=== PATIENT | male | born 1970 | race Caucasian/White ===

== ENCOUNTER → 2021-02-27 14:16 | Outpatient (REF) | payer OTHER, SELFPAY ==
--- NOTE | 2021-02-27 14:32 | ECG_ITS ---
Test Reason : cp Blood Pressure : / mmHG Vent. Rate : 085 BPM Atrial Rate : 085 BPM P-R Int : 136 ms QRS Dur : 084 ms QT Int : 368 ms P-R-T Axes : 052 -70 056 degrees QTc Int : 437 ms Normal sinus rhythm Left anterior fascicular block Abnormal ECG No previous ECGs available Referred By: Teri Alanis Electronically Signed By:ELISSA PATINO
== END ==
LOC: HO.CARD 14:16
PROVIDERS: PCP Registered Nurse Community Health; Visit Provider Registered Nurse Community Health
DX: R07.9 Chest pain, unspecified (principal)
CPT/HCPCS: 93005

== ENCOUNTER 2021-03-10 09:32 | Outpatient (REF) | payer OTHER, SELFPAY ==
--- NOTE | ~2021-03-10 | US_ITS ---
EXAMINATION: US ABDOMEN LIMITED CLINICAL INFORMATION: Right upper quadrant pain. COMPARISON: None TECHNIQUE: Real-time imaging of the right upper quadrant abdominal viscera. FINDINGS: PANCREAS: The head of the pancreas is normal-appearing. The body and tail are not well visualized due to bowel gas. LIVER: The liver is normal in size. The liver contour is normal. Liver echotexture is normal. No focal hepatic lesion. There is no intrahepatic biliary duct dilatation seen. GALLBLADDER: Normal. The gallbladder is physiologically distended without evidence of stones, sludge, polyps, wall thickening or pericholecystic fluid. COMMON BILE DUCT: Normal in caliber measuring 0.4 cm in diameter. RIGHT KIDNEY: Normal. No hydronephrosis. No renal calculi or focal parenchymal lesions. The kidney measures 10.6 cm in maximum dimension. FREE FLUID: None. US/US abdomen limited IMPRESSION: Limited visualization of the pancreas otherwise unremarkable exam.
== END 2021-03-10 09:33 | disposition home or self-care (01) ==
LOC: HO.US 09:32
PROVIDERS: Visit Provider Registered Nurse Community Health
DX: R10.11 Right upper quadrant pain (principal)
CPT/HCPCS: 76705

== ENCOUNTER 2021-04-24 11:20 | Outpatient (REF) | payer OTHER, SELFPAY | END 2021-04-24 11:21 | disposition home or self-care (01) | LOC: HO.BBR 11:20 | PROVIDERS: Visit Provider Internal Medicine Hematology & Oncology | DX: D75.1 Secondary polycythemia (principal) | CPT/HCPCS: 85014; 85018; 99195 ==

== ENCOUNTER 2021-04-27 12:32 | Outpatient (REF) | payer OTHER, SELFPAY | END 2021-04-27 12:33 | disposition home or self-care (01) | LOC: HO.BBR 12:32 | PROVIDERS: Visit Provider Internal Medicine Hematology & Oncology | DX: D75.1 Secondary polycythemia (principal) | CPT/HCPCS: 85014; 85018; 99195 ==

== ENCOUNTER 2021-04-30 10:47 | Outpatient (REF) | payer OTHER, SELFPAY | END 2021-04-30 10:48 | disposition home or self-care (01) | LOC: HO.BBR 10:47 | PROVIDERS: Visit Provider Internal Medicine Hematology & Oncology | DX: D75.1 Secondary polycythemia (principal) | CPT/HCPCS: 85018 ==

== ENCOUNTER 2021-05-05 09:01 | Outpatient (REF) | payer OTHER, SELFPAY | END 2021-05-05 09:02 | disposition home or self-care (01) | LOC: HO.BBR 09:01 | PROVIDERS: Visit Provider Internal Medicine Hematology & Oncology | DX: D75.1 Secondary polycythemia (principal) | CPT/HCPCS: 85018; 99195 ==

== ENCOUNTER 2021-05-08 09:08 | Outpatient (REF) | payer OTHER, SELFPAY | END 2021-05-08 09:09 | disposition home or self-care (01) | LOC: HO.BBR 09:08 | PROVIDERS: Visit Provider Internal Medicine Hematology & Oncology | DX: D75.1 Secondary polycythemia (principal) | CPT/HCPCS: 85018; 99195 ==

== ENCOUNTER 2021-05-12 12:22 | Outpatient (REF) | payer OTHER, SELFPAY | END 2021-05-12 12:23 | disposition home or self-care (01) | LOC: HO.BBR 12:22 | PROVIDERS: Visit Provider Internal Medicine Hematology & Oncology | DX: D75.1 Secondary polycythemia (principal) | CPT/HCPCS: 85014; 85018; 99195 ==

== ENCOUNTER 2022-12-22 15:57 | Outpatient (REF) | payer OTHER, SELFPAY ==
[2022-12-22 17:27] LABS: MANUAL DIFF FLAG NO
[2022-12-22 17:31] LABS: Basophils Absolute Auto 0.1 X10*3/uL (0.0-0.2); Basophils Percent Auto 0.4 % (0-2); Eosinophils Absolute Auto 0.3 X10*3/uL (0.0-0.4); Eosinophils Percent Auto 2.2 % (0-4); Hematocrit 40.2 % (42.0-52.0); Hemoglobin 13.2 g/dl (14.0-18.0); Imm Gran Abs Auto 0.06 X10*3/uL (0.00-0.03); Imm Gran Pct Auto 0.4 % (0.0-0.4); Lymphocytes Absolute Auto 1.8 X10*3/uL (1.2-4.9); Lymphocytes Percent Auto 12.1 % (20-40); Mean Corpuscular HGB Conc 32.8 g/dl (31.0-36.0); Mean Corpuscular Hemoglobin 26.7 pg (27.0-33.0); Mean Corpuscular Volume 81.4 fL (80.0-98.0); Mean Platelet Volume 9.6 fL (9.4-12.4); Monocytes Absolute Auto 1.3 X10*3/uL (0.1-1.2); Monocytes Percent Auto 8.7 % (2-11); Neutrophils Absolute Auto 11.3 x10*3/uL (2.0-8.3); Neutrophils Percent Auto 76.2 % (45-73); Platelet Count 315 X10*3/uL (160-400); Red Blood Count 4.94 X10*6/uL (4.60-5.80); Red Cell Distribution Width 14.6 % (11.0-16.0); White Blood Count 14.8 X10*3/uL (4.8-10.8)
[2022-12-22 17:41] LABS: Alanine Aminotransferase 20 U/L (0-40); Albumin Level 4.3 g/dL (3.5-5.0); Alkaline Phosphatase 82 U/L (39-117); Anion Gap 11 (12-20); Aspartate Amino Transferase 15 U/L (5-37); Bilirubin Total 0.7 mg/dL (0.0-1.0); Blood Urea Nitrogen 7 mg/dL (9-16); Calcium 9.8 mg/dL (8.4-10.2); Carbon Dioxide 28 mmol/L (22-29); Chloride 103 mmol/L (96-108); Estimated Glomerular Filt Rate > 60; Glucose Random 209 mg/dL (60-115); Lipase 30 U/L (8-78); Potassium 3.8 mmol/L (3.3-5.1); Sodium 138 mmol/L (135-145); Total Protein 7.7 g/dL (6.5-8.0)
== END 2022-12-22 15:58 | disposition home or self-care (01) ==
LOC: HO.HHCL 15:57
PROVIDERS: Visit Provider Registered Nurse
DX: R10.84 Generalized abdominal pain (principal)
CPT/HCPCS: 36415; 80053; 83690; 85025

== ENCOUNTER 2023-01-05 10:49 | Outpatient (REF) | payer OTHER, SELFPAY ==
[2023-01-05 13:23] LABS: Hematocrit 43.3 % (42.0-52.0); Hemoglobin 13.8 g/dl (14.0-18.0); Mean Corpuscular HGB Conc 31.9 g/dl (31.0-36.0); Mean Corpuscular Hemoglobin 25.6 pg (27.0-33.0); Mean Corpuscular Volume 80.2 fL (80.0-98.0); Mean Platelet Volume 9.3 fL (9.4-12.4); Platelet Count 656 X10*3/uL (160-400); Red Cell Distribution Width 14.7 % (11.0-16.0); White Blood Count 11.1 X10*3/uL (4.8-10.8)
[2023-01-05 13:37] LABS: Anion Gap 14 (12-20); Blood Urea Nitrogen 11 mg/dL (9-16); Calcium 10.2 mg/dL (8.4-10.2); Carbon Dioxide 30 mmol/L (22-29); Chloride 98 mmol/L (96-108); Estimated Glomerular Filt Rate > 60; Glucose Random 268 mg/dL (60-115); Potassium 4.7 mmol/L (3.3-5.1); Sodium 137 mmol/L (135-145)
== END 2023-01-05 10:50 | disposition home or self-care (01) ==
LOC: HO.HHCL 10:49
PROVIDERS: Visit Provider Internal Medicine Geriatric Medicine
DX: E11.65 Type 2 diabetes mellitus with hyperglycemia (principal); I10 Essential (primary) hypertension; D64.9 Anemia, unspecified; Z79.4 Long term (current) use of insulin
CPT/HCPCS: 36415; 80048; 85027

== ENCOUNTER 2023-05-09 10:20 | Outpatient (REF) | payer OTHER, SELFPAY ==
[2023-05-09 12:48] LABS: Cholesterol 117 mg/dL (<200); HDL Cholesterol 34 mg/dL (>40); LDL Cholesterol Calculated 59 mg/dL (<100); Triglycerides 123 mg/dL (<150)
[2023-05-09 13:28] LABS: Vitamin B12 468 pg/mL (200-900)
[2023-05-09 13:34] LABS: Creatinine Urine 110.43 mg/dL; Microalbum/Creatinine Ratio Ur 175.6 ug/mg cr (<30)
== END 2023-05-09 10:21 | disposition home or self-care (01) ==
LOC: HO.HHCL 10:20
PROVIDERS: Visit Provider Nurse Practitioner
DX: E11.65 Type 2 diabetes mellitus with hyperglycemia (principal); Z79.4 Long term (current) use of insulin
CPT/HCPCS: 36415; 80061; 82043; 82570; 82607

== ENCOUNTER 2023-05-12 08:42 | Outpatient (REF) | payer OTHER, SELFPAY ==
--- NOTE | ~2023-05-12 | US_ITS ---
EXAMINATION: US ABDOMEN LIMITED CLINICAL INFORMATION: Right upper quadrant pain and bloating. COMPARISON: 03/10/2021 TECHNIQUE: Real-time imaging of the right upper quadrant abdominal viscera. FINDINGS: PANCREAS: Normal. LIVER: Normal. Liver echogenicity is mildly heterogeneous with diffuse mild increased echogenicity. Contour appears nodular. No focal hepatic lesion. There is no intrahepatic biliary duct dilatation seen. GALLBLADDER: Normal. The gallbladder is physiologically distended without evidence of stones, sludge, polyps, wall thickening or pericholecystic fluid. Tenderness was elicited during study. COMMON BILE DUCT: Normal in caliber measuring 0.2 cm in diameter. RIGHT KIDNEY: Normal. No hydronephrosis. No renal calculi or focal parenchymal lesions. The kidney measures 10.2 cm in maximum dimension. FREE FLUID: None. US/US abdomen limited IMPRESSION: Mildly heterogeneous and echogenic liver. Unremarkable gallbladder. Of note, technologist reports right upper quadrant tenderness during scanning.
[2023-05-12 10:12] LABS: MANUAL DIFF FLAG NO
[2023-05-12 10:30] LABS: Basophils Percent Auto 0.2 % (0-2); Eosinophils Absolute Auto 0.4 X10*3/uL (0.0-0.4); Eosinophils Percent Auto 5.2 % (0-4); Hemoglobin 13.7 g/dl (14.0-18.0); Imm Gran Abs Auto 0.02 X10*3/uL (0.00-0.03); Imm Gran Pct Auto 0.2 % (0.0-0.4); Lymphocytes Absolute Auto 2.5 X10*3/uL (1.2-4.9); Lymphocytes Percent Auto 29.8 % (20-40); Mean Corpuscular HGB Conc 32.6 g/dl (31.0-36.0); Mean Corpuscular Hemoglobin 25.9 pg (27.0-33.0); Mean Corpuscular Volume 79.4 fL (80.0-98.0); Monocytes Absolute Auto 0.6 X10*3/uL (0.1-1.2); Monocytes Percent Auto 6.7 % (2-11); Neutrophils Absolute Auto 4.9 x10*3/uL (2.0-8.3); Neutrophils Percent Auto 57.9 % (45-73); Platelet Count 295 X10*3/uL (160-400); Red Blood Count 5.29 X10*6/uL (4.60-5.80); Red Cell Distribution Width 13.8 % (11.0-16.0); White Blood Count 8.5 X10*3/uL (4.8-10.8)
[2023-05-12 11:44] LABS: Alanine Aminotransferase 16 U/L (0-40); Albumin Level 4.2 g/dL (3.5-5.0); Alkaline Phosphatase 78 U/L (39-117); Anion Gap 10 (12-20); Aspartate Amino Transferase 14 U/L (5-37); Bilirubin Total 0.4 mg/dL (0.0-1.0); Blood Urea Nitrogen 12 mg/dL (9-16); Calcium 9.8 mg/dL (8.4-10.2); Carbon Dioxide 32 mmol/L (22-29); Chloride 103 mmol/L (96-108); Estimated Glomerular Filt Rate > 60; Glucose Random 119 mg/dL (60-115); Lipase 28 U/L (8-78); Potassium 3.7 mmol/L (3.3-5.1); Sodium 141 mmol/L (135-145); Total Protein 7.5 g/dL (6.5-8.0)
[2023-05-12 12:13] LABS: Thyroid Stimulating Hormone 0.36 uIU/mL (0.32-4.0)
[2023-05-12 12:14] LABS: Prostate Specific Antigen Scr 0.22 ng/mL (<0.05-4.0)
== END 2023-05-12 08:43 | disposition home or self-care (01) ==
LOC: HO.HMGCX 08:42
PROVIDERS: PCP Registered Nurse Community Health; Visit Provider Registered Nurse
DX: Z00.00 Encounter for general adult medical examination without abnormal findings (principal); E03.9 Hypothyroidism, unspecified; R10.11 Right upper quadrant pain; Z12.5 Encounter for screening for malignant neoplasm of prostate
CPT/HCPCS: 36415; 76705; 80053; 83690; 84153; 84443; 85025

== ENCOUNTER 2023-07-12 11:13 | Emergency (ER) | payer OTHER, SELFPAY ==
--- NOTE | ~2023-07-12 | CT_ITS ---
EXAMINATION: CT ABDOMEN AND PELVIS WITH CONTRAST CLINICAL INFORMATION: Right-sided flank pain. Right lower quadrant pain. COMPARISON: Ultrasound of the abdomen May 12, 2023 TECHNIQUE: Multidetector volumetric images were obtained from the superior aspect of the liver through the pubic symphysis following administration 85 mL of Omnipaque 350 intravenous contrast. Sagittal and coronal reformatted images were obtained on the technologist's workstation. Oral contrast: No This CT examination was performed using dose optimization techniques as appropriate, variously including the following: *Automated exposure control *Adjustment of mA and/or kV according to patient size (this includes techniques or standardized protocols for targeted exams where dose is matched to indication/reason for exam; i.e. extremities or head) *Use of iterative reconstruction technique DLP: 1000 mGy-cm FINDINGS: LUNG BASES: Asymmetric elevation left diaphragm above the right. LIVER, GALLBLADDER, AND BILIARY TREE: The liver is normal in size, shape, and attenuation. No focal hepatic lesion or biliary ductal dilatation is present. The gallbladder is unremarkable with no evidence of radiopaque gallstones, gallbladder wall thickening, or obvious pericholecystic inflammatory changes. PANCREAS: Unremarkable. SPLEEN: Unremarkable. ADRENAL GLANDS: Unremarkable. KIDNEYS AND URETERS: The kidneys are normal in size, shape, and attenuation. No hydronephrosis, hydroureter, or calculi seen. No perinephric stranding. BLADDER: Unremarkable. GASTROINTESTINAL TRACT: No acute abnormality. There is no bowel wall thickening /edema. There is no bowel obstruction. There is a moderate to large volume of stool in the colon. The appendix is normal . The small bowel loops are unremarkable. The stomach is normal. There is no hiatal hernia. ABDOMINAL WALL: No significant hernia is appreciated. LYMPH NODES: Normal. VASCULAR: Unremarkable. PELVIC VISCERA: Unremarkable. OSSEOUS STRUCTURES: Multilevel degenerative spondylosis spine. CT/CT abdomen pelvis w IV con IMPRESSION: No acute abnormality CT scan abdomen pelvis. Fleischner guidelines were followed.
[2023-07-12 11:53] VITALS: BP 119/64; PULSE 63; RESP 18; TEMP 36.4; O2SAT 95; BMI 42.6
--- NOTE | 2023-07-12 11:53 | ED_ITS ---
HPI - General Adult General Chief complaint: Abdominal Pain Stated complaint: rib pain Time Seen by Provider: 07/12/23 14:21 Source: patient, RN notes reviewed and old records reviewed Mode of arrival: ambulatory History of Present Illness ED Provider: nAne Kamara PA-C [facility] narrative: 52-year-old male with no significant past medical history presenting to the ED from [facility] complaining of acute on chronic RUQ abdominal pain radiating to right flank times months worsening over the past 3 days. States pain has been intermittent however today is constant. Admits pain is worse with eating. Denies fever, chills, nausea/vomiting, dysuria/hematuria, diarrhea/constipation Related Data Previous Rx's ?Medication ?Instructions ?Recorded polyethylene glycol 3350 17 17 g PO DAILY PRN constipation 07/12/23 gram/dose oral powder (Miralax) #119 grams Allergies Allergy/AdvReac Type Severity Reaction Status Date / Time No Known Allergies Allergy Verified 07/12/23 11:53 Review of Systems 2 Review of Systems: Constitutional: No Fever, No Chills ENT/Mouth: No Ear Pain, No Nasal Congestion, No sore throat, No Rhinorrhea, No Swallowing Difficulty Cardiovascular: No Chest Pain, No SOB Respiratory: No Cough, No Sputum, No Wheezing Gastrointestinal: No Nausea, No Vomiting, No Diarrhea, No Constipation, + Abdominal pain Genitourinary: No Dysuria, No Urinary Frequency, No Hematuria, No Urinary Incontinence/retention, + Flank Pain Musculoskeletal: No joint pain, No Myalgias, No Joint Swelling Skin: No Skin Lesions, No rash Neuro: No Weakness Yes all other systems are reviewed and are negative Constitutional: Constitutional: Reports as per [facility] Past Medical History Attestation statement: The following information was validated with the patient. Source: old records reviewed Social History Social History Advance Directives: No Advance Directives Information Provided: Yes Do you have a plan to hurt others: No Plan Physical Exam ED Vital Signs: Vital Signs - 24 hr 07/12/23 11:53 07/12/23 14:34 Temperature 97.5 F 97.7 F Pulse Rate 63 63 Respiratory Rate 18 16 Blood Pressure 119/64 143/76 H Pulse Oximetry 95 97 Oxygen Delivery Method Room Air Room Air BMI result Body Mass Index 42.6 Const General: cooperative, healthy appearing and no acute distress Orientation/consciousness: patient oriented x3 Limitations: no limitations HENMT Head: Yes normal to inspection and Yes atraumatic Ears: hearing grossly normal bilaterally General nose exam: Normal external nose present Face and sinus: Yes normal facial exam Eyes General: appearance normal, both eyes and all related structures EOM: EOMs intact bilaterally Neck Neck: Yes normal visual inspection and Yes no meningeal signs Resp Effort & Inspection: normal respiratory effort and no respiratory distress Auscultation: clear to auscultation bilaterally Cardio Rate: regular rate Heart sounds: S1 normal heart sound present and S2 normal heart sound present GI Inspection: Yes normal to inspection Palpation (GI): Soft to palpation, Tenderness to palpation present (GI) in the epigastrum, in the RLQ and in the RUQ, no guarding and not rigid General: Yes no CVA tenderness Back/Spine/Pelvis Back: no CVA tenderness Skin Rashes: no rashes Wounds: no wounds Neuro General: patient oriented x3, tone normal and no meningeal signs Cranial nerves: Yes CN's II-XII intact bilaterally Gait exam (Neuro): Normal gait present Extrem General: Yes normal to inspection Course Course Course Narrative: RME performed by Suha Bunn PA-C. Patient is a 52 year old assigned male at presenting to the emergency department with right sided flank and abdominal pain. Detailed physical exam and review of systems are deferred to the experimental mechanic. Labs and swabs ordered. Patient placed back in the waiting room pending room availability and results. -no leukocytosis. Labs otherwise reassuring. UA negative -1630-- ED care transferred to [facility] pending CTAP and dispo per results Reevaluation(s) Reevaluation #1: Patient received in sign-out at change of shift pending CT scan of the abdomen pelvis. Per Radiology this shows no acute pathology. I reviewed the CT scan shows mild constipation which may be contributing to his abdominal pain. I discussed this with the patient using a pony trimmer. He is stable for discharge at this time. Time: 16:49 Medications Administered Discontinued Medications Generic Name Dose Route Start Last Admin Trade Name Freq PRN Reason Stop Dose Admin Iohexol 100 ml 07/12/23 15:19 07/12/23 15:19 Iohexol 350 Mg/Ml 100 Ml Infus..Btl IV 07/12/23 15:20 85 ml ONCE ONE Administration Medical Decision Making Medical Decision Making [facility] Narrative: 52-year-old male with no significant past medical history presenting to the ED from [facility] complaining of acute on chronic RUQ abdominal pain radiating to right flank times months worsening over the past 3 days. On exam vital signs stable, NAD, nontoxic appearing, abdomen soft with RUQ/epigastric and RLQ tenderness, no rebound or guarding, no CVAT. Concern for pancreatitis vs cholecystitis/lithiasis vs CBD obstruction vs appendicitis vs renal stone. Lower suspicion for pyelo/UTI, diverticulitis or ACS/dissection Plan: EKG, labs, UA, CT AP, pain control, re-evaluate Please refer to course for remaining clinical decision making, interpretation of labs/imaging results, and discussions with consultants and/or family members. Differential Diagnosis Differential Diagnoses: The differential diagnosis associated with the presentation includes As above Admission/Observation Consideration of admission/observation: Escalation of care including admission/observation considered Lab Data [facility] Lab Attestation statement: I reviewed the patient's lab results. 07/12/23 12:58 07/12/23 12:58 Labs: Lab Results 07/12/23 07/12/23 Range/Units 12:58 15:21 WBC 8.2 (4.8-10.8) X10*3/uL RBC 5.41 (4.60-5.80) X10*6/uL Hgb 14.3 (14.0-18.0) g/dl Hct 45.2 (42.0-52.0) % MCV 83.5 (80.0-98.0) fL MCH 26.4 L (27.0-33.0) pg MCHC 31.6 (31.0-36.0) g/dl RDW 15.2 (11.0-16.0) % Plt Count 265 (160-400) X10*3/uL MPV 8.6 L (9.4-12.4) fL Immature Gran % (Auto) 0.1 (0.0-0.4) % Neut % (Auto) 45.5 (45-73) % Lymph % (Auto) 40.6 H (20-40) % [place] % (Auto) 7.9 (2-11) % Eos % (Auto) 5.5 H (0-4) % Baso % (Auto) 0.4 (0-2) % Lymph # (Auto) 3.3 (1.2-4.9) X10*3/uL [place] # (Auto) 0.7 (0.1-1.2) X10*3/uL Eos # (Auto) 0.5 H (0.0-0.4) X10*3/uL Baso # (Auto) 0.0 (0.0-0.2) X10*3/uL Abs Immat Gran (auto) 0.01 (0.00-0.03) X10*3/uL Absolute Neuts (auto) 3.7 (2.0-8.3) x10*3/uL Absolute Nucleated RBC 0.000 (0.0-0.012) X10*3/uL Nucleated RBC % (auto) 0.0 (0.0-0.2) /100WBC Sodium 143 (135-145) mmol/L Potassium 4.8 D (3.3-5.1) mmol/L Chloride 102 (96-108) mmol/L Carbon Dioxide 33 H (22-29) mmol/L Anion Gap 13 (12-20) BUN 10 (9-16) mg/dL Creatinine 0.88 (0.5-1.4) mg/dL Estim Creat Clear Calc 109.2 Estimated GFR > 60 Random Glucose 191 H (60-115) mg/dL Calcium 9.6 (8.4-10.2) mg/dL Magnesium 2.0 (1.6-2.6) mg/dL Total Bilirubin 0.4 (0.0-1.0) mg/dL AST 14 (5-37) U/L ALT 17 (0-40) U/L Alkaline Phosphatase 80 (39-117) U/L Troponin I High Sens 2.8 (<3.5-35.0) ng/L Total Protein 7.5 (6.5-8.0) g/dL Albumin 4.1 (3.5-5.0) g/dL Lipase 41 (8-78) U/L Urine Color Yellow Urine Appearance Clear Urine pH 7.5 (5.0-9.0) Ur Specific Central 1.020 (1.005-1.025) Urine Protein 30 (1+) H (Neg-Trace) mg/dL Urine Glucose (UA) Negative (Negative) mg/dL Urine Ketones Negative (Negative) mg/dL Urine Blood Negative (Negative) Urine Nitrite Negative (Negative) Ur Leukocyte Esterase Negative (Negative) Urine RBC 0-2 (0-2) /HPF Urine WBC 0-5 (0-5) /HPF Ur Squamous Epith Cells 0-2 (0-2) /HPF Urine Bacteria None Seen (None Seen) Hyaline Casts 0-2 (0-2) /LPF Influenza Type A (PCR) NEGATIVE (Negative) Influenza Type B (PCR) NEGATIVE (Negative) RSV RNA Qual (PCR) NEGATIVE (Negative) SARS-CoV-2 RNA (RT-PCR) NEGATIVE (Negative) Independent Interpretation I performed an independent interpretation of an: EKG Radiology Impression Discussion of test interpretation with radiology: I have reviewed the radiologist's reading. Independent Historian Clinical information obtained from an independent historian. History obtained from or confirmed by: Spouse and Other ([facility] External Record Review External record reviewed: Inpatient record, Office record, Outpatient record, Prior outpatient labs, Prior outpatient radiology, Primary care record and Outside ED record Tests considered The following testing was considered but not selected: As above Prescription Management I considered prescription management with: Pain Medication Discharge Plan Discharge Clinical Impression: Right sided abdominal pain, Constipation Patient Disposition: Home, Self-Care Instructions: Constipation (ED) Additional Instructions: Your workup in the ER today did not show anything concerning It did show some mild constipation Take MiraLax every night for the next 2 weeks as needed for constipation Increase fluid and fiber intake in your diet Follow-up your primary doctor Return for new or worsening symptoms Prescriptions: New polyethylene glycol 3350 [Miralax] 17 gram/dose powder 17 g PO DAILY PRN (Reason: constipation) Qty: 119 0RF Print Language: Maori
[2023-07-12 13:02] LABS: MANUAL DIFF FLAG NO
[2023-07-12 13:04] LABS: Basophils Percent Auto 0.4 % (0-2); Eosinophils Absolute Auto 0.5 X10*3/uL (0.0-0.4); Eosinophils Percent Auto 5.5 % (0-4); Hematocrit 45.2 % (42.0-52.0); Hemoglobin 14.3 g/dl (14.0-18.0); Imm Gran Abs Auto 0.01 X10*3/uL (0.00-0.03); Imm Gran Pct Auto 0.1 % (0.0-0.4); Lymphocytes Absolute Auto 3.3 X10*3/uL (1.2-4.9); Lymphocytes Percent Auto 40.6 % (20-40); Mean Corpuscular HGB Conc 31.6 g/dl (31.0-36.0); Mean Corpuscular Hemoglobin 26.4 pg (27.0-33.0); Mean Corpuscular Volume 83.5 fL (80.0-98.0); Mean Platelet Volume 8.6 fL (9.4-12.4); Monocytes Absolute Auto 0.7 X10*3/uL (0.1-1.2); Monocytes Percent Auto 7.9 % (2-11); Neutrophils Absolute Auto 3.7 x10*3/uL (2.0-8.3); Neutrophils Percent Auto 45.5 % (45-73); Platelet Count 265 X10*3/uL (160-400); Red Blood Count 5.41 X10*6/uL (4.60-5.80); Red Cell Distribution Width 15.2 % (11.0-16.0); White Blood Count 8.2 X10*3/uL (4.8-10.8)
[2023-07-12 13:18] LABS: Alanine Aminotransferase 17 U/L (0-40); Albumin Level 4.1 g/dL (3.5-5.0); Alkaline Phosphatase 80 U/L (39-117); Anion Gap 13 (12-20); Aspartate Amino Transferase 14 U/L (5-37); Bilirubin Total 0.4 mg/dL (0.0-1.0); Blood Urea Nitrogen 10 mg/dL (9-16); Calcium 9.6 mg/dL (8.4-10.2); Carbon Dioxide 33 mmol/L (22-29); Chloride 102 mmol/L (96-108); Creatinine Clr Calc Pharmacy 109.2; Estimated Glomerular Filt Rate > 60; Glucose Random 191 mg/dL (60-115); Potassium 4.8 mmol/L (3.3-5.1); Sodium 143 mmol/L (135-145); Total Protein 7.5 g/dL (6.5-8.0)
[2023-07-12 13:43] LABS: Influenza A PCR NEGATIVE (Negative); Influenza B PCR NEGATIVE (Negative); Resp Syncy Virus RNA Qual PCR NEGATIVE (Negative); SARS COV2 PCR INHOUSE NEGATIVE (Negative)
[2023-07-12 14:34] VITALS: BP 143/76; PULSE 63; RESP 16; TEMP 36.5; O2SAT 97
[2023-07-12 14:58] LABS: Lipase 41 U/L (8-78)
--- NOTE | 2023-07-12 15:09 | ECG_ITS ---
Test Reason : UPPER ABDOMINAL PAIN Blood Pressure : / mmHG Vent. Rate : 061 BPM Atrial Rate : 061 BPM P-R Int : 138 ms QRS Dur : 086 ms QT Int : 428 ms P-R-T Axes : 013 -21 062 degrees QTc Int : 430 ms Normal sinus rhythm Nonspecific T wave abnormality Borderline ECG When compared with ECG of 27-FEB-2021 14:37, No significant change was found Referred By: Anne Kamara Electronically Signed By:ELISSA PATINO
[2023-07-12] MEDS: iohexoL 350 MG/ML 100 ML INFUS..BTL IV (15:19)
[2023-07-12 15:31] LABS: Appearance Urine Clear; Color Urine Yellow; Glucose Urine UA Negative (Negative); Leukocyte Esterase Urine Negative (Negative); Nitrite Urine Negative (Negative); PH 7.5 (5.0-9.0); UMIC TRIGGER UACC YES; Urine Blood Negative (Negative); Urine Ketones Negative (Negative); Urine Protein 30 (1+) mg/dL (Neg-Trace)
[2023-07-12 15:35] LABS: Troponin-I High Sensitivity 2.8 ng/L (<3.5-35.0)
[2023-07-12 16:01] LABS: RBC Urine 0-2 /HPF (0-2); Squamous Epithelial Cell Urine 0-2 /HPF (0-2); WBC Urine 0-5 /HPF (0-5)
[2023-07-12 16:02] LABS: Bacteria Urine None Seen (None Seen); Hyaline Casts Urine 0-2 /LPF (0-2)
[2023-07-12 16:53] VITALS: BP 154/77; PULSE 55; RESP 16; TEMP 36.7; O2SAT 94
[2023-07-12 17:07] VITALS: BP 154/77; PULSE 55; RESP 16; TEMP 36.7; O2SAT 94
== END 2023-07-12 17:07 | disposition home or self-care (01) ==
PROVIDERS: Physician Assistant; Physician Assistant Medical; Emergency Provider Emergency Medicine; PCP Registered Nurse
DX: R10.11 Right upper quadrant pain (principal); K59.00 Constipation, unspecified; Z03.818 Encounter for observation for suspected exposure to other biological agents ruled out
CPT/HCPCS: 0241U; 74177; 80053; 81001; 83690; 83735; 84484; 85025; 93005; 99284; Q9967

== ENCOUNTER → 2023-07-12 15:09 | Outpatient (BNV) | payer OTHER, SELFPAY | PROVIDERS: Emergency Provider Emergency Medicine; PCP Registered Nurse; Visit Provider Internal Medicine | DX: R94.31 Abnormal electrocardiogram [ECG] [EKG] (principal) | CPT/HCPCS: 93010 ==

== ENCOUNTER 2023-10-20 14:37 | Outpatient (REF) | payer OTHER, SELFPAY ==
[2023-10-23 07:23] LABS: TS Negative Control Passed; TS Panel A 0; TS Panel B 0; TS Positive Control Passed; TSpotTB Negative (Negative)
== END 2023-10-20 14:38 | disposition home or self-care (01) ==
LOC: HO.HHCL 14:37
PROVIDERS: Visit Provider Registered Nurse
DX: Z11.1 Encounter for screening for respiratory tuberculosis (principal)
CPT/HCPCS: 36415; 86481

== ENCOUNTER 2024-03-09 10:11 | Outpatient (REF) | payer OTHER, SELFPAY ==
[2024-03-09 12:39] LABS: Microalbum/Creatinine Ratio Ur 296.8 ug/mg cr (<30)
[2024-03-09 15:00] LABS: Albumin Level 4.3 g/dL (3.5-5.0); Alkaline Phosphatase 83 U/L (39-117); Anion Gap 15 (12-20); Aspartate Amino Transferase 20 U/L (5-37); Bilirubin Total 0.4 mg/dL (0.0-1.0); Blood Urea Nitrogen 12 mg/dL (9-16); Calcium 9.6 mg/dL (8.4-10.2); Carbon Dioxide 32 mmol/L (22-29); Chloride 100 mmol/L (96-108); Cholesterol 195 mg/dL (<200); Estimated Glomerular Filt Rate > 60; Glucose Random 268 mg/dL (60-115); HDL Cholesterol 37 mg/dL (>40); LDL Cholesterol Calculated 129 mg/dL (<100); Potassium 4.5 mmol/L (3.3-5.1); Sodium 142 mmol/L (135-145); Thyroid Stimulating Hormone 4.72 uIU/mL (0.32-4.0); Total Protein 7.9 g/dL (6.5-8.0); Triglycerides 147 mg/dL (<150)
[2024-03-09 15:14] LABS: Alanine Aminotransferase 29 U/L (0-40)
== END 2024-03-09 10:12 | disposition home or self-care (01) ==
LOC: HO.HHCL 10:11
PROVIDERS: Visit Provider Registered Nurse
DX: E03.9 Hypothyroidism, unspecified (principal); E11.65 Type 2 diabetes mellitus with hyperglycemia; Z79.4 Long term (current) use of insulin
CPT/HCPCS: 36415; 80053; 80061; 82043; 82570; 84443

== ENCOUNTER → 2024-03-15 10:32 | Outpatient (BNVA) | payer OTHER, SELFPAY | PROVIDERS: PCP Registered Nurse; Visit Provider Physician Assistant Surgical ==

== ENCOUNTER 2024-03-20 06:20 | Outpatient (REF) | payer OTHER, SELFPAY ==
--- NOTE | ~2024-03-20 | XR_ITS ---
CLINICAL HISTORY: acute on chronic right knee pain-lateral and posterior aspects 3 view right knee Comparison: None Findings: Bones intact. No dislocations. Mild to moderate degenerative narrowing of the medial tibiofemoral and lateral patellar trochlear compartments, as well as small knee osteophytes. Small mineralized focus projecting superior to the fibula may be due to dystrophic calcification or calcium deposition disease. No joint effusion. No radiopaque foreign body. IMPRESSION: Mild to moderate degenerative narrowing of the medial tibiofemoral and lateral patellar trochlear compartments. Small mineralized focus projecting superior to the fibula may be due to dystrophic calcification or calcium deposition disease. This document has been electronically signed by: Arabella Burton MD on 03/21/2024 13:32:17
--- OUTSIDE RECORDS SUMMARY | 2024-03-20 06:25 | XMS_ITS | Clinical Summary ---
Author Organization [employer] Address [address] [facility] [address] [place] [address] Care Team Providers Care Clinical Allergist Name Role Phone Adrienne Sheehan TERRITORY SUPERVISOR Primary Care Provider [phone] Allergies No known active allergies Medications FREESTYLE LITE test strip USE SEG N LO INDICADO 2 TO 3 TIMES PER DAY 02/19/19 23 Active FreeStyle lancets USE TO CHECK BLOOD SUGARS 2-3 TIMES DAILY. 02/20/19 23 Active UltiCare Alcohol Swabs 70 % pads USE DIRECTED TO CLEAN SKIN SAMI VECES AL D A 10/06/19 22 Active betamethasone, augmented, (Diprolene) 0.05 % ointmentIndicatio ns:Lichen simplex chronicus APLIQUE AL AREA AFECTADA DOS VECES AL CINDY 50 g 11/20/19 23 Active traZODone (Desyrel) 50 MG tablet Take 1 tablet by mouth if needed at bedtime. 12/03/19 23 Active Continuous Blood Gluc Athletic Coach (FreeStyle Dayana 2 Hibernia) deviceIndications :Type 2 diabetes mellitus with hyperglycemia, with long-term current use of insulin (CMS/HCC) Scan sensor every 8 hours 1 each 01/06/20 23 Active metFORMIN, OSM, (Fortamet) 1000 MG 24 hr tabletIndications :Diabetes mellitus of other type without complication, unspecified whether local intermodal truck driver insulin use (CMS/HCC) Take 1 tablet by mouth twice daily. Do not crush, chew, or split. 60 tablet 3 04/27/19 24 Active Blood Pressure Monitor kitIndications:Es sential hypertension Use as directed 1 kit 05/09/19 24 Active albuterol 108 (90 Base) MCG/ACT inhalerIndication s:Mild intermittent asthma without complication Inhale 2 puffs every 4 (four) hours. 18 g 3 05/09/19 24 Active timolol (Timoptic) 0.25 % ophthalmic solutionIndicatio ns:Low tension glaucoma of left eye, moderate stage Administer 1 drop into the left eye in the morning. 5 mL 06/27/19 24 2024 Active atorvastatin (Lipitor) 20 MG tabletIndications :Type 2 diabetes mellitus with hyperglycemia, with long-term current use of insulin (CMS/[facility]) Take 1 tablet (20 mg) by mouth Once per day. 30 tablet 08/26/19 24 2024 Active dulaglutide (Trulicity) 4.5 MG/0.5ML solution pen-injectorIndic ations:Type 2 diabetes mellitus with hyperglycemia, with long-term current use of insulin ([facility]) Inject 4.5 mg under the skin 1 (one) time per week. 4 each 08/26/19 24 Active FLUoxetine (PROzac) 20 MG tabletIndications :Depression, unspecified depression type Take 1 tablet (20 mg) by mouth Once per day. 30 tablet 08/26/19 24 Active busPIRone (Buspar) 10 MG tablet 09/05/19 24 Active Easy Touch Pen Chandler 31G X 8 MM misc USE DIRECTED 08/16/19 24 Active glucose 4 g chewable tabletIndications :Type 2 diabetes mellitus with hypoglycemia without coma, with long-term current use of insulin ([facility]) Chew 4 tablets (16 g) if needed for low blood sugar. 50 tablet 09/26/19 24 2024 Active metFORMIN XR (Glucophage-XR) 500 MG 24 hr tablet TAKE 2 TABLETS BY MOUTH TWICE DAILY AT NOON AND IN THE EVENING DO NOT BREAK, CRUSH, DISSOLVE OR CHEW 120 tablet 5 01/06/20 24 Active cholecalciferol (D3-1000) 25 MCG (1000 UT) capsuleIndication s:Vitamin D deficiency TAKE 1 CAPSULE BY MOUTH EVERYDAY AT NOON 90 capsule 1 01/25/20 24 Active levothyroxine (Synthroid, Levoxyl) 137 MCG tabletIndications :Acquired hypothyroidism TAKE 1 TABLET BY MOUTH EVERY MORNING ON AN EMPTY STOMACH 30 MINUTES BEFORE BREAKFAST 90 tablet 1 01/25/20 Active lisinopril 20 MG tabletIndications :Essential hypertension TAKE 1 TABLET BY MOUTH EVERYDAY AT NOON 90 tablet 1 01/25/20 Active insulin glargine (Lantus SoloStar) 100 UNIT/ML penIndications:Ty pe 2 diabetes mellitus with hyperglycemia, with long-term current use of insulin (CMS/HCC) Inject 14 Units under the skin at bedtime. 15 mL 2 03/09/19 25 2025 Active Alcohol Swabs (Alcohol Prep) padsIndications:T ype 2 diabetes mellitus with hyperglycemia, with long-term current use of insulin (CMS/HCC) Use one pad each to prep skin prior to injection as directed 100 each 03/09/19 Active insulin pen needle 30G x 5 mm miscIndications:T ype 2 diabetes mellitus with hyperglycemia, with long-term current use of insulin (CMS/HCC) Use as instructed 100 each 03/09/19 Active Tirzepatide (Mounjaro) 2.5 MG/0.5ML solution auto-injectorIndi cations:Type 2 diabetes mellitus with hyperglycemia, with long-term current use of insulin (CMS/HCC) Inject 2.5 mg under the skin 1 (one) time per week. 2 mL 3 03/09/19 25 2025 Active Continuous Glucose Sensor (FreeStyle Dayana 3 Plus Sensor) miscIndications:T ype 2 diabetes mellitus with hyperglycemia, with long-term current use of insulin (CMS/HCC) USE DIRECTED. CHANGE EVERY 15 DAYS 2 each 03/09/19 25 Active Continuous Glucose Sensor (FreeStyle Dayana 2 Sensor) miscIndications:T ype 2 diabetes mellitus with hyperglycemia, with long-term current use of insulin (CMS/HCC) APPLY AND CHANGE EVERY 14 DAYS DIRECTED 2 each 3 12/02/19 24 2024 Discontinued Blood Glucose Monitoring Suppl (GNP Easy Touch Glucose Meter) deviceIndications :Type 2 diabetes mellitus with hyperglycemia, with long-term current use of insulin (CMS/HCC) Use as directed to check blood sugar four times daily 1 each 03/09/19 25 2024 Discontinued Continuous Glucose Sensor (FreeStyle Dayana 3 Plus Sensor) miscIndications:T ype 2 diabetes mellitus with hyperglycemia, with long-term current use of insulin ([facility]) 1 each 1 (one) time for 1 dose. 1 each 03/09/19 25 2024 Active Problems Problem Noted Date Diagnosed Date Low-tension glaucoma of left eye 08/25/2023 Healthcare maintenance 08/25/2023 Overview (08/25/2023): C-scope: 2021-->[facility] repeat 10 years PSA: 0.22 04/2023 Immunizations: Screening Labs: Hyperlipidemia 08/03/2022 Overview (01/25/2023): Cardiology 08/25/22 Restarted atorvastatin 80 mg, unknown why stopped F/u PRN Angina pectoris 08/03/2022 Overview (08/29/2022): Cardiology appt 08/25/22 Non cardiac chest pain F/u PRN Secondary erythrocytosis 08/03/2022 Overview (08/03/2022): Appt 05/04/21 [facility] Severe hematocrit > 60; increased risk of thrombotic events. Elevated erythropoietin level and negative KLAUDIA 2 mutations excludes polycythemia vera. Dx r/t hypoxia. Treatment is to correct hypoxia. Plan: monthly hematocrit monitoring and phlebotomy to remove blood if hematocrit > 60 F/u 1 year Acquired hypothyroidism 03/09/2022 Arthritis 03/09/2022 Essential hypertension 03/09/2022 Overview (08/29/2022): Treating with lisinopril 30 mg daily Cardiology 08/25/22 F/u PRN Assessment & Plan (01/05/2023 12:31 PM EST): -stable on current regimen -refill lisinopril -MJ in hospital which resolved after 2L IVF -recheck BMP Iron deficiency anemia 03/09/2022 Mild intermittent asthma 03/09/2022 Obstructive sleep apnea syndrome 03/09/2022 Overview (08/29/2022): Sleep medicine appt 08/26/22 Referred to [facility] for mask fitting Using iVAPS Call if problems F/U 1 year Severe obesity 03/09/2022 Diabetes mellitus 03/09/2022 Overview (09/02/2023): - Trulicity 4.5mg - Metformin 1000mg b.I.d Foot Exam: 08/2023 neg Eye Exam: UTD, glaucoma Statin: Yes ASA: Yes MAHI/ARB: Yes Encouraged regular aerobic exercise for improved glycemic control Encouraged daily foot checks Encouraged lean protein snacks and to avoid foods high in sugar and simple carbohydrates Treatment Goals: A1c goal: <7% FBG goal: <130 2 hour post prandial goal: <180 Assessment & Plan (07/26/2023 10:37 PM EDT): -A1c nearing goal of <7%. POCT A1c 7.5% today -advised to discontinue 12U lantus given asymptomatic low readings -metformin dose increased to 1000 mg two times daily starting today -follow-up in 2 weeks with nurses for CGM management -daily foot exams encouraged. -low carb, low sugar diet and 30 minutes minimum daily physical activity advised -will schedule pt for next available provider for PE Assessment & Plan (01/05/2023 12:40 PM EST): -currently taking trulicity and metformin -was told to stop lantus after starting trulicity -hgb A1c trending up Lab Results Component Value Date/Time HGBA1C 9.9 (A) 01/05/2023 1032 HGBA1C 9.1 (A) 03/09/2022 1640 - restart lantus at 12U nightly -has apt with endo 02/04/23 -CGM ordered Vitamin D deficiency 03/09/2022 Assessment & Plan (01/05/2023 12:21 PM EST): -refill request. Will eval levels Resolved Problems Problem Noted Date Diagnosed Date Resolved Date Cough in adult 07/26/2023 08/25/2023 Assessment & Plan (07/26/2023 10:33 PM EDT): -patient treated for pneumonia in 12/2022. Repeat x-ray recommended in 6 weeks from that time to assess for full resolution -chest x-ray ordered today Open angle with borderline f indings and low glaucoma risk in left eye 05/26/2023 08/25/2023 Routine adult health maintenance 01/05/2023 08/25/2023 Assessment & Plan (01/05/2023 12:32 PM EST): -flu vax received today -f/u 1 month Anemia 01/05/2023 08/25/2023 Assessment & Plan (01/05/2023 12:21 PM EST): -hgb 12.2 on 12/28 @ [facility] ED -recheck levels Depression, recurrent 03/09/20222023 Encounters Date Type Department Care Team Description 03/19/2024 Telephone [facility] [address] [place] [address] Marsha Wilson, RN Results 03/19/2024 Orders Only [facility] [address] [place] [address] [facility] Acquired hypothyroidism (Primary Dx) 03/13/2024 Telephone [facility] OPTOMETRY [address], [place] [phone] Lou Santos, OD 03/09/2024 9:00 AM EST Office Visit [facility] [address] [place] [address] [facility] Type 2 diabetes mellitus with hyperglycemia, with long-term current use of insulin ([facility]) (Primary Dx); Chronic pain of right knee; Acquired hypothyroidism; Dietary counseling; Exercise counseling; Class 3 severe obesity due to excess calories with serious comorbidity and body mass index (BMI) of 40.0 to 44.9 in adult ([facility]) 03/09/2024 Refill [facility] [address] [place] [address] [facility] Type 2 diabetes mellitus with hyperglycemia, with long-term current use of insulin ([facility]) 03/09/2024 Travel 01/24/2024 Refill [facility] [address] [place], [place] [phone] [facility] Vitamin D deficiency; Acquired hypothyroidism; Essential hypertension 01/05/2024 Refill [facility] [address] [place] [address] [facility] 12/23/2023 Telephone [facility] [address] [facility] [place] [address] [facility] No Show from Last 3 Months Immunizations Name Administration Dates Next Due HepB-CpG 02/24/2023,01/25/2023 Influenza injectable quadrivalent preservative f ree 01/05/2023,02/18/2021 Pneumococcal Conjugate PCV 13 02/18/2021 Pneumococcal Conjugate PCV 20 02/24/2023 Tdap 02/18/2021 Zoster, Recombinant 01/25/2023 Family History Medical History Relation Name Comments Alzheimer's disease Mother Hypertension Mother Relation Name Status Comments Mother Social History Tobacco Use Types Packs/Day Years Used Date Smoking Tobacco: Never Smokeless Tobacco: Never Tobacco Cessation:Counseling Given: Not Answered Alcohol Use Standard Drinks/Week Comments Never 0 (1 standard drink = 0.6 oz pur e alcohol) Depression Answer Date Recorded Patient Health Questionnaire-9 Score 8 03/09/2024 Patient Health Questionnaire-9 Score 8 03/09/2024 Last PHQ-9: Questionnaire Data Not on file 0 03/09/2024 Housing Stability Answer Date Recorded What is your housing situation today? I have jaylen muhammad 04/29/[address] you li ve. Do you have problems with any of the following? None of the above 04/29/2023 Food Insecurity Answer Date Recorded Within the past 12 months, y ou worried that your food would run out before you got money to buy more: Never True 12/28/2022 Within the past 12 months,th e food you bought just didn't last and you didn't have enough money to get more: Never True Transportation Answer Date Recorded In the past 12 months, has l ack of transportation kept you from medical appts, meetings, work or from getting things needed for daily living? No 12/28/2022 Utilities Answer Date Recorded In the past 12 months, has t he electric, gas, oil or water company threatened to shut off services in your home? No 12/28/2022 Depression Answer Date Recorded Patient Health Questionnaire-2 Score 2 03/09/2024 Sex and Gender Information Value Date Recorded Sex Assigned at Male 12/14/2021 10:39 AM EDT Legal Sex Male 10:39 AM EDT Gender Identity Male 12/14/2021 10:39 AM EDT Sexual Orientation Straight 12/14/2021 10 :39 AM EDT Last Filed Vital Signs Vital Sign Reading Time Taken Comments Blood Pressure 125/75 03/09/2024 9:10 AM EST Pulse 70 03/09/2024 9:10 AM EST Temperature 36.6 ??C (97.8 ??F) 03/09/2024 9:10 AM ES T Respiratory Rate 20 03/09/2024 9:10 AM EST Oxygen Saturation 98% 03/09/2024 9:10 AM EST Inhaled Oxygen Concentration - - Weight 117 kg (258 lb 3.2 oz) 03/09/2024 9:10 AM EST Height 162.6 cm (5' 4 ) 03/09/2024 9:10 AM EST Body Mass Index 44.32 03/09/2024 9:10 AM EST Plan of Treatment Upcoming Encounters Date Type Department Care Team (Late st Contact Info) Description 04/18/2024 10:00 AM EST Office Visit [address] [address] 05/09/2024 2:00 PM EDT Office Visit [address] [address] [facility] [address] [place] [address] Health Maintenance Due Date Last Done Comments CT Colonography 1968 FIT DNA/Cologuard 1968 FIT 1968 FOBT 1968 Sigmoidoscopy 1968 Alcohol/Substance Use Screening 1980 Dental Oral Exam 06/15/2021 12/15/2020 Dental Prophylaxis 10/19/2021 04/17/2021 Dental X-Ray: Bitewings 12/16/2021 12/15/2020 Zoster Vaccines (2 of 2) 03/22/2023 01/25/2023 COVID-19 Vaccine ( - season) 2023 12/23/2021, 05/13/2021, 11/20/2020, Additional history exists Influenza Vaccine (#1) 2023 01/05/2023, 2021 Dental X-Ray: Full Mouth 04/18/2024 04/17/2021 SDOH Screening 05/08/2024 05/09/2023 Diabetes: Hemoglobin A1C 06/07/2024 025, 08/26/2023, 04/27/2023, Additional history exists Diabetes: Foot Exam 08/25/2024 08/26/2023, Depression Screening 03/09/2025 03/09/2024, 03/09/19 25 Diabetes: Urine Protein Screening 03/09/2025 03/09/2024, 05/09/2023, 02/18/2021 Lipid Panel 03/09/2025 03/09/2024, 04/15, 02/18/2021 Tobacco Screening 03/09/2025 03/09/2024 Eye Exam 03/10/2025 03/10/2023, 02/15, 03/10/2023, Additional history exists DTaP/Tdap/Td Vaccines (2 - Td or Tdap) 02/18/2031 02/18/2021 Colonoscopy 04/17/2031 04/16/2021 Colorectal Cancer Screening 04/17/2031 RSV Patients and Patients Aged 60 years or older (1 - 1-dose 75+ series) 12/04/2043 HIV Screening Completed 02/18/2021 Hepatitis C Screening Completed 02/18/2021 Hepatitis B Vaccines Completed 02/24/2023, 01/26/20 23 Pneumococcal Vaccine: 50+ Years Completed 02/24/2023, 02/18/2021 HIB Vaccines Aged Out No longer eligi ble based on patient's age to complete this topic HPV Vaccines Aged Out No longer eligi ble based on patient's age to complete this topic Hepatitis A Vaccines Aged Out No long er eligible based on patient's age to complete this topic IPV Vaccines Aged Out No longer eligi ble based on patient's age to complete this topic Meningococcal Vaccine Aged Out No desiree jhony eligible based on patient's age to complete this topic RSV under 20 months Aged Out No longe r eligible based on patient's age to complete this topic Rotavirus Vaccines Aged Out No longer eligible based on patient's age to complete this topic Goals Goal Patient Goal Type Associated Problems Recent Progress Patient-Stated? Author Blood Pressure < 140/90 Blood Pressure 125/75(2024 9:10 AM EST) No Souleymane Love, Rayshawn Hemoglobin A1c < 7 Result Component 9.7( 9:33 AM EST) No Souleymane Love PharmD Procedures Procedure Name Priority Date/Time Associated Diagnosis Comments ALBUMIN, RANDOM URINE W/CREATININE Routine 03/09/2024 10:14 AM EST Type 2 diabetes mellitus with hyperglycemia, with long-term current use of insulin (CMS/[facility]) LIPID PANEL, STANDARD Routine 03/09/2024 10:14 AM EST Type 2 diabetes mellitus with hyperglycemia, with long-term current use of insulin (CMS/[facility]) COMPREHENSIVE METABOLIC PANEL Routine 03/09/2024 10:14 AM EST Type 2 diabetes mellitus with hyperglycemia, with long-term current use of insulin (CMS/HCC) TSH Routine 03/09/2024 10:14 AM EST Acquired hypothyroidism POCT GLYCATED HEMOGLOBIN, TOTAL Routine 03/09/2024 9:33 AM EST Type 2 diabetes mellitus with hyperglycemia, with long-term current use of insulin (CMS/HCC) POCT GLUCOSE Routine 03/09/2024 9:33 AM EST Type 2 diabetes mellitus with hyperglycemia, with long-term current use of insulin (CMS/HCC) PROPHYLAXIS - ADULT Routine 04/17/2021 1 2:00 AM EST PANORAMIC RADIOGRAPHIC IMAGE Routine 04/17/2021 12:00 AM EST HM COLONOSCOPY Routine 04/16/2021 ZZZ HISTORICAL HEPATITIS C AB W/REFL TO HCV RNA, QN, PCR Routine 02/18/2021 4:20 PM EST HIV 1/2 ANTIGEN/ANTIBODY, FOURTH GENERATION W/RFL Routine 02/18/2021 4:20 PM EST BITEWINGS - 4 RADIOGRAPHIC IMAGES Routine 12/15/2020 12:00 AM EDT COMPREHENSIVE ORAL EVALUATION - NEW OR ESTABLISHED PATIENT Routine 12/15/2020 12:00 AM EDT from Last 3 Months or Most Recently Relevant to Health Maintenance Results * (ABNORMAL) Albumin, Random Urine W/Creatinine (03/09/2024 10:14 AM EST) Creatinine, Urine 160.00 mg/dL [facility] Microalbumin Urine 475.0 mg/L [facility] Microalbum Creatinine Ratio Ur 296.8(H) <30 ug/mg cr [facility] Comment:Albumin/Creatinine R atio Reference Ranges: Normal: < 30 ug/mg creatinine Microalbuminuria: 30 - 300 ug/mg creatinineClinical Albuminuria: > 300 ug/mg creatinine Urine 03/09/2024 10:1 4 AM EST 03/09/2024 11:34 AM EST Result [facility] TERRITORY SUPERVISOR LAB URINE ORDERABLES Final Re sult [facility] [address] [place] [address] [phone] * (ABNORMAL) TSH (03/09/2024 10:14 AM EST) Thyroid Stimulating Hormone 4.72(H) 0.32 - 4.0 uIU/mL [facility] Comment:Note: A sustained TS H level above 2.5 uIU/mL may warrant further investigation. TSH 3rd Generation ([facility]) Blood Venous blood specimen / Unknown 03/09/2024 10:14 AM EST 03/09/2024 11:38 AM EST [facility] LAB BLOOD ORDERABLES Final Re sult Performing Organization Address [facility] Co de Phone Number [facility] [address] [place] [address] [phone] * (ABNORMAL) Lipid Panel, Standard (03/09/2024 10:14 AM EST) Triglycerides 147 <150 mg/dL [facility] Comment:Desirable Triglyceri de: less than 150 mg/dLBorderline High Triglyceride 150-199 mg/dLHigh Triglyceride: 200-499 mg/dLVery High Triglyceride: greater than or equal to 5OO mg/dL Cholesterol 195 <200 mg/dL [facility] Comment:Desirable Cholestero l: less than 200 mg/dLBorderline High Cholesterol: 200-239 mg/dLHigh Cholesterol: greater than 239 mg/dL LDL Cholesterol Calculated 129(H) <100 mg/dL [facility] Comment:Desirable LDL: less than 100 mg/dLNear Optimal/Above Optimal LDL: 110- 129 mg/dLBorderline High LDL: 130-159 mg/dLHigh LDL: 160-189 mg/dLVery High LDL: greater than or equal to 190 mg/dL HDL Cholesterol 37(L) >40 mg/dL [facility] Comment:Desirable HDL: great er than 40 mg/dL Note: This HDL assay may give artificially low results in patients with liver disease. Blood Venous blood specimen / Unknown 03/09/2024 10:14 AM EST 03/09/2024 11:38 AM EST [facility] LAB BLOOD ORDERABLES Final Re sult Performing Organization Address [facility]/ZIP Co de Phone Number [facility] [address] [place] [address] [phone] * (ABNORMAL) Comprehensive Metabolic Panel (03/09/2024 10:14 AM EST) Sodium 142 135 - 145 mmol/L [facility] Potassium 4.5 3.3 - 5.1 mmol/L [facility] Chloride 100 96 - 108 mmol/L [facility] Carbon Dioxide 32(H) 22 - 29 mmol/L [facility] Anion Gap 15 12 - 20 [facility] Urea Nitrogen (BUN) 12 9 - 16 mg/dL [facility] Creatinine, Serum 1.04 0.5 - 1.4 mg/dL [facility] Estimated Glomerular Filt Rate >60 [facility] Comment:Chronic Kidney Disea se: Estimated GFR < 60 mL/min/1.68t1Bhmkgi Kidney Disease: Estimated GFR < 15 mL/min/1.73m2 Glucose 268(H) 60 - 115 mg/dL [facility] Calcium 9.6 8.4 - 10.2 mg/dL [facility] Bilirubin, Total 0.4 0.0 - 1.0 mg/dL [facility] Aspartate Amino Transferase 20 5 - 37 U/L [facility] Alanine Aminotransferase 29 0 - 40 U/L [facility] Total Protein 7.9 6.5 - 8.0 g/dL [facility] Albumin Level 4.3 3.5 - 5.0 g/dL [facility] Alkaline Phosphatase 83 39 - 117 U/L [facility] Blood Venous blood specimen / Unknown 03/09/2024 10:14 AM EST 03/09/2024 11:38 AM EST [facility] LAB BLOOD ORDERABLES Final Re sult [facility] [address] [place] [phone] * (ABNORMAL) POCT HGB A1C (03/09/2024 9:33 AM EST) Hemoglobin A1C 9.7(A) 4.0 - 6.0 % Blood 03/09/2024 9:33 AM EST [facility] TERRITORY SUPERVISOR POINT OF CARE TEST ENTER/EDIT ORDERABLES Final Result * (ABNORMAL) POCT Glucose (03/09/2024 9:33 AM EST) [facility] Glucose Blood, POC 295(A) 60 - 200 mg/dL QC Media Lot # [id number] Lot# Expiration Date Blood Capillary blood specimen / Unknown 03/09/2024 9:33 AM EST [facility] TERRITORY SUPERVISOR POINT OF CARE TEST ENTER/EDIT ORDERABLES Final Result * Colonoscopy (04/16/2021) [facility] Colonoscopy Normal Normal, Abnormal, BIRADS 0 , BIRADS 1 , BIRADS 2, BIRADS 3 , BIRADS 4+ Comment:Patient States got i t done at [facility] and was normal. Historical Provider MD HEALTH MAINTENANCE Final Result * HEPATITIS C AB W/REFL TO HCV RNA, QN, PCR (02/18/2021 4:20 PM EST) [facility] HEPATITIS C ANTIBODY NON-REACT PEPE NON-REACT PEPE [facility] INDEX 0.04 <1.00 [facility] Comment: ?? HCV antibody was non-reactive. There is no laboratory ?? evidence of HCV infection. ?? In most cases, no further action is required. However, if recent HCV exposure is suspected, a test for HCV RNA (test code 26959) is suggested. ?? For additional information please refer to http://education.AllPeers/faq/KJZ91n8 (This link is being provided for informational/ educational purposes only.) ?? 02/18/2021 4:20 PM EST Teri lAanis NP HISTORICAL/NON ORDERABLE LABS Final Result [facility] [address] * HIV 1/2 ANTIGEN/ANTIBODY,FOURTH GENERATION W/RFL (02/18/2021 4:20 PM EST) [facility] HIV-1/2 ANTIGEN AND ANTIBODIES, 4TH GENERATION W/ REFLEX NON-REACT PEPE NON-REACT PEPE [facility] Comment: HIV-1 antigen and HIV-1/HIV-2 antibodies were not detected. There is no laboratory evidence of HIV infection. ?? PLEASE NOTE: This information has been disclosed to you from records whose confidentiality may be protected by state law. ??If your state requires such protection, then the state law prohibits you from making any further disclosure of the information without the specific written consent of the person to whom it pertains, or as otherwise permitted by law. A general authorization for the release of medical or other information is NOT sufficient for this purpose. ? For additional information please refer to http://Cortex.AllPeers/faq/DFL973 (This link is being provided for informational/ educational purposes only.) ? The performance of this assay has not been clinically validated in patients less than 2 years old. ?? 02/18/2021 4:20 PM EST us Teri Alanis NP LAB BLOOD ORDERABLES Final Res ult [facility] Anywhere [address] from Last 3 Months or Most Recently Relevant to Health Maintenance Insurance [facility] CARE D[facility] STAND ADULT Care Teams Clinical Allergist Relationship Specialty Start Date End Date Adrienne Sheehan FNP [address] [place] [address] PCP - General Family Medicine 07/04/23
--- OUTSIDE RECORDS SUMMARY | 2024-03-20 06:25 | XMS_ITS | Encounter Summary ---
Author Organization [employer] Address 75 [facility] 7 [place] [address] Care Team Providers Care Groundskeeping Maintenance Name Role Phone Emerson [facility] Primary Care Provider [phone] Reason for Visit * Reason Comments Med Refill Encounter Details Date Type Department Care Team ([facility] st Contact Info) Description 10/28/2023 Refill [facility] 230 [place], [place] [phone] [facility] [address] [place] [address] Social History Tobacco Use Types Packs/Day Years Used Date Smoking Tobacco: Never Smokeless Tobacco: Never Alcohol Use Standard Drinks/Week Comments Never 0 (1 standard drink = 0.6 oz pur e alcohol) Depression Answer Date Recorded Patient Health Questionnaire-9 Score 0 09/26/2023 Patient Health Questionnaire-9 Score 0 09/26/2023 Last PHQ-9: Questionnaire Data Not on file 0 09/26/2023 Housing Stability Answer Date Recorded What is [...] enough money to get more: Never True 11/ Transportation Answer Date Recorded In the past [...] Answer Date Recorded Patient Health Questionnaire-2 Score 0 09/26/2023 Sex and Gender Information Value Date Recorded Sex Assigned at Male 12/14/2021 10:39 AM EDT Legal Sex Male 10:39 AM EDT Gender Identity Male 12/14/2021 10:39 AM EDT Sexual Orientation Straight 12/14/2021 10 :39 AM EDT documented as of this encounter Plan of Treatment Upcoming Encounters Date Type Department Care Team (Late st Contact Info) Description 04/18/2024 10:00 AM EST Office Visit [address] [address] Adrienne Sheehan [address] [address] 05/09/2024 2:00 PM EDT Office Visit [address] [address] Adrienne Sheehan [address] [address] documented as of this encounter Goals Goal Patient Goal Type Associated Problems Recent Progress Patient-Stated? Author Blood Pressure < 140/90 Blood Pressure 125/75(2024 9:10 AM EST) No Souleymane Love, PharmRuth Hemoglobin A1c < 7 Result Component 9.7( 9:33 AM EST) No Souleymane Love PharmD documented as of this encounter Visit Diagnoses Not on filedocumented in this encounter Additional Health Concerns Assessment Noted Time PHQ-9 Depression Total Score: 0 09/26/19 24 12:29 PM EDT documented as of this encounter Care Teams Groundskeeping Maintenance Relationship Specialty Start Date End Date Adrienne Sheehan FNP [address] [place] [address] PCP - General Family Medicine 07/04/23 documented as of this encounter
--- OUTSIDE RECORDS SUMMARY | 2024-03-20 06:25 | XMS_ITS | Encounter Summary ---
Author Organization [employer] Address [address] [facility] [address] 7t [place] [address] Care Team Providers Care Mainspring Strip Inspector Name Role Phone Adrienne Sheehan VISUAL MERCHANDISING DIRECTOR Primary Care Provider [phone] Encounter Details Date Type Department Care Team (Latest Contact Info) Description 03/09/2024 Travel Social History Tobacco Use Types Packs/Day Years [...] Description 04/18/2024 10:00 AM EST Office Visit [facility] [address] [place] [address] Adrienne Sheehan [address] [address] 05/09/2024 2:00 PM EDT Office Visit [address] [address] Adrienne Sheehan [facility] 230 [place] [address] documented as of this encounter Goals Goal [...] Assessment Noted Time PHQ-9 Depression Total Score: 8 03/09/19 9:22 AM EST documented as of this encounter Care Teams Mainspring Strip Inspector Relationship Specialty Start Date End Date Adrienne Sheehan FNP [address] [place] [address] PCP - General Family Medicine 07/04/23 documented as of this encounter
--- OUTSIDE RECORDS SUMMARY | 2024-03-20 06:25 | XMS_ITS | Encounter Summary ---
Author Organization [employer] Address 75 [facility] 7t [place] [address] Care Team Providers Care Manager Support Services Name Role Phone Kori Alonso NP Primary Care Provider [phone] [facility] Primary Care Provider [phone] Reason for Visit * Reason Onset Date Comments Med Refill 03/16/2023 Encounter Details Date Type Department Care Team (Late st Contact Info) Description 03/16/2023 Telephone [facility] 230 [place], [place] [phone] Kori Alonso NP 230 [place], [place] [phone] Med Refill Social History Tobacco Use Types Packs/Day Years Used Date Smoking Tobacco: Never Smokeless Tobacco: Never Alcohol Use Standard Drinks/Week Comments Never 0 (1 standard drink = 0.6 oz pur e alcohol) Depression Answer Date Recorded Patient Health Questionnaire-9 Score 6 01/05/2023 Patient Health Questionnaire-9 Score 6 01/05/2023 Last PHQ-9: Questionnaire Data Not on file 1 03/07/2022 Housing Stability Answer Date Recorded What is your housing situation today? I have jaylen muhammad 12/28/[address] you li ve. Do you have problems with any of the following? Pests such as bugs, ants, or mice 12/28/2022 Food Insecurity Answer Date Recorded Within the [...] Date Recorded Patient Health Questionnaire-2 Score 0 01/05/2023 Sex and Gender Information Value Date Recorded Sex Assigned at Male 12/14/2021 10:39 AM EDT Legal Sex Male 10:39 AM EDT Gender Identity Male 12/14/2021 10:39 AM EDT Sexual Orientation Straight 12/14/2021 10 :39 AM EDT documented as of this encounter Plan of Treatment Upcoming Encounters Date Type Department Care Team (Late st Contact Info) Description 04/18/2024 10:00 AM EST Office Visit [address] [address] 05/09/2024 2:00 PM EDT Office Visit [address] [address] documented as of this encounter Goals Goal Patient Goal Type Associated Problems Recent Progress Patient-Stated? Author Blood Pressure < 140/90 Blood Pressure 125/75(2024 9:10 AM EST) No Souleymane Love PharmD Hemoglobin A1c < 7 Result Component 9.7( 9:33 AM EST) No Souleymane Love PharmD documented as of this encounter Visit Diagnoses Not on filedocumented in this encounter Additional Health Concerns Assessment Noted Time PHQ-9 Depression Total Score: 6 01/06/20 23 10:38 AM EST documented as of this encounter Care Teams Manager Support Services Relationship Specialty Start Date End Date Kori Alonso NP 230 [place] [address] PCP - General Family Medicine 01/19/23 07/03/23 [place] FNP 230 [place] [address] PCP - General Family Medicine 07/04/23 documented as of this encounter
--- OUTSIDE RECORDS SUMMARY | 2024-03-20 06:25 | XMS_ITS | Encounter Summary ---
Author Organization [employer] Address 75 [facility] 7 [place] [address] Care Team Providers Care Machine Tack Puller Name Role Phone [facility] Primary Care Provider [phone] Reason for Visit * Reason Comments Med Refill Encounter Details Date Type Department Care Team ([facility] st Contact Info) Description 11/07/2023 Refill [facility] MEDICINE 230 [place], [place] [phone] [facility] 230 [place] [address] Mild intermittent asthma without complication Social History Tobacco Use Types Packs/Day Years [...] Description 04/18/2024 10:00 AM EST Office Visit [address] [address] Adrienne Sheehan [address] [address] 05/09/2024 2:00 PM EDT Office Visit [address] [address] Adrienne Sheehan [address] [address] documented as of this encounter Goals Goal Patient Goal Type Associated Problems Recent Progress Patient-Stated? Author Blood Pressure < 140/90 Blood Pressure 125/75(2024 9:10 AM EST) No Souleymane Love, PharmRuth Hemoglobin A1c < 7 Result Component 9.7( 9:33 AM EST) No Souleymane Love PharmD documented as of this encounter Visit Diagnoses Diagnosis Mild intermittent asthma without complication documented in this encounter Additional Health Concerns Assessment Noted Time PHQ-9 Depression Total Score: 0 09/26/19 24 12:29 PM EDT documented as of this encounter Care Teams Machine Tack Puller Relationship Specialty Start Date End Date Adrienne Sheehan FNP [address] [place] [address] PCP - General Family Medicine 07/04/23 documented as of this encounter
--- OUTSIDE RECORDS SUMMARY | 2024-03-20 06:25 | XMS_ITS | Encounter Summary ---
Author Organization [employer] Address [address] [facility] [address] 7t [place] [address] Care Team Providers Care Shipping Lead Name Role Phone Adrienne Sheehan CORRUGATED BOX MACHINE OPERATOR Primary Care Provider [phone] Encounter Details Date Type Department Care Team (Late st Contact Info) Description 03/13/2024 Telephone [facility] [address] [place], [place] [phone] Lou Santos, OD [address] [place] [address] Social History Tobacco Use Types Packs/Day Years [...] Description 04/18/2024 10:00 AM EST Office Visit [facility] MED[facility] [address] [place] [address] [address] [address] 05/09/2024 2:00 PM EDT Office Visit [address] [address] [address] [address] documented as of this encounter Goals Goal [...] Time PHQ-9 Depression Total Score: 8 03/09/19 25 9:22 AM EST documented as of this encounter Care Teams Shipping Lead Relationship Specialty Start Date End Date Adrienne Sheehan [facility] [address] [place] [address] PCP - General Family Medicine 07/04/23 documented as of this encounter
--- OUTSIDE RECORDS SUMMARY | 2024-03-20 06:25 | XMS_ITS | Encounter Summary ---
Author Organization [employer] [facility] Address [address] [place] [address] Care Team Providers Care Shortage Worker Name Role Phone Sophia Burns [facility] Primary Care Provider [phone] Kori Alonso CRTS Primary Care Provider [phone] Boom Estevez MD Primary Care Provider [phone] Kori Alonso CRTS Primary Care Provider [phone] [facility] Primary Care Provider [phone] Encounter Details Date Type Department Care Team (Latest Contact Info) Description 04/17/2021 Abstract [facility] CONVERSIONS Dental, Provider, DDS Social History Tobacco Use Types Packs/Day Years Used Date Smoking Tobacco: Never Assessed Sex and Gender Information Value Date Recorded Sex Assigned at Male 12/14/2021 10:39 AM EDT Legal Sex Male 10:39 AM EDT Gender Identity Male 12/14/2021 10:39 AM EDT Sexual Orientation Straight 12/14/2021 10 :39 AM EDT documented as of this encounter Plan of Treatment Upcoming Encounters Date Type Department Care Team (Late st Contact Info) Description 04/18/2024 10:00 AM EST Office Visit [address] [address] [facility] 230 [place] [address] 05/09/2024 2:00 PM EDT Office Visit [facility] MEDICINE 230 [place] [address] Adrienne Sheehan FNP 230 [place] [address] documented as of this encounter Visit Diagnoses Not on filedocumented in this encounter Care Teams Shortage Worker Relationship Specialty Start Date End Date Sophia Burns FNP PCP - General Family Medicine 10/12/21 11/22/22 Kori Alonso NP [address] [place] [address] PCP - General Family Medicine 11/23/22 01/16/23 Boom Estevez MD [address] [place] [address] PCP - General Internal Medicine 01/17/23 01/18/23 Kori Alonso NP [address] [place] [address] PCP - General Family Medicine 01/19/23 07/03/23 Adrienne Sheehan FNP [address] [place] [address] PCP - General Family Medicine 07/04/23 documented as of this encounter
--- OUTSIDE RECORDS SUMMARY | 2024-03-20 06:25 | XMS_ITS | Encounter Summary ---
Author Organization [employer] Address 75 [facility] 7 [place] [address] Care Team Providers Care Professor Of Kinesiology Name Role Phone Adrienne Sheehan GLOBAL ACCOUNT DIRECTOR Primary Care Provider Reason for Visit * Reason Onset Date Comments Results 03/19/2024 Encounter Details Date Type Department Care Team (Late st Contact Info) Description 03/19/2024 Telephone [facility] MEDICINE 230 [place], [place] [phone] Marsha Wilson, JORGE 230 [place], [place] [phone] Results Social History Tobacco Use Types Packs/Day Years [...] AM EDT documented as of this encounter Miscellaneous Notes * Telephone Encounter - Marsha Wilson RN - 03/19/2024 4:50 PM EST TC placed to patient [phone] (spoke to Brielle on [employer]IP[employer]) in regards to below message. Brielle verbalized understanding and did not have any further questions. Brielle aware patient/spouse will receive another call with updated TSH result and POC. Patient to f/u PRN. ----- Message from [facility] sent at 03/19/2024 4:08 PM EST ----- Please advise patient that thyroid was abnormal. However I would like to confirm before adjusting his medication. Repeat labs ordered. Please also advise patient that labs show evidence of worsening kidney function likely secondary to poorly controlled diabetes. Prioritize glucose and blood pressure control. Avoid NSAIDs and maintain good hydration. Thank you! documented in this encounter Plan of Treatment Upcoming Encounters Date Type Department Care Team (Late st Contact Info) Description 04/18/2024 10:00 AM EST Office Visit [facility] MEDICINE 230 [place], [place] [phone] [place] [facility] 230 [place] [address] 05/09/2024 2:00 PM EDT Office Visit [facility] 230 [place] [address] Adrienne Sheehan FNP 230 [place] [address] documented as of this encounter Goals Goal [...] documented as of this encounter Care Teams Professor Of Kinesiology Relationship Specialty Start Date End Date Adrienne Sheehan FNP 230 [place] [address] PCP - General Family Medicine 07/04/23 documented as of this encounter
--- OUTSIDE RECORDS SUMMARY | 2024-03-20 06:25 | XMS_ITS | Encounter Summary ---
Author Organization [employer] Address 75 [facility] 7 [place] [address] Care Team Providers Care Sterile Process Tech Name Role Phone Keene [facility] Primary Care Provider [phone] Reason for Visit * Reason Comments Med Change Request Encounter Details Date Type Department Care Team ([facility] st Contact Info) Description 03/09/[address] [facility] MEDICINE 230 [place], [place] [phone] [facility] 230 [place] [address] Type 2 diabetes mellitus with hyperglycemia, with long-term current use of insulin ([facility] Social History Tobacco Use Types Packs/Day Years [...] your housing situation today? I have jaylen jb 04/29/[address] you li [...] Description 04/18/2024 10:00 AM EST Office Visit [address] [address] 05/09/2024 2:00 PM EDT Office Visit [address] [address] documented as of this encounter Goals Goal Patient Goal Type Associated Problems Recent Progress Patient-Stated? Author Blood Pressure < 140/90 Blood Pressure 125/75(2024 9:10 AM EST) No Souleymane Love, Rayshawn Hemoglobin A1c < 7 Result Component 9.7( 9:33 AM EST) No Souleymane Love PharmD documented as of this encounter Visit Diagnoses Diagnosis Type 2 diabetes mellitus with hyperglycemia, with long-term current use of insulin ([facility]) documented in this encounter Additional Health Concerns Assessment Noted Time PHQ-9 Depression Total Score: 8 03/09/19 25 9:22 AM EST documented as of this encounter Care Teams Sterile Process Tech Relationship Specialty Start Date End Date KeeneAdrienneDUY 230 [place] [address] PCP - General Family Medicine 07/04/23 documented as of this encounter
--- OUTSIDE RECORDS SUMMARY | 2024-03-20 06:25 | XMS_ITS | Encounter Summary ---
Author Organization [employer] Address [address] [place] [address] Care Team Providers Care Pony Ride Operator Name Role Phone Sophia Burns ROUGHER OPERATOR Primary Care Provider [phone] Kori Alonso NP Primary Care Provider [phone] Boom Estevez MD Primary Care Provider [phone] Kori Alonso LEGAL SUPPORT MANAGER Primary Care Provider [phone] Adrienne SheehanP Primary Care Provider [phone] Encounter Details Date Type Department Care Team (Late st Contact Info) Description 08/26/2022 [facility] [employer] 230 [place] [address] Sophia Burns FNP 75 [facility] Dept [place] [address] Social History Tobacco Use Types Packs/Day Years [...] Description 04/18/2024 10:00 AM EST Office Visit [facility] MEDICINE 230 [place] [address] Adrienne Sheehan [facility] 230 [place] [address] 05/09/2024 2:00 PM EDT Office Visit [facility] MEDICINE 230 [place] [address] Adrienne Sheehan FNP 230 [place] [address] documented as of this encounter Visit Diagnoses Not on filedocumented in this encounter Care Teams Pony Ride Operator Relationship Specialty Start Date End Date Sophia Burns FNP PCP - General Family Medicine 10/12/21 11/22/22 Kori Alonso NP [address] [place] [address] PCP - General Family Medicine 11/23/22 01/16/23 Boom Estevez MD [address] [place] [address] PCP - General Internal Medicine 01/17/23 01/18/23 Kori Alonso NP [address] [place] [address] PCP - General Family Medicine 01/19/23 07/03/23 Adrienne Sheehan FNP [address] [place] [address] PCP - General Family Medicine 07/04/23 documented as of this encounter
--- OUTSIDE RECORDS SUMMARY | 2024-03-20 06:25 | XMS_ITS | Encounter Summary ---
Author Organization [employer] Address [address] [place] [address] [address], [place] [address] Care Team Providers Care Electrical Linesworker Name Role Phone Adrienne Sheehan Primary Care Provider [phone] Reason for Referral * Consultation (Routine) - Authorized Specialty Diagnoses / Procedures Referred By Darryl huitron Referred To Contact Pharmacy Diagnoses Type 2 diabetes mellitus with hyperglycemia, with long-term current use of insulin ([facility]) Adrienne Sheehan FNP [address] [place] [address] Phone: tel: fax: Referral ID Status Reason Start Date Expiration Date Visits Requested Visits Authorized [id number] Authorized Consult and Treat 03/09/2024 03/09/2025 6 6 * Consultation (Routine) - Authorized Specialty Diagnoses / Procedures Referred By Darryl huitron Referred To Contact Physical Therapy Diagnoses Chronic pain of right knee Adrienne Sheehan FNP [address] [place] [address] Phone: tel: fax: Physical Therapy, AT [address] [place], [place] Phone: tel: fax: Referral ID Status Reason Start Date Expiration Date Visits Requested Visits Authorized [id number] Authorized Specialty Services Required 03/09/2024 03/09/2025 1 1 Reason for Visit * Reason Comments Diabetes Encounter Details Date Type Department Care Team (Late st Contact Info) Description 03/09/2024 9:00 AM EST Office Visit [facility] [address] [place] [address] Adrienne Sheehan DIPLOMA MAKER [address] [place] [address] Type 2 diabetes mellitus with hyperglycemia, with long-term current use of insulin ([facility]) (Primary Dx); Chronic pain of right knee; Acquired hypothyroidism; Dietary counseling; Exercise counseling; Class 3 severe obesity due to excess calories with serious comorbidity and body mass index (BMI) of 40.0 to 44.9 in adult ([facility]) Social History Tobacco Use Types Packs/Day Years [...] AM EDT documented as of this encounter Last Filed Vital Signs Vital Sign Reading [...] Mass Index 44.32 03/09/2024 9:10 AM EST documented in this encounter Patient Instructions * Patient Instructions* DUY Ramey - 03/09/2024 9:00 AM EST - Complete blood work today - Complete knee x-ray today - Referral to physical therapy for knee pain - Start evening Lantus 14 units - Referral to pharmacy for additional diabetes care - Call CPAP company documented in this encounter Progress Notes * DUY Ramey - 03/09/2024 9:00 AM EST SUBJECTIVE: Michele Lobo is a 53 y.o. year old male with T2DM, BENITA, HTN, hypothyroidism, HLD, glaucoma, who presents for diabetes follow up . Denies recent illness, injury, or hospitalization. Acute Concerns: Requesting switch to freestyle 3 CGM; finds that 2 falls off frequently Right knee pain/weakness-reports multipe falls due to feeling that knee gives out. Interim Updates: [id number] blood sugar elevation. Reports compliance with Trulicity 4.5 weekly and metformin 1000 mg twice daily. HFB-tlgv-rqezmctsos. BENITA-stopped using CPAP machine due to burning smell. Missed appointment with administration internship. 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 Sexually active: yes Partners are: AFAB Patient Active Problem List Diagnosis Acquired hypothyroidism Arthritis Essential hypertension Iron deficiency anemia Mild intermittent asthma Obstructive sleep apnea syndrome Severe obesity (CMS/HCC) Diabetes mellitus (CMS/HCC) Vitamin D deficiency Hyperlipidemia Angina pectoris (CMS/HCC) Secondary erythrocytosis Low-tension glaucoma of left eye Healthcare maintenance Past Surgical History: Procedure Laterality Date CIRCUMCISION, NON- Family History Problem Relation Name Age of Onset Hypertension Mother Alzheimer's disease Mother Review of Systems Constitutional: Negative for activity change, diaphoresis, fatigue, fever and unexpected weight change. Eyes: Negative for visual disturbance. Respiratory: Negative for apnea, cough, chest tightness and shortness of breath. Cardiovascular: Negative for chest pain, palpitations and leg swelling. Gastrointestinal: Negative for abdominal pain and nausea. Musculoskeletal: Positive for arthralgias. Neurological: Negative for dizziness, syncope, light-headedness and headaches. OBJECTIVE: Vitals: 03/09/24 0910 BP: 125/75 Pulse: 70 Resp: 20 Temp: 97.8 ??F (36.6 ??C) SpO2: 98% Physical Exam Constitutional: Appearance: Normal appearance. HENT: Head: Normocephalic. Right Ear: External ear normal. Left Ear: External ear normal. Nose: Nose normal. Eyes: Conjunctiva/sclera: Conjunctivae normal. Cardiovascular: Rate and Rhythm: Normal rate and regular rhythm. Heart sounds: Normal heart sounds. Pulmonary: Effort: Pulmonary effort is normal. Breath sounds: Normal breath sounds. Musculoskeletal: Right knee: Crepitus present. No swelling, deformity or effusion. Tenderness present over the lateral joint line. Left knee: Normal. Right lower leg: No edema. Left lower leg: No edema. Comments: Right knee: Neg anterior/posterior drawer Pain with varus stress Pos Mc[place]rays Strength and ROM intact Skin: General: Skin is warm and dry. Capillary Refill: Capillary refill takes less than 2 seconds. Neurological: General: No focal deficit present. Mental Status: He is alert and oriented to person, place, and time. Psychiatric: Mood and Affect: Mood normal. Behavior: Behavior normal. ASSESSMENT/PLAN 1. Type 2 diabetes mellitus with hyperglycemia, with long-term current use of insulin ([facility]) (Primary) Lab Results Component Value Date HGBA1C 9.7 (A) 03/09/2024 HGBA1C 8.5 (A) 08/26/2023 HGBA1C 7.5 (A) 04/27/2023 Lab Results Component Value Date MICROALBUR 194.0 05/09/2023 CREATININE 1.04 05/12/2023 -Start 14 units evening Lantus - Will plan to switch from Trulicity 4.5 mg to Mounjaro - Continue metformin twice daily -Referral to CDTM -Follow-up 1 month -Update labs Asa: no Statin: yes, atorvastatin 20 Jamel/Arb: Yes Address foot exam and eye exam at follow-up - Comprehensive Metabolic Panel; Future - Lipid Panel, Standard; Future - Albumin, Random Urine W/Creatinine; Future - POCT Glucose - POCT HGB A1C - Comprehensive Metabolic Panel - Lipid Panel, Standard - Albumin, Random Urine W/Creatinine - insulin glargine (Lantus SoloStar) 100 UNIT/ML pen; Inject 14 Units under the skin at bedtime. Dispense: 15 mL; Refill: 2 - Alcohol Swabs (Alcohol Prep) pads; Use one pad each to prep skin prior to injection as directed Dispense: 100 each; Refill: 11 - insulin pen needle 30G x 5 mm misc; Use as instructed Dispense: 100 each; Refill: 12 - Blood Glucose Monitoring Suppl (GNP Easy Touch Glucose Meter) device; Use as directed to check blood sugar four times daily Dispense: 1 each; Refill: 0 - Tirzepatide (Mounjaro) 2.5 MG/0.5ML solution auto-injector; Inject 2.5 mg under the skin 1 (one) time per week. Dispense: 2 mL; Refill: 3 2. Chronic pain of right knee Concern for possible meniscal tear, will obtain baseline x-ray and refer to physical therapy. If noimprovement with conservative treatment would consider MRI at follow-up. ibuprofen as needed - XR Knee 3 Views Right; Future - XR Knee 3 Views Right - Referral to Physical Therapy; Future - Referral to Physical Therapy 3. Acquired hypothyroidism - TSH; Future - TSH 4. Dietary counseling 5. Exercise counseling 6. Class 3 severe obesity due to excess calories with serious comorbidity and body mass index (BMI)of 40.0 to 44.9 in adult ([facility]) - Encouraged regular aerobic exercise within initial goal of 30 minute walk 3x/week - Encouraged balanced diet with a variety of fruits, vegetables, and lean meats. Follow Up: 1 month Current Outpatient Medications on File Prior to Visit Medication Sig Dispense Refill albuterol 108 (90 Base) MCG/ACT inhaler Inhale 2 puffs every 4 (four) hours. 18 g 3 atorvastatin (Lipitor) 20 MG tablet Take 1 tablet (20 mg) by mouth Once per day. 30 tablet 11 betamethasone, augmented, (Diprolene) 0.05 % ointment APLIQUE AL AREA AFECTADA DOS VECES AL CINDY 50 g 0 Blood Pressure Monitor kit Use as directed 1 kit 0 busPIRone (Buspar) 10 MG tablet cholecalciferol (D3-1000) 25 MCG (1000 UT) capsule TAKE 1 CAPSULE BY MOUTH EVERYDAY AT NOON 90 capsule 1 Continuous Blood Gluc Vendor Manager (FreeStyle Dayana 2 [place]) device Scan sensor every 8 hours 1 each 0 Continuous Glucose Sensor (FreeStyle Dayana 2 Sensor) misc APPLY AND CHANGE EVERY 14 DAYS DIRECTED 2 each 3 dulaglutide (Trulicity) 4.5 MG/0.5ML solution pen-injector Inject 4.5 mg under the skin 1 (one) time per week. 4 each 11 Easy Touch Pen [place] 31G X 8 MM misc USE DIRECTED FLUoxetine (PROzac) 20 MG tablet Take 1 tablet (20 mg) by mouth Once per day. 30 tablet 11 FreeStyle lancets USE TO CHECK BLOOD SUGARS 2-3 TIMES DAILY. FREESTYLE LITE test strip USE SEG N LO INDICADO 2 TO 3 TIMES PER DAY glucose 4 g chewable tablet Chew 4 tablets (16 g) if needed for low blood sugar. 50 tablet 12 levothyroxine (Synthroid, Levoxyl) 137 MCG tablet TAKE 1 TABLET BY MOUTH EVERY MORNING ON AN EMPTY STOMACH 30 MINUTES BEFORE BREAKFAST 90 tablet 1 lisinopril 20 MG tablet TAKE 1 TABLET BY MOUTH EVERYDAY AT NOON 90 tablet 1 metFORMIN XR (Glucophage-XR) 500 MG 24 hr tablet TAKE 2 TABLETS BY MOUTH TWICE DAILY AT NOON AND INTHE EVENING DO NOT BREAK, CRUSH, DISSOLVE OR CHEW 120 tablet 5 metFORMIN, OSM, (Fortamet) 1000 MG 24 hr tablet Take 1 tablet by mouth twice daily. Do not crush, chew, or split. 60 tablet 3 timolol (Timoptic) 0.25 % ophthalmic solution Administer 1 drop into the left eye in the morning. 5mL 11 traZODone (Desyrel) 50 MG tablet Take 1 tablet by mouth if needed at bedtime. UltiCare Alcohol Swabs 70 % pads USE DIRECTED TO CLEAN SKIN SAMI VECES AL D A No current facility-administered medications on file prior to visit. Telugu Translation: Provided by [facility] staff member YENIEFR Roberts documented in this encounter Plan of Treatment Upcoming Encounters Date Type Department Care Team (Late st Contact Info) Description 04/18/2024 10:00 AM EST Office Visit [address] [address] [place] [address] [address] 05/09/2024 2:00 PM EDT Office Visit [address] [address] [place] [address] [address] Scheduled Orders Name Type Priority Associated Diagnoses Orde r Schedule XR Knee 3 Views Right Imaging Routine Chronic pain of right knee Expected: 03/09/2024, Expires: 03/09/2025 Scheduled Referrals Name Type Priority Associated Diagnoses Orde r Schedule Referral to Physical Therapy Outpatient Referral Routine Chronic pain of right knee Expected: 03/09/2024 (Approximate), Expires: 03/09/2025 Referral to Pharmacy CD Outpatient Referral Routine Type 2 diabetes mellitus with hyperglycemia, with long-term current use of insulin ([facility]) Ordered: 03/09/2024 documented as of this encounter Goals Goal Patient Goal Type Associated Problems Recent Progress Patient-Stated? Author Blood Pressure < 140/90 Blood Pressure 125/75(2024 9:10 AM EST) No Souleymane Love, PharmD Hemoglobin A1c < 7 Result Component 9.7( 9:33 AM EST) No Souleymane Love PharmD documented as of this encounter Procedures Procedure Name Priority Date/Time Associated Diagnosis Comments ALBUMIN, RANDOM URINE W/CREATININE Routine 03/09/2024 10:14 AM EST Type 2 diabetes mellitus with hyperglycemia, with long-term current use of insulin ([facility]) TSH Routine 03/09/2024 10:14 AM EST Acquired hypothyroidism LIPID PANEL, STANDARD Routine 03/09/2024 10:14 AM EST Type 2 diabetes mellitus with hyperglycemia, with long-term current use of insulin ([facility]) COMPREHENSIVE METABOLIC PANEL Routine 03/09/2024 10:14 AM EST Type 2 diabetes mellitus with hyperglycemia, with long-term current use of insulin ([facility]) POCT GLYCATED HEMOGLOBIN, TOTAL Routine 03/09/2024 9:33 AM EST Type 2 diabetes mellitus with hyperglycemia, with long-term current use of insulin ([facility]) POCT GLUCOSE Routine 03/09/2024 9:33 AM EST Type 2 diabetes mellitus with hyperglycemia, with long-term current use of insulin ([facility]) documented in this encounter Results * (ABNORMAL) Albumin, Random Urine W/Creatinine (03/09/2024 10:14 AM EST) Creatinine, Urine 160.00 mg/dL [facility] Microalbumin Urine 475.0 mg/L H [facility] Microalbum Creatinine Ratio Ur 296.8(H) <30 ug/mg cr [facility] Comment:Albumin/Creatinine R atio Reference Ranges: Normal: < 30 ug/mg creatinine Microalbuminuria: 30 - 300 ug/mg creatinineClinical Albuminuria: > 300 ug/mg creatinine Urine 03/09/2024 10:1 4 AM EST 03/09/2024 11:34 AM EST us Adrienne Aguila DIPLOMA MAKER LAB URINE ORDERABLES Final Re sult Performing Organization Address [facility] Co de Phone Number [facility] [address] [place] [address] [phone] * (ABNORMAL) Lipid Panel, Standard (03/09/2024 10:14 AM EST) Triglycerides 147 <150 mg/dL [facility] Comment:Desirable Triglyceri de: less than 150 mg/dLBorderline High Triglyceride 150-199 mg/dLHigh Triglyceride: 200-499 mg/dLVery High Triglyceride: greater than or equal to 5OO mg/dL Cholesterol 195 <200 mg/dL [facility] Comment:Desirable Cholestero l: less than 200 mg/dLBorderline High Cholesterol: 200-239 mg/dLHigh Cholesterol: greater than 239 mg/dL LDL Cholesterol Calculated 129(H) <100 mg/dL [facility] Comment:Desirable LDL: less than 100 mg/dLNear Optimal/Above Optimal LDL: 110- 129 mg/dLBorderline High LDL: 130-159 mg/dLHigh LDL: 160-189 mg/dLVery High LDL: greater than or equal to 190 mg/dL HDL Cholesterol 37(L) >40 mg/dL [facility] Comment:Desirable HDL: great er than 40 mg/dL Note: This HDL assay may give artificially low results in patients with liver disease. Blood Venous blood specimen / Unknown 03/09/2024 10:14 AM EST 03/09/2024 11:38 AM EST [facility] LAB BLOOD ORDERABLES Final Re sult Performing Organization Address [facility]/ZIP Co de Phone Number [facility] [address] [place] [address] [phone] * (ABNORMAL) Comprehensive Metabolic Panel (03/09/2024 10:14 AM EST) Sodium 142 135 - 145 mmol/L [facility] Potassium 4.5 3.3 - 5.1 mmol/L [facility] Chloride 100 96 - 108 mmol/L [facility] Carbon Dioxide 32(H) 22 - 29 mmol/L [facility] Anion Gap 15 12 - 20 [facility] Urea Nitrogen (BUN) 12 9 - 16 mg/dL [facility] Creatinine, Serum 1.04 0.5 - 1.4 mg/dL [facility] Estimated Glomerular Filt Rate >60 [facility] Comment:Chronic Kidney Disea se: Estimated GFR < 60 mL/min/[id number] Kidney Disease: Estimated GFR < 15 mL/min/1.73m2 Glucose 268(H) 60 - 115 mg/dL [facility] Calcium 9.6 8.4 - 10.2 mg/dL [facility] Bilirubin, Total 0.4 0.0 - 1.0 mg/dL [facility] Aspartate Amino Transferase 20 5 - 37 U/L [facility] Alanine Aminotransferase 29 0 - 40 U/L [facility] Total Protein 7.9 6.5 - 8.0 g/dL [facility] Albumin Level 4.3 3.5 - 5.0 g/dL [facility] Alkaline Phosphatase 83 39 - 117 U/L [facility] Blood Venous blood specimen / Unknown 03/09/2024 10:14 AM EST 03/09/2024 11:38 AM EST [facility] LAB BLOOD ORDERABLES Final Re sult [facility] [address] [place] [phone] * (ABNORMAL) TSH (03/09/2024 10:14 AM EST) Thyroid Stimulating Hormone 4.72(H) 0.32 - 4.0 uIU/mL [facility] Comment:Note: A sustained TS H level above 2.5 uIU/mL may warrant further investigation. TSH 3rd Generation ([facility]) Blood Venous blood specimen / Unknown 03/09/2024 10:14 AM EST 03/09/2024 11:38 AM EST [facility] LAB BLOOD ORDERABLES Final Re sult [facility] [address] [place] [address] [phone] * (ABNORMAL) POCT HGB A1C (03/09/2024 9:33 AM EST) Hemoglobin A1C 9.7(A) 4.0 - 6.0 % Blood 03/09/2024 9:33 AM EST [facility] POINT OF CARE TEST ENTER/EDIT ORDERABLES Final Result * (ABNORMAL) POCT Glucose (03/09/2024 9:33 AM EST) Glucose Blood, POC 295(A) 60 - 200 mg/dL QC Media Lot # [id number] Lot# Expiration Date Blood Capillary blood specimen / Unknown 03/09/2024 9:33 AM EST Result [facility] POINT OF CARE TEST ENTER/EDIT ORDERABLES Final Result documented in this encounter Visit Diagnoses Diagnosis Type 2 diabetes mellitus with hyperglycemia, with long-term current use of insulin ([facility])- Primary Chronic pain of right knee Acquired hypothyroidism Unspecified hypothyroidism Dietary counseling Dietary surveillance and counseling Exercise counseling Class 3 severe obesity due to excess calories with serious comorbidity and body mass index (BMI) of 40.0 to 44.9 in adult (CMS/HCC) documented in this encounter Additional Health Concerns Assessment Noted Time PHQ-9 Depression Total Score: 8 03/09/19 25 9:22 AM EST documented as of this encounter Care Teams Electrical Linesworker Relationship Specialty Start Date End Date Adrienne Sheehan FNP [address] [place] [address] PCP - General Family Medicine 07/04/23 documented as of this encounter
--- OUTSIDE RECORDS SUMMARY | 2024-03-20 06:25 | XMS_ITS | Encounter Summary ---
Author Organization [employer] Address [address] [place] [address] Care Team Providers Care Applications Consultant Name Role Phone [place] [facility] Primary Care Provider [phone] Encounter Details Date Type Department Care Team (Late st Contact Info) Description 03/19/2024 Orders Only [facility] [address] [place], [place] [phone] [place], [facility] [address] [place] [address] Acquired hypothyroidism (Primary Dx) Social History Tobacco Use Types Packs/Day Years [...] Description 04/18/2024 10:00 AM EST Office Visit [address] [address] 05/09/2024 2:00 PM EDT Office Visit [address] [address] Scheduled Orders Name Type Priority Associated Diagnoses Orde r Schedule TSH Lab Routine Acquired hypothyroidism Expected: 03/19/2024 (Approximate), Expires: 03/19/2025 documented as of this encounter Goals Goal Patient Goal Type Associated Problems Recent Progress Patient-Stated? Author Blood Pressure < 140/90 Blood Pressure 125/75(2024 9:10 AM EST) No Souleymane Love, PharmRuth Hemoglobin A1c < 7 Result Component 9.7( 9:33 AM EST) No Souleymane Love PharmD documented as of this encounter Visit Diagnoses Diagnosis Acquired hypothyroidism- Primary Unspecified hypothyroidism documented in this encounter Additional Health Concerns Assessment Noted Time PHQ-9 Depression Total Score: 8 03/09/19 25 9:22 AM EST documented as of this encounter Care Teams Applications Consultant Relationship Specialty Start Date End Date Adrienne SheehanDUY [address] [place] [phone] PCP - General Family Medicine 07/04/23 documented as of this encounter
--- OUTSIDE RECORDS SUMMARY | 2024-03-20 06:25 | XMS_ITS | Clinical Summary ---
Author Organization [employer] [facility] it Address [address] [place] [address] Care Team Providers Care Chemical Manager Name Role Phone Unavailable Primary Care Provider Unavailabl e Social History Tobacco Use Types Packs/Day Years Used Date Smoking Tobacco: Never Assessed Sex and Gender Information Value Date Recorded Sex Assigned at Not on file Gender Identity Not on file Sexual Orientation Not on file Plan of Treatment Health Maintenance Due Date Last Done Comments DTaP,Tdap,and Td Vaccines (1 - Tdap) 12/04/1987 Hepatitis B Vaccines (1 of 3 - 19+ 3-dose series) 12/04/1987 Zoster Vaccines (1 of 2) 2018 COVID-19 Vaccine (2023-2 5 season) 2023 Influenza Vaccine (#1) 2023 HIB Vaccines Aged Out No longer eligi [...] on patient's age to complete this topic MMR Vaccines Aged Out No longer eligi ble based on patient's age to complete this topic Meningococcal ACWY Vaccine Aged Out N o longer eligible based on patient's age to complete this topic Pneumococcal Vaccine: Pediat rics (0 to 5 Years) and At-Risk Patients (6 to 64 Years) Aged Out No longer eligible b ased on patient's age to complete this topic RSV Immunization Patients Un addy 20 months Aged Out No longer eligible b ased on patient's age to complete this topic Varicella Vaccines Aged Out No longer eligible based on patient's age to complete this topic
[2024-03-20 08:15] LABS: Thyroid Stimulating Hormone 6.65 uIU/mL (0.32-4.0)
== END 2024-03-20 06:21 | disposition home or self-care (01) ==
LOC: HO.XRAY 06:20
PROVIDERS: PCP Registered Nurse; Visit Provider Registered Nurse
DX: E03.9 Hypothyroidism, unspecified (principal); G89.29 Other chronic pain; M25.561 Pain in right knee
CPT/HCPCS: 36415; 73562; 84443

== ENCOUNTER → 2024-03-20 06:46 | Outpatient (BNV) | payer OTHER, SELFPAY | PROVIDERS: PCP Registered Nurse; Visit Provider Radiology Diagnostic Radiology | DX: M22.2X2 Patellofemoral disorders, left knee (principal) | CPT/HCPCS: 73562 ==

== ENCOUNTER 2024-03-26 07:58 | Outpatient (AMB) | payer OTHER, SELFPAY ==
--- OUTSIDE RECORDS SUMMARY | 2024-03-26 08:01 | XMS_ITS | Encounter Summary ---
Author Organization [employer] Address [address] [place] [address] Care Team Providers Care Brush Or Broom Cutter Name Role Phone [facility] Primary Care Provider Reason for Visit * Reason Comments Med Refill Encounter Details Date Type Department Care Team ([facility] st Contact Info) Description 10/28/2023 Refill [facility] [address] [place] [address] [facility] [address] [place] [address] Social History Tobacco Use Types Packs/Day Years [...] Upcoming Encounters Date Type Department Care Team ([facility] st Contact Info) Description 04/18/2024 10:00 AM EST Office Visit [address] [address] [place] [address] [address] 05/09/2024 2:00 PM EDT Office Visit [address] [address] [address] documented as of this encounter Goals Goal [...] documented as of this encounter Care Teams Brush Or Broom Cutter Relationship Specialty Start Date End Date Adrienne Sheehan FNP [address] [place] [phone] PCP - General Family Medicine 07/04/23 documented as of this encounter
--- OUTSIDE RECORDS SUMMARY | 2024-03-26 08:01 | XMS_ITS | Clinical Summary ---
Author Organization [facility] Address [address] [place] [address] Care Team Providers Care Jewel Hole Rough Opener Name Role Phone Unavailable Primary Care Provider Unavailabl e Social History Tobacco Use Types Packs/Day Years Used Date Smoking Tobacco: Never Assessed Sex and Gender Information Value Date Recorded Sex Assigned at Not on file Legal Sex Male 1:55 AM EST Gender Identity Not on file Sexual Orientation Not on file Plan of Treatment Health Maintenance Due Date Last Done Comments DTaP,Tdap,and Td Vaccines (1 - Tdap) 12/04/1987 Hepatitis B Vaccines (1 of 3 - 19+ 3-dose series) 12/04/1987 Zoster Vaccines (1 of 2) 2018 COVID-19 Vaccine ( - 2023-2 5 season) 2023 Influenza Vaccine (#1) 2023 [...]
--- OUTSIDE RECORDS SUMMARY | 2024-03-26 08:01 | XMS_ITS | Encounter Summary ---
Author Organization [employer] Address [address] [facility] [address] [facility] [address] [place] [address] Care Team Providers Care Food Preparer Name Role Phone Aguila [facility] Primary Care Provider Encounter Details Date Type Department Care Team ([facility] st Contact Info) Description 03/22/2024 Telephone [facility] [address] [place], [place] [phone] Arely Novoa, JORGE Social History Tobacco Use Types Packs/Day Years [...] encounter Miscellaneous Notes * Telephone Encounter - Arely Novoa RN - 03/22/2024 9:00 AM EST TC placed via Ahonya dumper ([employer] ID#[id number]) to inform of PCP messages, Please advise patient that thyroid remains abnormal. Will increase his dose of levothyroxine to 150 mcg daily. New prescription was sent to pharmacy. Plan to recheck in 8 weeks. Thank you! and Please let patient know that knee x-ray shows evidence of osteoarthritis as suspected but was otherwise normal. Plan to complete physical therapy as discussed. Thank you! . Pt verbalized understanding and denies questions or concerns at this time. documented in this encounter Plan of Treatment Upcoming Encounters Date Type Department Care Team (Late st Contact Info) Description 04/18/2024 10:00 AM EST Office Visit [address] [address] Adrienne Sheehan FNP [address] [place] [address] 05/09/2024 2:00 PM EDT Office Visit [address] [address] AguilaAdrienne beltran FNP [address] [place] [address] documented as of this encounter Goals Goal [...] documented as of this encounter Care Teams Food Preparer Relationship Specialty Start Date End Date Adrienne Sheehan FNP [address] [place] [address] PCP - General Family Medicine 07/04/23 documented as of this encounter
--- OUTSIDE RECORDS SUMMARY | 2024-03-26 08:01 | XMS_ITS | Encounter Summary ---
Author Organization [employer] Address [address] 7[address] [place] [address] Care Team Providers Care Seed Mill Superintendent Name Role Phone [facility] Primary Care Provider [phone] Encounter Details Date Type Department Care Team (Late st Contact Info) Description 03/21/2024 Orders Only [facility] [address] [place], [place] [phone] [facility] [address] [place] [address] Acquired hypothyroidism Social History Tobacco Use Types Packs/Day Years [...] Description 04/18/2024 10:00 AM EST Office Visit [address] [address] 05/09/2024 2:00 PM EDT Office Visit [address] [place] [address] [address] documented as of this encounter Goals Goal Patient Goal Type Associated Problems Recent Progress Patient-Stated? Author Blood Pressure < 140/90 Blood Pressure 125/75(2024 9:10 AM EST) No Souleymane Love PharmD Hemoglobin A1c < 7 Result Component 9.7( 9:33 AM EST) No Souleymane Love PharmD documented as of this encounter Visit Diagnoses Diagnosis Acquired hypothyroidism Unspecified hypothyroidism documented in this encounter Additional Health Concerns Assessment Noted Time PHQ-9 Depression Total Score: 8 03/09/19 25 9:22 AM EST documented as of this encounter Care Teams Seed Mill Superintendent Relationship Specialty Start Date End Date Adrienne Sheehan [facility] [address] [place] [address] [place] [address] PCP - General Family Medicine 07/04/23 documented as of this encounter
--- OUTSIDE RECORDS SUMMARY | 2024-03-26 08:01 | XMS_ITS | Encounter Summary ---
Author Organization [employer] Address [address] [facility] [address] 7t [place] [address] Care Team Providers Care Flight Operations Specialist Name Role Phone Aguila Adrienne PC TECHNICIAN Primary Care Provider [phone] Encounter Details Date Type Department Care Team (Late st Contact Info) Description 03/13/2024 Telephone [facility] [address] [place], [place] [phone] Tom, Lou, OD [address] [place] [address] Social History Tobacco Use Types Packs/Day Years [...] Description 04/18/2024 10:00 AM EST Office Visit [address] [address] Adrienne Sheehan [address] [address] 05/09/2024 2:00 PM EDT Office Visit [address] [address] Adrienne Sheehan [address] [address] documented as of this encounter Goals Goal [...] documented as of this encounter Care Teams Flight Operations Specialist Relationship Specialty Start Date End Date Adrienne Sheehan FNP [address] [place] [address] PCP - General Family Medicine 07/04/23 documented as of this encounter
--- OUTSIDE RECORDS SUMMARY | 2024-03-26 08:01 | XMS_ITS | Encounter Summary ---
Author Organization [employer] Address [address] [facility] [facility] [address] 7t [place] [address] Care Team Providers Care Quality Reviewer Name Role Phone [facility] Primary Care Provider [phone] Encounter Details Date Type Department Care Team (Late st Contact Info) Description 03/19/2024 Orders Only [facility] [address] [place] [address] [facility] [address] [place] [address] Acquired hypothyroidism (Primary Dx) Social History Tobacco [...] Description 04/18/2024 10:00 AM EST Office Visit [address] [address] 05/09/2024 2:00 PM EDT Office Visit [address] [address] documented as of this encounter Goals Goal Patient Goal Type Associated Problems Recent Progress Patient-Stated? Author Blood Pressure < 140/90 Blood Pressure 125/75(2024 9:10 AM EST) No Souleymane Love, PharmRuth Hemoglobin A1c < 7 Result Component 9.7( 9:33 AM EST) No Souleymane Love PharmD documented as of this encounter Procedures Procedure Name Priority Date/Time Associated Diagnosis Comments TSH Routine 03/20/2024 6:44 AM EST Acquired hypothyroidism documented in this encounter Results * (ABNORMAL) TSH (03/20/2024 6:44 AM EST) Thyroid Stimulating Hormone 6.65(H) 0.32 - 4.0 uIU/mL [facility] Comment:Note: A sustained TS H level above 2.5 uIU/mL may warrant further investigation. TSH 3rd Generation ([facility]) Blood Venous blood specimen / Unknown 03/20/2024 6:44 AM EST 03/20/2024 6:44 AM EST [facility] LAB BLOOD ORDERABLES Final Re sult [facility] [address] [place] [address] [phone] documented in this encounter Visit Diagnoses Diagnosis Acquired hypothyroidism- Primary Unspecified hypothyroidism documented in this encounter Additional Health Concerns Assessment Noted Time PHQ-9 Depression Total Score: 8 03/09/19 25 9:22 AM EST documented as of this encounter Care Teams Quality Reviewer Relationship Specialty Start Date End Date AguilaAdrienne beltran LAN SPECIALIST [address] [place] [address] PCP - General Family Medicine 07/04/23 documented as of this encounter
--- OUTSIDE RECORDS SUMMARY | 2024-03-26 08:01 | XMS_ITS | Encounter Summary ---
Author Organization [employer] Address [address] [facility] [address] 7t [place] [address] Care Team Providers Care Contact Worker Lithography Name Role Phone Adrienne Sheehan [facility] Primary Care Provider [phone] Encounter Details Date Type Department Care Team [...] is your housing situation today? I have jayeln muhammad 04/29/[address] you [...] Description 04/18/2024 10:00 AM EST Office Visit [address] [address] Adrienne Sheehan [address] [address] 05/09/2024 2:00 PM EDT Office Visit [address] [address] Adrienne Sheehan [address] [address] documented as of this encounter Goals Goal [...] documented as of this encounter Care Teams Contact Worker Lithography Relationship Specialty Start Date End Date Adrienne Sheehan FNP [address] [place] [phone] PCP - General Family Medicine 07/04/23 documented as of this encounter
--- OUTSIDE RECORDS SUMMARY | 2024-03-26 08:01 | XMS_ITS | Encounter Summary ---
Author Organization [employer] Address [address] [facility] 7 [place] [address] Care Team Providers Care Orthopedic Nurse Practitioner Name Role Phone Adrienne Sheehan Primary Care Provider [phone] Reason for Referral * Consultation (Routine) - Authorized Specialty Diagnoses / Procedures Referred By Darryl huitron Referred To Contact Pharmacy Diagnoses Type 2 diabetes mellitus with hyperglycemia, with long-term current use of insulin ([facility]) Adrienne Sheehan FNP [address] [place] [address] Phone: tel: fax: Referral ID Status Reason Start Date Expiration Date Visits Requested Visits Authorized [id number] Authorized Consult and Treat 03/09/2024 03/09/2025 6 6 * Consultation (Routine) - Authorized Specialty Diagnoses / Procedures Referred By Darryl huitron Referred To Contact Physical Therapy Diagnoses Chronic pain of right knee Adrienne Sheehan FNP [address] [place] [address] Phone: tel: fax: Physical Therapy, AT [address] [place], [place] Phone: tel: fax: Referral ID Status Reason Start Date Expiration Date Visits Requested Visits Authorized [id number] Authorized Specialty Services Required 03/09/2024 03/09/2025 1 1 Reason for Visit * Reason Comments Diabetes Encounter Details Date Type Department Care Team (Late st Contact Info) Description 03/09/2024 9:00 AM EST Office Visit [facility] [address] [facility] [place] [address] Adrienne Sheehan FNP [address] [place] [address] Type 2 diabetes mellitus with hyperglycemia, with long-term current use of insulin ([facility]) (Primary Dx); Chronic pain of right knee; Acquired hypothyroidism; Dietary counseling; Exercise counseling; Class 3 severe obesity due to excess calories with serious comorbidity and body mass index (BMI) of 40.0 to 44.9 in adult (CMS/HCC) Social History Tobacco Use Types Packs/Day Years [...] feeling that knee gives out. Interim Updates: R1BM-svatdqlxxs blood sugar elevation. Reports compliance with Trulicity 4.5 weekly and metformin 1000 mg twice daily. OKI-iltx-ttzrbctfos. BENITA-stopped using CPAP machine due to burning smell. Missed appointment with dramatic agent. Need to call to reschedule Social History Social History Narrative Tobacco Use: Never ETOH: None Marijuana Use: None Other substance use: None Current living environment: Lives with and step son Children: 2 adult children in [place]; 1 step son Employment: [employer] for step son Sexually active: yes Partners [...] hyperglycemia, with long-term current use of insulin ([facility]) (Primary) Lab Results Component Value Date HGBA1C [...] index (BMI)of 40.0 to 44.9 in adult ([facility]) - Encouraged regular aerobic exercise within initial [...] NOON 90 capsule 1 Continuous Blood Gluc Digital Performance Analyst (FreeStyle Dayana 2 [place]) device Scan sensor every 8 hours 1 each 0 Continuous Glucose Sensor (FreeStyle Dayana 2 Sensor) misc APPLY AND CHANGE EVERY 14 DAYS DIRECTED 2 each 3 dulaglutide (Trulicity) 4.5 MG/0.5ML solution pen-injector Inject 4.5 mg under the skin 1 (one) time per week. 4 each 11 Easy Touch Pen [employer] 31G X 8 MM misc USE DIRECTED [...] facility-administered medications on file prior to visit. Nigerien Translation: Provided by [facility] staff member YENIFER Roberts documented in this encounter Plan of Treatment Upcoming Encounters Date Type Department Care Team (Late st Contact Info) Description 04/18/2024 10:00 AM EST Office Visit [address] [address] [place] [address] [address] 05/09/2024 2:00 PM EDT Office Visit [address] [address] [place] [address] [address] Scheduled Referrals Name Type Priority Associated Diagnoses Orde r Schedule Referral to Physical Therapy Outpatient Referral Routine Chronic pain of right knee Expected: 03/09/2024 (Approximate), Expires: 03/09/2025 Referral to Pharmacy CDTM Outpatient Referral Routine Type 2 diabetes mellitus with hyperglycemia, with long-term current use of insulin ([facility]) Ordered: 03/09/2024 documented as of this encounter Goals Goal Patient Goal Type Associated Problems Recent Progress Patient-Stated? Author Blood Pressure < 140/90 Blood Pressure 125/75(2024 9:10 AM EST) No Souleymane Love, PharmRuth Hemoglobin A1c < 7 Result Component 9.7( 9:33 AM EST) No Souleymane Love, PharmD documented as of this encounter Procedures Procedure Name Priority Date/Time Associated Diagnosis Comments XR KNEE 3 VIEWS RIGHT Routine 03/21/2024 1:32 PM EST Chronic pain of right knee ALBUMIN, RANDOM URINE W/CREATININE Routine 03/09/2024 10:14 AM EST Type 2 diabetes mellitus with hyperglycemia, with long-term current use of insulin ([facility]/HCC) TSH Routine 03/09/2024 10:14 AM EST Acquired hypothyroidism LIPID PANEL, STANDARD Routine 03/09/2024 10:14 AM EST Type 2 diabetes mellitus with hyperglycemia, with long-term current use of insulin (CMS/[facility]) COMPREHENSIVE METABOLIC PANEL Routine 03/09/2024 10:14 AM EST Type 2 diabetes mellitus with hyperglycemia, with long-term current use of insulin ([facility]) POCT GLYCATED HEMOGLOBIN, TOTAL Routine 03/09/2024 9:33 AM EST Type 2 diabetes mellitus with hyperglycemia, with long-term current use of insulin (CMS/[facility]) POCT GLUCOSE Routine 03/09/2024 9:33 AM EST Type 2 diabetes mellitus with hyperglycemia, with long-term current use of insulin ([facility]) documented in this encounter Results * XR Knee 3 Views Right (03/21/2024 1:32 PM EST) Anatomical Region Laterality Modality Lower Extremities, Knee Right [facility] 03/21/2024 1:32 PM EST Narrative 03/21/2024 1:33 PM EST ? [facility] ?[address] ?[place] [address] ?XRay Report ? Signed ? Patient: Yamil Jamaz,Michele L ?MR#: [id number] ?? [id number] ? : 1970 ?Acct:[id number] ? Age/Sex: 53 / M ?ADM Date: 03/20/ ? Loc: HO.XRAY ? Attending Dr: Adrienne ZAMARRIPAP ? Ordering Physician: Adrienne Sheehan ?? Date of Service: 03/20/24 ?? Procedure(s): XR knee RT 3V ?? Accession Number(s): [id number] ? cc: Adrienne Sheehan ELECTRONICS TEACHER ? CLINICAL HISTORY: acute on chronic right knee pain-lateral and posterior aspects ? 3 view right knee ? Comparison: None ? Findings: ?? Bones intact. No dislocations. ?? Mild to moderate degenerative narrowing of the medial tibiofemoral and ?? lateral patellar trochlear compartments, as well as small knee ?? osteophytes. Small mineralized focus projecting superior to the fibula may ?? be due to dystrophic calcification or calcium deposition disease. ?? No joint effusion. ?? No radiopaque foreign body. ? IMPRESSION: ?? Mild to moderate degenerative narrowing of the medial tibiofemoral and ?? lateral patellar trochlear compartments. ?? Small mineralized focus projecting superior to the fibula may be due to ?? dystrophic calcification or calcium deposition disease. ? This document has been electronically signed by: Arabella Burton MD on ?? 03/21/2024 13:32:17 ? Dictated By: ?Arabella Burton MD ? Signed By: ?<Electronically signed by Arabella Burton MD in OV> ? 03/21/24 1332 ? DD/ 1332 ? TD/TT: 03/21/24 1332 ? Science Editor: ? Procedure Note Gregoria Castro - 03/21/2024 [place] [address] XRay Report Signed Patient: Michele Alicea R#: [id number] : 1970Acct:[id number] Age/Sex: 53 / MADM Date: 03/20/24 Loc: [facility] Attending Dr: Adrienne Sheehan ELECTRONICS TEACHER Ordering Physician: Adrienne Sheehan Date of Service: 03/20/24 Procedure(s): XR knee RT 3V Accession Number(s): [id number] cc: Adrienne Sheehan CLINICAL HISTORY: acute on chronic right knee pain-lateral and posterioraspects 3 view right knee Comparison: None Findings: Bones intact. No dislocations. Mild to moderate degenerative narrowing of the medial tibiofemoral and lateral patellar trochlear compartments, as well as small knee osteophytes. Small mineralized focus projecting superior to the fibula may be due to dystrophic calcification or calcium deposition disease. No joint effusion. No radiopaque foreign body. IMPRESSION: Mild to moderate degenerative narrowing of the medial tibiofemoral and lateral patellar trochlear compartments. Small mineralized focus projecting superior to the fibula may be due to dystrophic calcification or calcium deposition disease. This document has been electronically signed by: Arabella Burton MD on 03/21/2024 13:32:17 Dictated By: Arabella Burton MD Signed By: <Electronically signed by Arabella Burton MD in OV> 03/21/242 DD/ 31 TD/TT: 03/21/241331 Science Editor: [facility] IMG XR PROCEDURES Edited Resu lt - Final * (ABNORMAL) Albumin, Random Urine W/Creatinine (03/09/2024 10:14 AM EST) Creatinine, Urine 160.00 mg/dL [facility] Microalbumin Urine 475.0 mg/L H [facility] Microalbum Creatinine Ratio Ur 296.8(H) <30 ug/mg cr [facility] Comment:Albumin/Creatinine R atio Reference Ranges: Normal: < 30 ug/mg creatinine Microalbuminuria: 30 - 300 ug/mg creatinineClinical Albuminuria: > 300 ug/mg creatinine Urine 03/09/2024 10:1 4 AM EST 03/09/2024 11:34 AM EST [facility] LAB URINE ORDERABLES Final Re sult [facility] [address] [place] [address] [phone] * (ABNORMAL) Lipid Panel, Standard (03/09/2024 10:14 AM EST) Triglycerides 147 <150 mg/dL [facility] Comment:Desirable Triglyceri de: less than 150 mg/dLBorderline High Triglyceride 150-199 mg/dLHigh Triglyceride: 200-499 mg/dLVery High Triglyceride: greater than or equal to 5OO mg/dL Cholesterol 195 <200 mg/dL [facility] Comment:Desirable Cholestero l: less than 200 mg/dLBorderline High Cholesterol: 200-239 mg/dLHigh Cholesterol: greater than 239 mg/dL LDL Cholesterol Calculated 129(H) <100 mg/dL [facility] Comment:Desirable LDL: less than 100 mg/dLNear Optimal/Above Optimal LDL: 110- 129 mg/dLBorderline High LDL: 130-159 mg/dLHigh LDL: 160-189 mg/dLVery High LDL: greater than or equal to 190 mg/dL HDL Cholesterol 37(L) >40 mg/dL [facility] Comment:Desirable HDL: great er than 40 mg/dL Note: This HDL assay may give artificially low results in patients with liver disease. Blood Venous blood specimen / Unknown 03/09/2024 10:14 AM EST 03/09/2024 11:38 AM EST [facility] ELECTRONICS TEACHER LAB BLOOD ORDERABLES Final Re sult [facility] [address] [place], [place] [phone] * (ABNORMAL) Comprehensive Metabolic Panel (03/09/2024 10:14 AM EST) Sodium 142 135 - 145 mmol/L [facility] Potassium 4.5 3.3 - 5.1 mmol/L [facility] Chloride 100 96 - 108 mmol/L [facility] Carbon Dioxide 32(H) 22 - 29 mmol/L [facility] Anion Gap 15 12 - 20 [facility] Urea Nitrogen (BUN) 12 9 - 16 mg/dL [facility] Creatinine, Serum 1.04 0.5 - 1.4 mg/dL [facility] Estimated Glomerular Filt Rate >60 [facility] Comment:Chronic Kidney Disea se: Estimated GFR < 60 mL/min/1.83i9Vikgfz Kidney Disease: Estimated GFR < 15 mL/min/1.73m2 Glucose 268(H) 60 - 115 mg/dL [facility] Calcium 9.6 8.4 - 10.2 mg/dL [facility] Bilirubin, Total 0.4 0.0 - 1.0 mg/dL [facility] Aspartate Amino Transferase 20 5 - 37 U/L [facility] Alanine Aminotransferase 29 0 - 40 U/L [facility] Total Protein 7.9 6.5 - 8.0 g/dL [facility] Albumin Level 4.3 3.5 - 5.0 g/dL [facility] Alkaline Phosphatase 83 39 - 117 U/L [facility] Blood Venous blood specimen / Unknown 03/09/2024 10:14 AM EST 03/09/2024 11:38 AM EST [facility] LAB BLOOD ORDERABLES Final Re sult Performing Organization Address City/[facility] Co de Phone Number [facility] [address] [place] [phone] * (ABNORMAL) TSH (03/09/2024 10:14 AM EST) Thyroid Stimulating Hormone 4.72(H) 0.32 - 4.0 uIU/mL [facility] Comment:Note: A sustained TS H level above 2.5 uIU/mL may warrant further investigation. TSH 3rd Generation ([facility]) Blood Venous blood specimen / Unknown 03/09/2024 10:14 AM EST 03/09/2024 11:38 AM EST [facility] LAB BLOOD ORDERABLES Final Re sult Performing Organization Address City/[facility] Co de Phone Number [facility] [address] [place] [phone] * (ABNORMAL) POCT HGB A1C (03/09/2024 9:33 AM EST) Hemoglobin A1C 9.7(A) 4.0 - 6.0 % Blood 03/09/2024 9:33 AM EST [facility] POINT OF CARE TEST ENTER/EDIT ORDERABLES Final Result * (ABNORMAL) POCT Glucose (03/09/2024 9:33 AM EST) Glucose Blood, POC 295(A) 60 - 200 mg/dL [employer] Media Lot # [id number] Lot# Expiration Date Blood Capillary blood specimen / Unknown 03/09/2024 9:33 AM EST [facility] POINT OF CARE TEST ENTER/EDIT ORDERABLES Final Result documented in this encounter Visit Diagnoses Diagnosis Type 2 diabetes mellitus with hyperglycemia, with long-term current use of insulin ([facility])- Primary Chronic pain of right knee Acquired hypothyroidism Unspecified hypothyroidism Dietary counseling Dietary surveillance and counseling Exercise counseling Class 3 severe obesity due to excess calories with serious comorbidity and body mass index (BMI) of 40.0 to 44.9 in adult ([facility]) documented in this encounter Additional Health Concerns Assessment Noted Time PHQ-9 Depression Total Score: 8 03/09/19 25 9:22 AM EST documented as of this encounter Care Teams Orthopedic Nurse Practitioner Relationship Specialty Start Date End Date Adrienne Sheehan FNP [address] [place] [phone] PCP - General Family Medicine 07/04/23 documented as of this encounter
--- OUTSIDE RECORDS SUMMARY | 2024-03-26 08:01 | XMS_ITS | Encounter Summary ---
Author Organization [employer] Address [address] [facility] 7 [place] [address] Care Team Providers Care Tearoom Host Name Role Phone Sophia Burns INTERVENTION TEACHER Primary Care Provider [phone] Kori Alonso REAL ESTATE LEASING AGENT Primary Care Provider [phone] Boom Estevez MD Primary Care Provider [phone] Kori Alonso REAL ESTATE LEASING AGENT Primary Care Provider [phone] [place] INTERVENTION TEACHER Primary Care Provider [phone] Encounter Details Date Type Department Care Team (Latest Contact Info) Description 04/17/2021 Abstract [facility] CONVERSIONS Dental, Provider, DDS Social History Tobacco [...] Description 04/18/2024 10:00 AM EST Office Visit [facility] MEDICINE [address] [place], [place] [phone] [facility] [address] [place] [address] 05/09/2024 2:00 PM EDT Office Visit [facility] MEDICINE [address] [place] [address] Adrienne Sheehan FNP [address] [place] [address] documented as of this encounter Visit Diagnoses Not on filedocumented in this encounter Care Teams Tearoom Host Relationship Specialty Start Date End Date Sophia Burns FNP PCP - General Family Medicine 10/12/21 11/22/22 [place] [address] PCP - General Family Medicine 11/23/22 01/16/23 Boom Estevez MD [address] [place] [address] PCP - General Internal Medicine 01/17/23 01/18/23 [place] [address] PCP - General Family Medicine 01/19/23 07/03/23 Adrienne [place] [address] PCP - General Family Medicine 07/04/23 documented as of this encounter
--- OUTSIDE RECORDS SUMMARY | 2024-03-26 08:01 | XMS_ITS | Encounter Summary ---
Author Organization [employer] Address [address] [place] [address] Care Team Providers Care Central Supply Technician Name Role Phone Sophia Burns Primary Care Provider [phone] Kori Alonso NP Primary Care Provider [phone] Boom Estevez MD Primary Care Provider [phone] Kori Alonso NP Primary Care Provider [phone] [place] Adrienne HEAD OF IT Primary Care Provider [phone] Encounter Details Date Type Department Care Team (Late st Contact Info) Description 08/26/2022 [facility] Information Management [address] [place] [address] Sophia Burns FNP [address] [place] [address] [place] [address] Social History Tobacco Use Types Packs/Day Years [...] Description 04/18/2024 10:00 AM EST Office Visit [facility] MEDICINE 230 [place] [address] [facility] 230 [place] [address] 05/09/2024 2:00 PM EDT Office Visit [facility] [place] [address] [facility] 230 [place] [address] documented as of this encounter Visit Diagnoses Not on filedocumented in this encounter Care Teams Central Supply Technician Relationship Specialty Start Date End Date Sophia Burns FNP PCP - General Family Medicine 10/12/21 11/22/22 Kori Alonso NP [address] [place] [address] PCP - General Family Medicine 11/23/22 01/16/23 Boom Estevez MD [address] [place] [address] PCP - General Internal Medicine 01/17/23 01/18/23 Kori Alonso NP [address] [place] [address] PCP - General Family Medicine 01/19/23 07/03/23 [place] FNP [address] [place] [address] PCP - General Family Medicine 07/04/23 documented as of this encounter
--- OUTSIDE RECORDS SUMMARY | 2024-03-26 08:01 | XMS_ITS | Encounter Summary ---
Author Organization [employer] Address [address] [facility] [address] [place] [address] Care Team Providers Care Triage Specialist Name Role Phone [facility] Primary Care Provider [phone] Reason for Visit * Reason Comments Med Refill Encounter Details Date Type Department Care Team ([facility] st Contact Info) Description 11/07/2023 Refill [facility] MEDICINE 230 [place], [place] [phone] [facility] 230 [place], [place] [phone] Mild intermittent asthma without complication Social History [...] Description 04/18/2024 10:00 AM EST Office Visit [address] [address] 05/09/2024 2:00 PM EDT Office Visit [address] [address] documented as of this encounter Goals Goal [...] documented as of this encounter Care Teams Triage Specialist Relationship Specialty Start Date End Date Adrienne Sheehan FNP [address] [place] [address] PCP - General Family Medicine 07/04/23 documented as of this encounter
--- OUTSIDE RECORDS SUMMARY | 2024-03-26 08:01 | XMS_ITS | Encounter Summary ---
Author Organization [employer] Address [address] [facility] [address] [place] [address] Care Team Providers Care Worm Sorter Name Role Phone [facility] Primary Care Provider [phone] Reason for Visit * Reason Comments Med Change Request Encounter Details Date Type Department Care Team ([facility] st Contact Info) Description 03/09/2024 Refill [facility] MEDICINE [address] [place], [place] [phone] [facility] 230 [place], [place] [phone] Type 2 diabetes mellitus with hyperglycemia, with long-term current use of insulin ([facility]) Social History Tobacco Use Types Packs/Day Years [...] Description 04/18/2024 10:00 AM EST Office Visit [address] [address] 05/09/2024 2:00 PM EDT Office Visit [address] [address] documented as of this encounter Goals Goal Patient Goal Type Associated Problems Recent Progress Patient-Stated? Author Blood Pressure < 140/90 Blood Pressure 125/75(2024 9:10 AM EST) No Souleymane Love PharmD Hemoglobin A1c < 7 Result Component 9.7( 9:33 AM EST) No Souleyamne Love PharmD documented as of this encounter Visit Diagnoses Diagnosis Type 2 diabetes mellitus with hyperglycemia, with long-term current use of insulin ([facility]) documented in this encounter Additional Health Concerns Assessment Noted Time PHQ-9 Depression Total Score: 8 01/24/20 25 9:22 AM EST documented as of this encounter Care Teams Worm Sorter Relationship Specialty Start Date End Date [place] DUY Deleon [address] [place] [address] PCP - General Family Medicine 07/04/23 documented as of this encounter
--- OUTSIDE RECORDS SUMMARY | 2024-03-26 08:01 | XMS_ITS | Encounter Summary ---
Author Organization [employer] Address [address] [facility] [address] [place] [address] Care Team Providers Care Metal Casket Assembler Name Role Phone [facility] Primary Care Provider [phone] Reason for Visit * Reason Onset Date Comments Results 03/19/2024 Encounter Details Date Type Department Care Team (Late st Contact Info) Description 03/19/2024 Telephone [facility] MEDICINE [address] [place], [place] [phone] Marsha Wilson, JORGE [address] [place] [address] Results Social History Tobacco Use Types Packs/Day [...] 4:50 PM EST TC placed to patient [phone] (spoke to Brielle on [employer]) in regards to below message. Brielle verbalized understanding and did not have any further questions. Brielle aware patient/spouse will receive another call with updated TSH result and POC. Patient to f/u PRN. ----- Message from [facility] sent at 03/19/2024 4:08 PM EST ----- [...] Description 04/18/2024 10:00 AM EST Office Visit [facility] MEDICINE [address] [place], [place] [phone] [place] [facility] 230 [place] [address] 05/09/2024 2:00 PM EDT Office Visit [facility] MEDICINE [address] [place] [address] Adrienne Sheehan FNP [address] [place] [address] documented as of this encounter Goals Goal [...] documented as of this encounter Care Teams Metal Casket Assembler Relationship Specialty Start Date End Date Adrienne Sheehan FNP [address] [place] [address] PCP - General Family Medicine 07/04/23 documented as of this encounter
--- OUTSIDE RECORDS SUMMARY | 2024-03-26 08:01 | XMS_ITS | Encounter Summary ---
Author Organization [employer] Address [address] [facility] [address] 7[address] [place] [address] Care Team Providers Care Child Protection Specialist Name Role Phone Kori Alonso NP Primary Care Provider [phone] [facility] Primary Care Provider [phone] Reason for Visit * Reason Onset Date Comments Med Refill 03/16/2023 Encounter Details Date Type Department Care Team (Late st Contact Info) Description 03/16/2023 Telephone [facility] MEDICINE 230 [place], [place] [phone] Kori Alonso NP 230 [place], [place] [phone] Med Refill Social History Tobacco Use Types [...] Description 04/18/2024 10:00 AM EST Office Visit [address] [address] 05/09/2024 2:00 PM EDT Office Visit [address] [address] documented as of this encounter Goals Goal [...] documented as of this encounter Care Teams Child Protection Specialist Relationship Specialty Start Date End Date Kori Alonso NP 230 [place] [address] PCP - General Family Medicine 01/19/23 07/03/23 [place] FNP 230 [place] [address] PCP - General Family Medicine 07/04/23 documented as of this encounter
--- OUTSIDE RECORDS SUMMARY | 2024-03-26 08:01 | XMS_ITS | Clinical Summary ---
Author Organization [employer] Address [address] [facility] [address] [place] [address] Care Team Providers Care Regrind Mill Operator Name Role Phone Aguila [facility] Primary Care Provider [phone] Allergies No known active allergies Medications FREESTYLE LITE test strip USE SEG N LO INDICADO 2 TO 3 TIMES PER DAY 023 Active FreeStyle lancets USE TO CHECK BLOOD SUGARS 2-3 TIMES DAILY. 023 Active UltiCare Alcohol Swabs 70 % pads USE DIRECTED TO CLEAN SKIN SAMI VECES AL D A 022 Active betamethasone, augmented, (Diprolene) 0.05 % ointmentIndicatio ns:Lichen simplex chronicus APLIQUE AL AREA AFECTADA DOS VECES AL CINDY 50 g 023 Active traZODone (Desyrel) 50 MG tablet Take 1 tablet by mouth if needed at bedtime. 023 Active Continuous Blood Gluc Minister (FreeStyle Dayana 2 Kol[place]) deviceIndications :Type 2 diabetes mellitus with hyperglycemia, with long-term current use of insulin (CMS/HCC) Scan sensor every 8 hours 1 each 023 Active metFORMIN, OSM, (Fortamet) 1000 MG 24 hr tabletIndications :Diabetes mellitus of other type without complication, unspecified whether manager intermediate insulin use (CMS/HCC) Take 1 tablet by mouth twice daily. Do not crush, chew, or split. 60 tablet 3 024 Active Blood Pressure Monitor kitIndications:Es sential hypertension Use as directed 1 kit Active albuterol 108 (90 Base) MCG/ACT inhalerIndication s:Mild intermittent asthma without complication Inhale 2 puffs every 4 (four) hours. 18 g 3 Active timolol (Timoptic) 0.25 % ophthalmic solutionIndicatio ns:Low tension glaucoma of left eye, moderate stage Administer 1 drop into the left eye in the morning. 5 mL 2024 Active atorvastatin (Lipitor) 20 MG tabletIndications :Type 2 diabetes mellitus with hyperglycemia, with long-term current use of insulin ([facility]) Take 1 tablet (20 mg) by mouth Once per day. 30 tablet 024 2024 Active dulaglutide (Trulicity) 4.5 MG/0.5ML solution pen-injectorIndic ations:Type 2 diabetes mellitus with hyperglycemia, with long-term current use of insulin ([facility]) Inject 4.5 mg under the skin 1 (one) time per week. 4 each Active FLUoxetine (PROzac) 20 MG tabletIndications :Depression, unspecified depression type Take 1 tablet (20 mg) by mouth Once per day. 30 tablet Active busPIRone (Buspar) 10 MG tablet Active Easy Touch Pen Orting 31G X 8 MM misc USE DIRECTED Active glucose 4 g chewable tabletIndications :Type 2 diabetes mellitus with hypoglycemia without coma, with long-term current use of insulin ([facility]) Chew 4 tablets (16 g) if needed for low blood sugar. 50 tablet 024 2024 Active metFORMIN XR (Glucophage-XR) 500 MG 24 hr tablet TAKE 2 TABLETS BY MOUTH TWICE DAILY AT NOON AND IN THE EVENING DO NOT BREAK, CRUSH, DISSOLVE OR CHEW 120 tablet 5 Active cholecalciferol (D3-1000) 25 MCG (1000 UT) capsuleIndication s:Vitamin D deficiency TAKE 1 CAPSULE BY MOUTH EVERYDAY AT NOON 90 capsule 1 Active lisinopril 20 MG tabletIndications :Essential hypertension TAKE 1 TABLET BY MOUTH EVERYDAY AT NOON 90 tablet 1 024 Active insulin glargine (Lantus SoloStar) 100 UNIT/ML penIndications:Ty pe 2 diabetes mellitus with hyperglycemia, with long-term current use of insulin (CMS/[facility]) Inject 14 Units under the skin at bedtime. 15 mL 2 025 2025 Active Alcohol Swabs (Alcohol Prep) padsIndications:T ype 2 diabetes mellitus with hyperglycemia, with long-term current use of insulin (CMS/HCC) Use one pad each to prep skin prior to injection as directed 100 each 11 025 Active insulin pen needle 30G x 5 mm miscIndications:T ype 2 diabetes mellitus with hyperglycemia, with long-term current use of insulin (CMS/HCC) Use as instructed 100 each 12 025 Active Tirzepatide (Mounjaro) 2.5 MG/0.5ML solution auto-injectorIndi cations:Type 2 diabetes mellitus with hyperglycemia, with long-term current use of insulin (CMS/[facility]) Inject 2.5 mg under the skin 1 (one) time per week. 2 mL 3 025 2025 Active Continuous Glucose Sensor (FreeStyle Dayana 3 Plus Sensor) miscIndications:T ype 2 diabetes mellitus with hyperglycemia, with long-term current use of insulin (CMS/HCC) USE DIRECTED. CHANGE EVERY 15 DAYS 2 each 025 Active levothyroxine (Synthroid, Levoxyl) 150 MCG tabletIndications :Acquired hypothyroidism TAKE 1 TABLET BY MOUTH EVERY MORNING ON AN EMPTY STOMACH 30 MINUTES BEFORE BREAKFAST 90 tablet 3 025 Active Continuous Glucose Sensor (FreeStyle Dayana 2 Sensor) miscIndications:T ype 2 diabetes mellitus with hyperglycemia, with long-term current use of insulin (CMS/HCC) APPLY AND CHANGE EVERY 14 DAYS DIRECTED 2 each 3 024 2024 Discontinued levothyroxine (Synthroid, Levoxyl) 137 MCG tabletIndications :Acquired hypothyroidism TAKE 1 TABLET BY MOUTH EVERY MORNING ON AN EMPTY STOMACH 30 MINUTES BEFORE BREAKFAST 90 tablet 1 024 2024 Discontinued(R eorder (will not trigger notification to Pharmacy)) Blood Glucose Monitoring Suppl (GNP Easy Touch Glucose Meter) deviceIndications :Type 2 diabetes mellitus with hyperglycemia, with long-term current use of insulin ([facility]) Use as directed to check blood sugar four times daily 1 each 025 2024 Discontinued Continuous Glucose Sensor (FreeStyle Dayana 3 Plus Sensor) miscIndications:T ype 2 diabetes mellitus with hyperglycemia, with long-term current use of insulin (CMS/HCC) 1 each 1 (one) time for 1 dose. 1 each 025 2024 Active Problems Problem Noted Date Diagnosed [...] Secondary erythrocytosis 08/03/2022 Overview (08/03/2022): Appt 05/04/21 [facility] Hematology Severe hematocrit > 60; increased risk [...] PM EST): -hgb 12.2 on 12/28 @ [facility] -recheck levels Depression, recurrent 03/09/20222023 Encounters Date Type Department Care Team Description 03/22/2024 Telephone [facility] [address] [place] [address] Arely Novoa, RN 03/21/2024 Orders Only [facility] [address] [place] [address] Adrienne Sheehan FNP Acquired hypothyroidism 03/19/2024 Telephone [facility] [address] [place] [address] Marsha Wilson, RN Results 03/19/2024 Orders Only [facility] [address] [place] [address] Adrienne Sheehan FNP Acquired hypothyroidism (Primary Dx) 03/13/2024 Telephone [facility] [address] [place] [address] Lou Santos, OD 03/09/2024 9:00 AM EST Office Visit [facility] [address] [place] [address] Adrienne Sheehan FNP Type 2 diabetes mellitus with hyperglycemia, with long-term current use of insulin ([facility]) (Primary Dx); Chronic pain of right knee; Acquired hypothyroidism; Dietary counseling; Exercise counseling; Class 3 severe obesity due to excess calories with serious comorbidity and body mass index (BMI) of 40.0 to 44.9 in adult ([facility]) 03/09/2024 Refill [facility] [address] [place], [place] [phone] [facility] Type 2 diabetes mellitus with hyperglycemia, with long-term current use of insulin ([facility]) 03/09/2024 Travel 01/24/2024 Refill [facility] [address] [place], [place] [phone] [facility] Vitamin D deficiency; Acquired hypothyroidism; Essential hypertension 01/05/2024 Refill [facility] [address] [place], [place] [phone] [facility] from Last 3 Months Immunizations Name Administration [...] Description 04/18/2024 10:00 AM EST Office Visit [facility] [address] [place] [phone] Adrienne Sheehan FNP [address] [place] [address] 05/09/2024 2:00 PM EDT Office Visit [facility] [address] [place] [phone] Adrienne Sheehan FNP [address] [place] [address] Health Maintenance Due Date Last Done Comments CT Colonography 1968 FIT DNA/Cologuard 1968 FIT 1968 FOBT 1968 Sigmoidoscopy 1968 Alcohol/Substance Use Screening 1980 Dental Oral Exam 06/15/2021 12/15/2020 Dental Prophylaxis 10/19/2021 04/17/2021 Dental X-Ray: Bitewings 12/16/2021 12/15/2020 Zoster Vaccines (2 of 2) 03/22/2023 01/25/2023 COVID-19 Vaccine ( season) 2023 12/23/2021, 05/13/2021, 11/20/2020, Additional history exists Influenza Vaccine (#1) 2023 01/05/2023, 2021 Dental X-Ray: Full Mouth 04/18/2024 04/17/2021 SDOH Screening 05/08/2024 05/09/2023 Diabetes: Hemoglobin A1C 06/07/2024 025, 08/26/2023, 04/27/2023, Additional history exists Diabetes: Foot Exam 08/25/2024 08/26/2023, Depression Screening 03/09/2025 03/09/2024, 03/09/19 Diabetes: Urine Protein Screening 03/09/2025 03/09/2024, 05/09/2023, [...] PM EST Chronic pain of right knee TSH Routine 03/20/2024 6:44 AM EST Acquired hypothyroidism ALBUMIN, RANDOM URINE W/CREATININE Routine 03/09/2024 10:14 AM EST Type 2 diabetes mellitus with hyperglycemia, with long-term current use of insulin ([facility]) LIPID PANEL, STANDARD Routine 03/09/2024 10:14 AM EST Type 2 diabetes mellitus with hyperglycemia, with long-term current use of insulin (CMS/[facility]) COMPREHENSIVE METABOLIC PANEL Routine 03/09/2024 10:14 AM EST Type 2 diabetes mellitus with hyperglycemia, with long-term current use of insulin (CMS/[facility]) TSH Routine 03/09/2024 10:14 AM EST Acquired [...] Recently Relevant to Health Maintenance Results * XR Knee 3 Views Right (03/21/2024 1:32 PM EST) Anatomical Region Laterality Modality Lower Extremities, Knee Right [facility] 03/21/2024 1:32 PM EST Narrative 03/21/2024 1:33 PM EST ? [facility] ?[address] ?[place] [address] ?XRay Report ? Signed ? Patient: Lobo Lobo,Michele L ?MR#: [id number] ?? [id number] ? : 1970 ?Acct:[id number] ? Age/Sex: 53 / M ?ADM Date: 02/04/25 ? Loc: HO.XRAY ? Attending Dr: Adrienne GORDILLO ? Ordering Physician: Adrienne Sheehan ?? Date of Service: 03/20/24 ?? Procedure(s): XR knee RT 3V ?? Accession Number(s): [id number] ? cc: Adrienne Sheehan [employer]CH[employer]IC MANUFACTURING SUPERVISOR ? CLINICAL HISTORY: acute on chronic right [...] DD/ 1332 ? TD/TT: 03/21/24 1332 ? Hims Coder: ? Procedure Note Gregoria Castro - 03/21/2024 [place] [address] XRay Report Signed Patient: Michele Alicea R#: [id number] : 1970Acct:[id number] Age/Sex: 53 / MADM Date: 03/20/24 Loc: [facility] Attending Dr: Adrienne GORDILLO Ordering Physician: Adrienne Sheehan Date of Service: 03/20/24 Procedure(s): XR knee RT 3V Accession Number(s): [id number] cc: Adrienne Sheehan CLINICAL HISTORY: acute on [...] signed by Arabella Burton MD in OV> 03/21/24 1332 DD/ 1332 TD/TT: 03/21/24 133 Hims Coder: [facility] IM[facility] XR PROCEDURES Edited Resu lt - Final * (ABNORMAL) TSH (03/20/2024 6:44 AM EST) Only the most recent of2 resultswithin the time period is included. Thyroid Stimulating Hormone 6.65(H) 0.32 - 4.0 uIU/mL [facility] Comment:Note: A sustained TS H level above 2.5 uIU/mL may warrant further investigation. TSH 3rd Generation ([facility]) Blood Venous blood specimen / Unknown 03/20/2024 6:44 AM EST 03/20/2024 6:44 AM EST [facility] LAB BLOOD ORDERABLES Final Re sult [facility] [address] [place] [phone] * (ABNORMAL) Albumin, Random Urine W/Creatinine (03/09/2024 10:14 AM EST) Creatinine, Urine 160.00 mg/dL [facility] Microalbumin Urine 475.0 mg/L H [facility] Microalbum Creatinine Ratio Ur 296.8(H) <30 ug/mg cr [facility] Comment:Albumin/Creatinine R atio Reference Ranges: Normal: < 30 ug/mg creatinine Microalbuminuria: 30 - 300 ug/mg creatinineClinical Albuminuria: > 300 ug/mg creatinine Urine 03/09/2024 10:1 4 AM EST 03/09/2024 11:34 AM EST [facility] LAB URINE ORDERABLES Final Re sult Performing Organization Address [facility] Co de Phone Number [facility] [address] [place] [address] [phone] * (ABNORMAL) Lipid Panel, Standard (03/09/2024 10:14 AM EST) Triglycerides 147 <150 mg/dL [facility] Comment:Desirable Triglyceri de: less than 150 mg/dLBorderline High Triglyceride 150-199 mg/dLHigh Triglyceride: 200-499 mg/dLVery High Triglyceride: greater than or equal to 5OO mg/dL Cholesterol 195 <200 mg/dL [facility] Comment:Desirable Cholestero l: less than 200 mg/dLBorderline High Cholesterol: 200-239 mg/dLHigh Cholesterol: greater than 239 mg/dL LDL Cholesterol Calculated 129(H) <100 mg/dL [facility] Comment:Desirable LDL: less than 100 mg/dLNear Optimal/Above Optimal LDL: 110- 129 mg/dLBorderline High LDL: 130-159 mg/dLHigh LDL: 160-189 mg/dLVery High LDL: greater than or equal to 190 mg/dL HDL Cholesterol 37(L) >40 mg/dL [facility] Comment:Desirable HDL: great er than 40 mg/dL Note: This HDL assay may give artificially low results in patients with liver disease. Blood Venous blood specimen / Unknown 03/09/2024 10:14 AM EST 03/09/2024 11:38 AM EST [facility] LAB BLOOD ORDERABLES Final Re sult Performing Organization Address [facility]/ZIP Co de Phone Number [facility] [address] [place] [phone] * (ABNORMAL) Comprehensive Metabolic Panel (03/09/2024 10:14 AM EST) Sodium 142 135 - 145 mmol/L [facility] Potassium 4.5 3.3 - 5.1 mmol/L [facility] Chloride 100 96 - 108 mmol/L [facility] Carbon Dioxide 32(H) 22 - 29 mmol/L [facility] Anion Gap 15 12 - 20 [facility] Urea Nitrogen (BUN) 12 9 - 16 mg/dL [facility] Creatinine, Serum 1.04 0.5 - 1.4 mg/dL [facility] Estimated Glomerular Filt Rate >60 [facility] Comment:Chronic Kidney Disea se: Estimated GFR < 60 mL/min/[id number] Kidney Disease: Estimated GFR < 15 mL/min/1.73m2 Glucose 268(H) 60 - 115 mg/dL [facility] Calcium 9.6 8.4 - 10.2 mg/dL [facility] Bilirubin, Total 0.4 0.0 - 1.0 mg/dL [facility] Aspartate Amino Transferase 20 5 - 37 U/L [facility] Alanine Aminotransferase 29 0 - 40 U/L [facility] Total Protein 7.9 6.5 - 8.0 g/dL [facility] Albumin Level 4.3 3.5 - 5.0 g/dL [facility] Alkaline Phosphatase 83 39 - 117 U/L [facility] Blood Venous blood specimen / Unknown 03/09/2024 10:14 AM EST 03/09/2024 11:38 AM EST [facility] [employer]IC MANUFACTURING SUPERVISOR LAB BLOOD ORDERABLES Final Re sult [facility] [address] [place] [phone] * (ABNORMAL) POCT HGB A1C (03/09/2024 9:33 AM EST) Hemoglobin A1C 9.7(A) 4.0 - 6.0 % Blood 03/09/2024 9:33 AM EST [facility] HY[employer]OCHLORIC MANUFACTURING SUPERVISOR POINT OF CARE TEST ENTER/EDIT ORDERABLES Final Result * (ABNORMAL) POCT Glucose (03/09/2024 9:33 AM EST) [facility] Glucose Blood, POC 295(A) 60 - 200 mg/dL QC Media Lot # [id number] Lot# Expiration Date Blood Capillary blood specimen / Unknown 03/09/2024 9:33 AM EST [facility] HYDROCHLORIC MANUFACTURING SUPERVISOR POINT OF CARE TEST ENTER/EDIT ORDERABLES Final Result * Hm Colonoscopy (04/16/2021) [facility] Colonoscopy Normal Normal, Abnormal, BIRADS 0 , BIRADS 1 , BIRADS 2, BIRADS 3 , BIRADS 4+ Comment:Patient States got i t done at [facility] and was normal. Historical Provider MD HEALTH MAINTENANCE Final Result * HEPATITIS C AB W/REFL TO HCV RNA, QN, PCR (02/18/2021 4:20 PM EST) [facility] HEPATITIS C ANTIBODY NON-REACT PEPE NON-REACT PEPE [facility] INDEX 0.04 <1.00 [facility] Comment: ?? HCV antibody was non-reactive. There is no laboratory ?? evidence of HCV infection. ?? In most cases, no further action is required. However, if recent HCV exposure is suspected, a test for HCV RNA (test code 22128) is suggested. ?? For additional information please refer to http://education.[employer]/faq/FOC78r4 (This link is being provided for informational/ educational purposes only.) ?? 02/18/2021 4:20 PM EST Teri Alanis NP HISTORICAL/NON ORDERABLE LABS Final Result [facility] [address] * HIV 1/2 ANTIGEN/ANTIBODY,FOURTH GENERATION W/RFL (02/18/2021 4:20 PM EST) HIV-1/2 ANTIGEN AND ANTIBODIES, 4TH GENERATION W/ REFLEX NON-REACT PEPE NON-REACT PEPE [facility] Comment: HIV-1 antigen and HIV-1/HIV-2 [...] ? For additional information please refer to http://[employer]/faq/DMA349 (This link is being provided for informational/ educational purposes only.) ? The performance of this assay has not been clinically validated in patients less than 2 years old. ?? 02/18/2021 4:20 PM EST us Teri Alanis NP LAB BLOOD ORDERABLES Final Res ult [facility] [address] from Last 3 Months or Most Recently Relevant to Health Maintenance Insurance [facility] MEDICAID STAND ADULT Care Teams Regrind Mill Operator Relationship Specialty Start Date End Date AguilaAdrienne beltran FNP [address] [place] [phone] PCP - General Family Medicine 07/04/23
--- NOTE | 2024-03-26 11:17 | MHC.OFFVISWM ---
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 Vegetable Required: Yes Farmer Vegetable Services: [employer] Present Information Interpreted: clinical only Allergies No Known Allergies Allergy (Verified 03/26/24 11:22) Medication List - Last Reconciled 03/26/24 by Saul Sanchez MD buspirone mg PO DAILY insulin glargine (Lantus Solostar U-100 Insulin) units subcut lisinopril mg PO DAILY metformin ER mg PO polyethylene glycol 3350 (Miralax) 17 grams PO DAILY PRN tirzepatide (Mounjaro) mg subcut HPI HPI 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*: Details: Start time: 11am, End time: 11.45am ?I spent 40 minutes speaking with the patient on the phone plus an additional 5 minutes reviewing and updating records for a total of 45 minutes HPI Comments Details: Previous weight loss efforts: Herbalife protein shakes Wakes up: 4am, Sleeps: 12am Breakfast: occasionally Lunch: 12pm (rice, potato salad, meat) Dinner: 6-7pm (sandwich, crackers)) Snacks: 3-4pm (peanuts) Exercise: has treadmill and bike Fluids: Coffee (2-3/wk with cream), tea: occasionally, soda: occasionally, juice: none, ETOH: none PFSH Medical History (Updated 03/26/24 @ 11:37 by Saul Sanchez MD) Hypothyroidism Hyperlipidemia DJD (degenerative joint disease) Anxiety Depression Hypertension Insulin dependent type 2 diabetes mellitus Morbid obesity Surgical History (Updated 03/19/24 @ 07:52 by Madhuri Herr CMA) Hx of circumcision Family History (Updated 03/19/24 @ 07:52 by Madhuri Herr CMA) Mother No problems noted. Father No problems noted. Social History (Updated 03/19/24 @ 07:52 by Madhuri Herr CMA) Alcohol intake: current Alcohol intake frequency: holidays/special occasions only Patient Tobacco Use Status: Never used Tobacco Physical Exam Vital Signs: BMI result Body Mass Index 43.1 Telehealth Telehealth Telehealth Platform: Telephone Location of provider rendering services: practice address Location of patient: address on file Patient Identification confirmed using: Name, : Yes Telehealth method: voice only Patient verbally consented to treatment: Yes Patient verbally consented to billing insurance company: Yes Patient informed of any privacy concerns related to visit: Yes Minutes spent on Phone/Video with Pt.: 45 Assessment & Plan Assessment & Plan (1) Morbid obesity: Code(s): E66.01 - Morbid (severe) obesity due to excess calories Category: Medical Plan: 1.? Plan for lap sleeve gastrectomy. If diaphragmatic or ventral hernias are present at time of surgery, these will be repaired laparoscopically as well. I emphasized the importance of close follow-up, adherence to instructions and good communication. The surgery does not replace the need to change your lifestlyle which is the cause of the obesity problem. The surgery provides the motivation to try again to change your lifestyle, it reduces the appetite and make the transition to a better lifestyle easier and doubles the amount of weight you would lose compared to doing the lifestyle change without the surgery. You will need to be on a liquid diet with protein shakes for 2 weeks before surgery to maximize weight loss and boost your nutritional status to recover better from surgery and also for the first two weeks after surgery to let the stomach heal before we introduce other foods. After the first 2 weeks we will introduce protein bars and soft foods like scrambled eggs, cottage cheese and yogurt and after the 6th week will introduce meat, fish and cooked vegetables in small amounts. Over time you should be able to eat everything in small amounts. Side effects like nausea, vomiting, heartburn or abdominal pain are not common in the practice unless you are not following in the practice. This operation requires lifetime commitment to following in our practice and communication with me. You will much less weight and experience side effects if you don?t communicate or not following in the practice. Complications are rare and in our practice is about 1/10 of the national average. However, you can develop bleeding that may require transfusion (hasn?t happened for year in the practice), you may from complications (we did not have any deaths in the practice) and infections. Infections are usually a result of breakdown in communication or not understanding or following directions correctly. They are difficult to treat, they can happen during the first 6 weeks, they may require to be in the hospital for weeks or even months, not being able to eat by mouth and you may have drains and surgeries to try and correct the issue. Other risks and complications include possible conversion to an open procedure, leaks, small bowel obstruction, blood clots, cardiac, or pulmonary complications, as intermediate card tender complications such as ulcers, insufficient weight loss and vitamin deficiencies. 2. Nutritional counseling. Start with 2 CELEBRATE REBUILD protein (buy at [facility] [employer] [facility]) shakes (ONE scoop EACH in 12oz low fat unsweetened almond milk each) at 5am-7am and 8am-10am, 2 protein bars (CELEBRATE protein bars, buy at the [facility] [employer] [facility]) at 11am-1pm and 2pm-4pm, dinner at 5pm (10 forks of protein and 10 forks of salad/vegetables) AND TWO more protein bars after dinner at 7pm-9pm and 10pm-12am So you do 2 protein shakes, 3 protein bars and one meal per day. Meal to include lean meat (beef, fish, pork, turkey, chicken), or setswana yogurt, or egg whites, or beans with a salad with olive oil and fruits (berries, pears, apples, kiwi). Avoid salt, breads, potatoes, rice, pasta, desserts. 3. Each shake would be drunk slowly, like coffee in a period of 2 hours. 4. Cut each bar in 4 pieces and eat each piece in 30min ?to make each bar last 2 hours. 5. I emphasized the importance of measuring accurately the food portion and measure it when serving the food in plate 6. The meal portions include 10 full-size forks of meat and 10 full-size forks of salad. You always eat the meat portion but you can replace up to 5 forks for salad/vegetables with rice, potatoes or pasta, or a fruit ?if you like. The less you do it the better weight loss will be. 7. One full-size fork is what it can be scooped on the fork without falling aside and not what can be bit with the fork. Use regular forks like those you find in a typical restaurant. 8.? Please buy the body composition scale we discussed and send me weight measurements as soon as possible and then once a week. Always include your diet and exercise plan. 9. Start treadmill with an incline of 2.0 and speed of 3.0. Increase incline by 1 every 3 min to a max incline of 8.0, stay 3min at 8.0 and then return to 2.0 and repeat same steps until calorie goal is met. Goal is to burn 2000 calories per week on exercise, which means either 300 calories daily. 10. Alternatively start stationary bike at a resistance level of 2.0 Increase level by 1.0 every 3 min to a max level of 8.0. Stay at this level for 3 min and then return to level 2.0 and repeat same steps until 300 calories are burned. Goal is to burn 2000 calories per week on exercise 11. Goal is to lose at least 1.5-2lbs per week 12. Goal to lose 10% of your weight before surgery, which is about 26lbs. Ultimate weight goal: 225lbs before surgery 13. Please follow the diet plan exactly without any change. If you don't like something about the plan or you feel hungry you need to communicate with me so I can help you revise the plan. You should not change the plan yourself 14. To be scheduled for EGD to assess the stomach's anatomy. The possibility of biopsies was discussed. Patient needs to avoid use of NSAIDs and aspirin for 1 week prior to EGD. You must be on liquids only the day before your endoscopy. Risks of perforation and bleeding was discussed with the patient. This will be an outpatient procedure with IV sedation. 15. Emphasized the importance of monitoring the blood pressure daily in am when wakes up and two more times throughout the day. If systolic blood pressure is 110 mmHg, or less I explained to the patient that needs to notify me. Also I explained the symptoms of orthostatic hypotension (dizziness and lightheadedness) for which the patient also needs to notify me. 16. Emphasized the importance of checking his blood glucose levels frequently and daily and to report to me any blood glucose below 100, so I can adjust his insulin and prevent hypoglycemic episodes Orders: Orders Hemoglobin A1c Today E03.9 - Hypothyroidism, unspecified, E11.9 - Type 2 diabetes mellitus without complications, E66.01 - Morbid (severe) obesity due to excess calories, E78.5 - Hyperlipidemia, unspecified, I10 - Essential (primary) hypertension, Z79.4 - ocean transportation intermediary (current) use of insulin Complete Blood Count Auto Diff Today E03.9 - Hypothyroidism, unspecified, E11.9 - Type 2 diabetes mellitus without complications, E66.01 - Morbid (severe) obesity due to excess calories, E78.5 - Hyperlipidemia, unspecified, I10 - Essential (primary) hypertension, Z79.4 - ocean transportation intermediary (current) use of insulin Vitamin B12 and Folate Today E03.9 - Hypothyroidism, unspecified, E11.9 - Type 2 diabetes mellitus without complications, E66.01 - Morbid (severe) obesity due to excess calories, E78.5 - Hyperlipidemia, unspecified, I10 - Essential (primary) hypertension, Z79.4 - ocean transportation intermediary (current) use of insulin Zinc Today E03.9 - Hypothyroidism, unspecified, E11.9 - Type 2 diabetes mellitus without complications, E66.01 - Morbid (severe) obesity due to excess calories, E78.5 - Hyperlipidemia, unspecified, I10 - Essential (primary) hypertension, Z79.4 - ocean transportation intermediary (current) use of insulin C Reactive Protein Today E03.9 - Hypothyroidism, unspecified, E11.9 - Type 2 diabetes mellitus without complications, E66.01 - Morbid (severe) obesity due to excess calories, E78.5 - Hyperlipidemia, unspecified, I10 - Essential (primary) hypertension, Z79.4 - nursing home (current) use of insulin Vitamin B1 Today E03.9 - Hypothyroidism, unspecified, E11.9 - Type 2 diabetes mellitus without complications, E66.01 - Morbid (severe) obesity due to excess calories, E78.5 - Hyperlipidemia, unspecified, I10 - Essential (primary) hypertension, Z79.4 - ocean transportation intermediary (current) use of insulin Vitamin A Today E03.9 - Hypothyroidism, unspecified, E11.9 - Type 2 diabetes mellitus without complications, E66.01 - Morbid (severe) obesity due to excess calories, E78.5 - Hyperlipidemia, unspecified, I10 - Essential (primary) hypertension, Z79.4 - ocean transportation intermediary (current) use of insulin TSH reflex Free T4 Today E03.9 - Hypothyroidism, unspecified, E11.9 - Type 2 diabetes mellitus without complications, E66.01 - Morbid (severe) obesity due to excess calories, E78.5 - Hyperlipidemia, unspecified, I10 - Essential (primary) hypertension, Z79.4 - ocean transportation intermediary (current) use of insulin Ferritin Today E03.9 - Hypothyroidism, unspecified, E11.9 - Type 2 diabetes mellitus without complications, E66.01 - Morbid (severe) obesity due to excess calories, E78.5 - Hyperlipidemia, unspecified, I10 - Essential (primary) hypertension, Z79.4 - ocean transportation intermediary (current) use of insulin Vitamin D 25-OH Total Today E03.9 - Hypothyroidism, unspecified, E11.9 - Type 2 diabetes mellitus without complications, E66.01 - Morbid (severe) obesity due to excess calories, E78.5 - Hyperlipidemia, unspecified, I10 - Essential (primary) hypertension, Z79.4 - ocean transportation intermediary (current) use of insulin ECG 12 lead EKG Today E03.9 - Hypothyroidism, unspecified, E11.9 - Type 2 diabetes mellitus without complications, E66.01 - Morbid (severe) obesity due to excess calories, E78.5 - Hyperlipidemia, unspecified, I10 - Essential (primary) hypertension, Z79.4 - nursing home (current) use of insulin Insulin Today E03.9 - Hypothyroidism, unspecified, E11.9 - Type 2 diabetes mellitus without complications, E66.01 - Morbid (severe) obesity due to excess calories, E78.5 - Hyperlipidemia, unspecified, I10 - Essential (primary) hypertension, Z79.4 - nursing home (current) use of insulin H Pylori Breath Test Today E03.9 - Hypothyroidism, unspecified, E11.9 - Type 2 diabetes mellitus without complications, E66.01 - Morbid (severe) obesity due to excess calories, E78.5 - Hyperlipidemia, unspecified, I10 - Essential (primary) hypertension, Z79.4 - ocean transportation intermediary (current) use of insulin Lipid Panel Today E03.9 - Hypothyroidism, unspecified, E11.9 - Type 2 diabetes mellitus without complications, E66.01 - Morbid (severe) obesity due to excess calories, E78.5 - Hyperlipidemia, unspecified, I10 - Essential (primary) hypertension, Z79.4 - ocean transportation intermediary (current) use of insulin IRON PROFILE Today E03.9 - Hypothyroidism, unspecified, E11.9 - Type 2 diabetes mellitus without complications, E66.01 - Morbid (severe) obesity due to excess calories, E78.5 - Hyperlipidemia, unspecified, I10 - Essential (primary) hypertension, Z79.4 - nursing home (current) use of insulin Comprehensive Met. Panel Today E03.9 - Hypothyroidism, unspecified, E11.9 - Type 2 diabetes mellitus without complications, E66.01 - Morbid (severe) obesity due to excess calories, E78.5 - Hyperlipidemia, unspecified, I10 - Essential (primary) hypertension, Z79.4 - ocean transportation intermediary (current) use of insulin US abdomen comp w elastography Today E03.9 - Hypothyroidism, unspecified, E11.9 - Type 2 diabetes mellitus without complications, E66.01 - Morbid (severe) obesity due to excess calories, E78.5 - Hyperlipidemia, unspecified, I10 - Essential (primary) hypertension, Z79.4 - ocean transportation intermediary (current) use of insulin XR chest 2V Today E03.9 - Hypothyroidism, unspecified, E11.9 - Type 2 diabetes mellitus without complications, E66.01 - Morbid (severe) obesity due to excess calories, E78.5 - Hyperlipidemia, unspecified, I10 - Essential (primary) hypertension, Z79.4 - ocean transportation intermediary (current) use of insulin FL upper GI w air Today E03.9 - Hypothyroidism, unspecified, E11.9 - Type 2 diabetes mellitus without complications, E66.01 - Morbid (severe) obesity due to excess calories, E78.5 - Hyperlipidemia, unspecified, I10 - Essential (primary) hypertension, Z79.4 - nursing home (current) use of insulin Referrals Behavioral Health Referral E03.9 - Hypothyroidism, unspecified, E11.9 - Type 2 diabetes mellitus without complications, E66.01 - Morbid (severe) obesity due to excess calories, E78.5 - Hyperlipidemia, unspecified, I10 - Essential (primary) hypertension, Z79.4 - nursing home (current) use of insulin Nutrition/Dietitian Referral E03.9 - Hypothyroidism, unspecified, E11.9 - Type 2 diabetes mellitus without complications, E66.01 - Morbid (severe) obesity due to excess calories, E78.5 - Hyperlipidemia, unspecified, I10 - Essential (primary) hypertension, Z79.4 - ocean transportation intermediary (current) use of insulin
[2024-03-26 11:18] VITALS: BMI 43.1
== END 2024-03-26 12:43 | disposition home or self-care (01) ==
LOC: HO.HBS 07:58
PROVIDERS: PCP Registered Nurse; Visit Provider Surgery
DX: E66.813 Obesity, class 3 (principal); Z68.41 Body mass index [BMI] 40.0-44.9, adult
CPT/HCPCS: 98010

== ENCOUNTER → 2024-03-26 07:58 | Outpatient (BNVA) | payer OTHER, SELFPAY | PROVIDERS: PCP Registered Nurse; Visit Provider Surgery ==

== ENCOUNTER 2024-03-28 08:37 | Outpatient (REF) | payer OTHER, SELFPAY ==
--- NOTE | ~2024-03-28 | XR_ITS ---
EXAMINATION: XR CHEST 2 VIEWS HISTORY: E66.01 - Morbid (severe) obesity due to excess calories COMPARISON: There are no prior studies for comparison. FINDINGS: PA and lateral views of the chest are submitted. There are low lung volumes with elevation of the left hemidiaphragm. The lungs are clear. There is no pleural effusion, pneumothorax, or pulmonary vascular congestion. The heart is normal in size. There is degenerative disc disease of the spine. XR/XR chest 2V IMPRESSION: Low lung volumes. The lungs are clear. Electronically signed by: Darius Tipton MD 03/28/2024 09:53 AM RAPHAEL
--- NOTE | 2024-03-28 08:47 | ECG_ITS ---
Test Reason : e66.01 Blood Pressure : */* mmHG Vent. Rate : 59 BPM Atrial Rate : 59 BPM P-R Int : 132 ms QRS Dur : 82 ms QT Int : 408 ms P-R-T Axes : 20 -22 76 degrees QTcB Int : 403 ms Sinus bradycardia Nonspecific T wave abnormality Abnormal ECG When compared with ECG of 12-Jul-2023 15:14, No significant change was found Referred By: Saul Sanchez Electronically Signed By: RICHARD MA MD
[2024-03-28 09:14] LABS: MANUAL DIFF FLAG NO
[2024-03-28 09:31] LABS: Basophils Percent Auto 0.6 % (0-2); Eosinophils Absolute Auto 0.3 X10*3/uL (0.0-0.4); Eosinophils Percent Auto 4.7 % (0-4); Hematocrit 48.1 % (42.0-52.0); Hemoglobin 15.3 g/dl (14.0-18.0); Imm Gran Abs Auto 0.02 X10*3/uL (0.00-0.03); Imm Gran Pct Auto 0.3 % (0.0-0.4); Lymphocytes Absolute Auto 2.5 X10*3/uL (1.2-4.9); Lymphocytes Percent Auto 35.6 % (20-40); Mean Corpuscular HGB Conc 31.8 g/dl (31.0-36.0); Mean Corpuscular Hemoglobin 26.3 pg (27.0-33.0); Mean Corpuscular Volume 82.8 fL (80.0-98.0); Mean Platelet Volume 9.1 fL (9.4-12.4); Monocytes Absolute Auto 0.5 X10*3/uL (0.1-1.2); Monocytes Percent Auto 6.4 % (2-11); Neutrophils Absolute Auto 3.7 x10*3/uL (2.0-8.3); Neutrophils Percent Auto 52.4 % (45-73); Platelet Count 306 X10*3/uL (160-400); Red Blood Count 5.81 X10*6/uL (4.60-5.80); Red Cell Distribution Width 14.2 % (11.0-16.0); White Blood Count 7.1 X10*3/uL (4.8-10.8)
[2024-03-28 09:37] LABS: Estimated Average Glucose 255 mg/dL; Hemoglobin A1C 363.2761 umol/L; Hemoglobin A1c % 10.5 % (<6.0); Total Hemoglobin (HGBA1C) 3959.8207 umol/L
--- OUTSIDE RECORDS SUMMARY | 2024-03-28 09:38 | XMS_ITS | Encounter Summary ---
Author Organization [employer] Address [address] 7[address] [place] [address] Care Team Providers Care Electric Sealing Machine Operator Name Role Phone Aguila Nicklaus [facility] Primary Care Provider [phone] Encounter Details Date Type Department Care Team ([facility] st Contact Info) Description 03/22/2024 Telephone [facility] MEDICINE [address] [place], [place] [phone] Arely Novoa, JORGE Social History Tobacco Use [...] 03/22/2024 9:00 AM EST TC placed via [employer] automobile racer (Yellowsmith ID#[id number]) to inform of PCP messages, Please advise [...] Description 04/18/2024 10:00 AM EST Office Visit [address] [address] Adrienne Sheehan FNP [address] [place] [address] 05/09/2024 2:00 PM EDT Office Visit [address] [address] AguilaAdrienne beltran FNP [address] [place] [address] 07/23/2024 2:00 PM EDT Office Visit [facility] OPTOMETRY [address] [place], [place] [phone] Lou Santos, OD [address] [place] [address] documented as of this encounter Goals Goal Patient Goal Type Associated Problems Recent Progress Patient-Stated? Author Blood Pressure < 140/90 Blood Pressure 125/75(2024 9:10 AM EST) No Souleymane Love PharmD Hemoglobin A1c < 7 Result Component 10.5(03/28/19 9:12 AM EST) No Souleymane Love PharmD documented as of this encounter Visit Diagnoses Not on filedocumented in this encounter Additional Health Concerns Assessment Noted Time PHQ-9 Depression Total Score: 8 03/09/19 9:22 AM EST documented as of this encounter Care Teams Electric Sealing Machine Operator Relationship Specialty Start Date End Date Adrienne Sheehan FNP [address] [place] [address] PCP - General Family Medicine 07/04/23 documented as of this encounter
--- OUTSIDE RECORDS SUMMARY | 2024-03-28 09:38 | XMS_ITS | Encounter Summary ---
Author Organization [employer] Address [address] [facility] [address] [place] [address] Care Team Providers Care Teletype Technician Name Role Phone Sophia Burns ELECTRICAL DISCHARGE MACHINE OPERATOR Primary Care Provider [phone] Kori Alonso BINDER CHAINSTITCH Primary Care Provider [phone] Boom Estevez MD Primary Care Provider [phone] Kori Alonso BINDER CHAINSTITCH Primary Care Provider [phone] [place] ELECTRICAL DISCHARGE MACHINE OPERATOR Primary Care Provider [phone] Encounter Details Date Type Department Care Team (Latest Contact Info) Description 04/17/2021 Abstract [facility] CONVERSIONS Dental, Provider, DDS Social History [...] Description 04/18/2024 10:00 AM EST Office Visit [facility] MEDICINE [address] [place], [place] [phone] [facility] [address] [place] [address] 05/09/2024 2:00 PM EDT Office Visit [facility] MEDICINE [address] [place] [address] Adrienne Sheehan FNP [address] [place] [address] 07/23/2024 2:00 PM EDT Office Visit [facility] OPTOMETRY [address] [place] [address] Tom, Lou, OD [address] [place] [address] documented as of this encounter Visit Diagnoses Not on filedocumented in this encounter Care Teams Teletype Technician Relationship Specialty Start Date End Date Sophia Burns FNP PCP - General Family Medicine 10/12/21 11/22/22 Kori Alonso NP [address] [place] [address] PCP - General Family Medicine 11/23/22 01/16/23 Boom Estevez MD [address] [place] [address] PCP - General Internal Medicine 01/17/23 01/18/23 Kori Alonso NP [address] [place] [address] PCP - General Family Medicine 01/19/23 07/03/23 Adrienne Sheehan FNP [address] [place] [address] PCP - General Family Medicine 07/04/23 documented as of this encounter
--- OUTSIDE RECORDS SUMMARY | 2024-03-28 09:38 | XMS_ITS | Encounter Summary ---
Author Organization [employer] Address [address] [place] [address] Care Team Providers Care Guide Visitor Name Role Phone [facility] Primary Care Provider [phone] Reason for Visit * Reason Comments Med Refill Encounter Details Date Type Department Care Team ([facility] st Contact Info) Description 10/28/2023 Refill [facility] MEDICINE [address] [place] [address] [facility] [address] [place] [address] Social History Tobacco Use Types Packs/Day Years [...] Description 04/18/2024 10:00 AM EST Office Visit [facility] MEDICINE [address] [place] [address] [facility] [address] [place] [address] 05/09/2024 2:00 PM EDT Office Visit [facility] MEDICINE [address] [place] [address] [facility] [address] [place] [address] 07/23/2024 2:00 PM EDT Office Visit [facility] OPTOMETRY [address] [place] [address] Tom, Lou, OD [address] [place] [address] documented as of this encounter Goals Goal Patient Goal Type Associated Problems Recent Progress Patient-Stated? Author Blood Pressure < 140/90 Blood Pressure 125/75(2024 9:10 AM EST) No Souleymane Love, PharmD Hemoglobin A1c < 7 Result Component 10.5(03/28/19 9:12 AM EST) No Souleymane Love, Rayshawn documented as of this encounter Visit Diagnoses Not on filedocumented in this encounter Additional Health Concerns Assessment Noted Time PHQ-9 Depression Total Score: 0 09/26/19 24 12:29 PM EDT documented as of this encounter Care Teams Guide Visitor Relationship Specialty Start Date End Date Adrienne Sheehan FNP [address] [place] [address] PCP - General Family Medicine 07/04/23 documented as of this encounter
--- OUTSIDE RECORDS SUMMARY | 2024-03-28 09:38 | XMS_ITS | Clinical Summary ---
Author Organization [facility] Address [address] [place] [address] Care Team Providers Care Call Center Associate Name Role Phone Unavailable Primary Care Provider [...] of 3 - 19+ 3-dose series) 12/04/1987 Pneumococcal Vaccine: 50+ Ye ars (1 of 1 - PCV) 2018 Zoster Vaccines (1 of 2) 2018 COVID-19 [...] patient's age to complete this topic Meningococcal B Vacine Aged Out No lo nger eligible based on patient's age to complete [...]
--- OUTSIDE RECORDS SUMMARY | 2024-03-28 09:38 | XMS_ITS | Encounter Summary ---
Author Organization [employer] Address [address] [place] [address] Care Team Providers Care Jig Mill Operator Name Role Phone Aguila Adrienne METAL EXTRUSION SUPERVISOR Primary Care Provider [phone] Encounter Details Date Type Department Care Team (Late st Contact Info) Description 03/13/2024 Telephone [facility] OPTOMETRY [address] [place], [place] [phone] Tom, Lou, OD [address] [place] [address] Social History Tobacco Use Types Packs/Day Years [...] Description 04/18/2024 10:00 AM EST Office Visit [facility] MEDICINE [address] [place] [address] [facility] [address] [place] [address] 05/09/2024 2:00 PM EDT Office Visit [facility] MEDICINE [address] [place] [address] [facility] [address] [place] [address] 07/23/2024 2:00 PM EDT Office Visit [facility] OPTOMETRY [address] [place] [address] Tom, Lou, OD [address] [place] [address] documented as of this encounter Goals Goal Patient Goal Type Associated Problems Recent Progress Patient-Stated? Author Blood Pressure < 140/90 Blood Pressure 125/75(2024 9:10 AM EST) No Souleymane Love, PharmRuth Hemoglobin A1c < 7 Result Component 10.5(03/28/19 9:12 AM EST) No Souleymane Love, Rayshawn documented as of this encounter Visit Diagnoses Not on filedocumented in this encounter Additional Health Concerns Assessment Noted Time PHQ-9 Depression Total Score: 8 03/09/19 25 9:22 AM EST documented as of this encounter Care Teams Jig Mill Operator Relationship Specialty Start Date End Date Adrienne Sheehan FNP [address] [place] [address] PCP - General Family Medicine 07/04/23 documented as of this encounter
--- OUTSIDE RECORDS SUMMARY | 2024-03-28 09:38 | XMS_ITS | Encounter Summary ---
Author Organization [employer] Address [address] 7[address] [place] [address] Care Team Providers Care Watch Caser Name Role Phone Adrienne Sheehan [facility] Primary Care Provider [phone] Encounter Details Date Type Department Care Team [...] 10:00 AM EST Office Visit [facility] [address] [place] [address] BronaughAdrienne [facility] [address] [place] [address] 05/09/2024 2:00 PM EDT Office Visit [facility] [address] [place] [address] BronaughAdrienne [facility] [address] [place] [address] 07/23/2024 2:00 PM EDT Office Visit [facility] OPTOMETRY [address] [place] [address] Tom, Lou, OD 230 [place] [address] documented as of this encounter Goals Goal Patient Goal Type Associated Problems Recent Progress Patient-Stated? Author Blood Pressure < 140/90 Blood Pressure 125/75(2024 9:10 AM EST) No Souleymane Love, Rayshawn Hemoglobin A1c < 7 Result Component 10.5(03/28/19 9:12 AM EST) No Souleymane Love PharmD documented as of this encounter Visit Diagnoses Not on filedocumented in this encounter Additional Health Concerns Assessment Noted Time PHQ-9 Depression Total Score: 8 03/09/19 9:22 AM EST documented as of this encounter Care Teams Watch Caser Relationship Specialty Start Date End Date Adrienne Sheehan FNP [address] [place] [address] PCP - General Family Medicine 07/04/23 documented as of this encounter
--- OUTSIDE RECORDS SUMMARY | 2024-03-28 09:38 | XMS_ITS | Encounter Summary ---
Author Organization [employer] Address [address] [place] [address] Care Team Providers Care Environmental Health Physician Name Role Phone [facility] Primary Care Provider [phone] Reason for Visit * Reason Comments Med Change Request Encounter Details Date Type Department Care Team ([facility] st Contact Info) Description 03/09/2024 Refill [facility] [address] [place], [place] [phone] [facility] 230 [place], [place] [phone] Type 2 diabetes mellitus with hyperglycemia, with long-term current use of insulin ([facility]) Social History Tobacco Use Types Packs/Day Years [...] Description 04/18/2024 10:00 AM EST Office Visit [facility] [address] [place] [address] [facility] [address] [place] [address] 05/09/2024 2:00 PM EDT Office Visit [facility] [address] [place] [address] [facility] 230 [place] [address] 07/23/2024 2:00 PM EDT Office Visit [facility] OPTOMETRY [address] [place] [address] Tom, Lou, OD [address] [place] [address] documented as of this encounter Goals Goal [...] hyperglycemia, with long-term current use of insulin ([facility]) documented in this encounter Additional Health Concerns Assessment Noted Time PHQ-9 Depression Total Score: 8 03/09/19 9:22 AM EST documented as of this encounter Care Teams Environmental Health Physician Relationship Specialty Start Date End Date Adrienne Sheehan FNP [address] [place] [address] PCP - General Family Medicine 07/04/23 documented as of this encounter
--- OUTSIDE RECORDS SUMMARY | 2024-03-28 09:38 | XMS_ITS | Encounter Summary ---
Author Organization [employer] Address [address] [place] [address] Care Team Providers Care Wood Type Finisher Name Role Phone Kori Alonso NP Primary Care Provider [phone] Primary Care Provider [phone] Reason for Visit * Reason Onset Date Comments Med Refill 03/16/2023 Encounter Details Date Type Department Care Team (Late st Contact Info) Description 03/16/2023 Telephone [facility] [address] [place], [place] [phone] Kori Alonso NP 230 [place], [place] [phone] Med Refill Social History Tobacco Use Types [...] Description 04/18/2024 10:00 AM EST Office Visit [facility] [address] [place] [address] [facility] [address] [place] [address] 05/09/2024 2:00 PM EDT Office Visit [facility] [address] [place] [address] [facility] [address] [place] [address] 07/23/2024 2:00 PM EDT Office Visit [facility] OPTOMETRY [address] [place] [address] Lou Santos, OD 230 [place] [address] documented as of this encounter Goals Goal Patient Goal Type Associated Problems Recent Progress Patient-Stated? Author Blood Pressure < 140/90 Blood Pressure 125/75(2024 9:10 AM EST) Souleymane John, PharmD Hemoglobin A1c < 7 Result Component 10.5(03/28/19 25 9:12 AM EST) No Souleymane Love PharmD documented as of this encounter Visit Diagnoses Not on filedocumented in this encounter Additional Health Concerns Assessment Noted Time PHQ-9 Depression Total Score: 6 01/06/20 23 10:38 AM EST documented as of this encounter Care Teams Wood Type Finisher Relationship Specialty Start Date End Date Kori Alonso NP 230 [place] [address] PCP - General Family Medicine 01/19/23 07/03/23 Adrienne Sheehan FNP 230 [place] [address] PCP - General Family Medicine 07/04/23 documented as of this encounter
--- OUTSIDE RECORDS SUMMARY | 2024-03-28 09:38 | XMS_ITS | Encounter Summary ---
Author Organization [employer] Address [address] [place] [address] Care Team Providers Care Steel Erector Name Role Phone [facility] Primary Care Provider [phone] Reason for Visit * Reason Comments Med Refill Encounter Details Date Type Department Care Team ([facility] st Contact Info) Description 11/07/2023 Refill [facility] [address] [place], [place] [phone] [facility] 230 [place], [place] [phone] Mild intermittent asthma without complication Social History [...] Description 04/18/2024 10:00 AM EST Office Visit [facility] [address] [place] [address] [facility] [address] [place] [address] 05/09/2024 2:00 PM EDT Office Visit [facility] [address] [place] [address] [facility] [address] [place] [address] 07/23/2024 2:00 PM EDT Office Visit [facility] OPTOMETRY [address] [place] [address] Tom, Lou, OD 230 [place] [address] documented as of this encounter Goals Goal Patient Goal Type Associated Problems Recent Progress Patient-Stated? Author Blood Pressure < 140/90 Blood Pressure 125/75(2024 9:10 AM EST) No Souleymane Love, PharmRuth Hemoglobin A1c < 7 Result Component 10.5(03/28/19 9:12 AM EST) No Souleymane Love, PharmD documented as of this encounter Visit Diagnoses Diagnosis Mild intermittent asthma without complication documented in this encounter Additional Health Concerns Assessment Noted Time PHQ-9 Depression Total Score: 0 09/26/19 24 12:29 PM EDT documented as of this encounter Care Teams Steel Erector Relationship Specialty Start Date End Date Adrienne Sheehan FNP [address] [place] [address] PCP - General Family Medicine 07/04/23 documented as of this encounter
--- OUTSIDE RECORDS SUMMARY | 2024-03-28 09:38 | XMS_ITS | Encounter Summary ---
Author Organization [employer] Address [address] [place] [address] Care Team Providers Care Abrading Machine Tender Name Role Phone Sophia Burns Primary Care Provider [phone] Kori Alonso NP Primary Care Provider [phone] Boom Estevez MD Primary Care Provider [phone] Kori Alonso NP Primary Care Provider [phone] Sparkman Adrienne RADIO REPORTER Primary Care Provider [phone] Encounter Details Date Type Department Care Team (Late st Contact Info) Description 08/26/2022 [facility] Information Management [address] [place] [address] Sophia Burns FNP [address] [place] [address] [place] [address] Social History Tobacco Use Types Packs/Day Years [...] Description 04/18/2024 10:00 AM EST Office Visit [facility] 230 [place] [address] [facility] [address] [facility] [place] [address] 05/09/2024 2:00 PM EDT Office Visit [facility] [address] [facility] [place] [address] [facility] [address] [facility] [place] [address] 07/23/2024 2:00 PM EDT Office Visit [facility] OPTOMETRY [address] [place] [address] Tom, Lou, OD 230 [facility] [place] [address] documented as of this encounter Visit Diagnoses Not on filedocumented in this encounter Care Teams Abrading Machine Tender Relationship Specialty Start Date End Date Sophia Burns FNP PCP - General Family Medicine 10/12/21 11/22/22 Kori Alonso NP [address] [place] [address] PCP - General Family Medicine 11/23/22 01/16/23 Boom Estevez MD [address] [place] [address] PCP - General Internal Medicine 01/17/23 01/18/23 Kori Alonso NP [address] [facility] [place] [address] PCP - General Family Medicine 01/19/23 07/03/23 SparkmanAdrienne FNP [facility] [place] [address] PCP - General Family Medicine 07/04/23 documented as of this encounter
--- OUTSIDE RECORDS SUMMARY | 2024-03-28 09:38 | XMS_ITS | Encounter Summary ---
Author Organization [employer] Address [address] [place] [address] Care Team Providers Care Wet End Tester Name Role Phone [facility] Primary Care Provider [phone] Encounter Details Date Type Department Care Team (Late st Contact Info) Description 03/21/2024 Orders Only [facility] 230 [place], [place] [phone] [facility] 230 [place] [address] Acquired hypothyroidism Social History Tobacco Use Types [...] Description 04/18/2024 10:00 AM EST Office Visit [facility] MEDICINE 230 [place] [address] [facility] 230 [place] [address] 05/09/2024 2:00 PM EDT Office Visit [facility] MED[facility]INE [address] [place] [address] [facility] 230 [place] [address] 07/23/2024 2:00 PM EDT Office Visit [facility] OPTOMETRY [address] [place] [address] Tom, Lou, OD 230 [place] [address] documented as of this encounter Goals Goal [...] documented as of this encounter Care Teams Wet End Tester Relationship Specialty Start Date End Date Adrienne Sheehan FNP [address] [place] [address] PCP - General Family Medicine 07/04/23 documented as of this encounter
--- OUTSIDE RECORDS SUMMARY | 2024-03-28 09:38 | XMS_ITS | Clinical Summary ---
Author Organization [employer] Address [address] [facility] 7t [place] [address] Care Team Providers Care Hospital Admissions Officer Name Role Phone Aguila [facility] Primary Care Provider [phone] Allergies No known active allergies Medications FREESTYLE [...] at bedtime. 023 Active Continuous Blood Gluc Cognos Administrator (FreeStyle Dayana 2 Sadorus) deviceIndications :Type 2 diabetes mellitus with hyperglycemia, with long-term current use of insulin (CMS/HCC) Scan sensor every 8 hours 1 each 023 Active metFORMIN, OSM, (Fortamet) 1000 MG 24 hr tabletIndications :Diabetes mellitus of other type without complication, unspecified whether oil burner mechanic insulin use (CMS/HCC) Take 1 tablet by [...] hyperglycemia, with long-term current use of insulin ([facility]) Take 1 tablet (20 mg) by mouth Once per day. 30 tablet 024 2024 Active dulaglutide (Trulicity) 4.5 MG/0.5ML solution pen-injectorIndic ations:Type 2 diabetes mellitus with hyperglycemia, with long-term current use of insulin ([facility]) Inject 4.5 mg under the skin 1 (one) time per week. 4 each Active FLUoxetine (PROzac) 20 MG tabletIndications :Depression, unspecified depression type Take 1 tablet (20 mg) by mouth Once per day. 30 tablet Active busPIRone (Buspar) 10 MG tablet Active Easy Touch Pen Oxford 31G X 8 MM misc USE DIRECTED Active glucose 4 g chewable tabletIndications :Type 2 diabetes mellitus with hypoglycemia without coma, with long-term current use of insulin ([facility]) Chew 4 tablets (16 g) if [...] hyperglycemia, with long-term current use of insulin (CMS/[facility]) Inject 14 Units under the skin [...] hyperglycemia, with long-term current use of insulin (CMS/[facility]) Inject 2.5 mg under the skin [...] hyperglycemia, with long-term current use of insulin ([facility]) Use as directed to check blood [...] Secondary erythrocytosis 08/03/2022 Overview (08/03/2022): Appt 05/04/21 [facility] Hematology Severe hematocrit > 60; increased [...] PM EST): -hgb 12.2 on 12/28 @ [facility] -recheck levels Depression, recurrent 03/09/20222023 Encounters Date Type Department Care Team Description 03/28/2024 Orders Only GENERIC EXTERNAL DATA DEPARTMENT Provider, Generic External Data 03/22/2024 Telephone [facility] [address] [place] [address] Arely Novoa, RN 03/21/2024 Orders Only [facility] [address] [place] [address] [place] FNP Acquired hypothyroidism 03/19/2024 Telephone [facility] [address] [place] [address] Marsha Wilson, RN Results 03/19/2024 Orders Only [facility] [address] [place] [address] AguilaAdrienne beltran FNP Acquired hypothyroidism (Primary Dx) 03/13/2024 Telephone [facility] OPTOMET[facility] [address] [place] [address] Lou Santos, OD 03/09/2024 9:00 AM EST Office Visit [facility] [address] [place], [place] [phone] [place] [facility] Type 2 diabetes mellitus with hyperglycemia, with long-term current use of insulin ([facility]) (Primary Dx); Chronic pain of right knee; Acquired hypothyroidism; Dietary counseling; Exercise counseling; Class 3 severe obesity due to excess calories with serious comorbidity and body mass index (BMI) of 40.0 to 44.9 in adult ([facility]) 03/09/2024 Refill [facility] [address], [place] [phone] [place] [facility] Type 2 diabetes mellitus with hyperglycemia, with long-term current use of insulin ([facility]) 03/09/2024 Travel 01/24/2024 Refill [facility] [address] [place], [place] [phone] [place] [facility] Vitamin D deficiency; Acquired hypothyroidism; Essential hypertension 01/05/2024 Refill [facility] [address], [place] [phone] [place] [facility] from Last 3 Months Immunizations Name Administration [...] the past 12 months, has t he [employer], gas, oil or water company threatened to [...] 10:00 AM EST Office Visit [facility] [address] [place] [phone] [place] Adrienne [facility] [address] [place] [address] 05/09/2024 2:00 PM EDT Office Visit [facility] [address] [place] [phone] Aguila, Adrienne, FOSTER PARENT [address] [place] [address] 07/23/2024 2:00 PM EDT Office Visit [facility] [address] [place] [address] Tom, Lou, OD [address] [place] [address] Health Maintenance Due Date Last Done Comments [...] 05/08/2024 05/09/2023 Diabetes: Hemoglobin A1C 06/07/2024 025, 03/09/2024, 08/26/2023, Additional history exists Diabetes: Foot Exam 08/25/2024 [...] 9:12 AM EST) No Souleymane Love, Rayshawn Procedures Procedure Name Priority Date/Time Associated Diagnosis Comments HEMOGLOBIN A1C Routine 03/28/2024 9:12 AM EST CBC WITH AUTO DIFFERENTIAL Routine 03/28/2024 9:12 AM EST XR KNEE 3 VIEWS RIGHT Routine 03/21/2024 1:32 PM EST Chronic pain of right knee TSH Routine 03/20/2024 6:44 AM EST Acquired hypothyroidism ALBUMIN, RANDOM URINE W/CREATININE Routine 03/09/2024 10:14 AM EST Type 2 diabetes mellitus with hyperglycemia, with long-term current use of insulin (CMS/HCC) LIPID PANEL, STANDARD Routine 03/09/2024 10:14 AM EST Type 2 diabetes mellitus with hyperglycemia, with long-term current use of insulin (CMS/HCC) COMPREHENSIVE METABOLIC PANEL Routine 03/09/2024 10:14 AM [...] Relevant to Health Maintenance Results * (ABNORMAL) CBC auto differential (03/28/2024 9:12 AM EST) White Blood Count 7.1 4.8 - 10.8 X10*3/uL [facility] Red Blood Count 5.81(H) 4.60 - 5.80 X10*6/uL [facility] Hemoglobin 15.3 14.0 - 18.0 g/dl [facility] Hematocrit 48.1 42.0 - 52.0 % [facility] Mean Corpuscular Volume 82.8 80.0 - 98.0 fL [facility] Mean Corpuscular Hemoglobin 26.3(L) 27.0 - 33.0 pg [facility] Mean Corpuscular HGB Conc 31.8 31.0 - 36.0 g/dl [facility] Red Cell Distribution Width 14.2 11.0 - 16.0 % [facility] Platelet Count 306 160 - 400 X10*3/uL [facility] Mean Platelet Volume 9.1(L) 9.4 - 12.4 fL [facility] Neutrophils Percent Auto 52.4 45 - 73 % [facility] Imm Gran Pct Auto 0.3 0.0 - 0.4 % [facility] Lymphocytes Percent Auto 35.6 20 - 40 % [facility] Monocytes Percent Auto 6.4 2 - 11 % [facility] Eosinophils Percent Auto 4.7(H) 0 - 4 % [facility] Basophils Percent Auto 0.6 0 - 2 % [facility] NRBC Pct Auto 0.0 0.0 - 0.2 /100WBC [facility] Neutrophils Absolute Auto 3.7 2.0 - 8.3 x10*3/uL [facility] Imm Gran Abs Auto 0.02 0.00 - 0.03 X10*3/uL [facility] Lymphocytes Absolute Auto 2.5 1.2 - 4.9 X10*3/uL [facility] Monocytes Absolute Auto 0.5 0.1 - 1.2 X10*3/uL [facility] Eosinophils Absolute Auto 0.3 0.0 - 0.4 X10*3/uL [facility] Basophils Absolute Auto 0.0 0.0 - 0.2 X10*3/uL [facility] NRBC Abs Auto 0.000 0.0 - 0.012 X10*3/uL [facility] 03/28/2024 9:12 AM EST 03/28/2024 9:12 AM EST Generic External Data Provider LAB BLOOD ORDERAB LES Final Result Performing Organization Address [facility] de Phone Number [facility] [address] [place] [phone] * (ABNORMAL) Hemoglobin A1c (03/28/2024 9:12 AM EST) Hemoglobin A1c 10.5(H) <6.0 % [facility] Comment:Hemoglobin A1C Refer ence Range Adults: 4.8 - 6.0 % Non diabetic: < 6.0 % Goal: < 7.0 %Additional Action Suggested: > 8.0 %Note: Hemoglobin A1c results are invalid for patients with abnormal amounts of HbF. Blood transfusions may impact the HbA1c concentration in the patient sample. Estimated Average Glucose 255 mg/dL [facility] Comment:eAG = Estimated ave rage glucose which is %A1C expressed asaverage glucose, using the formula of the Q1C-NifoeirJfegmfj Glucose study (ADAG), Diabetes Care, Vol.31,#8,Sep. 2007 03/28/2024 9:12 AM EST 03/28/2024 9:12 AM EST Generic External Data Provider LAB BLOOD ORDERAB LES Final Result Performing Organization Address [facility] Co de Phone Number [facility] [address] [place] [phone] * XR Knee 3 Views Right (03/21/2024 1:32 PM EST) Anatomical Region Laterality Modality Lower Extremities, Knee Right Radiogra phic Imaging 03/21/2024 1:32 PM EST Narrative 03/21/2024 1:33 PM EST ? [facility] ?[address] ?[place] [address] ?XRay Report ? Signed ? Patient: Lobo Olbo,Michele L ?MR#: [id number] ?? [id number] ? : 1970 ?Acct:[id number] ? Age/Sex: 53 / M ?ADM Date: 03/20/24 ? Loc: HO.XRAY ? Attending Dr: Adrienne Sheehan FOSTER PARENT ? Ordering Physician: Adrienne Sheehan ?? Date of Service: 03/20/24 ?? Procedure(s): XR knee RT 3V ?? Accession Number(s): [id number] ? cc: Adrienne Sheehan FOSTER PARENT ? CLINICAL HISTORY: acute on chronic right [...] DD/ 1332 ? TD/TT: 03/21/24 1332 ? Hospital Medical Biller: ? Procedure Note Matthew, Gregoria - 03/21/[address] [address] XRay Report Signed Patient: Michele Alicea R#: [id number] : 1970Acct:[id number] Age/Sex: 53 / MADM Date: 03/20/24 Loc: MARIUS[facility] Attending Dr: Adrienne Sheehan FOSTER PARENT Ordering Physician: Adrienne Sheehan Date of Service: 03/20/24 Procedure(s): XR knee RT 3V Accession Number(s): [id number] cc: [facility] CLINICAL HISTORY: acute on chronic right knee [...] OV> 03/21/24 1332 DD/ 1332 TD/TT: 03/21/24 1332 Hospital Medical Biller: [facility] IMG XR PROCEDURES Edited Resu lt - Final * (ABNORMAL) TSH (03/20/2024 6:44 AM EST) Only the most recent of2 resultswithin the time period is included. Thyroid Stimulating Hormone 6.65(H) 0.32 - 4.0 uIU/mL [facility] Comment:Note: A sustained TS H level above 2.5 uIU/mL may warrant further investigation. TSH 3rd Generation ([facility]) Blood Venous blood specimen / Unknown 03/20/2024 6:44 AM EST 03/20/2024 6:44 AM EST [facility] LAB BLOOD ORDERABLES Final Re sult [facility] [address] [place] [phone] * (ABNORMAL) Albumin, Random Urine W/Creatinine (03/09/2024 10:14 AM EST) Creatinine, Urine 160.00 mg/dL [facility] Microalbumin Urine 475.0 mg/L H [facility] Microalbum Creatinine Ratio Ur 296.8(H) <30 ug/mg cr [facility] Comment:Albumin/Creatinine R atio Reference Ranges: Normal: < 30 ug/mg creatinine Microalbuminuria: 30 - 300 ug/mg creatinineClinical Albuminuria: > 300 ug/mg creatinine Urine 03/09/2024 10:1 4 AM EST 03/09/2024 11:34 AM EST [facility] LAB URINE ORDERABLES Final Re sult [facility] [address] [place] [phone] * (ABNORMAL) Lipid Panel, Standard (03/09/2024 10:14 AM EST) Triglycerides 147 <150 mg/dL [facility] Comment:Desirable Triglyceri de: less than 150 mg/dLBorderline High Triglyceride 150-199 mg/dLHigh Triglyceride: 200-499 mg/dLVery High Triglyceride: greater than or equal to 5OO mg/dL Cholesterol 195 <200 mg/dL [facility] Comment:Desirable Cholestero l: less than 200 mg/dLBorderline High Cholesterol: 200-239 mg/dLHigh Cholesterol: greater than 239 mg/dL LDL Cholesterol Calculated 129(H) <100 mg/dL [facility] Comment:Desirable LDL: less than 100 mg/dLNear Optimal/Above Optimal LDL: 110- 129 mg/dLBorderline High LDL: 130-159 mg/dLHigh LDL: 160-189 mg/dLVery High LDL: greater than or equal to 190 mg/dL HDL Cholesterol 37(L) >40 mg/dL [facility] Comment:Desirable HDL: great er than 40 mg/dL Note: This HDL assay may give artificially low results in patients with liver disease. Blood Venous blood specimen / Unknown 03/09/2024 10:14 AM EST 03/09/2024 11:38 AM EST [facility] LAB BLOOD ORDERABLES Final Re sult Performing Organization Address City/[facility]/ZIP Co de Phone Number [facility] [address] [place] [phone] * (ABNORMAL) Comprehensive Metabolic Panel (03/09/2024 10:14 AM EST) Sodium 142 135 - 145 mmol/L [facility] Potassium 4.5 3.3 - 5.1 mmol/L [facility] Chloride 100 96 - 108 mmol/L [facility] Carbon Dioxide 32(H) 22 - 29 mmol/L [facility] Anion Gap 15 12 - 20 [facility] Urea Nitrogen (BUN) 12 9 - 16 mg/dL [facility] Creatinine, Serum 1.04 0.5 - 1.4 mg/dL [facility] Estimated Glomerular Filt Rate >60 [facility] Comment:Chronic Kidney Disea se: Estimated GFR < 60 mL/min/1.42y9Ombebg Kidney Disease: Estimated GFR < 15 mL/min/1.73m2 Glucose 268(H) 60 - 115 mg/dL [facility] Calcium 9.6 8.4 - 10.2 mg/dL [facility] Bilirubin, Total 0.4 0.0 - 1.0 mg/dL [facility] Aspartate Amino Transferase 20 5 - 37 U/L [facility] Alanine Aminotransferase 29 0 - 40 U/L [facility] Total Protein 7.9 6.5 - 8.0 g/dL [facility] Albumin Level 4.3 3.5 - 5.0 g/dL [facility] Alkaline Phosphatase 83 39 - 117 U/L [facility] Blood Venous blood specimen / Unknown 03/09/2024 10:14 AM EST 03/09/2024 11:38 AM EST [facility] LAB BLOOD ORDERABLES Final Re sult [facility] [address] [place] [phone] * (ABNORMAL) POCT HGB A1C (03/09/2024 9:33 AM EST) [facility] Hemoglobin A1C 9.7(A) 4.0 - 6.0 % Blood 03/09/2024 9:33 AM EST [facility] POINT OF CARE TEST ENTER/EDIT ORDERABLES Final Result * (ABNORMAL) POCT Glucose (03/09/2024 9:33 AM EST) [facility] Glucose Blood, POC 295(A) 60 - 200 mg/dL QC Media Lot # [id number] Lot# Expiration Date Blood Capillary blood specimen / Unknown 03/09/2024 9:33 AM EST [facility] POINT OF CARE TEST ENTER/EDIT ORDERABLES Final Result * Hm Colonoscopy (04/16/2021) [facility] Colonoscopy Normal Normal, Abnormal, BIRADS 0 , BIRADS 1 , BIRADS 2, BIRADS 3 , BIRADS 4+ Comment:Patient States got i t done at [facility] and was normal. [facility] Provider HEALTH MAINTENANCE Final Result * HEPATITIS C AB W/REFL TO HCV RNA, QN, PCR (02/18/2021 4:20 PM EST) [facility] HEPATITIS C ANTIBODY NON-REACT PEPE NON-REACT PEPE [facility] INDEX 0.04 <1.00 [facility] Comment: ?? HCV antibody was non-reactive. There is no laboratory ?? evidence of HCV infection. ?? In most cases, no further action is required. However, if recent HCV exposure is suspected, a test for HCV RNA (test code 44283) is suggested. ?? For additional information please refer to http://education.WordRake/faq/OTA72x1 (This link is being provided for informational/ educational purposes only.) ?? 02/18/2021 4:20 PM EST Teri Smithvinny JO HISTORICAL/NON ORDERABLE LABS Final Result Performing Organization Address [facility] Phone Number [facility] [address] * HIV 1/2 ANTIGEN/ANTIBODY,FOURTH GENERATION W/RFL (02/18/2021 4:20 PM EST) HIV-1/2 ANTIGEN AND ANTIBODIES, 4TH GENERATION W/ REFLEX NON-REACT PEPE NON-REACT PEPE [facility] Comment: HIV-1 antigen and HIV-1/HIV-2 [...] ? For additional information please refer to http://education.TopFloor.Gini.net/faq/DGG438 (This link is being provided for informational/ educational purposes only.) ? The performance of this assay has not been clinically validated in patients less than 2 years old. ?? 02/18/2021 4:20 PM EST Teri Smithvinny JO LAB BLOOD ORDERABLES Final Res ult Performing Organization Address [facility] de Phone Number [facility] [address] from Last 3 Months or Most Recently Relevant to Health Maintenance [place] [address] [place] [address] - [facility] ST[facility] ADULT Care Teams Hospital Admissions Officer Relationship Specialty Start Date End Date Adrienne Sheehan FNP [address] [place] [phone] PCP - General Family Medicine 07/04/23
--- OUTSIDE RECORDS SUMMARY | 2024-03-28 09:38 | XMS_ITS | Encounter Summary ---
Author Organization [employer] Address [address] [facility] [place] [address] Care Team Providers Care Cookie Breaker Name Role Phone Aguila [facility] Primary Care Provider [phone] Reason for Visit * Reason Onset Date Comments Results 03/19/2024 Encounter Details Date Type Department Care Team (Late st Contact Info) Description 03/19/[address] [facility] [address] [place], [place] [phone] Marsha Wilson, JORGE [address] [place] [address] Results Social History Tobacco Use Types Packs/Day [...] 4:50 PM EST TC placed to patient [phone] (spoke to Brielle on [employer]) in regards to below message. Brielle verbalized understanding and did not have any further questions. Brielle aware patient/spouse will receive another call with updated TSH result and POC. Patient to f/u PRN. ----- Message from [facility] sent at 03/19/2024 4:08 PM EST ----- [...] 10:00 AM EST Office Visit [facility] [address], [place] [phone] [facility]Adrienne [facility] [address] [place] [address] 05/09/2024 2:00 PM EDT Office Visit [facility] [address] [place] [address] Adrienne Sheehan FNP [address] [place] [address] 07/23/2024 2:00 PM EDT Office Visit [facility] OPT[facility]ET[facility] [address] [place] [address] Dionicio Santosn, OD [address] [place] [address] documented as of this encounter Goals Goal [...] documented as of this encounter Care Teams Cookie Breaker Relationship Specialty Start Date End Date Adrienne Sheehan FNP [address] [place] [address] PCP - General Family Medicine 07/04/23 documented as of this encounter
--- OUTSIDE RECORDS SUMMARY | 2024-03-28 09:38 | XMS_ITS | Encounter Summary ---
Author Organization [employer] Address [address] [facility] 7 [place] [address] Care Team Providers Care Slitter And Rewinder Name Role Phone Adrienne Sheehan Primary Care Provider [phone] Reason for Referral * Consultation (Routine) - Authorized Specialty Diagnoses / Procedures Referred By Darryl huitron Referred To Contact Pharmacy Diagnoses Type 2 diabetes mellitus with hyperglycemia, with long-term current use of insulin ([facility]) Adrienne Sheehan FNP [address] [place] [address] Phone: tel: fax: Referral ID Status Reason Start Date Expiration Date Visits Requested Visits Authorized [id number] Authorized Consult and Treat 03/09/2024 03/09/2025 6 6 * Consultation (Routine) - Authorized Specialty Diagnoses / Procedures Referred By Darryl huitron Referred To Contact Physical Therapy Diagnoses Chronic pain of right knee Adrienne Sheehan FNP [address] [place] [address] Phone: tel: fax: Physical Therapy, AT [address] [place], [place] Phone: tel: fax: Referral ID Status Reason Start Date Expiration Date Visits Requested Visits Authorized [id number] Authorized Specialty Services Required 03/09/2024 03/09/2025 1 1 Reason for Visit * Reason Comments Diabetes Encounter Details Date Type Department Care Team (Late st Contact Info) Description 03/09/2024 9:00 AM EST Office Visit [facility] [address] [facility] [place] [address] Adrienne Sheehan FNP [address] [place] [address] Type 2 diabetes mellitus with hyperglycemia, with long-term current use of insulin ([facility]) (Primary Dx); Chronic pain of [...] feeling that knee gives out. Interim Updates: [id number] blood sugar elevation. Reports compliance with Trulicity 4.5 weekly and metformin 1000 mg twice daily. IRE-tzhe-qhekyekgoo. BENITA-stopped using CPAP machine due to burning smell. Missed appointment with airplane pilot helper. 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 Sexually active: yes Partners [...] hyperglycemia, with long-term current use of insulin ([facility]) (Primary) Lab Results Component Value Date HGBA1C [...] index (BMI)of 40.0 to 44.9 in adult ([facility]) - Encouraged regular aerobic exercise within initial [...] NOON 90 capsule 1 Continuous Blood Gluc Special Education Educational Assistant (FreeStyle Dayana 2 [place]) device Scan sensor every 8 hours 1 each 0 Continuous Glucose Sensor (FreeStyle Dayana 2 Sensor) misc APPLY AND CHANGE EVERY 14 DAYS DIRECTED 2 each 3 dulaglutide (Trulicity) 4.5 MG/0.5ML solution pen-injector Inject 4.5 mg under the skin 1 (one) time per week. 4 each 11 Easy Touch Pen [place] 31G X 8 MM misc USE DIRECTED [...] facility-administered medications on file prior to visit. Sierra Leonean Translation: Provided by [facility] staff member YENIFER Roberts documented in this encounter Plan of Treatment Upcoming Encounters Date Type Department Care Team (Late st Contact Info) Description 04/18/2024 10:00 AM EST Office Visit [facility] [address] [place] [address] [place] [facility] [address] [place] [address] 05/09/2024 2:00 PM EDT Office Visit [facility] [address] [place] [address] [place] [facility] [address] [place] [address] 07/23/2024 2:00 PM EDT Office Visit [facility] OPTOMETRY [address] [place] [address] Tom, Lou, OD [address] [place] [address] Scheduled Referrals Name Type Priority Associated Diagnoses Orde r Schedule Referral to Physical Therapy Outpatient Referral Routine Chronic pain of right knee Expected: 03/09/2024 (Approximate), Expires: 03/09/2025 Referral to Pharmacy CDTM Outpatient Referral Routine Type 2 diabetes mellitus with hyperglycemia, with long-term current use of insulin ([facility]) Ordered: 03/09/2024 documented as of this encounter [...] hyperglycemia, with long-term current use of insulin ([facility]) TSH Routine 03/09/2024 10:14 AM EST Acquired hypothyroidism LIPID PANEL, STANDARD Routine 03/09/2024 10:14 AM EST Type 2 diabetes mellitus with hyperglycemia, with long-term current use of insulin ([facility]) COMPREHENSIVE METABOLIC PANEL Routine 03/09/2024 10:14 AM EST Type 2 diabetes mellitus with hyperglycemia, with long-term current use of insulin ([facility]) POCT GLYCATED HEMOGLOBIN, TOTAL Routine 03/09/2024 9:33 AM EST Type 2 diabetes mellitus with hyperglycemia, with long-term current use of insulin ([facility]) POCT GLUCOSE Routine 03/09/2024 9:33 AM EST Type 2 diabetes mellitus with hyperglycemia, with long-term current use of insulin ([facility]) documented in this encounter Results * XR Knee 3 Views Right (03/21/2024 1:32 PM EST) Anatomical Region Laterality Modality Lower Extremities, Knee Right Radiogra phic Imaging 03/21/2024 1:32 PM EST Narrative 03/21/2024 1:33 PM EST ? [facility] ?[address] ?[place] [address] ?XRay Report ? Signed ? Patient: Yamil Lobo,Michele L ?MR#: [id number] ?? [id number] ? : 1970 ?Acct:[id number] ? Age/Sex: 53 / M ?ADM Date: 03/20/24 ? Loc: HO.XRAY ? Attending Dr: Adrienne Sheehan RETAIL TIRE SALES MANAGER ? Ordering Physician: Adrienne Sheehan ?? Date of Service: 03/20/24 ?? Procedure(s): XR knee RT 3V ?? Accession Number(s): [id number] ? cc: Adrienne Sheehan RETAIL TIRE SALES MANAGER ? CLINICAL HISTORY: acute on chronic right [...] DD/ 1332 ? TD/TT: 03/21/24 1332 ? Molder Offbearer: ? Procedure Note Matthew, Image - 03/21/[address] [address] XRay Report Signed Patient: Michele Alicea R#: [id number] : 1970Acct:[id number] Age/Sex: 53 / MADM Date: 03/20/24 Loc: [facility]IUS[facility] Attending Dr: Adrienne Sheehan RETAIL TIRE SALES MANAGER Ordering Physician: Adrienne Sheehan Date of Service: 03/20/24 Procedure(s): XR knee RT 3V Accession Number(s): [id number] cc: [facility] CLINICAL HISTORY: acute on chronic right knee [...] 03/21/24 1332 DD/ 1332 TD/TT: 03/21/24 1332 Molder Offbearer: [facility] IMG XR PROCEDURES Edited Resu lt - Final * (ABNORMAL) Albumin, Random Urine W/Creatinine (03/09/2024 10:14 AM EST) Creatinine, Urine 160.00 mg/dL [facility] Microalbumin Urine 475.0 mg/L H [facility] Microalbum Creatinine Ratio Ur 296.8(H) <30 ug/mg cr [facility] Comment:Albumin/Creatinine R atio Reference Ranges: Normal: < 30 ug/mg creatinine Microalbuminuria: 30 - 300 ug/mg creatinineClinical Albuminuria: > 300 ug/mg creatinine Urine 03/09/2024 10:1 4 AM EST 03/09/2024 11:34 AM EST [facility] LAB URINE ORDERABLES Final Re sult [facility] [address] [place] [phone] * (ABNORMAL) Lipid Panel, Standard (03/09/2024 10:14 AM EST) Triglycerides 147 <150 mg/dL [facility] Comment:Desirable Triglyceri de: less than 150 mg/dLBorderline High Triglyceride 150-199 mg/dLHigh Triglyceride: 200-499 mg/dLVery High Triglyceride: greater than or equal to 5OO mg/dL Cholesterol 195 <200 mg/dL [facility] Comment:Desirable Cholestero l: less than 200 mg/dLBorderline High Cholesterol: 200-239 mg/dLHigh Cholesterol: greater than 239 mg/dL LDL Cholesterol Calculated 129(H) <100 mg/dL [facility] Comment:Desirable LDL: less than 100 mg/dLNear Optimal/Above Optimal LDL: 110- 129 mg/dLBorderline High LDL: 130-159 mg/dLHigh LDL: 160-189 mg/dLVery High LDL: greater than or equal to 190 mg/dL HDL Cholesterol 37(L) >40 mg/dL [facility] Comment:Desirable HDL: grea ter than 40 mg/dL Note: This HDL assay may give artificially low results in patients with liver disease. Blood Venous blood specimen / Unknown 03/09/2024 10:14 AM EST 03/09/2024 11:38 AM EST [facility] RETAIL TIRE SALES MANAGER LAB BLOOD ORDERABLES Final Re sult [facility] [address] [place] [phone] * (ABNORMAL) Comprehensive Metabolic Panel (03/09/2024 10:14 AM EST) Sodium 142 135 - 145 mmol/L [facility] Potassium 4.5 3.3 - 5.1 mmol/L [facility] Chloride 100 96 - 108 mmol/L [facility] Carbon Dioxide 32(H) 22 - 29 mmol/L [facility] Anion Gap 15 12 - 20 [facility] Urea Nitrogen (BUN) 12 9 - 16 mg/dL [facility] Creatinine, Serum 1.04 0.5 - 1.4 mg/dL [facility] Estimated Glomerular Filt Rate >60 [facility] Comment:Chronic Kidney Disea se: Estimated GFR < 60 mL/min/[id number] Kidney Disease: Estimated GFR < 15 mL/min/1.73m2 Glucose 268(H) 60 - 115 mg/dL [facility] Calcium 9.6 8.4 - 10.2 mg/dL [facility] Bilirubin, Total 0.4 0.0 - 1.0 mg/dL [facility] Aspartate Amino Transferase 20 5 - 37 U/L [facility] Alanine Aminotransferase 29 0 - 40 U/L [facility] Total Protein 7.9 6.5 - 8.0 g/dL [facility] Albumin Level 4.3 3.5 - 5.0 g/dL [facility] Alkaline Phosphatase 83 39 - 117 U/L [facility] Blood Venous blood specimen / Unknown 03/09/2024 10:14 AM EST 03/09/2024 11:38 AM EST [facility] LAB BLOOD ORDERABLES Final Re sult Performing Organization Address [facility] de Phone Number [facility] [address] [place] [phone] * (ABNORMAL) TSH (03/09/2024 10:14 AM EST) Thyroid Stimulating Hormone 4.72(H) 0.32 - 4.0 uIU/mL [facility] Comment:Note: A sustained TS H level above 2.5 uIU/mL may warrant further investigation. TSH 3rd Generation ([facility]) Blood Venous blood specimen / Unknown 03/09/2024 10:14 AM EST 03/09/2024 11:38 AM EST [facility] LAB BLOOD ORDERABLES Final Re sult Performing Organization Address City/[facility] Co de Phone Number [facility] [address] [place] [phone] * (ABNORMAL) POCT HGB A1C (03/09/2024 9:33 AM EST) Hemoglobin A1C 9.7(A) 4.0 - 6.0 % Blood 03/09/2024 9:33 AM EST [facility] POINT OF CARE TEST ENTER/EDIT ORDERABLES Final Result * (ABNORMAL) POCT Glucose (03/09/2024 9:33 AM EST) Glucose Blood, POC 295(A) 60 - 200 mg/dL [employer] Media Lot # [id number] Lot# Expiration Date Blood Capillary blood specimen / Unknown 03/09/2024 9:33 AM EST [facility] POINT OF CARE TEST ENTER/EDIT ORDERABLES Final Result documented in this encounter Visit Diagnoses Diagnosis Type 2 diabetes mellitus with hyperglycemia, with long-term current use of insulin ([facility])- Primary Chronic pain of right knee Acquired hypothyroidism Unspecified hypothyroidism Dietary counseling Dietary surveillance and counseling Exercise counseling Class 3 severe obesity due to excess calories with serious comorbidity and body mass index (BMI) of 40.0 to 44.9 in adult ([facility]) documented in this encounter Additional Health Concerns Assessment Noted Time PHQ-9 Depression Total Score: 8 03/09/19 25 9:22 AM EST documented as of this encounter Care Teams Slitter And Rewinder Relationship Specialty Start Date End Date [facility] [address] [place] [phone] PCP - General Family Medicine 07/04/23 documented as of this encounter
--- OUTSIDE RECORDS SUMMARY | 2024-03-28 09:38 | XMS_ITS | Encounter Summary ---
Author Organization [employer] Address [address] [place] [address] Care Team Providers Care Manager Intern Name Role Phone [facility] Primary Care Provider [phone] Encounter Details Date Type Department Care Team (Late st Contact Info) Description 03/19/2024 Orders Only [facility] [address] [place] [address] [facility] [address] [place] [address] Acquired hypothyroidism (Primary Dx) Social History Tobacco [...] Description 04/18/2024 10:00 AM EST Office Visit [facility] [address] [place] [address] [facility] [address] [place] [address] 05/09/2024 2:00 PM EDT Office Visit [facility] [address] [place] [address] [facility] [address] [place] [address] 07/23/2024 2:00 PM EDT Office Visit [facility] OPTOMETRY [address] [place] [address] Tom, Lou, OD [address] [place] [address] documented as of this encounter Goals Goal Patient Goal Type Associated Problems Recent Progress Patient-Stated? Author Blood Pressure < 140/90 Blood Pressure 125/75(2024 9:10 AM EST) No Souleymane Love, PharmD Hemoglobin A1c < 7 Result Component 10.5(03/28/19 9:12 AM EST) No Souleymane Love, Rayshawn documented as of this encounter Procedures Procedure Name Priority Date/Time Associated Diagnosis Comments TSH Routine 03/20/2024 6:44 AM EST Acquired hypothyroidism documented in this encounter Results * (ABNORMAL) TSH (03/20/2024 6:44 AM EST) Thyroid Stimulating Hormone 6.65(H) 0.32 - 4.0 uIU/mL [facility] Comment:Note: A sustained TS H level above 2.5 uIU/mL may warrant further investigation. TSH 3rd Generation ([facility]) Blood Venous blood specimen / Unknown 03/20/2024 6:44 AM EST 03/20/2024 6:44 AM EST [facility] LAB BLOOD ORDERABLES Final Re sult [facility] [address] [place] [phone] documented in this encounter Visit Diagnoses Diagnosis Acquired hypothyroidism- Primary Unspecified hypothyroidism documented in this encounter Additional Health Concerns Assessment Noted Time PHQ-9 Depression Total Score: 8 03/09/19 25 9:22 AM EST documented as of this encounter Care Teams Manager Intern Relationship Specialty Start Date End Date Adrienne Sheehan FNP [address] [place] [phone] PCP - General Family Medicine 07/04/23 documented as of this encounter
[2024-03-28 10:14] LABS: Alanine Aminotransferase 44 U/L (0-40); Albumin Level 4.4 g/dL (3.5-5.0); Alkaline Phosphatase 91 U/L (39-117); Anion Gap 9 (12-20); Aspartate Amino Transferase 33 U/L (5-37); Bilirubin Total 0.6 mg/dL (0.0-1.0); Blood Urea Nitrogen 18 mg/dL (9-16); C Reactive Protein 0.36 mg/dL (< or = 0.50); Calcium 9.8 mg/dL (8.4-10.2); Carbon Dioxide 32 mmol/L (22-29); Chloride 102 mmol/L (96-108); Cholesterol 184 mg/dL (<200); Estimated Glomerular Filt Rate 60; Glucose Random 235 mg/dL (60-115); HDL Cholesterol 38 mg/dL (>40); Iron 97 mcg/dL (45-160); LDL Cholesterol Calculated 120 mg/dL (<100); Percent Iron Saturation 28 % (15-50); Potassium 4.4 mmol/L (3.3-5.1); Sodium 139 mmol/L (135-145); Total Iron Binding Capacity 345 mcg/dL (228-428); Total Protein 8.3 g/dL (6.5-8.0); Triglycerides 132 mg/dL (<150); Unsaturated Iron Binding 248 ug/dL
[2024-03-28 10:35] LABS: Folate 8.7 ng/mL (> or = 4.0); Vitamin B12 734 pg/mL (200-900)
[2024-03-28 10:36] LABS: Ferritin 72 ng/mL (20-250); Insulin 10 uU/mL (2-29); TSH reflex Free T4 4.41 uIU/mL (0.32-4.0); Vitamin D 25-OH Total 39.6 ng/mL (>30)
[2024-03-28 11:21] LABS: Free T4 (Free Thyroxine) 1.06 ng/dL (0.71-1.85)
[2024-03-31 08:23] LABS: Zinc 91 mcg/dL (60-130)
[2024-03-31 18:58] LABS: Vitamin A 45 mcg/dL (38-98)
[2024-04-04 09:14] LABS: Vitamin B1 12 nmol/L (8-30)
== END 2024-03-28 08:38 | disposition home or self-care (01) ==
LOC: HO.LAB 08:37
PROVIDERS: PCP Registered Nurse; Visit Provider Surgery
DX: E66.01 Morbid (severe) obesity due to excess calories (principal); E03.9 Hypothyroidism, unspecified; E11.9 Type 2 diabetes mellitus without complications; Z79.4 Long term (current) use of insulin; E78.5 Hyperlipidemia, unspecified; I10 Essential (primary) hypertension
CPT/HCPCS: 36415; 71046; 80053; 80061; 82306; 82607; 82728; 82746; 83036; 83525; 83540; 84425; 84439; 84443; 84590; 84630; 85025; 86140; 93005

== ENCOUNTER → 2024-03-28 08:47 | Outpatient (BNV) | payer OTHER, SELFPAY | PROVIDERS: PCP Registered Nurse; Visit Provider Internal Medicine Cardiovascular Disease | DX: R00.1 Bradycardia, unspecified (principal) | CPT/HCPCS: 93010 ==

== ENCOUNTER → 2024-03-28 09:26 | Outpatient (BNV) | payer OTHER, SELFPAY | PROVIDERS: PCP Registered Nurse; Visit Provider Radiology Diagnostic Radiology | DX: R06.89 Other abnormalities of breathing (principal) | CPT/HCPCS: 71046 ==

== ENCOUNTER 2024-04-17 10:51 | Day surgery (SDC) | payer OTHER, SELFPAY ==
[2024-04-13 14:20] VITALS: BMI 43.1
--- NOTE | 2024-04-16 10:23 | P.CONAN_ITS ---
Documented by User: Wanda Rodriguez NP 04/16/24 10:32 HPI - Anesthesia Eval Consult details Narrative: 53yo M for Upper Endoscopy Anesthesia Pre-Procedure Meds Is the patient on any of the following meds?: GLP1/DPP4 PMFSH Active Problems Active Problems: All Active Problems Abnormal EKG (Acute) Hypothyroidism (Acute) Hyperlipidemia (Acute) DJD (degenerative joint disease) (Acute) Anxiety (Acute) Depression (Acute) Hypertension (Acute) Insulin dependent type 2 diabetes mellitus (Acute) Morbid obesity (Acute) Past Medical History Medical History BENITA (obstructive sleep apnea) Hypothyroidism Hyperlipidemia DJD (degenerative joint disease) Anxiety Depression Hypertension Insulin dependent type 2 diabetes mellitus Morbid obesity Family History Family History Mother No problems noted. Father No problems noted. Surgical History Surgical History Hx of circumcision Social History Social History Alcohol intake: current Alcohol intake frequency: holidays/special occasions only Patient Tobacco Use Status: Never used Tobacco Advance Directives: No Advance Directives Information Provided: Yes Meds Allergies Allergy/AdvReac Type Severity Reaction Status Date / Time No Known Allergies Allergy Verified 04/17/24 12:56 Home Medications ?Medication ?Instructions ?Recorded ?Confirmed ?Last Taken ?Type buspirone 10 mg tablet mg PO DAILY 03/19/24 03/26/24 Unknown History insulin glargine 100 unit/mL (3 12 unit subcut BEDTIME 03/19/24 04/17/24 04/14/24 History mL) subcutaneous pen (Lantus Solostar U-100 Insulin) lisinopril 20 mg tablet mg PO DAILY 03/19/24 03/26/24 04/14/24 History metformin 500 mg tablet,extended mg PO 03/19/24 03/26/24 04/15/24 History release 24 hr tirzepatide 2.5 mg/0.5 mL mg subcut 03/19/24 03/26/24 04/03/24 History subcutaneous pen injector (Reed) levothyroxine 150 mcg tablet mcg DAILY 04/17/24 04/17/24 History Exam Height,Weight and Vital Signs: Height 5 ft 4 in Weight 113.852 kg Assessment and Plan Assessment Anesthesia Assessment: Chart Reviewed Documented by User: Paz Ledbetter MD 04/17/24 13:11 [facility] Past Medical History Medical History BENITA (obstructive sleep apnea) Hypothyroidism Hyperlipidemia DJD (degenerative joint disease) Anxiety Depression Hypertension Insulin dependent type 2 diabetes mellitus Morbid obesity Family History Family History Mother No problems noted. Father No problems noted. Surgical History Surgical History Hx of circumcision History of Problems with Anesthesia: No Social History Social History Alcohol intake: current Alcohol intake frequency: holidays/special occasions only Patient Tobacco Use Status: Never used Tobacco Advance Directives: No Advance Directives Information Provided: Yes Meds Allergies Allergy/AdvReac Type Severity Reaction Status Date / Time No Known Allergies Allergy Verified 04/17/24 12:56 Home Medications ?Medication ?Instructions ?Recorded ?Confirmed ?Last Taken ?Type buspirone 10 mg tablet mg PO DAILY 03/19/24 03/26/24 Unknown History insulin glargine 100 unit/mL (3 12 unit subcut BEDTIME 03/19/24 04/17/24 04/14/24 History mL) subcutaneous pen (Lantus Solostar U-100 Insulin) lisinopril 20 mg tablet mg PO DAILY 03/19/24 03/26/24 04/14/24 History metformin 500 mg tablet,extended mg PO 03/19/24 03/26/24 04/15/24 History release 24 hr tirzepatide 2.5 mg/0.5 mL mg subcut 03/19/24 03/26/24 04/03/24 History subcutaneous pen injector (Reed) levothyroxine 150 mcg tablet mcg DAILY 04/17/24 04/17/24 History Exam Airway Mallampati Class: III TM Dist: >3cm Neck ROM: Full Loose/Missing/Broken Teeth: Yes, Upper and Lower Heart: RRR Lungs: CTA Assessment and Plan Assessment Anesthesia Assessment: Anesthesia Plan Discussed Final Anesthetic Review History of Problems with Anesthesia: No NPO: Yes ASA Class: III Final Preanesthetic Review: Meds/Allgs Chart Reviewed, Consent Obtained/Reviewed and Anes Risks/Benef Reviewed Patient Risk: Low Procedure Risk: Intermediate Anesthetic Plan Anesthetic Plan: MAC: Disposition: Standard PACU
--- NOTE | 2024-04-17 12:50 | MHC.SHP ---
Pre-Procedural Eval Section A - 24 Hr Update-Section A only Date of Service: 04/17/24 The patient is an INPATIENT: No The patient has been examined within 24 hours of the surgical procedure. The History & Physical has been completed within 30 days and I have reviewed it.: Yes Section B - Complete if H&P > 30 days Chief Complaint: Morbid (severe) obesity due to excess calories Relevant Family History (Specify if Yes): No Relevant Social History: None Present Medications: None Medical History: No relevant PMH History of Previous Operations: No relevant previous surgery Allergies: Allergies Allergy/AdvReac Type Severity Reaction Status Date / Time No Known Allergies Allergy Verified 03/26/24 11:22 Review of Systems Sugical H&P ROS: Negative: Constitution, Cardiovascular, Respiratory, Neurological, Psychiatric, Hem-Onc, Allergic/Immunologic, Gastrointestinal, Genitourinary, Musculoskeletal, Integumentary, Endocrine and Eyes/Ears/Nose/Throat Exam Surgical H&P Exam: Normal: HEENT, Normal: Heart, Normal: Lungs, Normal: Extremities, Normal: Abdomen, Normal: Skin and Normal: Neurological Plan Diagnosis/Plan: Unchanged (EGD to assess the stomach's anatomy. Risks of bleeding and perforation were discussed with the patient and he is in agreement with the plan.) I have reviewed the history and physical and performed a pertinent physical examination on my patient. No changes have occurred unless specified. Time Spent With Patient Time: Total time managing care of this patient today ____ minutes.
--- NOTE | 2024-04-17 12:53 | PM.OP ---
Brief Operative Note Date of Service: 04/17/24 Pre-op diagnosis: Morbid obesity Post-op diagnosis: same Procedure: PROCEDURE DATE: 04/17/2024 PREOPERATIVE DIAGNOSIS: GERD POSTOPERATIVE DIAGNOSIS: ?Same as above. 1) Normal endoscopy PROCEDURE: Gusfotlp-bqfsjl-napeztqiwdws with biopsies Surgeon: Tevin Sanchez M.D.. Ph.D. Theatrical Performer: None ? Anesthesia: IV sedation Estimated blood loss: ?Minimal FINDINGS AND PROCEDURE: ? OPERATIVE INDICATIONS: ?The patient is a 53 year old male known to me who is interested in bariatric surgery. Based on this information I recommended an upper endoscopy to evaluate the stomach's anatomy. Risks and complications of the surgery were discussed with the patient in advance particularly the possibility of perforation or bleeding that may require surgical intervention. The patient understood the risks and was in agreement with the plan. ? PROCEDURE: After informed consent was obtained by the patient, the patient was ?transferred to the Operating Room and was placed in the supine position.? After successful induction of IV sedation, a mouth block was inserted and the patient was placed in the left lateral decubitus position. An upper endoscopy was performed next, the oropharynx and esophagus appeared within the normal limits. There was no hiatal hernia. The z-line was smooth. One biopsy was obtained from the distal esophagus 2-3 cm proximal to the GE junction and one additional biopsy from the GE junction. The stomach was entered and it appeared to be of normal size. There was no gastritis. There was no stricture or ulcer. A biopsy was obtained from the antrum. No significant bleeding was noted from any of the biopsy sites. The scope was then advanced into the duodenum which appeared to be normal as well. At that point the duodenum ?and the stomach were decompressed and the scope was withdrawn from the patient's mouth. The endoscopy was limited due to patient's desaturation. The patient extubated and was transferred in stable condition to the Recovery Room for further care. I was present and performed all steps of the procedure. There were no residents to assist with this case. Jose R Sanchez M.D., Ph.D. Surgeon: Saul Sanchez MD Anesthesia: MAC Was an Theatrical Performer used for this Procedure?: No Estimated blood loss (mL): 0 IV fluids (mL): 400 Urine output (mL): 0 (No Loaiza to record output) Pathology: other (1) antrum x1, 2) GE junction x1, 3) distal esophagus x1) Condition: stable Disposition: PACU
[2024-04-17 13:04] LABS: Glucose, Whole Blood 111 mg/dL (60-115)
[2024-04-17 13:08] VITALS: BP 130/69; PULSE 64; RESP 16; TEMP 36.5; O2SAT 96; BMI 42.0
[2024-04-17] MEDS: Lactated Ringers 1,000 ML 80 ML IVCONT (13:27)
[2024-04-17 14:18] VITALS: BP 94/52; PULSE 67; RESP 18; TEMP 36.8; O2SAT 96
[2024-04-17 14:33] VITALS: BP 100/69; PULSE 63; RESP 18; TEMP 36.8; O2SAT 97
[2024-04-17 14:48] VITALS: BP 100/69; PULSE 63; RESP 18; TEMP 36.8; O2SAT 97
== END 2024-04-17 15:07 | disposition home or self-care (01) ==
PROVIDERS: PCP Registered Nurse; Visit Provider Surgery
PROC: 0DJ08ZZ Inspection of Upper Intestinal Tract, Via Natural or Artificial Opening Endoscopic (ICD-10-PCS; CPT 43235; principal; 2024-04-17 13:50)
DX: K21.9 Gastro-esophageal reflux disease without esophagitis (principal); E66.01 Morbid (severe) obesity due to excess calories; Z68.41 Body mass index [BMI] 40.0-44.9, adult; I10 Essential (primary) hypertension; E78.5 Hyperlipidemia, unspecified; E03.9 Hypothyroidism, unspecified; F32.A Depression, unspecified; F41.9 Anxiety disorder, unspecified; G47.33 Obstructive sleep apnea (adult) (pediatric); E11.9 Type 2 diabetes mellitus without complications; Z79.4 Long term (current) use of insulin; Z79.84 Long term (current) use of oral hypoglycemic drugs; Z79.85 Long-term (current) use of injectable non-insulin antidiabetic drugs; Z79.899 Other long term (current) drug therapy
CPT/HCPCS: 43239; 82947; 88305; 88313; 88342; J2003; J2704

== ENCOUNTER → 2024-04-17 10:51 | Outpatient (BNV) | payer OTHER, SELFPAY | PROVIDERS: PCP Registered Nurse; Visit Provider Surgery | DX: K21.9 Gastro-esophageal reflux disease without esophagitis (principal) | CPT/HCPCS: 43239 ==

== ENCOUNTER → 2024-04-18 09:11 | Outpatient (REF) | payer OTHER, SELFPAY ==
--- NOTE | 2024-04-18 09:13 | CA_ITS ---
Transthoracic Echocardiogram Patient (Last, First, Middle): Michele Alicea L Gender: Male Date of : 1970 Age: 53 Procedure Date: 04/18/2024 Procedure Type: Transthoracic Echocardiogram Location: OP Height: 162.56 cm Weight: 108.86 kg BSA: 2.11 m2 Heart Rate: bpm BP: 100 / 60 mmHg Industrial Sewer: BEKA Barnes MD: Saul Sanchez MD Tool Procurement Coordinator: Ras Quiroz MD Symptoms: R94.31 - Abnormal electrocardiogram [ECG] [EKG] Study Quality: Fair ECG Rhythm: Sinus Conclusions: - 1. Normal LV ejection fraction of 65-70% 2. Normal cardiac valvular Dopplers 3. No gross pericardial effusion Findings Left Ventricle Normal left ventricular size, thickness, and systolic function. The visually estimated ejection fraction is between 65-70%. Spectral Doppler is indicative of a normal filling pattern. Right Ventricle Normal right ventricular cavity size. Atria The left atrium is normal in size. Interatrial shunt cannot be excluded. The right atrium was not well visualized. Aortic Valve The aortic valve structure and function is likely normal. There is no aortic valve stenosis. There is no aortic valve regurgitation. Mitral Valve Likely normal mitral valve structure and function. There is trace mitral valve regurgitation. There is no mitral valve stenosis. Pulmonic Valve The pulmonic valve was not well visualized. Tricuspid Valve The tricuspid valve was not well visualized. Tricuspid regurgitation envelope is inadequate for calculation of right ventricular systolic pressure. Normal right atrial pressure. Great Vessels All visible segments of the aorta are normal in size. The pulmonary artery was not well visualized. Venous The inferior vena cava is normal in size and collapses greater than 50% with inspiration. Pericardium/Pleural There is no evidence of pericardial effusion. Prior Study Comparison No prior study available for comparison. Measurements 2D Linear Measurements IVSd: 0.92 0.6-0.9/0.6-1.0 cm LVIDd: 4.38 3.9-5.3/4.2-5.9 cm LVIDd Index: 2.08 2.4-3.2/2.2-3.1 cm/m2 LVIDs: 2.55 2.0-3.6 cm LVPWd: 0.90 0.7-1.1 cm LA Diam: 3.10 2.7-3.8/3.0-4.0 cm LAIDs Index: 1.47 1.5-2.3 cm/m2 LV Mass: 160.71 67-162/88-224 g LV Mass Index: 76.17 43-95/49-115 g/m2 LVOT Diam: 2.10 3.0+(-)1.3 cm 2D Systolic Function EF 4C: 65.60 >55% EF 2C: 67.40 >55% EF BiP: 66.90 >55% Mitral Valve MV Pk E: 0.78 MV PK A: 0.68 MV Decel Time: 229.00 E/A: 1.10 E'Lateral: 12.10 E'Medial: 7.62 E/E' Med: 10.20 E/E' Lat: 6.40 PHT: 67.00 MVA PHT: 3.28 Decel Cache: 3.39 Aortic Valve AoV Pk Jordin: 1.12 AoV Mn Jordin: 0.90 AoV VTI: 0.25 AoV Pk Grad: 5.00 Aov Mn Grad: 3.00 MARIANNA Cont.VTI: 2.88 LVOT LVOT Pk Jordin: 1.07 LVOT Mn Jordin: 0.65 LVOT VTI: 0.20 LVOT Pk Grad: 5.00 LVOT Mn Grad: 2.00 LVOT Diam: 2.10 LVOT Area: 3.46 Diastolic Function MV Pk E: 0.78 MV Pk A: 0.68 E/A: 1.10 E'Medial: 7.62 E/E' Med: 10.20 E' Laterial: 12.10 E/E' Lat: 6.40 Right Ventricle TAPSE (mm): 19.30 TVS' Jordin: 10.60 Tricuspid Valve RA Press: 3.00 Great Vessels Aorta Sinus of Valsalva: 3.46 2.0-3.5 cm Ao Asc: 3.60 2.1-3.4 cm Updated in Other Vendor System with Status of Final Ras Quiroz MD electronically signed on 04/19/2024 3:55:19 PM with status of Final
--- OUTSIDE RECORDS SUMMARY | 2024-04-18 10:07 | XMS_ITS | Encounter Summary ---
Author Organization [employer] Address [address] [facility] [address] [facility] [place] [address] Care Team Providers Care Construction Site Crossing Guard Name Role Phone [facility] Primary Care Provider [phone] Encounter Details Date Type Department Care Team (Late st Contact Info) Description 03/21/2024 Orders Only [facility] [address] [place], [place] [phone] [facility] [address] [place] [address] Acquired hypothyroidism Social History Tobacco Use Types [...] Care Team (Late st Contact Info) Description 05/09/2024 2:00 PM EDT Office Visit [facility] [address] [place] [address] Adrienne Sheehan FNP [address] [place] [address] 07/23/2024 2:00 PM EDT Office Visit [facility] [address] [place] [address] Tom, Lou, OD [address] [place] [address] documented as of this encounter Goals Goal [...] documented as of this encounter Care Teams Construction Site Crossing Guard Relationship Specialty Start Date End Date Adrienne Sheehan FNP [address] [place] [address] PCP - General Family Medicine 07/04/23 documented as of this encounter
--- OUTSIDE RECORDS SUMMARY | 2024-04-18 10:07 | XMS_ITS | Encounter Summary ---
Author Organization [employer] Address [address] [facility] [facility] [address] 7[address] [place] [address] Care Team Providers Care Manager Therapy Name Role Phone Kori Alonso NP Primary Care Provider [phone] [facility] Primary Care Provider [phone] Reason for Visit * Reason Onset Date Comments Med Refill 03/16/2023 Encounter Details Date Type Department Care Team (Late st Contact Info) Description 03/16/2023 Telephone [facility] [address] [place], [place] [phone] Kori Alonso NP [address] [place], [place] [phone] Med Refill Social History Tobacco Use Types [...] Description 05/09/2024 2:00 PM EDT Office Visit [facility] [address] [place] [address] [place], [place], [facility] [address] [place] [address] 07/23/2024 2:00 PM EDT Office Visit [facility] OPTOMETRY [address] [place] [address] Tom, Lou, OD [address] [place] [address] documented as of this encounter Goals Goal [...] as of this encounter Care Teams Manager Therapy Relationship Specialty Start Date End Date Kori Alonso NP [address] [place] [address] PCP - General Family Medicine 01/19/23 07/03/23 ManitoAdrienne beltran FNP [address] [place] [address] PCP - General Family Medicine 07/04/23 documented as of this encounter
--- OUTSIDE RECORDS SUMMARY | 2024-04-18 10:07 | XMS_ITS | Encounter Summary ---
Author Organization [employer] Address [address] [facility] [address] [place] [address] Care Team Providers Care Pipe Inspector Name Role Phone Aguila Golisano [facility] Primary Care Provider [phone] Encounter Details Date Type Department Care Team ([facility] st Contact Info) Description 03/22/2024 Telephone [facility] [address] [place], [place] [phone] Arely Novoa, JORGE Social History Tobacco Use [...] 03/22/2024 9:00 AM EST TC placed via [employer] quality assurance intern ([employer] ID#[id number]) to inform of PCP messages, Please advise [...] Description 05/09/2024 2:00 PM EDT Office Visit [facility] [address] [place] [address] [place], Adrienne, AFFIRMATIVE ACTION SPECIALIST [address] [place] [address] 07/23/2024 2:00 PM EDT Office Visit [facility] OPTOMETRY [address] [place] [address] Lou Santos, OD [address] [place] [address] documented as of this encounter Goals Goal [...] documented as of this encounter Care Teams Pipe Inspector Relationship Specialty Start Date End Date Adrienne Sheehan FNP [address] [place] [address] PCP - General Family Medicine 07/04/23 documented as of this encounter
--- OUTSIDE RECORDS SUMMARY | 2024-04-18 10:08 | XMS_ITS | Encounter Summary ---
Author Organization [employer] Address [address] [facility] [address] [place] [address] Care Team Providers Care Seam Steamer Name Role Phone Sophia Burns [employer] Primary Care Provider [phone] Kori Alonso REVENUE INVESTIGATOR Primary Care Provider [phone] Boom Estevez MD Primary Care Provider [phone] Kori Alonso REVENUE INVESTIGATOR Primary Care Provider [phone] [place] [employer] Primary Care Provider [phone] Encounter Details Date Type Department Care Team (Latest Contact Info) Description 04/17/2021 Abstract [facility] CONVERSIONS Dental, Provider, DDS Social History Tobacco [...] Description 05/09/2024 2:00 PM EDT Office Visit [facility] MEDICINE [address] [place] [address] [facility] [address] [place] [address] 07/23/2024 2:00 PM EDT Office Visit [facility] OPTOMETRY [address] [place] [address] Lou Santos, OD [address] [place] [address] documented as of this encounter Visit Diagnoses Not on filedocumented in this encounter Care Teams Seam Steamer Relationship Specialty Start Date End Date Sophia Burns FNP PCP - General Family Medicine 10/12/21 11/22/22 Kori Alonso NP [address] [place] [address] PCP - General Family Medicine 11/23/22 01/16/23 Boom Estevez MD [address] [place] [address] PCP - General Internal Medicine 01/17/23 01/18/23 Kori Alonso NP [address] [place] [address] PCP - General Family Medicine 01/19/23 07/03/23 Adrienne Sheehan FNP [address] [place] [address] PCP - General Family Medicine 07/04/23 documented as of this encounter
--- OUTSIDE RECORDS SUMMARY | 2024-04-18 10:08 | XMS_ITS | Encounter Summary ---
Author Organization [employer] Address [address] [facility] [address] [place] [address] Care Team Providers Care Addiction Counselor Name Role Phone [facility] Primary Care Provider [phone] Encounter Details Date Type Department Care Team (Late st Contact Info) Description 03/19/2024 Orders Only [facility] [address] [place] [address] [facility] [address] [place] [address] Acquired hypothyroidism (Primary Dx) Social History Tobacco [...] Description 05/09/2024 2:00 PM EDT Office Visit [facility] [address] [place] [address] Aguila, Adrienne, BINDERY MACHINE OPERATOR [address] [place] [address] 07/23/2024 2:00 PM EDT Office Visit [facility] OPTOMET[facility] [address] [place] [address] Tom, Lou, OD [address] [place] [address] documented as of this encounter Goals Goal [...] Stimulating Hormone 6.65(H) 0.32 - 4.0 uIU/mL [facility] Comment:Note: A sustained TS H level above 2.5 uIU/mL may warrant further investigation. TSH 3rd Generation ([facility]) Blood Venous blood specimen / Unknown 03/20/2024 6:44 AM EST 03/20/2024 6:44 AM EST [facility] LAB BLOOD ORDERABLES Final Re sult [facility] [address] [place] [address] [phone] documented in this encounter Visit Diagnoses Diagnosis Acquired hypothyroidism- Primary Unspecified hypothyroidism documented in this encounter Additional Health Concerns Assessment Noted Time PHQ-9 Depression Total Score: 8 03/09/19 25 9:22 AM EST documented as of this encounter Care Teams Addiction Counselor Relationship Specialty Start Date End Date AguilaAdrienne beltran BINDERY MACHINE OPERATOR [address] [place] [address] PCP - General Family Medicine 07/04/23 documented as of this encounter
--- OUTSIDE RECORDS SUMMARY | 2024-04-18 10:08 | XMS_ITS | Encounter Summary ---
Author Organization [employer] Address [address] [place] [address] Care Team Providers Care Molecular Biologist Name Role Phone [facility] Primary Care Provider [phone] Reason for Visit * Reason Comments Med Refill Encounter Details Date Type Department Care Team ([facility] st Contact Info) Description 10/28/2023 Refill [facility] [address] [place] [address] [facility] [address] [place] [address] Social History Tobacco Use Types Packs/Day Years [...] Description 05/09/2024 2:00 PM EDT Office Visit [facility] [address] [place] [address] Adrienne Sheehan FNP [address] [place] [address] 07/23/2024 2:00 PM EDT Office Visit [facility] OPTOMETRY [address] [place] [address] Tom, Lou, OD [address] [place] [address] documented as of this encounter Goals Goal [...] documented as of this encounter Care Teams Molecular Biologist Relationship Specialty Start Date End Date Adrienne Sheehan FNP [address] [place] [address] PCP - General Family Medicine 07/04/23 documented as of this encounter
--- OUTSIDE RECORDS SUMMARY | 2024-04-18 10:08 | XMS_ITS | Encounter Summary ---
Author Organization [employer] Address [address] [facility] [facility] [address] [facility] [address] [address] [place] [address] Care Team Providers Care Engineering Intern Name Role Phone [facility] Primary Care Provider Reason for Visit * Reason Comments Med Refill Encounter Details Date Type Department Care Team ([facility] st Contact Info) Description 11/07/2023 Refill [facility] [address] [place], [place] [phone] [facility] [address] [place], [place] [phone] Mild intermittent asthma without complication Social History [...] Description 05/09/2024 2:00 PM EDT Office Visit [facility] MED[facility] [address] [place] [address] Adrienne Sheehan FNP [address] [place] [address] 07/23/2024 2:00 PM EDT Office Visit [facility] OPTOMETRY [address] [place] [address] Tom, Lou, OD [address] [place] [address] documented as of this encounter Goals Goal [...] Time PHQ-9 Depression Total Score: 0 09/26/19 12:29 PM EDT documented as of this encounter Care Teams Engineering Intern Relationship Specialty Start Date End Date Adrienne Sheehan FNP [address] [place] [address] PCP - General Family Medicine 07/04/23 documented as of this encounter
--- OUTSIDE RECORDS SUMMARY | 2024-04-18 10:08 | XMS_ITS | Encounter Summary ---
Author Organization [employer] Address [address] [place] [address] Care Team Providers Care Technical Information Specialist Name Role Phone Adrienne Sheehan [facility] Primary Care Provider [phone] Encounter Details Date Type Department Care Team (Late st Contact Info) Description 03/28/2024 Orders Only GENERIC EXTERNAL DATA DEPARTMENT Provider, Generic External Data Social History Tobacco Use Types Packs/Day Years [...] PM EDT Office Visit [facility] MEDICINE [address] [place] [address] Olalla, Adrienne, BANANA LOADER [address] [place] [address] 07/23/2024 2:00 PM EDT Office Visit [facility] OPTOMETRY [address] [place] [address] Tom, Lou, OD [address] [place] [address] documented as of this encounter Goals Goal Patient Goal Type Associated Problems Recent Progress Patient-Stated? Author Blood Pressure < 140/90 Blood Pressure 125/75(2024 9:10 AM EST) No Souleymane Love, PharmRuth Hemoglobin A1c < 7 Result Component 10.5(03/28/19 9:12 AM EST) No Souleymane Love, PharmRuth documented as of this encounter Procedures Procedure Name Priority Date/Time Associated Diagnosis Comments XR CHEST 2 VIEWS Routine 03/28/2024 9:38 AM EST VITAMIN D,25-OH,TOTAL,IA Routine 03/28/2024 9:12 AM EST VITAMIN B12/FOLATE, SERUM PANEL Routine 03/28/2024 9:12 AM EST TSH W/REFLEX TO FT4 Routine 03/28/2024 9 :12 AM EST CBC WITH AUTO DIFFERENTIAL Routine 03/28/2024 9:12 AM EST IRON AND TOTAL IRON BINDING CAPACITY Routine 03/28/2024 9:12 AM EST INSULIN Routine 03/28/2024 9:12 AM EST C-REACTIVE PROTEIN Routine 03/28/2024 9: 12 AM EST HEMOGLOBIN A1C Routine 03/28/2024 9:12 AM EST FERRITIN Routine 03/28/2024 9:12 AM EST LIPID PANEL, STANDARD Routine 03/28/2024 9:12 AM EST COMPREHENSIVE METABOLIC PANEL Routine 03/28/2024 9:12 AM EST documented in this encounter Results * XR Chest 2 Views (03/28/2024 9:38 AM EST) Anatomical Region Laterality Modality Chest Radiographic Nancy ging 03/28/2024 9:38 AM EST Narrative 03/28/2024 9:56 AM EST ? [facility] ?[address] ?[place] [address] ?XRay Report ? Signed ? Patient: Yamil Lobo,Michele L ?MR#: [id number] ?? [id number] ? : 1970 ?Acct:[id number] ? Age/Sex: 53 / M ?ADM Date: 03/28/ ? Loc: HO.LAB ? Attending Dr: Saul Sanchez MD ? Ordering Physician: Saul Sanchez MD ?? Date of Service: 03/28/24 ?? Procedure(s): XR chest 2V ?? Accession Number(s): [id number] ? cc: Saul Sanchez MD; Adrienne Sheehan ? EXAMINATION: ??XR CHEST 2 VIEWS ? HISTORY: E66.01 - Morbid (severe) obesity due to excess calories ? COMPARISON: There are no prior studies for comparison. ? FINDINGS: ??PA and lateral views of the chest are submitted. There are ?? low lung volumes with elevation of the left hemidiaphragm. The lungs ?? are clear. ??There is no pleural effusion, pneumothorax, or pulmonary ?? vascular congestion. ??The heart is normal in size. ??There is ?? degenerative disc disease of the spine. ? XR/XR chest 2V ?? IMPRESSION: ?? Low lung volumes. The lungs are clear. ? Electronically signed by: ??Darius Tipton MD ??03/28/2024 09:53 AM EST ? Dictated By: ?Darius Tipton MD ? Signed By: ?<Electronically signed by Darius Tipton MD in OV> ?03/28/24 0953 ? DD/ 0938 ? TD/TT: 03/28/24 0942 ? Senior Sql Server Database Developer: ? Procedure Note [email or web address], Image - 03/28/2024 [place] [id number] XRay Report Signed Patient: Michele Alicea LMR#: [id number] : 1970Acct:[id number] Age/Sex: 53 / MADM Date: 03/28/24 Loc: HO.LAB Attending Dr: Saul Sanchez MD Ordering Physician: Saul Sanchez MD Date of Service: 03/28/24 Procedure(s): XR chest 2V Accession Number(s): [id number] cc: Saul Sanchez MD; [facility] EXAMINATION: XR CHEST 2 VIEWS HISTORY: E66.01 - Morbid (severe) obesity due to excess calories COMPARISON: There are no prior studies for comparison. FINDINGS: PA and lateral views of the chest are submitted. There are low lung volumes with elevation of the left hemidiaphragm. The lungs are clear. There is no pleural effusion, pneumothorax, or pulmonary vascular congestion. The heart is normal in size. There is degenerative disc disease of the spine. XR/XR chest 2V IMPRESSION: Low lung volumes. The lungs are clear. Electronically signed by: Darius Tipton MD 03/28/2024 09:53 AM EST RP Dictated By: Darius Tipton MD Signed By: <Electronically signed by Draius Tipton MD in OV> 03/28/24952 DD/ 7 TD/TT: 03/28/24941 Senior Sql Server Database Developer: [facility] External Provider IMG XR PROCEDURES Final Result * Insulin (03/28/2024 9:12 AM EST) Insulin 10 2 - 29 uU/mL [facility] Comment:This test was perfor med using the Beasley chemiluminescentmethod. Values obtained from different assay methods cannot beused interchangeably. This insulin assay shows a possiblecross-reactivity with antibodies generated against insulin(immunoreactive insulin and some patients treated withbovine or porcine insulin). Insulin levels may be measuredlower in patients with insulin autoimmune syndrome orfamilial high pro-insulinemia. 03/28/2024 9:12 AM EST 03/28/2024 9:12 AM EST Generic External Data Provider LAB BLOOD ORDERAB LES Final Result Performing Organization Address City/[facility]/ZIP Co de Phone Number [facility] [address] [place] [phone] * (ABNORMAL) TSH with Reflex to Free T4 (03/28/2024 9:12 AM EST) TSH reflex Free T4 4.41(H) 0.32 - 4.0 uIU/mL [facility] 03/28/2024 9:12 AM EST 03/28/2024 9:12 AM EST Generic External Data Provider LAB BLOOD ORDERAB LES Final Result Performing Organization Address [facility]/ZIP Co de Phone Number [facility] [address] [place] [phone] * Vitamin D, 25-Hydroxy, Total, Immunoassay (03/28/2024 9:12 AM EST) Vitamin D 25-OH Total 39.6 >30 ng/mL [facility] Comment:Health Based Referen ce Values*< 20 ng/mL Jsngedcon16-77 ng/mL Insufficient> 30 ng/mL Sufficient*Oscar RUIZ. N Engl J Med. 2007;357:266-280Care must be taken in interpreting Vitamin D results fromdifferent laboratories and methodologies. Published datademonstrated that results from patients undergoinghemodialysis may show a negative bias when tested withvarious automated 25-OH vitamin D assays when compared toLC-MS/MS.When testing samples from patients whose predominant form ofVitamin D is Vitamin D2, such as patients receiving VitaminD2 supplementation, results that are subtherapeutic shouldbe confirmed with another method such as LC-MS/MS. 03/28/2024 9:12 AM EST 03/28/2024 9:12 AM EST Generic External Data Provider LAB BLOOD ORDERAB LES Final Result Performing Organization Address [facility]/ZIP Co de Phone Number [facility] [address] [place] [phone] * Ferritin (03/28/2024 9:12 AM EST) Pathologist [facility] Ferritin 72 20 - 250 ng/mL [facility] 03/28/2024 9:12 AM EST 03/28/2024 9:12 AM EST Generic External Data Provider LAB BLOOD ORDERAB LES Final Result Performing Organization Address [facility] Co de Phone Number [facility] [address] [place] [phone] * Vitamin B12 (Cobalamin) and Folate Panel, Serum (03/28/2024 9:12 AM EST) Pathologist [facility] Vitamin B12 734 200 - 900 pg/mL [facility] Comment:NORMAL 200-900 PG/ML INDETERMINATE 160-199 PG/ML DEFICIENT < 160 PG/ML Folate 8.7 > or = 4.0 ng/mL [facility] Comment:Reference Values:> o r = 4.0 ng/mL< 4.0 ng/mL suggests folate deficiency Methotrexate, aminopterin and folinic acid(leucovorin) are chemotherapeutic agents whose molecularstructures are similar to folate; therefore, the Architectfolate assay cannot be used for patients using these drugs. 03/28/2024 9:12 AM EST 03/28/2024 9:12 AM EST Generic External Data Provider LAB BLOOD ORDERAB LES Final Result [facility] [address] [place] [phone] * (ABNORMAL) Lipid Panel, Standard (03/28/2024 9:12 AM EST) Triglycerides 132 <150 mg/dL [facility] Comment:Desirable Triglyceri de: less than 150 mg/dLBorderline High Triglyceride 150-199 mg/dLHigh Triglyceride: 200-499 mg/dLVery High Triglyceride: greater than or equal to 5OO mg/dL Cholesterol 184 <200 mg/dL [facility] Comment:Desirable Cholestero l: less than 200 mg/dLBorderline High Cholesterol: 200-239 mg/dLHigh Cholesterol: greater than 239 mg/dL LDL Cholesterol Calculated 120(H) <100 mg/dL [facility] Comment:Desirable LDL: less than 100 mg/dLNear Optimal/Above Optimal LDL: 110- 129 mg/dLBorderline High LDL: 130-159 mg/dLHigh LDL: 160-189 mg/dLVery High LDL: greater than or equal to 190 mg/dL HDL Cholesterol 38(L) >40 mg/dL [facility] Comment:Desirable HDL: great er than 40 mg/dL Note: This HDL assay may give artificially low results in patients with liver disease. 03/28/2024 9:12 AM EST 03/28/2024 9:12 AM EST us Generic External Data Provider LAB BLOOD ORDERAB LES Final Result [facility] [address] [place] [address] [phone] * C-reactive Protein (03/28/2024 9:12 AM EST) Pathologist [facility] C Reactive Protein 0.36 < or = 0.50 mg/dL [facility] 03/28/2024 9:12 AM EST 03/28/2024 9:12 AM EST Generic External Data Provider LAB BLOOD ORDERAB LES Final Result Performing Organization Address [facility] Co de Phone Number [facility] [address] [place] [phone] * Iron And Total Iron Binding Capacity (03/28/2024 9:12 AM EST) [facility] Iron 97 45 - 160 mcg/dL [facility] Total Iron Binding Capacity 345 228 - 428 mcg/dL [facility] Percent Iron Saturation 28 15 - 50 % [facility] Unsaturated Iron Binding 248 ug/dL [facility] 03/28/2024 9:12 AM EST 03/28/2024 9:12 AM EST [employer] External Data Provider LAB BLOOD ORDERAB LES Final Result Performing Organization Address [facility] de Phone Number [facility] [address] [place] [phone] * (ABNORMAL) Comprehensive Metabolic Panel (03/28/2024 9:12 AM EST) Pathologist [facility] Sodium 139 135 - 145 mmol/L [facility] Potassium 4.4 3.3 - 5.1 mmol/L [facility] Chloride 102 96 - 108 mmol/L [facility] Carbon Dioxide 32(H) 22 - 29 mmol/L [facility] Anion Gap 9(L) 12 - 20 [facility] Urea Nitrogen (BUN) 18(H) 9 - 16 mg/dL [facility] Creatinine, Serum 1.25 0.5 - 1.4 mg/dL [facility] Estimated Glomerular Filt Rate 60 [facility] Comment:Chronic Kidney Disea se: Estimated GFR < 60 mL/min/1.97j7Oeqkaa Kidney Disease: Estimated GFR < 15 mL/min/1.73m2 Glucose 235(H) 60 - 115 mg/dL [facility] Calcium 9.8 8.4 - 10.2 mg/dL [facility] Bilirubin, Total 0.6 0.0 - 1.0 mg/dL [facility] Aspartate Amino Transferase 33 5 - 37 U/L [facility] Alanine Aminotransferase 44(H) 0 - 40 U/L [facility] Total Protein 8.3(H) 6.5 - 8.0 g/dL [facility] Albumin Level 4.4 3.5 - 5.0 g/dL [facility] Alkaline Phosphatase 91 39 - 117 U/L [facility] 03/28/2024 9:12 AM EST 03/28/2024 9:12 AM EST us Generic External Data Provider LAB BLOOD ORDERAB LES Final Result [facility] [address] [place] [phone] * (ABNORMAL) Hemoglobin A1c (03/28/2024 9:12 AM EST) Hemoglobin A1c 10.5(H) <6.0 % [facility] Comment:Hemoglobin A1C Refer ence Range Adults: 4.8 - 6.0 % Non diabetic: < 6.0 % Goal: < 7.0 %Additional Action Suggested: > 8.0 %Note: Hemoglobin A1c results are invalid for patients with abnormal amounts of HbF. Blood transfusions may impact the HbA1c concentration in the patient sample. Estimated Average Glucose 255 mg/dL [facility] Comment:eAG = Estimated ave rage glucose which is %A1C expressed asaverage glucose, using the formula of the F4V-EogwbofFrkahcv Glucose study (ADAG), Diabetes Care, Vol.31,#8,2007 03/28/2024 9:12 AM EST 03/28/2024 9:12 AM EST us Generic External Data Provider LAB BLOOD ORDERAB LES Final Result [facility] [address] [place] [phone] [phone] * (ABNORMAL) CBC auto differential (03/28/2024 9:12 AM EST) White Blood Count 7.1 4.8 - 10.8 X10*3/uL [facility] Red Blood Count 5.81(H) 4.60 - 5.80 X10*6/uL [facility] Hemoglobin 15.3 14.0 - 18.0 g/dl [facility] Hematocrit 48.1 42.0 - 52.0 % [facility] Mean Corpuscular Volume 82.8 80.0 - 98.0 fL [facility] Mean Corpuscular Hemoglobin 26.3(L) 27.0 - 33.0 pg [facility] Mean Corpuscular HGB Conc 31.8 31.0 - 36.0 g/dl [facility] Red Cell Distribution Width 14.2 11.0 - 16.0 % [facility] Platelet Count 306 160 - 400 X10*3/uL [facility] Mean Platelet Volume 9.1(L) 9.4 - 12.4 fL [facility] Neutrophils Percent Auto 52.4 45 - 73 % [facility] Imm Gran Pct Auto 0.3 0.0 - 0.4 % [facility] Lymphocytes Percent Auto 35.6 20 - 40 % [facility] Monocytes Percent Auto 6.4 2 - 11 % [facility] Eosinophils Percent Auto 4.7(H) 0 - 4 % [facility] Basophils Percent Auto 0.6 0 - 2 % [facility] NRBC Pct Auto 0.0 0.0 - 0.2 /100WBC [facility] Neutrophils Absolute Auto 3.7 2.0 - 8.3 x10*3/uL [facility] Imm Gran Abs Auto 0.02 0.00 - 0.03 X10*3/uL [facility] Lymphocytes Absolute Auto 2.5 1.2 - 4.9 X10*3/uL [facility] Monocytes Absolute Auto 0.5 0.1 - 1.2 X10*3/uL [facility] Eosinophils Absolute Auto 0.3 0.0 - 0.4 X10*3/uL [facility] Basophils Absolute Auto 0.0 0.0 - 0.2 X10*3/uL [facility] NRBC Abs Auto 0.000 0.0 - 0.012 X10*3/uL [facility] 03/28/2024 9:12 AM EST 03/28/2024 9:12 AM EST us Generic External Data Provider LAB BLOOD ORDERAB LES Final Result Performing Organization Address City/State/[facility] Co de Phone Number [facility] [address] [place] [phone] documented in this encounter Visit Diagnoses Not on filedocumented in this encounter Additional Health Concerns Assessment Noted Time PHQ-9 Depression Total Score: 8 03/09/19 25 9:22 AM EST documented as of this encounter Care Teams Technical Information Specialist Relationship Specialty Start Date End Date Adrienne Sheehan FNP [address] [place] [address] PCP - General Family Medicine 07/04/23 documented as of this encounter
--- OUTSIDE RECORDS SUMMARY | 2024-04-18 10:08 | XMS_ITS | Encounter Summary ---
Author Organization [employer] Address [address] [place] [address] Care Team Providers Care Truck Unloader Name Role Phone [facility] Primary Care Provider [phone] Encounter Details Date Type Department Care Team (Late st Contact Info) Description 03/28/2024 Orders Only [facility] WALK-IN CENTER [address] [place] [address] [facility] [address] [place] [address] Mixed hyperlipidemia (Primary Dx) Social History Tobacco Use Types [...] 2:00 PM EDT Office Visit [facility] MEDICINE [address] [place] [address] Aguila, Adrienne, DEPUTY FIRE CHIEF [address] [place] [address] 07/23/2024 2:00 PM EDT Office Visit [facility] OPTOMETRY [address] [place] [address] Tom, Lou, OD [address] [place] [address] documented as of this encounter Goals Goal Patient Goal Type Associated Problems Recent Progress Patient-Stated? Author Blood Pressure < 140/90 Blood Pressure 125/75(2024 9:10 AM EST) No Souleymane Love, PharmRuth Hemoglobin A1c < 7 Result Component 10.5(03/28/19 25 9:12 AM EST) No Souleymane Love PharmD documented as of this encounter Procedures Procedure Name Priority Date/Time Associated Diagnosis Comments ZINC Routine 03/28/2024 9:12 AM EST Mixed hyperlipidemia VITAMIN A Routine 03/28/2024 9:12 AM EST Mixed hyperlipidemia T4, FREE Routine 03/28/2024 9:12 AM EST Mixed hyperlipidemia VITAMIN B1 Routine 03/28/2024 9:12 AM EST Mixed hyperlipidemia documented in this encounter Results * Vitamin B1 (03/28/2024 9:12 AM EST) Vitamin B1 12 8 - 30 nmol/L [facility] Comment:Vitamin supplementat ion within 24 hours prior toblood draw may affect the accuracy of the results.This test was developed and its analytical performancecharacteristics have been determined by [employer]. It hasnot been cleared or approved by the .[place]. Food and DrugAdministration. This assay has been validated pursuantto the CLIA regulations and is used for clinicalpurposes.THIS TEST WAS PERFORMED AT:[employer] [address] [address]PRIQFTTPHYLLIS VALVERDE MD,PHD 03/28/2024 9:12 AM EST 03/28/2024 9:12 AM EST us Generic External Data Provider LAB BLOOD ORDERAB LES Final Result [facility] [address] [place] [phone] * Vitamin A (03/28/2024 9:12 AM EST) Vitamin A (Retinol) 45 38 - 98 mcg/dL [facility] Comment:Vitamin supplementat ion within 24 hours prior toblood draw may affect the accuracy of the results.This test was developed and its analytical performancecharacteristics have been determined by [employer]. It hasnot been cleared or approved by the .[place]. Food and DrugAdministration. This assay has been validated pursuantto the CLIA regulations and is used for clinicalpurposes.THIS TEST WAS PERFORMED AT:[employer]/[address] [address]NATDGDIPHYLLIS VALVERDE MD,PHD 03/28/2024 9:12 AM EST 03/28/2024 9:12 AM EST us Generic External Data Provider LAB BLOOD ORDERAB LES Final Result Performing Organization Address [facility] Co de Phone Number [facility] [address] [place] [phone] * Zinc (03/28/2024 9:12 AM EST) Zinc 91 60 - 130 mcg/dL [facility] Comment:This test was develo ped and its analytical performancecharacteristics have been determined by [employer] [place], [place]. It hasnot been cleared or approved by the U.S. Food and DrugAdministration. This assay has been validated pursuantto the CLIA regulations and is used for clinicalpurposes.THIS TEST WAS PERFORMED AT:[employer]/[facility] [place] [address]DFZJJCRPHYLLIS VALVERDE MD,PHD 03/28/2024 9:12 AM EST 03/28/2024 9:12 AM EST us Generic External Data Provider LAB BLOOD ORDERAB LES Final Result Performing Organization Address [facility] Co de Phone Number [facility] [address] [place] [phone] * T4, Free (03/28/2024 9:12 AM EST) Free T4 (Free Thyroxine) 1.06 0.71 - 1.85 ng/dL [facility] 03/28/2024 9:12 AM EST 03/28/2024 9:12 AM EST us Generic External Data Provider LAB BLOOD ORDERAB LES Final Result Performing Organization Address [facility] Co de Phone Number [facility] [address] [place] [phone] [phone] documented in this encounter Visit Diagnoses Diagnosis Mixed hyperlipidemia- Primary documented in this encounter Additional Health Concerns Assessment Noted Time PHQ-9 Depression Total Score: 8 03/09/19 25 9:22 AM EST documented as of this encounter Care Teams Truck Unloader Relationship Specialty Start Date End Date Adrienne Sheehan FNP [address] [place] [address] PCP - General Family Medicine 07/04/23 documented as of this encounter
--- OUTSIDE RECORDS SUMMARY | 2024-04-18 10:08 | XMS_ITS | Clinical Summary ---
Author Organization [employer] [facility] Address [address] [place] [address] Care Team Providers Care Automotive Machinist Name Role Phone Unavailable Primary Care Provider [...]
--- OUTSIDE RECORDS SUMMARY | 2024-04-18 10:08 | XMS_ITS | Encounter Summary ---
Author Organization [employer] Address [address] [place] [address] Care Team Providers Care Child'S Nurse Name Role Phone Aguila [facility] Primary Care Provider [phone] Reason for Visit * Reason Onset Date Comments Results 03/19/2024 Encounter Details Date Type Department Care Team (Late st Contact Info) Description 03/19/2024 Telephone [facility] MEDICINE [address] [place], [place] [phone] Marsha Wilson, JORGE [address] [place] [address] Results Social History Tobacco Use Types Packs/Day [...] 4:50 PM EST TC placed to patient [phone] (spoke to Brielle on [employer]) in regards to below message. Brielle verbalized understanding and did not have any further questions. Brielle aware patient/spouse will receive another call with updated TSH result and POC. Patient to f/u PRN. ----- Message from [facility] sent at 03/19/2024 4:08 PM EST ----- [...] Description 05/09/2024 2:00 PM EDT Office Visit [facility] MEDICINE [address] [place] [address] [place]rienne [facility] [address] [place], [place] [phone] 07/23/2024 2:00 PM EDT Office Visit [facility] OPTOMETRY [address] [place] [address] Lou Santos, JORDAN [address] [place] [address] documented as of this encounter Goals Goal [...] documented as of this encounter Care Teams Child'S Nurse Relationship Specialty Start Date End Date Adrienne Sheehan FNP [address] [place] [address] PCP - General Family Medicine 07/04/23 documented as of this encounter
--- OUTSIDE RECORDS SUMMARY | 2024-04-18 10:08 | XMS_ITS | Encounter Summary ---
Author Organization [employer] Address [address] [place] [address] Care Team Providers Care Ppa Teacher Name Role Phone Adrienne Sheehan [facility] Primary Care Provider [phone] Encounter Details Date Type Department Care Team (Late st Contact Info) Description 04/17/2024 Orders Only GENERIC EXTERNAL DATA DEPARTMENT Provider, [...] Description 05/09/2024 2:00 PM EDT Office Visit [facility] [address] [place] [address] Bodfish, Adrienne, ALIGNMENT SPECIALIST [address] [place] [address] 07/23/2024 2:00 PM EDT Office Visit [facility] [address] [place] [address] Tom, Lou, OD [address] [place] [address] documented as of this encounter Goals Goal Patient Goal Type Associated Problems Recent Progress Patient-Stated? Author Blood Pressure < 140/90 Blood Pressure 125/75(2024 9:10 AM EST) No Souleymane Love, PharmRuth Hemoglobin A1c < 7 Result Component 10.5(03/28/19 9:12 AM EST) No Souleymane Love, PharmRuth documented as of this encounter Procedures Procedure Name Priority Date/Time Associated Diagnosis Comments GLUCOSE, WHOLE BLOOD Routine 04/17/2024 1:00 PM EST documented in this encounter Results * Glucose, Whole Blood (04/17/2024 1:00 PM EST) Glucose, Whole Blood 111 60 - 115 mg/dL [facility] Comment:METER #: [id number] 04/17/2024 1:00 PM EST 04/17/2024 1:04 PM EST us Generic External Data Provider LAB BLOOD ORDERAB LES Final Result [facility] [address] [place] [address] [phone] documented in this encounter Visit Diagnoses Not on filedocumented in this encounter Additional Health Concerns Assessment Noted Time PHQ-9 Depression Total Score: 8 03/09/19 9:22 AM EST documented as of this encounter Care Teams Ppa Teacher Relationship Specialty Start Date End Date Adrienne Sheehan FNP [address] [place] [id number] PCP - General Family Medicine 07/04/23 documented as of this encounter
--- OUTSIDE RECORDS SUMMARY | 2024-04-18 10:08 | XMS_ITS | Encounter Summary ---
Author Organization [employer] Address [address] [place] [address] Care Team Providers Care Bioinformatics Team Member Name Role Phone Aguila [facility] Primary Care Provider [phone] Reason for Visit * Reason Onset Date Comments Results 03/28/2024 Encounter Details Date Type Department Care Team (Late st Contact Info) Description 03/28/2024 Telephone [facility] [address] [place], [place] [phone] Marsha [place], JORGE [address] [place] [address] Results Social History Tobacco Use Types Packs/Day [...] Telephone Encounter - Marsha [place] RN - 03/28/2024 12:27 PM EST TC placed to patient, spoke to Brielle (on HIPAA) in regards to below message. verbalized understanding and is aware of new RX being sent to the pharmacy for atorvastatin 40mg. confirmsthe patient has also received the Mounjaro and has taken it 2x already (patient uses on Tuesdays). also confirms the patient is taking his evening lantus as well. to f/u PRN. Sending to PCPas JOEL. ----- Message from [facility] sent at 03/28/2024 10:51 AM EST ----- Please advise patient that cholesterol remains elevated. We are going to increase his atorvastatin to 40 mg once daily. His blood sugar is significantly elevated at our last visit plan was to switch from Trulicity to Mounjaro--can we check on status of prior authorization? He was also to start evening Lantus. Please confirm compliance. Thank you! documented in this encounter Plan of Treatment Upcoming Encounters Date Type Department Care Team ([facility] st Contact Info) Description 05/09/2024 2:00 PM EDT Office Visit [facility] [address] [place] [address] Adrienne SheehanDUY [address] [place] [address] 07/23/2024 2:00 PM EDT Office Visit [facility] [address] [place] [address] Lou Santos, OD [address] [place] [address] documented as of this encounter Goals Goal [...] documented as of this encounter Care Teams Bioinformatics Team Member Relationship Specialty Start Date End Date Adrienne SheehanDUY [address] [place] [address] PCP - General Family Medicine 07/04/23 documented as of this encounter
--- OUTSIDE RECORDS SUMMARY | 2024-04-18 10:08 | XMS_ITS | Encounter Summary ---
Author Organization [employer] Address [address] [place] [address] Care Team Providers Care Light Bulb Replacer Name Role Phone Aguila [facility] Primary Care Provider [phone] Reason for Visit * Reason Onset Date Comments Results 03/28/2024 Encounter Details Date Type Department Care Team (Late st Contact Info) Description 03/28/2024 Telephone [facility] [address] [place], [place] [phone] Marsha [place], JORGE [address] [place] [address] Results Social History Tobacco Use Types Packs/Day [...] Encounter - Marsha [place] RN - 03/28/2024 12:33 PM EST Noted. T4 BW has resulted in chart (under labs). Sending as FYI. ----- Message from [facility] sent at 03/28/2024 10:56 AM EST ----- Sorry I also forgot to mention he has had a mild elevation in TSH awaiting to see if T4 is abnormalas well before determining if treatment is indicated. Thank you! documented in this encounter Plan of Treatment Upcoming Encounters Date Type Department Care Team (Late st Contact Info) Description 05/09/2024 2:00 PM EDT Office Visit [facility] [address] [place] [address] [facility] [address] [place] [address] 07/23/2024 2:00 PM EDT Office Visit [facility] [address] [place] [address] Lou Santos, OD [address] [place] [address] documented as of this encounter Goals Goal [...] documented as of this encounter Care Teams Light Bulb Replacer Relationship Specialty Start Date End Date Adrienne Sheehan FNP [address] [place] [id number] PCP - General Family Medicine 07/04/23 documented as of this encounter
--- OUTSIDE RECORDS SUMMARY | 2024-04-18 10:08 | XMS_ITS | Clinical Summary ---
Author Organization [employer] Address [address] [facility] [address] [place] [address] Care Team Providers Care Warehouse Logistics Manager Name Role Phone [facility] Primary Care Provider [phone] Allergies No known active allergies Medications FREESTYLE [...] at bedtime. 023 Active Continuous Blood Gluc Mill Manager (FreeStyle Dayana 2 Jumping Branch) deviceIndications :Type 2 diabetes mellitus with hyperglycemia, with long-term current use of insulin (CMS/HCC) Scan sensor every 8 hours 1 each 023 Active metFORMIN, OSM, (Fortamet) 1000 MG 24 hr tabletIndications :Diabetes mellitus of other type without complication, unspecified whether long term care phlebotomist insulin use (CMS/HCC) Take 1 tablet by [...] left eye in the morning. 5 mL 024 2024 Active dulaglutide (Trulicity) 4.5 MG/0.5ML solution pen-injectorIndic ations:Type 2 diabetes mellitus with hyperglycemia, with long-term current use of insulin ([facility]) Inject 4.5 mg under the skin 1 (one) time per week. 4 each Active FLUoxetine (PROzac) 20 MG tabletIndications :Depression, unspecified depression type Take 1 tablet (20 mg) by mouth Once per day. 30 tablet Active busPIRone (Buspar) 10 MG tablet Active Easy Touch Pen Tasley 31G X 8 MM misc USE DIRECTED Active glucose 4 g chewable tabletIndications :Type 2 diabetes mellitus with hypoglycemia without coma, with long-term current use of insulin ([facility]) Chew 4 tablets (16 g) if needed for low blood sugar. 50 tablet 12 024 2024 Active metFORMIN XR (Glucophage-XR) 500 [...] MOUTH EVERYDAY AT NOON 90 tablet 1 Active insulin glargine (Lantus SoloStar) 100 UNIT/ML penIndications:Ty pe 2 diabetes mellitus with hyperglycemia, with long-term current use of insulin ([facility]) Inject 14 Units under the skin at bedtime. 15 mL 2 025 2025 Active Alcohol Swabs (Alcohol Prep) padsIndications:T ype 2 diabetes mellitus with hyperglycemia, with long-term current use of insulin ([facility]) Use one pad each to prep skin prior to injection as directed 100 each 11 Active insulin pen needle 30G x 5 mm miscIndications:T ype 2 diabetes mellitus with hyperglycemia, with long-term current use of insulin ([facility]) Use as instructed 100 each 025 Active Tirzepatide (Mounjaro) 2.5 MG/0.5ML solution auto-injectorIndi cations:Type 2 diabetes mellitus with hyperglycemia, with long-term current use of insulin ([facility]) Inject 2.5 mg under the skin 1 (one) time per week. 2 mL 3 025 2025 Active Continuous Glucose Sensor (FreeStyle Dayana 3 Plus Sensor) miscIndications:T ype 2 diabetes mellitus with hyperglycemia, with long-term current use of insulin ([facility]) USE DIRECTED. CHANGE EVERY 15 DAYS 2 each 025 Active levothyroxine (Synthroid, Levoxyl) 150 MCG tabletIndications :Acquired hypothyroidism TAKE 1 TABLET BY MOUTH EVERY MORNING ON AN EMPTY STOMACH 30 MINUTES BEFORE BREAKFAST 90 tablet 3 Active atorvastatin (Lipitor) 40 MG tabletIndications :Mixed hyperlipidemia Take 1 tablet (40 mg) by mouth Once per day. 30 tablet 11 025 2025 Active atorvastatin (Lipitor) 20 MG tabletIndications :Type 2 diabetes mellitus with hyperglycemia, with long-term current use of insulin ([facility]) Take 1 tablet (20 mg) by mouth Once per day. 30 tablet 11 024 2024 Discontinued levothyroxine (Synthroid, Levoxyl) 137 MCG tabletIndications :Acquired hypothyroidism TAKE 1 TABLET BY MOUTH EVERY MORNING ON AN EMPTY STOMACH 30 MINUTES BEFORE BREAKFAST 90 tablet 1 024 2024 Discontinued(R eorder (will not trigger notification to Pharmacy)) Active Problems Problem Noted Date Diagnosed Date [...] Secondary erythrocytosis 08/03/2022 Overview (08/03/2022): Appt 05/04/21 [facility] Hematology Severe hematocrit > 60; increased [...] PM EST): -hgb 12.2 on 12/[address] [facility] [place]recheck levels Depression, recurrent 03/09/20222023 Encounters Date Type Department Care Team Description 04/17/2024 Orders Only GENERIC EXTERNAL DATA DEPARTMENT Provider, Generic External Data 03/28/2024 Telephone [facility] [address] [place] [address] Marsha Wilson, RN Results 03/28/2024 Telephone [facility] [address] [place] [address] Marsha Wilson, RN Results 03/28/2024 Orders Only [facility] [address] [place] [address] Adrienne Sheehan FNP Mixed hyperlipidemia (Primary Dx) 03/28/2024 Orders Only GENERIC EXTERNAL DATA DEPARTMENT Provider, Generic External Data 03/22/2024 Telephone [facility] [address] [place] [address] Arely Novoa, RN 03/21/2024 Orders Only [facility] [address] [place] [address] Adrienne Sheehan, DOOR OPERATOR Acquired hypothyroidism 03/19/2024 Telephone [facility] [address] [place] [address] Marsha Wilson, RN Results 03/19/2024 Orders Only [facility] [address] [place] [address] Adrienne Sheehan FNP Acquired hypothyroidism (Primary Dx) 03/13/2024 Telephone [facility] OPTOMETRY [address] [place] [address] Lou Santos, OD 03/09/2024 9:00 AM EST Office Visit [facility] [address] [place] [address] Adrienne Sheehan, DUY Type 2 diabetes mellitus with hyperglycemia, with long-term current use of insulin ([facility]) (Primary Dx); Chronic pain of right knee; Acquired hypothyroidism; Dietary counseling; Exercise counseling; Class 3 severe obesity due to excess calories with serious comorbidity and body mass index (BMI) of 40.0 to 44.9 in adult ([facility]) 03/09/2024 Refill [facility] [address] [place] [address] [facility] Type 2 diabetes mellitus with hyperglycemia, with long-term current use of insulin ([facility]) 03/09/2024 Travel 01/24/2024 Refill [facility] PED[facility] [address] [place], [place] [phone] [facility] Vitamin D deficiency; Acquired hypothyroidism; Essential hypertension from Last 3 Months Immunizations Name Administration [...] Description 05/09/2024 2:00 PM EDT Office Visit [facility] [address] [place] [address] [place], [place], DOOR OPERATOR [address] [place] [address] 07/23/2024 2:00 PM EDT Office Visit [facility] OPTOMETRY [address] [place] [address] Tom, Lou, OD [address] [place] [address] Health Maintenance Due Date Last Done Comments [...] SDOH Screening 05/08/2024 05/09/2023 Diabetes: Hemoglobin A1C 06/25/2024 025, 03/09/2024, 08/26/2023, Additional history exists Diabetes: Foot Exam 08/25/2024 08/26/2023, Depression Screening 03/09/2025 03/09/2024, 03/09/19 Diabetes: Urine Protein Screening 03/09/2025 03/09/2024, 05/09/2023, 02/18/2021 Tobacco Screening 03/09/2025 03/09/2024 Eye Exam 03/10/2025 03/10/2023, 02/15, 03/10/2023, Additional history exists Lipid Panel 03/28/2025 03/28/2024, 02/15, 05/09/2023, Additional history exists DTaP/Tdap/Td Vaccines (2 - [...] 125/75(2024 9:10 AM EST) No Souleymane Love, Rayshwan Hemoglobin A1c < 7 Result Component 10.5(03/28/19 9:12 AM EST) No Souleymane Love, Rayshawn Procedures Procedure Name Priority Date/Time Associated Diagnosis Comments GLUCOSE, WHOLE BLOOD Routine 04/17/2024 1:00 PM EST XR CHEST 2 VIEWS Routine 03/28/2024 9:38 AM EST VITAMIN B1 Routine 03/28/2024 9:12 AM EST Mixed hyperlipidemia VITAMIN A Routine 03/28/2024 9:12 AM EST Mixed hyperlipidemia ZINC Routine 03/28/2024 9:12 AM EST Mixed hyperlipidemia T4, FREE Routine 03/28/2024 9:12 AM EST Mixed hyperlipidemia INSULIN Routine 03/28/2024 9:12 AM EST TSH W/REFLEX TO FT4 Routine 03/28/2024 9 :12 AM EST VITAMIN D,25-OH,TOTAL,IA Routine 03/28/2024 9:12 AM EST FERRITIN Routine 03/28/2024 9:12 AM EST VITAMIN B12/FOLATE, SERUM PANEL Routine 03/28/2024 9:12 AM EST LIPID PANEL, STANDARD Routine 03/28/2024 9:12 AM EST C-REACTIVE PROTEIN Routine 03/28/2024 9: 12 AM EST IRON AND TOTAL IRON BINDING CAPACITY Routine 03/28/2024 9:12 AM EST COMPREHENSIVE METABOLIC PANEL Routine 03/28/2024 9:12 AM EST HEMOGLOBIN A1C Routine 03/28/2024 9:12 AM EST CBC WITH AUTO DIFFERENTIAL Routine 03/28/2024 9:12 AM EST XR KNEE 3 VIEWS RIGHT Routine 03/21/2024 1:32 PM EST Chronic pain of right knee TSH Routine 03/20/2024 6:44 AM EST Acquired hypothyroidism ALBUMIN, RANDOM URINE W/CREATININE Routine 03/09/2024 10:14 AM EST Type 2 diabetes mellitus with hyperglycemia, with long-term current use of insulin ([facility]) LIPID PANEL, STANDARD Routine 03/09/2024 10:14 [...] Recently Relevant to Health Maintenance Results * Glucose, Whole Blood (04/17/2024 1:00 PM EST) Glucose, Whole Blood 111 60 - 115 mg/dL [facility] Comment:METER #: [id number] 04/17/2024 1:00 PM EST 04/17/2024 1:04 PM EST us Generic External Data Provider LAB BLOOD ORDERAB LES Final Result [facility] [address] [place] [address] [phone] * XR Chest 2 Views (03/28/2024 9:38 AM EST) Anatomical Region Laterality Modality Chest Radiographic Nancy ging 03/28/2024 9:38 AM EST Narrative 03/28/2024 9:56 AM EST ? [facility] [facility] ?[address] ?[place] [address] ?XRay Report ? Signed ? Patient: Yamil Lobo,Michele L ?MR#: [id number] ?? [id number] ? : 1970 ?Acct:[id number] ? Age/Sex: 53 / M ?ADM Date: 03/28/24 ? Loc: HO.LAB ? Attending Dr: Saul Sanchez MD ? Ordering Physician: Saul Sanchez MD ?? Date of Service: 03/28/24 ?? Procedure(s): XR chest 2V ?? Accession Number(s): [id number] ? cc: Saul Sanchez MD; Adrienne Sheehan [facility] ? EXAMINATION: ??XR CHEST 2 VIEWS ? [...] DD/ 0938 ? TD/TT: 03/28/24 0942 ? Special Warfare Operator: ? Procedure Note Matthew, Image - 03/28/[address] [address] XRay Report Signed Patient: Michele Alicea R#: [id number] : 1970Acct:[id number] Age/Sex: 53 / MADM Date: 03/28/24 Loc: HO.LAB Attending Dr: Saul Sanchez MD Ordering Physician: Saul Sanchez MD Date of Service: 03/28/24 Procedure(s): XR chest 2V Accession Number(s): [id number] cc: Saul Sanchez MD; [facility] EXAMINATION: XR CHEST 2 VIEWS HISTORY: [...] Darius Tipton MD 03/28/2024 09:53 AM EST Dictated By: Darius Tipton MD Signed By: <Electronically signed by Darius Tipton MD in OV> 03/28/2453 DD/ TD/TT: 03/28/2442 Special Warfare Operator: [facility] External Provider IMG XR PROCEDURES Final Result * Vitamin D, 25-Hydroxy, Total, Immunoassay (03/28/2024 9:12 AM EST) Vitamin D 25-OH Total 39.6 >30 ng/mL [facility] Comment:Health Based Referen ce Values*< 20 ng/mL Bxttecgja21-83 ng/mL Insufficient> 30 ng/mL Sufficient*Oscar RUIZ. N [...] ORDERAB LES Final Result Performing Organization Address [facility]/ZIP Co de Phone Number [facility] [address] [place] [phone] * Vitamin B12 (Cobalamin) and Folate Panel, Serum (03/28/2024 9:12 AM EST) Vitamin B12 734 200 - 900 pg/mL [facility] Comment:NORMAL 200-900 PG/ML INDETERMINATE 160-199 PG/ML DEFICIENT < 160 PG/ML Folate 8.7 > or = 4.0 ng/mL [facility] Comment:Reference Values:> o r = 4.0 ng/mL< 4.0 ng/mL suggests folate deficiency Methotrexate, aminopterin and folinic acid(leucovorin) are chemotherapeutic agents whose molecularstructures are similar to folate; therefore, the Architectfolate assay cannot be used for patients using these drugs. 03/28/2024 9:12 AM EST 03/28/2024 9:12 AM EST us Generic External Data Provider LAB BLOOD ORDERAB LES Final Result Performing Organization Address [facility] Co de Phone Number [facility] [address] [place] [phone] * (ABNORMAL) TSH with Reflex to Free T4 (03/28/2024 9:12 AM EST) TSH reflex Free T4 4.41(H) 0.32 - 4.0 uIU/mL [facility] 03/28/2024 9:12 AM EST 03/28/2024 9:12 AM EST us Generic External Data Provider LAB BLOOD ORDERAB LES Final Result Performing Organization Address City/[facility] Co de Phone Number [facility] [address] [place] [phone] * (ABNORMAL) CBC auto differential (03/28/2024 9:12 AM EST) White Blood Count 7.1 4.8 - 10.8 X10*3/uL [facility] Red Blood Count 5.81(H) 4.60 - 5.80 X10*6/uL [facility] Hemoglobin 15.3 14.0 - 18.0 g/dl [facility] Hematocrit 48.1 42.0 - 52.0 % [facility] Mean Corpuscular Volume 82.8 80.0 - 98.0 fL [facility] Mean Corpuscular Hemoglobin 26.3(L) 27.0 - 33.0 pg [facility] Mean Corpuscular HGB Conc 31.8 31.0 - 36.0 g/dl [facility] Red Cell Distribution Width 14.2 11.0 - 16.0 % [facility] Platelet Count 306 160 - 400 X10*3/uL [facility] Mean Platelet Volume 9.1(L) 9.4 - 12.4 fL [facility] Neutrophils Percent Auto 52.4 45 - 73 % [facility] Imm Gran Pct Auto 0.3 0.0 - 0.4 % [facility] Lymphocytes Percent Auto 35.6 20 - 40 % [facility] Monocytes Percent Auto 6.4 2 - 11 % [facility] Eosinophils Percent Auto 4.7(H) 0 - 4 % [facility] Basophils Percent Auto 0.6 0 - 2 % [facility] NRBC Pct Auto 0.0 0.0 - 0.2 /100WBC [facility] Neutrophils Absolute Auto 3.7 2.0 - 8.3 x10*3/uL [facility] Imm Gran Abs Auto 0.02 0.00 - 0.03 X10*3/uL [facility] Lymphocytes Absolute Auto 2.5 1.2 - 4.9 X10*3/uL [facility] Monocytes Absolute Auto 0.5 0.1 - 1.2 X10*3/uL [facility] Eosinophils Absolute Auto 0.3 0.0 - 0.4 X10*3/uL [facility] Basophils Absolute Auto 0.0 0.0 - 0.2 X10*3/uL [facility] NRBC Abs Auto 0.000 0.0 - 0.012 X10*3/uL [facility] 03/28/2024 9:12 AM EST 03/28/2024 9:12 AM EST Generic External Data Provider LAB BLOOD ORDERAB LES Final Result Performing Organization Address [facility] Phone Number [facility] [address] [place] [phone] * Iron And Total Iron Binding Capacity (03/28/2024 9:12 AM EST) Pathologist [facility] Iron 97 45 - 160 mcg/dL [facility] Total Iron Binding Capacity 345 228 - 428 mcg/dL [facility] Percent Iron Saturation 28 15 - 50 % [facility] Unsaturated Iron Binding 248 ug/dL [facility] 03/28/2024 9:12 AM EST 03/28/2024 9:12 AM EST Generic External Data Provider LAB BLOOD ORDERAB LES Final Result Performing Organization Address [facility] Number [facility] [address] [place] [phone] * Insulin (03/28/2024 9:12 AM EST) Pathologist [facility] Insulin 10 2 - 29 uU/mL [facility] Comment:This test was perfor med using [...] ORDERAB LES Final Result Performing Organization Address [facility] de Phone Number [facility] [address] [place] [phone] * Zinc (03/28/2024 9:12 AM EST) Pathologist [facility] Zinc 91 60 - 130 mcg/dL [facility] Comment:This test was develo ped and its analytical performancecharacteristics have been determined by [employer] [place], [place]. It hasnot been cleared or approved by the .S. Food and DrugAdministration. This assay has been validated pursuantto the CLIA regulations and is used for clinicalpurposes.THIS TEST WAS PERFORMED AT:[facility] [address] [id number] VALVERDE MD,PHD 03/28/2024 9:12 AM EST 03/28/2024 9:12 AM EST Generic External Data Provider LAB BLOOD ORDERAB LES Final Result Performing Organization Address [facility] de Phone Number [facility] [address] [place] [phone] * Vitamin A (03/28/2024 9:12 AM EST) Pathologist [facility] Vitamin A (Retinol) 45 38 - 98 mcg/dL [facility] Comment:Vitamin supplementat ion within 24 hours prior toblood draw may affect the accuracy of the results.This test was developed and its analytical performancecharacteristics have been determined by [employer] [facility]. It hasnot been cleared or approved by the U.S. Food and DrugAdministration. This assay has been validated pursuantto the CLIA regulations and is used for clinicalpurposes.THIS TEST WAS PERFORMED AT:[facility] [id number] [place] [id number] VALVERDE MD,PHD 03/28/2024 9:12 AM EST 03/28/2024 9:12 AM EST Generic External Data Provider LAB BLOOD ORDERAB LES Final Result Performing Organization Address [facility] Co de Phone Number [facility] [address] [place] [phone] * C-reactive Protein (03/28/2024 9:12 AM EST) C Reactive Protein 0.36 < or = 0.50 mg/dL [facility] 03/28/2024 9:12 AM EST 03/28/2024 9:12 AM EST Generic External Data Provider LAB BLOOD ORDERAB LES Final Result Performing Organization Address [facility] de Phone Number [facility] [address] [place] [phone] * T4, Free (03/28/2024 9:12 AM EST) Free T4 (Free Thyroxine) 1.06 0.71 - 1.85 ng/dL [facility] 03/28/2024 9:12 AM EST 03/28/2024 9:12 AM EST Generic External Data Provider LAB BLOOD ORDERAB LES Final Result Performing Organization Address [facility] de Phone Number [facility] [address] [place] [phone] * Vitamin B1 (03/28/2024 9:12 AM EST) Vitamin B1 12 8 - 30 nmol/L [facility] Comment:Vitamin supplementat ion within 24 hours prior toblood draw may affect the accuracy of the results.This test was developed and its analytical performancecharacteristics have been determined by [employer] [place], [place]. It hasnot been cleared or approved by the U.S. Food and DrugAdministration. This assay has been validated pursuantto the CLIA regulations and is used for clinicalpurposes.THIS TEST WAS PERFORMED AT:[facility]/[id number] [place] [address]PITIIXC W. MASON,MD,PHD 03/28/2024 9:12 AM EST 03/28/2024 9:12 AM EST Generic External Data Provider LAB BLOOD ORDERAB LES Final Result Performing Organization Address City/[facility]/ZIP Co de Phone Number [facility] [address] [place] [phone] * (ABNORMAL) Hemoglobin A1c (03/28/2024 9:12 AM EST) Hemoglobin A1c 10.5(H) <6.0 % [facility] Comment:Hemoglobin A1C Refer ence Range Adults: 4.8 - 6.0 % Non diabetic: < 6.0 % Goal: < 7.0 %Additional Action Suggested: > 8.0 %Note: Hemoglobin A1c results are invalid for patients with abnormal amounts of HbF. Blood transfusions may impact the HbA1c concentration in the patient sample. Estimated Average Glucose 255 mg/dL [facility] Comment:eAG = Estimated ave rage glucose which is %A1C expressed asaverage glucose, using the formula of the A0X-LomlrnaFhpdyxy Glucose study (ADAG), Diabetes Care, Vol.31,#8,2007 03/28/2024 9:12 AM EST 03/28/2024 9:12 AM EST Generic External Data Provider LAB BLOOD ORDERAB LES Final Result Performing Organization Address [facility] Co de Phone Number [facility] [address] [place] [phone] * Ferritin (03/28/2024 9:12 AM EST) Ferritin 72 20 - 250 ng/mL [facility] 03/28/2024 9:12 AM EST 03/28/2024 9:12 AM EST us Generic External Data Provider LAB BLOOD ORDERAB LES Final Result Performing Organization Address City/[facility]/ZIP Co de Phone Number [facility] [address] [place] [phone] * (ABNORMAL) Lipid Panel, Standard (03/28/2024 9:12 AM EST) Only the most recent of2 resultswithin the time period is included. Triglycerides 132 <150 mg/dL [facility] Comment:Desirable Triglyceri de: less than 150 mg/dLBorderline High Triglyceride 150-199 mg/dLHigh Triglyceride: 200-499 mg/dLVery High Triglyceride: greater than or equal to 5OO mg/dL Cholesterol 184 <200 mg/dL [facility] Comment:Desirable Cholestero l: less than 200 mg/dLBorderline High Cholesterol: 200-239 mg/dLHigh Cholesterol: greater than 239 mg/dL LDL Cholesterol Calculated 120(H) <100 mg/dL [facility] Comment:Desirable LDL: less than 100 mg/dLNear Optimal/Above Optimal LDL: 110- 129 mg/dLBorderline High LDL: 130-159 mg/dLHigh LDL: 160-189 mg/dLVery High LDL: greater than or equal to 190 mg/dL HDL Cholesterol 38(L) >40 mg/dL [facility] Comment:Desirable HDL: great er than 40 mg/dL Note: This HDL assay may give artificially low results in patients with liver disease. 03/28/2024 9:12 AM EST 03/28/2024 9:12 AM EST us Generic External Data Provider LAB BLOOD ORDERAB LES Final Result Performing Organization Address City/[facility]/ZIP Co de Phone Number [facility] [address] [place] [phone] * (ABNORMAL) Comprehensive Metabolic Panel (03/28/2024 9:12 AM EST) Only the most recent of2 resultswithin the time period is included. Sodium 139 135 - 145 mmol/L [facility] Potassium 4.4 3.3 - 5.1 mmol/L [facility] Chloride 102 96 - 108 mmol/L [facility] Carbon Dioxide 32(H) 22 - 29 mmol/L [facility] Anion Gap 9(L) 12 - 20 [facility] Urea Nitrogen (BUN) 18(H) 9 - 16 mg/dL [facility] Creatinine, Serum 1.25 0.5 - 1.4 mg/dL [facility] Estimated Glomerular Filt Rate 60 [facility] Comment:Chronic Kidney Disea se: Estimated GFR < 60 mL/min/1.10r6Mkbkxc Kidney Disease: Estimated GFR < 15 mL/min/1.73m2 Glucose 235(H) 60 - 115 mg/dL [facility] Calcium 9.8 8.4 - 10.2 mg/dL [facility] Bilirubin, Total 0.6 0.0 - 1.0 mg/dL [facility] Aspartate Amino Transferase 33 5 - 37 U/L [facility] Alanine Aminotransferase 44(H) 0 - 40 U/L [facility] Total Protein 8.3(H) 6.5 - 8.0 g/dL [facility] Albumin Level 4.4 3.5 - 5.0 g/dL [facility] Alkaline Phosphatase 91 39 - 117 U/L [facility] 03/28/2024 9:12 AM EST 03/28/2024 9:12 AM EST us Generic External Data Provider LAB BLOOD ORDERAB LES Final Result [facility] [address] [place] [phone] * XR Knee 3 Views Right (03/21/2024 1:32 PM EST) Anatomical Region Laterality Modality Lower Extremities, Knee Right Radiogra phic Imaging 03/21/2024 1:32 PM EST Narrative 03/21/2024 1:33 PM EST ? [facility] ?[address] ?[place] [address] ?XRay Report ? Signed ? Patient: Lobo Lobo,Michele L ?MR#: [id number] ?? [id number] ? : 1970 ?Acct:[id number] ? Age/Sex: 53 / M ?ADM Date: 03/20/24 ? Loc: HO.XRAY ? Attending Dr: Adrienne Sheehan DOOR OPERATOR ? Ordering Physician: Adrienne Sheehan ?? Date of Service: 03/20/24 ?? Procedure(s): XR knee RT 3V ?? Accession Number(s): [id number] ? cc: Adrienne Sheehan DOOR OPERATOR ? CLINICAL HISTORY: acute on chronic right [...] Arabella Burton MD in OV> ? 03/21/24 133 ? DD/ 31 ? TD/TT: 03/21/241331 ? Special Warfare Operator: ? Procedure Note Gregoria Castro - 03/21/[address] [address] XRay Report Signed Patient: Michele Alicea LMR#: [id number] : 1970Acct:[id number] Age/Sex: 53 / MADM Date: 03/20/24 Loc: [facility] Attending Dr: Adrienne Sheehan [facility] Ordering Physician: Adrienne Sheehan Date of Service: 03/20/24 Procedure(s): XR knee RT 3V Accession Number(s): [id number] cc: Adrienne SheehanP CLINICAL HISTORY: acute on chronic right knee [...] 03/21/24 1332 DD/ 1332 TD/TT: 03/21/24 1332 Special Warfare Operator: [facility] IMG XR PROCEDURES Edited Resu lt - Final * (ABNORMAL) TSH (03/20/2024 6:44 AM EST) Only the most recent of2 resultswithin the time period is included. Thyroid Stimulating Hormone 6.65(H) 0.32 - 4.0 uIU/mL [facility] Comment:Note: A sustained TS H level above 2.5 uIU/mL may warrant further investigation. TSH 3rd Generation ([facility]) Blood Venous blood specimen / Unknown 03/20/2024 6:44 AM EST 03/20/2024 6:44 AM EST [facility] LAB BLOOD ORDERABLES Final Re sult [facility] [address] [place] [phone] * (ABNORMAL) Albumin, Random Urine W/Creatinine (03/09/2024 10:14 AM EST) Creatinine, Urine 160.00 mg/dL [facility] Microalbumin Urine 475.0 mg/L H [facility] Microalbum Creatinine Ratio Ur 296.8(H) <30 ug/mg cr [facility] Comment:Albumin/Creatinine R atio Reference Ranges: Normal: < 30 ug/mg creatinine Microalbuminuria: 30 - 300 ug/mg creatinineClinical Albuminuria: > 300 ug/mg creatinine Urine 03/09/2024 10:1 4 AM EST 03/09/2024 11:34 AM EST [facility] LAB URINE ORDERABLES Final Re sult Performing Organization Address City/State/[facility] Co de Phone Number [facility] [address] [place] [phone] * (ABNORMAL) POCT HGB A1C (03/09/2024 9:33 AM EST) Pathologist [facility] [place] Hemoglobin A1C 9.7(A) 4.0 - 6.0 % Blood 03/09/2024 9:33 AM EST [facility] POINT OF CARE TEST ENTER/EDIT ORDERABLES Final Result * (ABNORMAL) POCT Glucose (03/09/2024 9:33 AM EST) Pathologist [facility] [place] Glucose Blood, POC 295(A) 60 - 200 mg/dL QC Media Lot # [id number] Lot# Expiration Date [id number] Blood Capillary blood specimen / Unknown 03/09/2024 9:33 AM EST [facility] POINT OF CARE TEST ENTER/EDIT ORDERABLES Final Result * Hm Colonoscopy (04/16/2021) Colonoscopy Normal Normal, Abnormal, BIRADS 0 , BIRADS 1 , BIRADS 2, BIRADS 3 , BIRADS 4+ Comment:Patient States got i t done at [facility] and was normal. Historical Provider MD HEALTH MAINTENANCE Final Result * HEPATITIS C AB W/REFL TO HCV RNA, QN, PCR (02/18/2021 4:20 PM EST) HEPATITIS C ANTIBODY NON-REACT PEPE NON-REACT PEPE [facility] INDEX 0.04 <1.00 [facility] Comment: ?? HCV antibody was non-reactive. There is no laboratory ?? evidence of HCV infection. ?? In most cases, no further action is required. However, if recent HCV exposure is suspected, a test for HCV RNA (test code 05578) is suggested. ?? For additional information please refer to http://[employer].[email or web address]/faq/NJP71l1 (This link is being provided for informational/ educational purposes only.) ?? 02/18/2021 4:20 PM EST Teri Alanis DEYSI HISTORICAL/NON ORDERABLE LABS Final Result [facility] [address] * HIV 1/2 ANTIGEN/ANTIBODY,FOURTH GENERATION W/RFL (02/18/2021 4:20 PM EST) HIV-1/2 ANTIGEN AND ANTIBODIES, 4TH GENERATION W/ REFLEX NON-REACT PEPE NON-REACT PEPE [facility] Comment: HIV-1 antigen and HIV-1/HIV-2 [...] ? For additional information please refer to http://[employer].[email or web address]/faq/MZN102 (This link is being provided for informational/ educational purposes only.) ? The performance of this assay has not been clinically validated in patients less than 2 years old. ?? 02/18/2021 4:20 PM EST us Teri Alanis NP LAB BLOOD ORDERABLES Final Res ult [facility] [address] from Last 3 Months or Most Recently Relevant to Health Maintenance Insurance [facility] STAND ADULT Care Teams Warehouse Logistics Manager Relationship Specialty Start Date End Date Adrienne Sheehan FNP [address] [place] [phone] PCP - General Family Medicine 07/04/23
--- OUTSIDE RECORDS SUMMARY | 2024-04-18 10:08 | XMS_ITS | Encounter Summary ---
Author Organization [employer] Address [address] [place] [address] Care Team Providers Care Roll Tension Tester Name Role Phone Sophia Burns Primary Care Provider [phone] Kori Alonso NP Primary Care Provider [phone] Boom Estevez MD Primary Care Provider [phone] Kori Alonso NP Primary Care Provider [phone] [facility] PRODUCTION SUPPORT SPECIALIST Primary Care Provider [phone] Encounter Details Date Type Department Care Team (Late st Contact Info) Description 08/26/2022 [facility] Information Management [address] [place] [address] Sophia Burns FNP [address] [place] [address] Dept [place] [address] Social History Tobacco Use Types Packs/Day Years [...] 2:00 PM EDT Office Visit [facility] MEDICINE [address] [place] [address] GlenviewAdrienne beltran FNP [address] [place] [address] 07/23/2024 2:00 PM EDT Office Visit [facility] OPTOMETRY [address] [place] [address] Tom, Lou, OD [address] [place] [address] documented as of this encounter Visit Diagnoses Not on filedocumented in this encounter Care Teams Roll Tension Tester Relationship Specialty Start Date End Date Sophia Burns FNP PCP - General Family Medicine 10/12/21 11/22/22 Kori Alonso NP [address] [place] [address] PCP - General Family Medicine 11/23/22 01/16/23 Boom Estevez MD [address] [place] [address] PCP - General Internal Medicine 01/17/23 01/18/23 Kori Alonso NP [address] [place] [address] PCP - General Family Medicine 01/19/23 07/03/23 GlenviewAdrienne FNP [address] [place] [address] PCP - General Family Medicine 07/04/23 documented as of this encounter
== END ==
LOC: HO.CARD 09:11
PROVIDERS: PCP Registered Nurse; Visit Provider Surgery
DX: R94.31 Abnormal electrocardiogram [ECG] [EKG] (principal)
CPT/HCPCS: 93306

== ENCOUNTER → 2024-04-18 09:13 | Outpatient (BNV) | payer OTHER, SELFPAY | PROVIDERS: PCP Registered Nurse; Visit Provider Internal Medicine Cardiovascular Disease | DX: R94.31 Abnormal electrocardiogram [ECG] [EKG] (principal) | CPT/HCPCS: 93306 ==

== ENCOUNTER 2024-05-03 07:46 | Outpatient (REF) | payer OTHER, SELFPAY ==
--- NOTE | ~2024-05-03 | US_ITS ---
EXAMINATION: US ABDOMEN COMPLETE WITH LIVER ELASTOGRAPHY HISTORY: E66.01 - Morbid (severe) obesity due to excess calories TECHNIQUE: Real-time grayscale ultrasound imaging of the abdomen was performed and images were reviewed. COMPARISON: Comparison is made with the prior examination dated 05/12/2023. FINDINGS: Liver: The right lobe of the liver measures 16.4 cm in size. The left lobe of the liver measures 11.5 cm in size and demonstrates a lobulated contour. There is an ill-defined hypoechoic area adjacent to the gallbladder which may represent focal fatty sparing. No intrahepatic biliary ductal dilatation is identified. There is normal hepatopedal flow in the portal vein. Ultrasound elastography of the liver was performed with 10 separate measurements of the liver parenchyma with the patient in the supine position. Measurements were obtained approximately 2 cm below William's capsule and perpendicular to the capsule. Images are of satisfactory quality. The median shear wave velocity is 1.46 m/s. The interquartile range/median (IQR/median) is 0.10. Gallbladder and biliary tree: The gallbladder is unremarkable, without evidence of calculi, wall thickening, or pericholecystic fluid. There is no sonographic Voss sign. The common bile duct is normal in caliber measuring 3 mm. Kidneys: The right kidney measures 10.2 cm in length. The left kidney measures 10.6 cm in length. The kidneys are unremarkable, without evidence of masses, hydronephrosis, or calculi. Pancreas: The pancreatic head, neck, and body are unremarkable. The pancreatic tail is obscured by bowel gas. Spleen: The spleen is not well visualized. Abdominal aorta and inferior vena cava: The visualized portions of the abdominal aorta and inferior vena cava are normal in caliber. There is no free fluid in the abdomen. US/US abdomen comp w elastography IMPRESSION: Hepatomegaly. Possible mild hepatic steatosis with focal fatty sparing adjacent to the gallbladder. The median shear wave velocity in the liver is 1.46 m/s, corresponding to a median liver stiffness of 6.62 kPa. The IQR/median value is 0.10. This is indicative of a quality data set. Findings are indicative of a low elastography value which rules out advanced chronic liver disease in asymptomatic patients. REFERENCE: Society of Radiologists in Ultrasound Liver Stiffness Thresholds (2020): LIVER STIFFNESS THRESHOLDS: *Shear wave velocity less than 1.3 m/s (Liver Stiffness equal or less than 5 kPa): High probability of being normal. *Shear wave velocity less than 1.7 m/s (Liver Stiffness less than 9 kPa): In the absence of other known clinical signs, rules out compensated advanced chronic liver disease. *Shear wave velocity between 1.7-2.1 m/s (Liver Stiffness 9-13 kPa): Suggestive of compensated advanced chronic liver disease but need further test for confirmation. *Shear wave velocity between 2.1-2.4 m/s (Liver Stiffness 13-17 kPa): Rules in compensated advanced chronic liver disease. *Shear wave velocity greater than 2.4 m/s (Liver Stiffness over 17 kPa): Suggestive of clinically significant portal hypertension. QUALITY OF DATA SET: *IQR/Median value equal or less than 0.15 implies a quality data set. *IQR/Median value over 0.15 implies a poor quality data set. SIGNIFICANT CHANGE FROM PRIOR EXAM: Significant change if liver stiffness measurement is 10% or greater from prior exam. OTHER CONSIDERATIONS: The stage of liver fibrosis may be overestimated in the setting of acute hepatitis, liver inflammation, elevated liver function tests, hepatic vascular congestion, obstructive cholestasis, non-fasting state, and infiltrative diseases such as amyloidosis and lymphoma. In some patients with NAFLD, the liver stiffness thresholds for compensated advanced chronic liver disease may be lower. In causes other than viral hepatitis and NAFLD, liver stiffness thresholds are not well established. Electronically signed by: Darius Tipton MD 05/03/2024 12:22 PM EDT
[2024-05-03 09:29] LABS: Thyroid Stimulating Hormone 7.86 uIU/mL (0.32-4.0)
== END 2024-05-03 07:47 | disposition home or self-care (01) ==
LOC: HO.US 07:46
PROVIDERS: Absent Provider Registered Nurse; PCP Registered Nurse; Visit Provider Surgery
DX: E03.9 Hypothyroidism, unspecified (principal); E66.01 Morbid (severe) obesity due to excess calories; E11.9 Type 2 diabetes mellitus without complications; Z79.4 Long term (current) use of insulin; E78.5 Hyperlipidemia, unspecified; I10 Essential (primary) hypertension; R16.0 Hepatomegaly, not elsewhere classified
CPT/HCPCS: 36415; 76700; 76981; 84443

== ENCOUNTER → 2024-05-03 08:05 | Outpatient (BNV) | payer OTHER, SELFPAY | PROVIDERS: Absent Provider Registered Nurse; PCP Registered Nurse; Visit Provider Radiology Diagnostic Radiology | DX: R16.0 Hepatomegaly, not elsewhere classified (principal) | CPT/HCPCS: 76700 ==

== ENCOUNTER 2024-05-04 08:46 | Outpatient (AMB) | payer OTHER, SELFPAY ==
--- OUTSIDE RECORDS SUMMARY | 2024-05-04 09:04 | XMS_ITS | Encounter Summary ---
Author Organization [employer] Address [address] [place] [address] Care Team Providers Care Transformation Coach Name Role Phone Kori Alonso NP Primary Care Provider [phone] [facility] Primary Care Provider [phone] Reason for Visit * Reason Onset Date Comments Med Refill 03/16/2023 Encounter Details Date Type Department Care Team (Late st Contact Info) Description 03/16/2023 Telephone [facility] MEDICINE [address] [place], [place] [phone] Kori Alonso NP [address] [place], [place] [phone] Med Refill Social History Tobacco Use Types [...] Team (Late st Contact Info) Description 05/09/2024 9:30 AM EDT Office Visit [facility] MEDICINE [address] [place] [address] [facility] [address] [place] [address] 05/15/2024 11:00 AM EDT Medication Management [facility] MEDICINE [address] [place] [phone] Margret Strauss, PharmD [address] [place] [address] 07/20/2024 2:30 PM EDT Office Visit [facility] MEDICINE [address] [place] [address] [facility] [address] [place] [address] 07/23/2024 2:00 PM EDT Office Visit [facility] OPTOMETRY [address] [place] [address] Lou Santos, OD [address] [place] [address] documented as of this encounter Goals Goal Patient Goal Type Associated Problems Recent Progress Patient-Stated? Author Blood Pressure < 140/90 Blood Pressure 134/80(2024 10:46 AM EST) No Souleymane Love PharmD Hemoglobin A1c < 7 Result Component 10.5(03/28/19 9:12 AM EST) No Souleymane Love PharmD documented as of this encounter Visit Diagnoses Not on filedocumented in this encounter Additional Health Concerns Assessment Noted Time PHQ-9 Depression Total Score: 6 01/06/20 23 10:38 AM EST documented as of this encounter Care Teams Transformation Coach Relationship Specialty Start Date End Date Kori Alonso NP [address] [place] [address] PCP - General Family Medicine 01/19/23 07/03/23 AguilaAdrienne beltran FNP [address] [place] [address] PCP - General Family Medicine 07/04/23 documented as of this encounter
--- OUTSIDE RECORDS SUMMARY | 2024-05-04 09:04 | XMS_ITS | Encounter Summary ---
Author Organization [employer] Address [address] [place] [address] Care Team Providers Care Clinical Abstractor Name Role Phone [facility] Primary Care Provider [phone] Reason for Visit * Reason Onset Date Comments Med Refill 04/23/2024 Encounter Details Date Type Department Care Team (Late st Contact Info) Description 04/23/2024 Refill [facility] [address] [place] [address] [facility] [address] [place], [place] [phone] Type 2 diabetes mellitus with hyperglycemia, with long-term current use of insulin ([facility]) Social History Tobacco Use Types Packs/Day Years Used Date Smoking Tobacco: Never Smokeless Tobacco: Never Alcohol Use Standard Drinks/Week Comments Never 0 (1 standard drink = 0.6 oz pur e alcohol) Depression Answer Date Recorded Patient Health Questionnaire-9 Score 0 04/18/2024 Patient Health Questionnaire-9 Score 0 04/18/2024 Last PHQ-9: Questionnaire Data Not on file 0 04/18/2024 Housing Stability Answer Date Recorded What is [...] Date Recorded Patient Health Questionnaire-2 Score 0 04/18/2024 Sex and Gender Information Value Date Recorded Sex Assigned at Male 12/14/2021 10:39 AM EDT Legal Sex Male 10:39 AM EDT Gender Identity Male 12/14/2021 10:39 AM EDT Sexual Orientation Straight 12/14/2021 10 :39 AM EDT documented as of this encounter Miscellaneous Notes * Telephone Encounter - Venice Chandler LPN - 04/23/2024 2:21 PM EDT Next appointment 6.6.25 documented in this encounter Plan of Treatment Upcoming Encounters Date Type Department Care Team (Late st Contact Info) Description 05/09/2024 9:30 AM EDT Office Visit [facility] MEDICINE [address] [place] [address] PalmyraAdrienne FNP [address] [place] [address] 05/15/2024 11:00 AM EDT Medication Management [facility] MEDICINE [address] [place] [address] Margret Strauss, SarayD [address] [place] [address] 07/20/2024 2:30 PM EDT Office Visit [facility] MEDICINE [address] [place] [address] PalmyraAdrienne ROBOTICS APPLICATION ENGINEER [address] [place] [address] 07/23/2024 2:00 PM EDT Office Visit [facility] OPTOMETRY [address] [place] [address] Lou Santos, OD [address] [place] [address] documented as of this encounter Goals Goal Patient Goal Type Associated Problems Recent Progress Patient-Stated? Author Blood Pressure < 140/90 Blood Pressure 134/80(2024 10:46 AM EST) No Souleymane Love, Rayshawn Hemoglobin A1c < 7 Result Component 10.5(03/28/19 9:12 AM EST) No Souleymane Love, Rayshawn documented as of this encounter Visit Diagnoses Diagnosis Type 2 diabetes mellitus with hyperglycemia, with long-term current use of insulin ([facility]) documented in this encounter Additional Health Concerns Assessment Noted Time PHQ-9 Depression Total Score: 0 04/19/19 10:48 AM EST documented as of this encounter Care Teams Clinical Abstractor Relationship Specialty Start Date End Date Adrienne Sheehan FNP [address] [place] [address] PCP - General Family Medicine 07/04/23 documented as of this encounter
--- OUTSIDE RECORDS SUMMARY | 2024-05-04 09:04 | XMS_ITS | Encounter Summary ---
Author Organization [employer] Address [address] [place] [address] Care Team Providers Care Hose Coupling Joiner Name Role Phone [facility] Primary Care Provider [phone] Reason for Visit * Reason Comments Care Coordination CHW outreach [facility] pe st control - referral completed Encounter Details Date Type Department Care Team (Latest Contact Info) Description 04/30/2024 Patient Outreach [facility] MEDICINE [address] [place] [address] [facility] [address] [place] [address] Care Coordination (CHW outreach SDOH pest control - referral completed ) Social History Tobacco Use Types Packs/Day Years [...] Recorded Patient Health Questionnaire-2 Score 0 04/18/2024 Internet Access Answer Date Recorded Internet Access Q1 Yes 04/30/2024 Internet Access Q2 Not on file 04/30/2024 Sex and Gender Information Value Date Recorded Sex Assigned at Male 12/14/2021 10:39 AM EDT Legal Sex Male 10:39 AM EDT Gender Identity Male 12/14/2021 10:39 AM EDT Sexual Orientation Straight 12/14/2021 10 :39 AM EDT documented as of this encounter Progress Notes * Jayden Govea - 04/30/2024 2:25 PM EDT CHW Jayden Govea, placed outbound call to patient for assistance with SDOH as a referral was received by the provider. Patient's name and were confirmed. Patient screened positive for the following SDOH pet's control & food insecurities. CHW referral patient to the local list of pantriesin the area for help and advice family to connect with [employer] and pet's control offices [place] for more resources. Patient verbalizes understanding, and able to agree with plan to follow up. Patient educated on extended clinic hours on Mondays through Wednesdays, and Walk-In Urgent Care Located in [facility] of [facility]. Patient provided with after-hours line for [facility], , which offer night time triage service and option to transfer to labor contract analyst provider if needed. documented in this encounter Plan of Treatment Upcoming Encounters Date Type Department Care Team (Late st Contact Info) Description 05/09/2024 9:30 AM EDT Office Visit [facility] MEDICINE [address] [place] [address] [facility] [address] [place] [address] 05/15/2024 11:00 AM EDT Medication Management [facility] [address] [place] [address] Margret Strauss PharmD [address] [place] [address] 07/20/2024 2:30 PM EDT Office Visit [facility] [address] [place] [address] [facility] [address] [place] [address] 07/23/2024 2:00 PM EDT Office Visit [facility] OPTOMETRY [address] [place] [address] Lou Santos, OD [address] [place] [address] documented as of this encounter Goals Goal [...] documented as of this encounter Care Teams Hose Coupling Joiner Relationship Specialty Start Date End Date Adrienne Sheehan [facility] [address] [place] [address] PCP - General Family Medicine 07/04/23 documented as of this encounter
--- OUTSIDE RECORDS SUMMARY | 2024-05-04 09:04 | XMS_ITS | Encounter Summary ---
Author Organization [employer] Address [address] [facility] 7 [place] [address] Care Team Providers Care Swing Manager Name Role Phone Adrienne Sheehan Primary Care Provider [phone] Reason for Referral * Consultation (Routine) - Authorized Specialty Diagnoses / Procedures Referred By Darryl huitron Referred To Contact Sleep Medicine Diagnoses Obstructive sleep apnea Adrienne Sheehan FNP [address] [place] [address] Phone: tel: fax: [facility] Phone: tel: fax: Referral ID Status Reason Start Date Expiration Date Visits Requested Visits Authorized [id number] Authorized Specialty Services Required 04/18/2024 04/18/2025 1 1 Reason for Visit * Reason Comments Follow-up Encounter Details Date Type Department Care Team (Late st Contact Info) Description 04/18/2024 10:00 AM EST Office Visit [facility] MEDICINE [address] [place] [address] Adrienne Sheehan FNP [address] [place] [address] Type 2 diabetes mellitus with hyperglycemia, with long-term current use of insulin ([facility]/HCC) (Primary Dx); Acquired hypothyroidism; Obstructive sleep apnea; Encounter for immunization Social History Tobacco Use Types Packs/Day Years [...] Sign Reading Time Taken Comments Blood Pressure 134/80 04/18/2024 10:46 AM EST Pulse 63 04/18/2024 10:46 AM EST Temperature 36.4 ??C (97.6 ??F) 04/18/2024 10:[address] Respiratory Rate 20 04/18/2024 10:46 AM EST Oxygen Saturation 98% 04/18/2024 10:46 AM EST Inhaled Oxygen Concentration - - Weight 112 kg (247 lb 9.6 oz) 04/18/2024 10:46 A M EST Height 162.6 cm (5' 4 ) 04/18/2024 10:46 AM EST Body Mass Index 42.5 04/18/2024 10:46 AM EST documented in this encounter Progress Notes * [facility], DIRECTOR OF MEDICAL SERVICES - 04/18/2024 10:00 AM EST SUBJECTIVE: Michele Lobo is a 53 y.o. year old male with T2DM, BENITA, HTN, hypothyroidism, HLD, glaucoma, who presents for diabetes . Denies recent illness, injury, or hospitalization. Interval History [id number] the last visit 03/09/2024 evening Lantus 14 units was started and Trulicity switched to Mounjaro with referral to CDTM--was increased to 18 units by weight mngmt. Post prandial blood sugar <200; FBG- 125-130; No hypogglycemia episdoes. Using freestyle 3- HLD-atorvastatin increased 03/2024, tolerating well BENITA-Overdue for follow up with sleep medicine; CPAP from [employer]; reports is broken have not contacted company. 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 Neurological: Negative for dizziness, syncope, light-headedness and headaches. OBJECTIVE: Vitals: 04/18/24 1046 BP: 134/80 Pulse: 63 Resp: 20 Temp: 97.6 ??F (36.4 ??C) SpO2: 98% Physical Exam Constitutional: Appearance: Normal appearance. HENT: Head: Normocephalic. Right Ear: External ear normal. Left Ear: External ear normal. Nose: Nose normal. Eyes: Conjunctiva/sclera: Conjunctivae normal. Cardiovascular: Rate and Rhythm: Normal rate and regular rhythm. Heart sounds: Normal heart sounds. Pulmonary: Effort: Pulmonary effort is normal. Breath sounds: Normal breath sounds. Musculoskeletal: Right lower leg: No edema. Left lower leg: No edema. Skin: General: Skin is warm and dry. Capillary Refill: Capillary refill takes less than 2 seconds. Neurological: General: No focal deficit present. Mental Status: He is alert and oriented to person, place, and time. Psychiatric: Mood and Affect: Mood normal. Behavior: Behavior normal. ASSESSMENT/PLAN T2DM - Increase Mounjaro to 5 mg for weight loss benefit, monitor for hypoglycemia - Continue Lantus 18 units at bedtime -Patient with excellent freestyle dayana compliance. Glucose in range 91%/2 weeks; active 97% - Missed eye exam at [facility]-->needs to call reschedule - UTD on foot exam Asa: no Statin: yes Jamel/Arb: Yes BENITA - Sleep study [facility] 2021- severe BENITA - Overdue for follow up with sleep medicine--> new referral back to [facility] -Patient has been unsuccessful in addressing issue with CPAP, our office will call [facility] for more information Hypothyroid -Due to repeat TSH in 2-3 weeks - Will order lab and patient will check at that time Follow Up: 3 months, routine Diagnosis Plan 1. Type 2 diabetes mellitus with hyperglycemia, with long-term current use of insulin ([facility]) POCT Glucose Tirzepatide (Mounjaro) 5 MG/0.5ML solution auto-injector insulin glargine (Lantus SoloStar) 100 UNIT/ML pen 2. Acquired hypothyroidism TSH TSH 3. Obstructive sleep apnea Referral to Sleep Medicine Referral to Sleep Medicine 4. Encounter for immunization FLU VACCINE TRIVALENT (Fluarix) 6 mo + COVID-19 VACCINE (Pfizer) [id number] 12 yrs + Current Outpatient Medications on File Prior to Visit Medication Sig Dispense Refill albuterol 108 (90 Base) MCG/ACT inhaler Inhale 2 puffs every 4 (four) hours. 18 g 3 Alcohol Swabs (Alcohol Prep) pads Use one pad each to prep skin prior to injection as directed 100 each 11 atorvastatin (Lipitor) 40 MG tablet Take 1 tablet (40 mg) by mouth [...] NOON 90 capsule 1 Continuous Blood Gluc Wheelchair Driver (FreeStyle Dayana 2 [place]) device Scan sensor every 8 hours 1 each 0 Continuous Glucose Sensor (FreeStyle Dayana 3 Plus Sensor) misc USE DIRECTED. CHANGE EVERY 15 DAYS 2 each 0 dulaglutide (Trulicity) 4.5 MG/0.5ML solution pen-injector Inject 4.5 mg under the skin 1 (one) time per week. 4 each 11 Easy Touch Pen Zebulon 31G X 8 MM misc USE DIRECTED [...] for low blood sugar. 50 tablet 12 insulin glargine (Lantus SoloStar) 100 UNIT/ML pen Inject 14 Units under the skin at bedtime. 15 mL2 insulin pen needle 30G x 5 mm misc Use as instructed 100 each 12 levothyroxine (Synthroid, Levoxyl) 150 MCG tablet TAKE 1 TABLET BY MOUTH EVERY MORNING ON AN EMPTY STOMACH 30 MINUTES BEFORE BREAKFAST 90 tablet 3 lisinopril 20 MG tablet TAKE 1 TABLET [...] left eye in the morning. 5mL 11 Tirzepatide (Mounjaro) 2.5 MG/0.5ML solution auto-injector Inject 2.5 mg under the skin 1 (one) time per week. 2 mL 3 traZODone (Desyrel) 50 MG tablet Take 1 tablet by mouth if needed at bedtime. UltiCare Alcohol Swabs 70 % pads USE DIRECTED TO CLEAN SKIN SAMI BREANNE AL Ruth A No current facility-administered medications on file prior to visit. Honduran Translation: Provided by [facility] staff member YENIFER Roberts documented in this encounter Plan of Treatment Upcoming Encounters Date Type Department Care Team (Late st Contact Info) Description 05/09/2024 9:30 AM EDT Office Visit [address] [address] AguilaAdrienne beltran [address] [address] 05/15/2024 11:00 AM EDT Medication Management [address] [address] Margret Strauss, PharmD [address] [place] [address] 07/20/2024 2:30 PM EDT Office Visit [address] [address] [place] IslandAdrienne [facility] [address] [place] [address] 07/23/2024 2:00 PM EDT Office Visit [facility] OPTOMETRY [address] [place] [address] Lou Santos, OD [address] [place] [address] Scheduled Referrals Name Type Priority Associated Diagnoses Orde r Schedule Referral to Sleep Medicine Outpatient Referral Routine Obstructive sleep apnea Expected: 04/18/2024 (Approximate), Expires: 04/18/2025 documented as of this encounter Goals Goal Patient Goal Type Associated Problems Recent Progress Patient-Stated? Author Blood Pressure < 140/90 Blood Pressure 134/80(2024 10:46 AM EST) No Souleymane Love PharmD Hemoglobin A1c < 7 Result Component 10.5(03/28/19 9:12 AM EST) No Souleymane Love PharmD documented as of this encounter Procedures Procedure Name Priority Date/Time Associated Diagnosis Comments TSH Routine 05/03/2024 8:02 AM EDT Acquired hypothyroidism POCT GLUCOSE Routine 04/18/2024 10:48 AM EST Type 2 diabetes mellitus with hyperglycemia, with long-term current use of insulin ([facility]) documented in this encounter Results * (ABNORMAL) TSH (05/03/2024 8:02 AM EDT) Thyroid Stimulating Hormone 7.86(H) 0.32 - 4.0 uIU/mL [facility] Comment:Note: A sustained TS H level above 2.5 uIU/mL may warrant further investigation. TSH 3rd Generation ([facility]) Blood Venous blood specimen / Unknown 05/03/2024 8:02 AM EDT 05/03/2024 8:02 AM EDT [facility] LAB BLOOD ORDERABLES Final Re sult [facility] [address] [place] [address] [phone] * POCT Glucose (04/18/2024 10:48 AM EST) Glucose Blood, POC 148 60 - 200 mg/dL Blood Capillary blood specimen / Unknown 04/18/2024 10:48 AM EST [facility] POINT OF CARE TEST ENTER/EDIT ORDERABLES Final Result documented in this encounter Visit Diagnoses Diagnosis Type 2 diabetes mellitus with hyperglycemia, with long-term current use of insulin ([facility])- Primary Acquired hypothyroidism Unspecified hypothyroidism Obstructive sleep apnea Obstructive sleep apnea (adult) (pediatric) Encounter for immunization documented in this encounter Additional Health Concerns Assessment Noted Time PHQ-9 Depression Total Score: 0 04/19/19 25 10:48 AM EST documented as of this encounter Care Teams Swing Manager Relationship Specialty Start Date End Date Adrienne Sheehan FNP [address] [place] [id number] PCP - General Family Medicine 07/04/23 documented as of this encounter
--- OUTSIDE RECORDS SUMMARY | 2024-05-04 09:04 | XMS_ITS | Clinical Summary ---
Author Organization [facility] Address [address] [place] [address] Care Team Providers Care Food Mixer Assembler Name Role Phone Unavailable Primary Care Provider [...]
--- OUTSIDE RECORDS SUMMARY | 2024-05-04 09:04 | XMS_ITS | Encounter Summary ---
Author Organization [employer] Address [address] [facility] [address] 7[address] [place] [address] Care Team Providers Care Packing Room Inspector Name Role Phone Adrienne Sheehan [facility] Primary Care Provider [phone] Reason for Referral * Consultation (Routine) - Authorized Specialty Diagnoses / Procedures Referred By Darryl huitron Referred To Contact Pharmacy Diagnoses Type 2 diabetes mellitus with hyperglycemia, with long-term current use of insulin (CMS/HCC) Emily Brooks MD [address] [place] [address] Phone: tel: fax: Referral ID Status Reason Start Date Expiration Date Visits Requested Visits Authorized [id number] Authorized Consult and Treat 04/18/2024 04/18/2025 6 6 Encounter Details Date Type Department Care Team (Late st Contact Info) Description 04/18/2024 Orders Only [facility] MEDICINE [address] [place], [place] [phone] Emily Brooks MD [address] [place] [address] Type 2 diabetes mellitus with hyperglycemia, with long-term current use of insulin (CMS/HCC) (Primary Dx) Social History Tobacco Use Types [...] Description 05/09/2024 9:30 AM EDT Office Visit [facility] MEDICINE [address] [place] [address] [place], Adrienne, MIXING ENGINEER [address] [place], [place] [phone] 05/15/2024 11:00 AM EDT Medication Management [facility] [address] [place] [address] Margret Strauss, PharmD [address] [place], [place] [phone] 07/20/2024 2:30 PM EDT Office Visit [facility] MEDICINE [address] [place] [address] Adrienne SheehanDUY [address] [place] [address] 07/23/2024 2:00 PM EDT Office Visit [facility] OPTOMETRY [address] [place] [address] Tom, Lou, OD [address] [place] [address] Scheduled Referrals Name Type Priority Associated Diagnoses Orde r Schedule Referral to Pharmacy CDTM Outpatient Referral Routine Type 2 diabetes mellitus with hyperglycemia, with long-term current use of insulin ([facility]) Ordered: 04/18/2024 documented as of this encounter Goals Goal Patient Goal Type Associated Problems Recent Progress Patient-Stated? Author Blood Pressure < 140/90 Blood Pressure 134/80(2024 10:46 AM EST) No Souleymane Love, PharmD Hemoglobin A1c < 7 Result Component 10.5(03/28/19 25 9:12 AM EST) No Souleymane Love PharmD documented as of this encounter Visit Diagnoses Diagnosis Type 2 diabetes mellitus with hyperglycemia, with long-term current use of insulin ([facility])- Primary documented in this encounter Additional Health Concerns Assessment Noted Time PHQ-9 Depression Total Score: 0 04/19/19 25 10:48 AM EST documented as of this encounter Care Teams Packing Room Inspector Relationship Specialty Start Date End Date Aguila DUY Deleon [address] [place] [address] PCP - General Family Medicine 07/04/23 documented as of this encounter
--- OUTSIDE RECORDS SUMMARY | 2024-05-04 09:04 | XMS_ITS | Encounter Summary ---
Author Organization [employer] Address [address] [facility] [address] 7[address] [place] [address] Care Team Providers Care Comfort Filler Name Role Phone [facility] Primary Care Provider [phone] Reason for Visit * Reason Comments Pre-visit Planning SDOH screening posit marilyn and tobacco screening negative Encounter Details Date Type Department Care Team ([facility] st Contact Info) Description 04/30/2024 Patient Outreach [facility] MEDICINE [address] [place] [address] [facility] [address] [place] [address] Pre-visit Planning (SDOH screening positive and tobacco screening negative) Social History Tobacco Use Types Packs/Day Years [...] as of this encounter Progress Notes * Vanesa Ross - 04/30/2024 1:25 PM EDT CC Vanesa placed successful outbound call to patient for pre-visit planning. Patient name and confirmed. Patient confirms date and time, and has transportation arrangements. Biggest concern for appointment at this time is weight knee pain Appropriate screening completed in anticipation of appointment. Patient advised to bring to appointment a photo id and insurance card, SDOH positive. Patient looking for assistance with pest control Referral will be placed. documented in this encounter Plan of Treatment Upcoming Encounters Date Type Department Care Team (Late st Contact Info) Description 05/09/2024 9:30 AM EDT Office Visit [facility] MEDICINE [address] [place] [address] Adrienne Sheehan FNP [address] [place] [address] 05/15/2024 11:00 AM EDT Medication Management [facility] MEDICINE [address] [place] [address] Margret Strauss, PharmD [address] [place] [address] 07/20/2024 2:30 PM EDT Office Visit [facility] MEDICINE [address] [place] [address] Adrienne Sheehan FNP [address] [place] [address] 07/23/2024 2:00 PM EDT Office Visit [facility] OPTOMETRY [address] [place] [address] Tom, Lou, OD [address] [place] [address] documented as of this encounter Goals Goal [...] documented as of this encounter Care Teams Comfort Filler Relationship Specialty Start Date End Date Aguila Adrienne [facility] [address] [place] [address] PCP - General Family Medicine 07/04/23 documented as of this encounter
--- OUTSIDE RECORDS SUMMARY | 2024-05-04 09:04 | XMS_ITS | Encounter Summary ---
Author Organization [employer] Address [address] [facility] [address] [place] [address] Care Team Providers Care Corporate Trainer Name Role Phone [facility] Primary Care Provider [phone] Encounter Details Date Type Department Care Team ([facility] st Contact Info) Description 04/18/[address] [facility] MEDICINE [address] [place], [place] [phone] [facility] [address] [place] [address] Social History Tobacco Use Types Packs/Day Years [...] encounter Miscellaneous Notes * Telephone Encounter - Cinthia Ricks - 04/18/2024 1:49 PM EST Pharmacy is requesting an updated CDTM referral with a diagnosis of diabetes Type 2 diabetes mellitus with hyperglycemia, with long-term current use of insulin E11.65. This is to replace existing referral that no longer meets visit requirements. Please send at your earliest convenience. Thank you! documented in this encounter Plan of Treatment Upcoming Encounters Date Type Department Care Team (Late st Contact Info) Description 05/09/2024 9:30 AM EDT Office Visit [facility] MEDICINE [address] [place] [address] [place] [facility] [address] [place] [address] 05/15/2024 11:00 AM EDT Medication Management [facility] MEDICINE [address] [place] [address] Margret Strauss, SarayD [address] [place] [address] 07/20/2024 2:30 PM EDT Office Visit [address] [address] [place]ne [facility] [address] [place] [address] 07/23/2024 2:00 PM EDT Office Visit [facility] OPTOMETRY [address] [place], [place] [phone] Lou Santos, OD [address] [place] [address] documented as of this encounter Goals Goal [...] documented as of this encounter Care Teams Corporate Trainer Relationship Specialty Start Date End Date Adrienne Sheehan FNP [address] [place] [address] PCP - General Family Medicine 07/04/23 documented as of this encounter
--- OUTSIDE RECORDS SUMMARY | 2024-05-04 09:04 | XMS_ITS | Encounter Summary ---
Author Organization [employer] Address [address] [place] [address] Care Team Providers Care Lead Radiation Therapist Name Role Phone Adrienne Sheehan [facility] Primary Care Provider [phone] Encounter Details Date Type Department Care Team (Late st Contact Info) Description 05/03/2024 Orders Only [facility] External Provider, [facility] Social History Tobacco Use Types Packs/Day Years [...] Description 05/09/2024 9:30 AM EDT Office Visit [facility] MEDICINE [address] [place] [address] [facility] [address] [place] [address] 05/15/2024 11:00 AM EDT Medication Management [facility] MEDICINE [address] [place] [address] Margret Strauss, SarayD [address] [place] [address] 07/20/2024 2:30 PM EDT Office Visit [facility] MEDICINE [address] [place] [address] [facility] [address] [place] [address] 07/23/2024 2:00 PM EDT Office Visit [facility] OPTOMETRY [address] [place] [id number] Lou Santos, OD [address] [place] [address] documented as of this encounter Goals Goal Patient Goal Type Associated Problems Recent Progress Patient-Stated? Author Blood Pressure < 140/90 Blood Pressure 134/80(2024 10:46 AM EST) No Souleymane Love, PharmRuth Hemoglobin A1c < 7 Result Component 10.5(03/28/19 9:12 AM EST) No Souleymane Love, Rayshawn documented as of this encounter Procedures Procedure Name Priority Date/Time Associated Diagnosis Comments US ABDOMEN COMPLETE WITH ELASTOGRAPHY Routine 05/03/2024 9:06 AM EDT documented in this encounter Results * US Abdomen Comp w elastography (05/03/2024 9:06 AM EDT) Anatomical Region Laterality Modality Abdomen Ultrasound 05/03/2024 9:06 AM EDT Narrative 05/03/2024 12:25 PM EDT ? [facility] ?[address] ?[place] [address] ? Ultrasound Report ? Signed ? Patient: Michele Alicea ?MR#: [id number] ?? [id number] ? : 1970 ?Acct:[id number] ? Age/Sex: 53 / M ?ADM Date: 05/03/24 ? Loc: HO.US ? Attending Dr: Saul Sanchez MD ? Ordering Physician: Saul Sanchez MD ?? Date of Service: 05/03/24 ?? Procedure(s): US abdomen comp w elastography ?? Accession Number(s): [id number] ? cc: Saul Sanchez MD; Adrienne Sheehan ? EXAMINATION: ??US ABDOMEN COMPLETE WITH LIVER ELASTOGRAPHY ? HISTORY: E66.01 - Morbid (severe) obesity due to excess calories ? TECHNIQUE: Real-time grayscale ultrasound imaging of the abdomen was ?? performed and images were reviewed. ? COMPARISON: Comparison is made with the prior examination dated ?? 05/12/2023. ? FINDINGS: ?? Liver: ??The right lobe of the liver measures 16.4 cm in size. The left ?? lobe of the liver measures 11.5 cm in size and demonstrates a lobulated ?? contour. There is an ill-defined hypoechoic area adjacent to the ?? gallbladder which may represent focal fatty sparing. ??No intrahepatic ?? biliary ductal dilatation is identified. ??There is normal hepatopedal ?? flow in the portal vein. ? Ultrasound elastography of the liver was performed with 10 separate ?? measurements of the liver parenchyma with the patient in the supine ?? position. ??Measurements were obtained approximately 2 cm below ?? William's capsule and perpendicular to the capsule. ??Images are of ?? satisfactory quality. ? The median shear wave velocity is 1.46 m/s. ?? The interquartile range/median (IQR/median) is 0.10. ? Gallbladder and biliary tree: The gallbladder is unremarkable, without ?? evidence of calculi, wall thickening, or pericholecystic fluid. ??There ?? is no sonographic Voss sign. ??The common bile duct is normal in ?? caliber measuring 3 mm. ? Kidneys: ??The right kidney measures 10.2 cm in length. The left kidney ?? measures 10.6 cm in length. ??The kidneys are unremarkable, without ?? evidence of masses, hydronephrosis, or calculi. ? Pancreas: The pancreatic head, neck, and body are unremarkable. The ?? pancreatic tail is obscured by bowel gas. ? Spleen: The spleen is ??not well visualized. ? Abdominal aorta and inferior vena cava: The visualized portions of the ?? abdominal aorta and inferior vena cava are normal in caliber. ? There is no free fluid in the abdomen. ? US/US abdomen comp w elastography ?? IMPRESSION: ? Hepatomegaly. Possible mild hepatic steatosis with focal fatty sparing ?? adjacent to the gallbladder. ? The median shear wave velocity in the liver is 1.46 m/s, corresponding ?? to a median liver stiffness of 6.62 kPa. ??The IQR/median value is 0.10. ?? This is indicative of a quality data set. ?? Findings are indicative of a low elastography value which rules out ?? advanced chronic liver disease in asymptomatic patients. ? REFERENCE: ?? Society of Radiologists in Ultrasound Liver Stiffness Thresholds (2019): ? LIVER STIFFNESS THRESHOLDS: ?? *Shear wave velocity less than 1.3 m/s (Liver Stiffness equal or less ?? than 5 kPa): ??High probability of being normal. ?? *Shear wave velocity less than 1.7 m/s (Liver Stiffness less than 9 ?? kPa): ??In the absence of other known clinical signs, rules out ?? compensated advanced chronic liver disease. ?? *Shear wave velocity between 1.7-2.1 m/s (Liver Stiffness 9-13 kPa): ? Suggestive of compensated advanced chronic liver disease but need ?? further test for confirmation. ?? *Shear wave velocity between 2.1-2.4 m/s (Liver Stiffness 13-17 kPa): ? Rules in compensated advanced chronic liver disease. ?? *Shear wave velocity ??greater than 2.4 m/s (Liver Stiffness over 17 ?? kPa): ??Suggestive of clinically significant portal hypertension. ? QUALITY OF DATA SET: ?? *IQR/Median value equal or less than 0.15 implies a quality data set. ?? *IQR/Median value over 0.15 implies a poor quality data set. ? SIGNIFICANT CHANGE FROM PRIOR EXAM: ?? Significant change if liver stiffness measurement is 10% or greater ?? from prior exam. ? OTHER CONSIDERATIONS: ?? The stage of liver fibrosis may be overestimated in the setting of ?? acute hepatitis, liver inflammation, elevated liver function tests, ?? hepatic vascular congestion, obstructive cholestasis, non-fasting ?? state, and infiltrative diseases such as amyloidosis and lymphoma. ??In ?? some patients with NAFLD, the liver stiffness thresholds for ?? compensated advanced chronic liver disease may be lower. ??In causes ?? other than viral hepatitis and NAFLD, liver stiffness thresholds are ?? not well established. ? Electronically signed by: ??Darius Tipton MD ??05/03/2024 12:22 PM EDT ?? RP ? Dictated By: ?Darius Tipton MD ? Signed By: ?<Electronically signed by Darius Tipton MD in OV> ?05/03/24 1222 ? DD/ 0906 ? TD/TT: 05/03/24 0941 ? Die Forger: ? Procedure Note Gregoria Castro - 05/03/[address] [address] Ultrasound Report Signed Patient: Michele Alicea R#: [id number] : 1970Acct:[id number] Age/Sex: 53 / MADM Date: 05/03/24 Loc: HO.US Attending Dr: Saul Sanchez MD Ordering Physician: Saul Sanchez MD Date of Service: 05/03/24 Procedure(s): US abdomen comp w elastography Accession Number(s): [id number] cc: Saul Sanchez MD; [facility] EXAMINATION: US ABDOMEN COMPLETE WITH LIVER ELASTOGRAPHY HISTORY: E66.01 - Morbid (severe) obesity due to excess calories TECHNIQUE: Real-time grayscale ultrasound imaging of the abdomen was performed and images were reviewed. COMPARISON: Comparison is made with the prior examination dated 05/12/2023. FINDINGS: Liver: The right lobe of the liver measures 16.4 cm in size. The left lobe of the liver measures 11.5 cm in size and demonstrates a lobulated contour. There is an ill-defined hypoechoic area adjacent to the gallbladder which may represent focal fatty sparing. No intrahepatic biliary ductal dilatation is identified. There is normal hepatopedal flow in the portal vein. Ultrasound elastography of the liver was performed with 10 separate measurements of the liver parenchyma with the patient in the supine position. Measurements were obtained approximately 2 cm below William's capsule and perpendicular to the capsule. Images are of satisfactory quality. The median shear wave velocity is 1.46 m/s. The interquartile range/median (IQR/median) is 0.10. Gallbladder and biliary tree: The gallbladder is unremarkable, without evidence of calculi, wall thickening, or pericholecystic fluid. There is no sonographic Voss sign. The common bile duct is normal in caliber measuring 3 mm. Kidneys: The right kidney measures 10.2 cm in length. The left kidney measures 10.6 cm in length. The kidneys are unremarkable, without evidence of masses, hydronephrosis, or calculi. Pancreas: The pancreatic head, neck, and body are unremarkable. The pancreatic tail is obscured by bowel gas. Spleen: The spleen is not well visualized. Abdominal aorta and inferior vena cava: The visualized portions of the abdominal aorta and inferior vena cava are normal in caliber. There is no free fluid in the abdomen. US/US abdomen comp w elastography IMPRESSION: Hepatomegaly. Possible mild hepatic steatosis with focal fatty sparing adjacent to the gallbladder. The median shear wave velocity in the liver is 1.46 m/s, corresponding to a median liver stiffness of 6.62 kPa. The IQR/median value is 0.10. This is indicative of a quality data set. Findings are indicative of a low elastography value which rules out advanced chronic liver disease in asymptomatic patients. REFERENCE: Society of Radiologists in Ultrasound Liver Stiffness Thresholds (2019): LIVER STIFFNESS THRESHOLDS: *Shear wave velocity less than 1.3 m/s (Liver Stiffness equal or less than 5 kPa): High probability of being normal. *Shear wave velocity less than 1.7 m/s (Liver Stiffness less than 9 kPa): In the absence of other known clinical signs, rules out compensated advanced chronic liver disease. *Shear wave velocity between 1.7-2.1 m/s (Liver Stiffness 9-13 kPa): Suggestive of compensated advanced chronic liver disease but need further test for confirmation. *Shear wave velocity between 2.1-2.4 m/s (Liver Stiffness 13-17 kPa): Rules in compensated advanced chronic liver disease. *Shear wave velocity greater than 2.4 m/s (Liver Stiffness over 17 kPa): Suggestive of clinically significant portal hypertension. QUALITY OF DATA SET: *IQR/Median value equal or less than 0.15 implies a quality data set. *IQR/Median value over 0.15 implies a poor quality data set. SIGNIFICANT CHANGE FROM PRIOR EXAM: Significant change if liver stiffness measurement is 10% or greater from prior exam. OTHER CONSIDERATIONS: The stage of liver fibrosis may be overestimated in the setting of acute hepatitis, liver inflammation, elevated liver function tests, hepatic vascular congestion, obstructive cholestasis, non-fasting state, and infiltrative diseases such as amyloidosis and lymphoma. In some patients with NAFLD, the liver stiffness thresholds for compensated advanced chronic liver disease may be lower. In causes other than viral hepatitis and NAFLD, liver stiffness thresholds are not well established. Electronically signed by: Darius Tipton MD 05/03/2024 12:22 PM EDT Dictated By: Darius Tipton MD Signed By: <Electronically signed by Darius Tipton MD in OV> 05/03/24 1222 DD/ 0906 TD/TT: 05/03/24 0941 Die Forger: [facility] External Provider IMG US PROCEDURES Final Result documented in this encounter Visit Diagnoses Not on filedocumented in this encounter Additional Health Concerns Assessment Noted Time PHQ-9 Depression Total Score: 0 04/19/19 25 10:48 AM EST documented as of this encounter Care Teams Lead Radiation Therapist Relationship Specialty Start Date End Date Adrienne Sheehan FNP [address] [place] [address] PCP - General Family Medicine 07/04/23 documented as of this encounter
--- OUTSIDE RECORDS SUMMARY | 2024-05-04 09:04 | XMS_ITS | Encounter Summary ---
Author Organization [employer] Address [address] 7[address] [place] [address] Care Team Providers Care A P Manager Name Role Phone [facility] Primary Care Provider [phone] Reason for Visit * Reason Comments Med Refill Encounter Details Date Type Department Care Team ([facility] st Contact Info) Description 10/28/2023 Refill [facility]ICINE [address] [place] [address] [facility] [address] [place] [address] Social History Tobacco Use Types Packs/Day Years [...] Description 05/09/2024 9:30 AM EDT Office Visit [facility] MEDICINE [address] [place] [address] [facility] [address] [place] [address] 05/15/2024 11:00 AM EDT Medication Management [facility] [address] [place] [address] Margret Strauss, SarayD [address] [place] [address] 07/20/2024 2:30 PM EDT Office Visit [facility] [address] [place] [address] [facility] [address] [place] [address] 07/23/2024 2:00 PM EDT Office Visit [facility] OPTOMETRY [address] [place] [address] Tom, Lou, OD 230 [place] [address] documented as of this encounter Goals Goal [...] documented as of this encounter Care Teams A P Manager Relationship Specialty Start Date End Date Adrienne Sheehan FNP [address] [place] [address] PCP - General Family Medicine 07/04/23 documented as of this encounter
--- OUTSIDE RECORDS SUMMARY | 2024-05-04 09:04 | XMS_ITS | Encounter Summary ---
Author Organization [employer] Address [address] [facility] 7 [place] [address] Care Team Providers Care Plant Equipment Engineer Name Role Phone Sophia Burns ROCK[employer] SUPERVISOR Primary Care Provider [phone] Kori Alonso TRANSITIONS MANAGER Primary Care Provider [phone] Boom Estevez MD Primary Care Provider [phone] Kori Alonso TRANSITIONS MANAGER Primary Care Provider [phone] Big LakeAdrienne ROCKET [employer]OPELLANT PLANT SUPERVISOR Primary Care Provider [phone] Encounter Details Date Type Department Care Team (Latest Contact Info) Description 04/17/2021 Abstract [facility] CONVERSIONS Dental, Provider, DDS Social History [...] Description 05/09/2024 9:30 AM EDT Office Visit [facility] MEDICINE [address] [place], [place] [phone] [facility] 230 [place] [address] 05/15/2024 11:00 AM EDT Medication Management [facility] MEDICINE [address] [place] [address] Margret Strauss, Rayshawn [address] [place] [address] 07/20/2024 2:30 PM EDT Office Visit [facility] MEDICINE [address] [place] [address] Adrienne Sheehan FNP [address] [place] [address] 07/23/2024 2:00 PM EDT Office Visit [facility] OPTOMETRY [address] [place] [address] Lou Santos, OD [address] [place] [address] documented as of this encounter Visit Diagnoses Not on filedocumented in this encounter Care Teams Plant Equipment Engineer Relationship Specialty Start Date End Date Sophia Burns FNP PCP - General Family Medicine 10/12/21 11/22/22 Kori Alonso NP [address] [place] [address] PCP - General Family Medicine 11/23/22 01/16/23 Boom Estevez MD [address] [place] [address] PCP - General Internal Medicine 01/17/23 01/18/23 Kori Alonso NP [address] [place] [address] PCP - General Family Medicine 01/19/23 07/03/23 Adrienne Sheehan FNP [address] [place] [address] PCP - General Family Medicine 07/04/23 documented as of this encounter
--- OUTSIDE RECORDS SUMMARY | 2024-05-04 09:04 | XMS_ITS | Encounter Summary ---
Author Organization [employer] Address [address] 7[address] [place] [address] Care Team Providers Care Window Glazier Helper Name Role Phone Adrienne Sheehan [facility] Primary Care Provider [phone] Encounter Details Date Type Department Care Team (Latest Contact Info) Description 04/18/2024 Travel Social History Tobacco Use Types Packs/Day [...] Description 05/09/2024 9:30 AM EDT Office Visit [facility] MEDICINE [address] [place] [address] [facility] 230 [place] [address] 05/15/2024 11:00 AM EDT Medication Management [address] [address] Margret Strauss, PharmD [address] [place] [address] 07/20/2024 2:30 PM EDT Office Visit [address] [address] [facility] [address] [place] [address] 07/23/2024 2:00 PM EDT Office Visit [facility] OPTOMETRY [address] [place] [address] Tom, Lou, OD 230 [place] [address] documented as of this encounter Goals Goal Patient Goal Type Associated Problems Recent Progress Patient-Stated? Author Blood Pressure < 140/90 Blood Pressure 134/80(2024 10:46 AM EST) No Souleymane Love, Rayshawn Hemoglobin A1c < 7 Result Component 10.5(03/28/19 9:12 AM EST) No Love, Souleymane, PharmD documented as of this encounter Visit Diagnoses Not on filedocumented in this encounter Additional Health Concerns Assessment Noted Time PHQ-9 Depression Total Score: 0 04/19/19 25 10:48 AM EST documented as of this encounter Care Teams Window Glazier Helper Relationship Specialty Start Date End Date Adrienne Sheehan FNP [address] [place] [address] PCP - General Family Medicine 07/04/23 documented as of this encounter
--- OUTSIDE RECORDS SUMMARY | 2024-05-04 09:05 | XMS_ITS | Encounter Summary ---
Author Organization [employer] Address [address] [place] [address] Care Team Providers Care Packaging Sales Name Role Phone Sophia Burns Primary Care Provider [phone] Kori Alonso NP Primary Care Provider [phone] Boom Estevez MD Primary Care Provider [phone] Kori Alonso NP Primary Care Provider [phone] [place] Adrienne SET OFF PRESS OPERATOR Primary Care Provider [phone] Encounter Details Date Type Department Care Team (Late st Contact Info) Description 08/26/2022 [facility] Information Management [address] [place] [address] Sophia Burns FNP [address] [place] [address] Dept [place] [address] Social History Tobacco Use Types Packs/Day Years [...] Description 05/09/2024 9:30 AM EDT Office Visit [facility] MEDICINE [address] [place] [address] [facility] 230 [place] [address] 05/15/2024 11:00 AM EDT Medication Management [facility] MEDICINE [address] [place] [address] Margret Strauss, PharmD 230 [place] [address] 07/20/2024 2:30 PM EDT Office Visit [facility] MEDICINE [address] [place] [address] [facility] [address] [place] [address] 07/23/2024 2:00 PM EDT Office Visit [facility] OPTOMETRY [address] [place] [address] TomDionicion, OD 230 [place] [address] documented as of this encounter Visit Diagnoses Not on filedocumented in this encounter Care Teams Packaging Sales Relationship Specialty Start Date End Date Sophia Burns FNP PCP - General Family Medicine 10/12/21 11/22/22 Kori Alonso NP [address] [place] [address] PCP - General Family Medicine 11/23/22 01/16/23 Boom Estevez MD [address] [place] [address] PCP - General Internal Medicine 01/17/23 01/18/23 Kori Alonso NP 230 [place] [address] PCP - General Family Medicine 01/19/23 07/03/23 GreeleyAdrienne FNP [address] [place] [address] PCP - General Family Medicine 07/04/23 documented as of this encounter
--- OUTSIDE RECORDS SUMMARY | 2024-05-04 09:05 | XMS_ITS | Encounter Summary ---
Author Organization [employer] Address [address] [place] [address] Care Team Providers Care Cloud Services Architect Name Role Phone Adrienne Sheehan [facility] Primary Care Provider [phone] Encounter Details Date Type Department Care Team [...] Description 05/09/2024 9:30 AM EDT Office Visit [facility] [address] [place] [address] [id number] [facility] [address] [place] [address] 05/15/2024 11:00 AM EDT Medication Management [facility] [address] [place] [address] Margret Strauss, Rayshawn [address] [place] [address] 07/20/2024 2:30 PM EDT Office Visit [facility] [address] [place] [address] [facility] [address] [place] [address] 07/23/2024 2:00 PM EDT Office Visit [facility] OPTOM[facility] [address] [place] [id number] Lou Santos, OD [address] [place] [address] documented as of this encounter Goals Goal Patient Goal Type Associated Problems Recent Progress Patient-Stated? Author Blood Pressure < 140/90 Blood Pressure 134/80(2024 10:46 AM EST) No Souleymane Love, PharmRuth Hemoglobin A1c < 7 Result Component 10.5(02/12/20 25 9:12 AM EST) Souleymane John PharmD documented as of this encounter Procedures Procedure Name Priority Date/Time Associated Diagnosis Comments HEMATOXYLIN AND EOSIN STAIN Routine 04/17/2024 1:55 PM EST GLUCOSE, WHOLE BLOOD Routine 04/17/2024 1:00 PM EST documented in this encounter Results * Hematoxylin and Eosin Stain (04/17/2024 1:55 PM EST) 04/17/2024 1:55 PM EST 04/18/2024 8:45 AM EST [facility] - 04/20/2024 9:09 AM EST ----- ------- Name: Michele Alicea ?Age/Sex: 53/M ? : 1970 Unit#: [id number] ?? Attend Dr: Saul Sanchez MD ?Re04/17/24 ?Status: DEP [facility] [place] [place] ? Location: [facility] ?Disch: ? ----- ------- SPEC : [id number] ? RECD: 04/18/24 ? STATUS: ??SOUT ? REQ NUM: [id number] ? RAF: 04/17/244125 ? SUBM DR: Saul Sanchez MD ? ENTERED: ??04/18/24 ?SP TYPE: Surgical ? OTHR DR: Adrienne Sheehan [employer]AFF [employer] OFFICER ? ORDERED: ??HE Stain/6, Gross Micro L4/3, IHC, Special st. 2/2, H. pylori, AB/PAS/2 ? Diagnosis ?? A. ??Stomach, antrum, biopsy: ??Antral-type mucosa with mild chronic inactive inflammation; ?? no Helicobacter organisms seen. ? B. ??EG junction, biopsy: ?- Cardiofundic-type mucosa with moderate chronic inactive inflammation; no intestinal ?? metaplasia seen. ?- No squamous epithelium identified. ? C. ??Esophagus, biopsy: ??Squamous epithelium within normal limits; no inflammation seen. ?Clinical History Pre-Op Dx: ??Obesity Post-Op Dx: Normal EGD ?Microscopic Description A-C. ??Microscopic sections examined. ??No metaplastic changes are seen, supported by AB/PAS stains (A and B); no Helicobacter organisms are seen, supported by H. pylori immunostain (A). ? Material Received ?? A. Antrum bx ?? B. EG junction bx ?? c. Esophagus bx ? Gross Description Received in three parts Part A: ??Received in formalin labeled ?antrum bx? is a 0.4 cm reddy rectangular tissue fragments, submitted in toto in a cassette labeled A. Part B: ??Received in formalin labeled ?EG junction bx? is a 0.25 cm bermudez-reddy irregular tissue fragment, submitted in toto in a cassette labeled B. Part C: ??Received in formalin labeled ?esophagus bx? is a 0.3 cm bermudez-reddy rectangular tissue fragment, submitted in toto in a cassette labeled C. ??CEDS Special studies ordered and performed: Immunostain for H. pylori on A; AB/PAS stains on A and B ? CONTINUED ON NEXT PAGE ----- ------- Name: Michele Alicea ?Age/Sex: 53/M ? : 1970 Unit#: [id number] ?? Attend Dr: Saul Sanchez MD ?Re04/17/24 ?Status: DEP [facility] ? Location: HO.SSS ?Disch: ? ----- ------- SPEC : [id number] ? RECD: 04/18/24 ? STATUS: ??SOUT ? REQ NUM: [id number] ? RAF: 04/17/24-6797 ? SUBM DR: Saul Sanchez MD ? ENTERED: ??04/18/24-901 ?SP TYPE: Surgical ? OTHR DR: Adrienne Sheehan STAFF [employer] OFFICER ? ORDERED: ??HE Stain/6, Gross Micro L4/3, IHC, Special st. 2/2, H. pylori, AB/PAS/2 ? Copies To: ?? Saul Sanchez MD ?? [facility] [facility] ?? [address] ?? [place] [address] ?? [phone] ?? Adrienne Sheehan STAFF [employer] OFFICER ?? [address] [facility] ?? [place] [address] ?? [phone] ----- ------- Signed (signature on file) Yaya Guillory MD 04/20/24908 ? ----- ------- ? END OF REPORT ? us Generic External Data Provider LAB BLOOD ORDERAB LES Final Result Performing Organization Address [facility] Co de Phone Number [facility] [address] [place] [address] [phone] * Glucose, Whole Blood (04/17/2024 1:00 PM EST) Glucose, Whole Blood 111 60 - 115 mg/dL [facility] Comment:METER #: [id number] 04/17/2024 1:00 PM EST 04/17/2024 1:04 PM EST us Generic External Data Provider LAB BLOOD ORDERAB LES Final Result Performing Organization Address [facility] de Phone Number [facility] [address] [place] [address] [phone] documented in this encounter Visit Diagnoses Not on filedocumented in this encounter Additional Health Concerns Assessment Noted Time PHQ-9 Depression Total Score: 8 03/09/19 25 9:22 AM EST documented as of this encounter Care Teams Cloud Services Architect Relationship Specialty Start Date End Date Adrienne Sheehan FNP [address] [place] [address] PCP - General Family Medicine 07/04/23 documented as of this encounter
--- OUTSIDE RECORDS SUMMARY | 2024-05-04 09:05 | XMS_ITS | Clinical Summary ---
Author Organization [employer] Address [address] [facility] [address] [place] [address] Care Team Providers Care Consumer Lender Name Role Phone Aguila [facility] Primary Care Provider [phone] Allergies No known active allergies Medications FREESTYLE [...] at bedtime. 023 Active Continuous Blood Gluc Slab Tripper (FreeStyle Dayana 2 [place]) deviceIndications :Type 2 diabetes mellitus with hyperglycemia, with long-term current use of insulin (CMS/HCC) Scan sensor every 8 hours 1 each 023 Active metFORMIN, OSM, (Fortamet) 1000 MG 24 hr tabletIndications :Diabetes mellitus of other type without complication, unspecified whether senior living insulin use (CMS/HCC) Take 1 tablet by [...] the morning. 5 mL 024 2024 Active FLUoxetine (PROzac) 20 MG tabletIndications :Depression, unspecified depression type Take 1 tablet (20 mg) by mouth Once per day. 30 tablet 11 Active busPIRone (Buspar) 10 MG tablet Active Easy Touch Pen [place] 31G X 8 MM misc USE DIRECTED Active glucose 4 g chewable tabletIndications :Type 2 diabetes mellitus with hypoglycemia without coma, with long-term current use of insulin ([facility]) Chew 4 tablets (16 g) if needed [...] AT NOON 90 tablet 1 024 Active Alcohol Swabs (Alcohol Prep) padsIndications:T ype 2 diabetes mellitus with hyperglycemia, with long-term current use of insulin ([facility]) Use one pad each to prep skin prior to injection as directed 100 each Active insulin pen needle 30G x 5 mm miscIndications:T ype 2 diabetes mellitus with hyperglycemia, with long-term current use of insulin ([facility]) Use as instructed 100 each Active levothyroxine (Synthroid, Levoxyl) 150 MCG tabletIndications :Acquired hypothyroidism TAKE 1 TABLET BY MOUTH EVERY MORNING ON AN EMPTY STOMACH 30 MINUTES BEFORE BREAKFAST 90 tablet Active atorvastatin (Lipitor) 40 MG tabletIndications :Mixed hyperlipidemia Take 1 tablet (40 mg) by mouth Once per day. 30 tablet 025 2025 Active Tirzepatide (Mounjaro) 5 MG/0.5ML solution auto-injectorIndi cations:Type 2 diabetes mellitus with hyperglycemia, with long-term current use of insulin (CMS/HCC) Inject 5 mg under the skin 1 (one) time per week. 2 mL 025 2025 Active insulin glargine (Lantus SoloStar) 100 UNIT/ML penIndications:Ty pe 2 diabetes mellitus with hyperglycemia, with long-term current use of insulin (CMS/HCC) Inject 18 Units under the skin at bedtime. 15 mL 2 2025 Active Continuous Glucose Sensor (FreeStyle Dayana 3 Plus Sensor) miscIndications:T ype 2 diabetes mellitus with hyperglycemia, with long-term current use of insulin (CMS/HCC) USE DIRECTED. CHANGE EVERY 15 DAYS 2 each 3 Active dulaglutide (Trulicity) 4.5 MG/0.5ML solution pen-injectorIndic ations:Type 2 diabetes mellitus with hyperglycemia, with long-term current use of insulin (CMS/HCC) Inject 4.5 mg under the skin 1 (one) time per week. 4 each 024 2024 Discontinued insulin glargine (Lantus SoloStar) 100 UNIT/ML penIndications:Ty pe 2 diabetes mellitus with hyperglycemia, with long-term current use of insulin (CMS/HCC) Inject 14 Units under the skin at bedtime. 15 mL 2 025 2024 Discontinued(R eorder (will not trigger notification to Pharmacy)) Tirzepatide (Mounjaro) 2.5 MG/0.5ML solution auto-injectorIndi cations:Type 2 diabetes mellitus with hyperglycemia, with long-term current use of insulin (CMS/HCC) Inject 2.5 mg under the skin 1 (one) time per week. 2 mL 3 025 2024 Discontinued Continuous Glucose Sensor (FreeStyle Dayana 3 Plus Sensor) miscIndications:T ype 2 diabetes mellitus with hyperglycemia, with long-term current use of insulin ([facility]) USE DIRECTED. CHANGE EVERY 15 DAYS 2 each 025 2024 Discontinued(R eorder (will not trigger notification [...] Secondary erythrocytosis 08/03/2022 Overview (08/03/2022): Appt 05/04/21 [facility] Hematology Severe hematocrit > 60; increased [...] PM EST): -hgb 12.2 on 12/28 @ [facility] [place] -recheck levels Depression, recurrent 03/09/20222023 Encounters Date Type Department Care Team Description 05/03/2024 Orders Only [facility] External Provider, [facility] 04/30/2024 Patient Outreach [facility] [address] [place] [phone] [facility] Care Coordination (CHW outreach SDOH pest control - referral completed ) 04/30/2024 Patient Outreach [address] [facility] Pre-visit Planning (SDOH screening positive and tobacco screening negative) 04/23/2024 Refill [facility] & PEDS [address] [place] [address] [facility] Type 2 diabetes mellitus with hyperglycemia, with long-term current use of insulin ([facility]) 04/18/2024 10:00 AM EST Office Visit [address] [facility] Type 2 diabetes mellitus with hyperglycemia, with long-term current use of insulin (CMS/[facility]) (Primary Dx); Acquired hypothyroidism; Obstructive sleep apnea; Encounter for immunization 04/18/2024 Orders Only [address] [address] Emily Brooks MD Type 2 diabetes mellitus with hyperglycemia, with long-term current use of insulin (CMS/[facility]) (Primary Dx) 04/18/2024 Telephone [facility] [address] [place] [address] [facility] 04/18/2024 Travel 04/17/2024 Orders Only GENERIC EXTERNAL DATA DEPARTMENT Provider, Generic External Data 03/28/2024 Telephone [facility] [address] [place] [address] Marsha Wilson, RN Results 03/28/2024 Telephone [facility] [address] [place] [address] Marsha Wilson, RN Results 03/28/2024 Orders Only [facility] [address] [place] [address] [facility] Mixed hyperlipidemia (Primary Dx) 03/28/2024 Orders Only GENERIC EXTERNAL DATA DEPARTMENT Provider, Generic External Data 03/22/2024 Telephone [facility] [address] [place] [address] Arely Novoa, JORGE 03/21/2024 Orders Only [facility] [address] [place] [address] [facility] Acquired hypothyroidism 03/19/2024 Telephone [facility] [address] [place] [address] Marsha Wilson, RN Results 03/19/2024 Orders Only [facility] [address] [place] [address] [facility] Acquired hypothyroidism (Primary Dx) 03/13/2024 Telephone [facility] OPTOMETRY [address] [place] [address] Lou Santos, JORDAN 03/09/2024 9:00 AM EST Office Visit [facility] [address] [place] [address] [facility] Type 2 diabetes mellitus with hyperglycemia, with long-term current use of insulin (CMS/HCC) (Primary Dx); Chronic pain of right knee; Acquired hypothyroidism; Dietary counseling; Exercise counseling; Class 3 severe obesity due to excess calories with serious comorbidity and body mass index (BMI) of 40.0 to 44.9 in adult ([facility]) 03/09/2024 Refill [facility] [address] [place] [address] Haw[address] Adrienne, [facility] Type 2 diabetes mellitus with hyperglycemia, with long-term current use of insulin ([facility]) 03/09/2024 Travel from Last 3 Months Immunizations Name Administration Dates Next Due HepB-CpG 02/24/2023,01/25/2023 Influenza injectable quadrivalent preservative f ree 01/05/2023,02/18/2021 Influenza, seasonal, injectable, preservative fr ee 04/18/2024 Pfizer Covid-19 Vaccine 12+ 04/18/2024 Pneumococcal Conjugate PCV 13 02/18/2021 Pneumococcal Conjugate [...] Mass Index 42.5 04/18/2024 10:46 AM EST Plan of Treatment Upcoming Encounters Date Type Department Care Team (Late st Contact Info) Description 05/09/2024 9:30 AM EDT Office Visit [facility] [address] [place] [phone] HaworthAdrienne, [employer] [address] [place] [address] 05/15/2024 11:00 AM EDT Medication Management [facility] [address] [place] [phone] Margret Strauss, Rayshawn [address] [place] [address] 07/20/2024 2:30 PM EDT Office Visit [address] [address] Haworth, Adrienne, [employer] [address] [place] [address] 07/23/2024 2:00 PM EDT Office Visit [facility] OPT[facility]ET[facility] [address] [place] [address] Tom, Lou, OD [address] [place] [address] Health Maintenance Due Date Last Done Comments CT Colonography 1968 FIT DNA/Cologuard 1968 FIT 1968 FOBT 1970 Sigmoidoscopy 1968 Alcohol/Substance Use Screening 1980 Dental Oral Exam 06/15/2021 12/15/2020 Dental Prophylaxis 10/19/2021 04/17/2021 Dental X-Ray: Bitewings 12/16/2021 12/15/2020 Zoster Vaccines (2 of 2) 03/22/2023 01/25/2023 Dental X-Ray: Full Mouth 04/18/2024 04/17/2021 Diabetes: Hemoglobin A1C 06/25/2024 025, 03/09/2024, 08/26/2023, Additional history exists Diabetes: Foot Exam 08/25/2024 08/26/2023, Diabetes: Urine Protein Screening 03/09/2025 03/09/2024, 05/09/2023, 02/18/2021 Eye Exam 03/10/2025 03/10/2023, 02/15, 03/10/2023, Additional history exists Lipid Panel 03/28/2025 03/28/2024, 02/15, 05/09/2023, Additional history exists Depression Screening 04/18/2025 04/18/2024, 04/19/19 Tobacco Screening 04/18/2025 04/18/2024 SDOH Screening 04/30/2025 04/30/2024 DTaP/Tdap/Td Vaccines (2 - Td or Tdap) 02/18/2031 02/18/2021 Colonoscopy 04/17/2031 04/16/2021 Colorectal Cancer Screening 04/17/2031 RSV Patients and Patients Aged 60 years or older (1 - 1-dose 75+ series) 12/04/2043 HIV Screening Completed 02/18/2021 Hepatitis C Screening Completed 02/18/2021 Hepatitis B Vaccines Completed 02/24/2023, 01/26/20 23 Pneumococcal Vaccine: 50+ Years Completed 02/24/2023, 02/18/2021 COVID-19 Vaccine Completed 04/18/2024, 10/2021, 05/13/2021, Additional history exists Influenza Vaccine Completed 04/18/2024, , 02/18/2021 HIB Vaccines Aged Out No longer [...] 9:12 AM EST) No Souleymane Love PharmD Procedures Procedure Name Priority Date/Time Associated Diagnosis Comments US ABDOMEN COMPLETE WITH ELASTOGRAPHY Routine 05/03/2024 9:06 AM EDT TSH Routine 05/03/2024 8:02 AM EDT Acquired hypothyroidism POCT GLUCOSE Routine 04/18/2024 10:48 AM EST Type 2 diabetes mellitus with hyperglycemia, with long-term current use of insulin ([facility]) HEMATOXYLIN AND EOSIN STAIN Routine 04/17/2024 1:55 [...] Recently Relevant to Health Maintenance Results * US Abdomen Comp w elastography (05/03/2024 9:06 AM EDT) Anatomical Region Laterality Modality Abdomen Ultrasound 05/03/2024 9:06 AM EDT Narrative 05/03/2024 12:25 PM EDT ? [facility] ?[address] ?[place] [address] ? Ultrasound Report ? Signed ? Patient: Michele Alicea L ?MR#: [id number] ?? [id number] ? : 1970 ?Acct:[id number] ? Age/Sex: 53 / M ?ADM Date: 05/03/24 ? Loc: HO.US ? Attending Dr: Saul Sanchez MD ? Ordering Physician: Saul Sanchez MD ?? Date of Service: 05/03/24 ?? Procedure(s): US abdomen comp w elastography ?? Accession Number(s): [id number] ? cc: Saul Sanchez MD; [facility] ? EXAMINATION: ??US ABDOMEN COMPLETE WITH LIVER [...] ??Darius Tipton MD ??05/03/2024 12:22 PM EDT ? Dictated By: ?Darius Tipton MD ? Signed By: ?<Electronically signed by Darius Tipton MD in OV> ?05/03/24 1222 ? DD/ 0906 ? TD/TT: 05/03/24 0941 ? Underground Heavy Equipment Operator: ? Procedure Note Gregoria Castro - 05/03/[address] [address] Ultrasound Report Signed Patient: Michele Alicea LMR#: [id number] : 1970Acct:[id number] Age/Sex: 53 / MADM Date: 05/03/24 Loc: HO.US Attending Dr: Saul Sanchez MD Ordering Physician: Saul Sanchez MD Date of Service: 05/03/24 Procedure(s): US abdomen comp w elastography Accession Number(s): [id number] cc: Saul Sanchez MD; [facility] EXAMINATION: US ABDOMEN COMPLETE WITH LIVER [...] of Radiologists in Ultrasound Liver Stiffness Thresholds (2020): LIVER STIFFNESS THRESHOLDS: *Shear wave velocity less [...] Darius Tipton MD 05/03/2024 12:22 PM EDT RP Dictated By: Darius Tipton MD Signed By: <Electronically signed by Darius Tipton MD in OV> 05/03/24 1222 DD/ 0906 TD/TT: 05/03/24 0941 Underground Heavy Equipment Operator: us [facility] External Provider IMG US PROCEDURES Final Result * (ABNORMAL) TSH (05/03/2024 8:02 AM EDT) Only the most recent of3 resultswithin the time period is included. Thyroid Stimulating Hormone 7.86(H) 0.32 - 4.0 uIU/mL [facility] Comment:Note: A sustained TS H level above 2.5 uIU/mL may warrant further investigation. TSH 3rd Generation ([facility]) Blood Venous blood specimen / Unknown 05/03/2024 8:02 AM EDT 05/03/2024 8:02 AM EDT [facility] LAB BLOOD ORDERABLES Final Re sult [facility] [address] [place] [phone] * POCT Glucose (04/18/2024 10:48 AM EST) Only the most recent of2 resultswithin the time period is included. [facility] Glucose Blood, POC 148 60 - 200 mg/dL Blood Capillary blood specimen / Unknown 04/18/2024 10:48 AM EST [facility] POINT OF CARE TEST ENTER/EDIT ORDERABLES Final Result * Hematoxylin and Eosin Stain (04/17/2024 1:55 PM EST) 04/17/2024 1:55 PM EST 04/18/2024 8:45 AM EST Narrative [facility] - 04/20/2024 9:09 AM EST ----- ------- Name: Michele Alicea ?Age/Sex: 53/M ? : 1970 Unit#: [id number] ?? Attend Dr: Saul Sanchez MD ?Re04/17/24 ?Status: DEP SDC ? Location: HO.SSS ?Disch: ? ----- ------- SPEC : [id number] ? RECD: 04/18/24 ? STATUS: ??SOUT ? REQ NUM: [id number] ? RAF: 04/17/24-3579 ? SUBM DR: Saul Sanchez MD ? ENTERED: ??04/18/24 ?SP TYPE: Surgical ? OTHR DR: Adrienne Sheehan [employer] ? ORDERED: ??HE Stain/6, Gross Micro L4/3, [...] Alicea ?Age/Sex: 53/M ? : 1970 Unit#: [id number] ?? Attend Dr: Saul Sanchez MD ?Re04/17/24 ?Status: DEP SDC ? Location: HO.SSS ?Disch: ? ----- ------- SPEC : [id number] ? RECD: 04/18/24 ? STATUS: ??SOUT ? REQ NUM: [id number] ? RAF: 04/17/24-9410 ? SUBM DR: Saul Sanchez MD ? ENTERED: ??04/18/24 ?SP TYPE: Surgical ? OTHR DR: Adrienne Sheehan ? ORDERED: ??HE Stain/6, Gross Micro L4/3, IHC, Special st. 2/2, H. pylori, AB/PAS/2 ? Copies To: ?? Saul Sanchez MD ?? [facility] ?? [address] ?? [place] [address] ?? [phone] ?? Adrienne Sheehan ?? [address] [facility] ?? [place] [address] ?? [phone] ----- ------- Signed (signature on file) Yaya Guillory MD 04/20/24 0909 ? ----- ------- ? END OF REPORT ? Generic External Data Provider LAB BLOOD ORDERAB LES Final Result Performing Organization Address [facility] de Phone Number [facility] [address] [place] [address] [phone] * Glucose, Whole Blood (04/17/2024 1:00 PM EST) [facility] Glucose, Whole Blood 111 60 - 115 mg/dL [facility] Comment:METER #: [id number] 04/17/2024 1:00 PM EST 04/17/2024 1:04 PM EST Generic External Data Provider LAB BLOOD ORDERAB LES Final Result Performing Organization Address [facility] de Phone Number [facility] [address] [place] [phone] * XR Chest 2 Views (03/28/2024 9:38 AM EST) Anatomical Region Laterality Modality Chest Radiographic Nancy ging 03/28/2024 9:38 AM EST Narrative 03/28/2024 9:56 AM EST ? [facility] [place] [facility] ?[address] ?[place] [address] ?XRay Report ? Signed ? Patient: Lobo Lobo,Michele L ?MR#: [id number] ?? [id number] ? : 1970 ?Acct:[id number] ? Age/Sex: 53 / M ?ADM Date: 03/28/24 ? Loc: HO.LAB ? Attending Dr: Saul Sanchez MD ? Ordering Physician: Saul Sanchez MD ?? Date of Service: 03/28/24 ?? Procedure(s): XR chest 2V ?? Accession Number(s): [id number] ? cc: Saul Sanchez MD; Adrienne Sheehan [...] DD/ 0938 ? TD/TT: 03/28/24 0942 ? Underground Heavy Equipment Operator: ? Procedure Note Matthew, Gregoria - 03/28/[address] [address] XRay Report Signed Patient: Michele Alicea R#: [id number] : 1970Acct:[id number] Age/Sex: 53 / MADM Date: 03/28/24 Loc: HO.LAB Attending Dr: Saul Sanchez MD Ordering Physician: Saul Sanchez MD Date of Service: 03/28/24 Procedure(s): XR chest 2V Accession Number(s): [id number] cc: Saul Sanchez MD; [facility] EXAMINATION: XR CHEST 2 VIEWS HISTORY: [...] Tipton MD in OV> 03/28/2453 DD/ TD/TT: 03/28/24941 Underground Heavy Equipment Operator: [facility] External Provider IMG XR PROCEDURES Final Result * Vitamin D, 25-Hydroxy, Total, Immunoassay (03/28/2024 9:12 AM EST) Vitamin D 25-OH Total 39.6 >30 ng/mL [facility] Comment:Health Based Referen ce Values*< 20 ng/mL [id number] ng/mL Insufficient> 30 ng/mL Sufficient*Oscar RUIZ. N [...] ORDERAB LES Final Result Performing Organization Address [facility]/ZIP Co de Phone Number [facility] [address] [place] [phone] * Vitamin B12 (Cobalamin) and Folate Panel, Serum (03/28/2024 9:12 AM EST) Vitamin B12 734 200 - 900 pg/mL [facility] Comment:NORMAL 200-900 PG/ML INDETERMINATE 160-199 PG/ML DEFICIENT < 160 PG/ML Folate 8.7 > or = 4.0 ng/mL [facility] Comment:Reference Values:> o r = 4.0 ng/mL< 4.0 ng/mL suggests folate deficiency Methotrexate, aminopterin and folinic acid(leucovorin) are chemotherapeutic agents whose molecularstructures are similar to folate; therefore, the Architectfolate assay cannot be used for patients using these drugs. 03/28/2024 9:12 AM EST 03/28/2024 9:12 AM EST us Generic External Data Provider LAB BLOOD ORDERAB LES Final Result Performing Organization Address [facility] Co de Phone Number [facility] [address] [place] [phone] * (ABNORMAL) TSH with Reflex to Free T4 (03/28/2024 9:12 AM EST) TSH reflex Free T4 4.41(H) 0.32 - 4.0 uIU/mL [facility] 03/28/2024 9:12 AM EST 03/28/2024 9:12 AM EST us Generic External Data Provider LAB BLOOD ORDERAB LES Final Result Performing Organization Address City/[facility]/ZIP Co de Phone Number [facility] [address] [place] [phone] * (ABNORMAL) CBC auto differential (03/28/2024 9:12 AM EST) White Blood Count 7.1 4.8 - 10.8 X10*3/uL [facility] Red Blood Count 5.81(H) 4.60 - 5.80 X10*6/uL [facility] Hemoglobin 15.3 14.0 - 18.0 g/dl [facility] Hematocrit 48.1 42.0 - 52.0 % [facility] Mean Corpuscular Volume 82.8 80.0 - 98.0 fL [facility] Mean Corpuscular Hemoglobin 26.3(L) 27.0 - 33.0 pg [facility] Mean Corpuscular HGB Conc 31.8 31.0 - 36.0 g/dl [facility] Red Cell Distribution Width 14.2 11.0 - 16.0 % [facility] Platelet Count 306 160 - 400 X10*3/uL [facility] Mean Platelet Volume 9.1(L) 9.4 - 12.4 fL [facility] Neutrophils Percent Auto 52.4 45 - 73 % [facility] Imm Gran Pct Auto 0.3 0.0 - 0.4 % [facility] Lymphocytes Percent Auto 35.6 20 - 40 % [facility] Monocytes Percent Auto 6.4 2 - 11 % [facility] Eosinophils Percent Auto 4.7(H) 0 - 4 % [facility] Basophils Percent Auto 0.6 0 - 2 % [facility] NRBC Pct Auto 0.0 0.0 - 0.2 /100WBC [facility] Neutrophils Absolute Auto 3.7 2.0 - 8.3 x10*3/uL [facility] Imm Gran Abs Auto 0.02 0.00 - 0.03 X10*3/uL [facility] Lymphocytes Absolute Auto 2.5 1.2 - 4.9 X10*3/uL [facility] Monocytes Absolute Auto 0.5 0.1 - 1.2 X10*3/uL [facility] Eosinophils Absolute Auto 0.3 0.0 - 0.4 X10*3/uL [facility] Basophils Absolute Auto 0.0 0.0 - 0.2 X10*3/uL [facility] NRBC Abs Auto 0.000 0.0 - 0.012 X10*3/uL [facility] 03/28/2024 9:12 AM EST 03/28/2024 9:12 AM EST us Generic External Data Provider LAB BLOOD ORDERAB LES Final Result Performing Organization Address [facility] Phone Number [facility] [address] [place] [phone] * Iron And Total Iron Binding Capacity (03/28/2024 9:12 AM EST) Iron 97 45 - 160 mcg/dL [facility] Total Iron Binding Capacity 345 228 - 428 mcg/dL [facility] Percent Iron Saturation 28 15 - 50 % [facility] Unsaturated Iron Binding 248 ug/dL [facility] 03/28/2024 9:12 AM EST 03/28/2024 9:12 AM EST us Generic External Data Provider LAB BLOOD ORDERAB LES Final Result Performing Organization Address [facility] [address] [place] [phone] * Insulin (03/28/2024 9:12 AM EST) Insulin 10 2 - 29 uU/mL [facility] Comment:This test was perfor med using the Raise Your Flag chemiluminescentmethod. Values obtained from different assay methods [...] ORDERAB LES Final Result Performing Organization Address [facility] Co de Phone Number [facility] [address] [place] [phone] * Zinc (03/28/2024 9:12 AM EST) Zinc 91 60 - 130 mcg/dL [facility] Comment:This test was develo ped and its analytical performancecharacteristics have been determined by [place]. It hasnot been cleared or approved by the U.S. Food and DrugAdministration. This assay has been validated pursuantto the CLIA regulations and is used for clinicalpurposes.THIS TEST WAS PERFORMED AT:[employer] [id number] [place] [id number] VALVERDE MD,PHD 03/28/2024 9:12 AM EST 03/28/2024 9:12 AM EST [facility] External Data Provider LAB BLOOD ORDERAB LES Final Result Performing Organization Address [facility] Co de Phone Number [facility] [address] [place] [phone] * Vitamin A (03/28/2024 9:12 AM EST) Vitamin A (Retinol) 45 38 - 98 mcg/dL [facility] Comment:Vitamin supplementat ion within 24 hours prior toblood draw may affect the accuracy of the results.This test was developed and its analytical performancecharacteristics have been determined by [place]. It hasnot been cleared or approved by the U.S. Food and DrugAdministration. This assay has been validated pursuantto the CLIA regulations and is used for clinicalpurposes.THIS TEST WAS PERFORMED AT:[id number] [place] [id number] VALVERDE MD,PHD 03/28/2024 9:12 AM EST 03/28/2024 9:12 AM EST Generic External Data Provider LAB BLOOD ORDERAB LES Final Result Performing Organization Address [facility] Co de Phone Number [facility] [address] [place] [phone] * C-reactive Protein (03/28/2024 9:12 AM EST) C Reactive Protein 0.36 < or = 0.50 mg/dL [facility] 03/28/2024 9:12 AM EST 03/28/2024 9:12 AM EST Generic External Data Provider LAB BLOOD ORDERAB LES Final Result Performing Organization Address [facility] Phone Number [facility] [address] [place] [phone] * T4, Free (03/28/2024 9:12 AM EST) Free T4 (Free Thyroxine) 1.06 0.71 - 1.85 ng/dL [facility] 03/28/2024 9:12 AM EST 03/28/2024 9:12 AM EST Generic External Data Provider LAB BLOOD ORDERAB LES Final Result Performing Organization Address [facility] de Phone Number [facility] [address] [place] [address] [phone] * Vitamin B1 (03/28/2024 9:12 AM EST) Vitamin B1 12 8 - 30 nmol/L [facility] Comment:Vitamin supplementat ion within 24 hours prior toblood draw may affect the accuracy of the results.This test was developed and its analytical performancecharacteristics have been determined by [employer] [place], [place]. It hasnot been cleared or approved by the U.S. Food and DrugAdministration. This assay has been validated pursuantto the CLIA regulations and is used for clinicalpurposes.THIS TEST WAS PERFORMED AT:[employer]/WITT [id number] [place] [id number] VALVERDE MD,PHD 03/28/2024 9:12 AM EST 03/28/2024 9:12 AM EST Generic External Data Provider LAB BLOOD ORDERAB LES Final Result [facility] [address] [place] [phone] * (ABNORMAL) Hemoglobin A1c (03/28/2024 9:12 AM EST) Hemoglobin A1c 10.5(H) <6.0 % [facility] Comment:Hemoglobin A1C Refer ence Range Adults: 4.8 - 6.0 % Non diabetic: < 6.0 % Goal: < 7.0 %Additional Action Suggested: > 8.0 %Note: Hemoglobin A1c results are invalid for patients with abnormal amounts of HbF. Blood transfusions may impact the HbA1c concentration in the patient sample. Estimated Average Glucose 255 mg/dL [facility] Comment:eAG = Estimated ave rage glucose which is %A1C expressed asaverage glucose, using the formula of the P7E-NnwefqlUhfsang Glucose study (ADAG), Diabetes Care, Vol.31,#8,Sep. 2007 03/28/2024 9:12 AM EST 03/28/2024 9:12 AM EST Generic External Data Provider LAB BLOOD ORDERAB LES Final Result Performing Organization Address City/[facility]/ZIP Co de Phone Number [facility] [address] [place] [phone] * Ferritin (03/28/2024 9:12 AM EST) Ferritin 72 20 - 250 ng/mL [facility] 03/28/2024 9:12 AM EST 03/28/2024 9:12 AM EST us Generic External Data Provider LAB BLOOD ORDERAB LES Final Result [facility] [address] [place] [phone] [phone] * (ABNORMAL) Lipid Panel, Standard (03/28/2024 9:12 AM EST) Only the most recent of2 resultswithin the time period is included. Triglycerides 132 <150 mg/dL [facility] Comment:Desirable Triglyceri de: less than 150 mg/dLBorderline High Triglyceride 150-199 mg/dLHigh Triglyceride: 200-499 mg/dLVery High Triglyceride: greater than or equal to 5OO mg/dL Cholesterol 184 <200 mg/dL [facility] Comment:Desirable Cholestero l: less than 200 mg/dLBorderline High Cholesterol: 200-239 mg/dLHigh Cholesterol: greater than 239 mg/dL LDL Cholesterol Calculated 120(H) <100 mg/dL [facility] Comment:Desirable LDL: less than 100 mg/dLNear Optimal/Above Optimal LDL: 110- 129 mg/dLBorderline High LDL: 130-159 mg/dLHigh LDL: 160-189 mg/dLVery High LDL: greater than or equal to 190 mg/dL HDL Cholesterol 38(L) >40 mg/dL [facility] Comment:Desirable HDL: great er than 40 mg/dL Note: This HDL assay may give artificially low results in patients with liver disease. 03/28/2024 9:12 AM EST 03/28/2024 9:12 AM EST us Generic External Data Provider LAB BLOOD ORDERAB LES Final Result [facility] [address] [place] [phone] * (ABNORMAL) Comprehensive Metabolic Panel (03/28/2024 9:12 AM EST) Only the most recent of2 resultswithin the time period is included. Sodium 139 135 - 145 mmol/L [facility] Potassium 4.4 3.3 - 5.1 mmol/L [facility] Chloride 102 96 - 108 mmol/L [facility] Carbon Dioxide 32(H) 22 - 29 mmol/L [facility] Anion Gap 9(L) 12 - 20 [facility] Urea Nitrogen (BUN) 18(H) 9 - 16 mg/dL [facility] Creatinine, Serum 1.25 0.5 - 1.4 mg/dL [facility] Estimated Glomerular Filt Rate 60 [facility] Comment:Chronic Kidney Disea se: Estimated GFR < 60 mL/min/1.11c3Aodzaq Kidney Disease: Estimated GFR < 15 mL/min/1.73m2 Glucose 235(H) 60 - 115 mg/dL [facility] Calcium 9.8 8.4 - 10.2 mg/dL [facility] Bilirubin, Total 0.6 0.0 - 1.0 mg/dL [facility] Aspartate Amino Transferase 33 5 - 37 U/L [facility] Alanine Aminotransferase 44(H) 0 - 40 U/L [facility] Total Protein 8.3(H) 6.5 - 8.0 g/dL [facility] Albumin Level 4.4 3.5 - 5.0 g/dL [facility] Alkaline Phosphatase 91 39 - 117 U/L [facility] 03/28/2024 9:12 AM EST 03/28/2024 9:12 AM EST us Generic External Data Provider LAB BLOOD ORDERAB LES Final Result [facility] [address] [place], [place] [phone] * XR Knee 3 Views Right (03/21/2024 1:32 PM EST) Anatomical Region Laterality Modality Lower Extremities, Knee Right Radiogra phic Imaging 03/21/2024 1:32 PM EST Narrative 03/21/2024 1:33 PM EST ? [facility] ?[address] ?[place] [address] ?XRay Report ? Signed ? Patient: Lobo Lobo,Michele L ?MR#: [id number] ?? [id number] ? : 1970 ?Acct:[id number] ? Age/Sex: 53 / M ?ADM Date: 03/20/24 ? Loc: HO.XRAY ? Attending Dr: Adrienne ZAMARRIPAP ? Ordering Physician: Adrienne Sheehan ?? Date of Service: 03/20/24 ?? Procedure(s): XR knee RT 3V ?? Accession Number(s): [id number] ? cc: Adrienne Sheehan AIR DEFENSE ARTILLERY SENIOR SERGEANT ? CLINICAL HISTORY: acute on chronic right [...] DD/ 1332 ? TD/TT: 03/21/24 1332 ? Underground Heavy Equipment Operator: ? Procedure Note Matthew, Image - 03/21/[address] [address] XRay Report Signed Patient: Michele Alicea R#: [id number] : 1970Acct:[id number] Age/Sex: 53 / MADM Date: 03/20/24 Loc: MARIUSZ Attending Dr: Adrienne Sheehan AIR DEFENSE ARTILLERY SENIOR SERGEANT Ordering Physician: Adrienne Sheehan [facility] Date of Service: 03/20/24 Procedure(s): XR knee RT 3V Accession Number(s): [id number] cc: HaworthAdrienne beltran [facility] CLINICAL HISTORY: acute on chronic right knee [...] 03/21/24 1332 DD/ 1332 TD/TT: 03/21/24 1332 Underground Heavy Equipment Operator: [facility] IMG XR PROCEDURES Edited Resu lt - Final * (ABNORMAL) Albumin, Random Urine W/Creatinine (03/09/2024 10:14 AM EST) Creatinine, Urine 160.00 mg/dL [facility] Microalbumin Urine 475.0 mg/L [facility] Microalbum Creatinine Ratio Ur 296.8(H) <30 ug/mg cr [facility] Comment:Albumin/Creatinine R atio Reference Ranges: Normal: < 30 ug/mg creatinine Microalbuminuria: 30 - 300 ug/mg creatinineClinical Albuminuria: > 300 ug/mg creatinine Urine 03/09/2024 10:1 4 AM EST 03/09/2024 11:34 AM EST [facility] LAB URINE ORDERABLES Final Re sult [facility] [address] [place] [phone] * (ABNORMAL) POCT HGB A1C (03/09/2024 9:33 AM EST) [facility] Hemoglobin A1C 9.7(A) 4.0 - 6.0 % Blood 03/09/2024 9:33 AM EST [facility] AIR DEFENSE ARTILLERY SENIOR SERGEANT POINT OF CARE TEST ENTER/EDIT ORDERABLES Final Result * Colonoscopy (04/16/2021) [facility] Colonoscopy Normal Normal, Abnormal, BIRADS 0 , BIRADS 1 , BIRADS 2, BIRADS 3 , BIRADS 4+ Comment:Patient States got i t done at [facility] and was normal. Historical Provider MD HEALTH MAINTENANCE Final Result * HEPATITIS C AB W/REFL TO HCV RNA, QN, PCR (02/18/2021 4:20 PM EST) [facility] HEPATITIS C ANTIBODY NON-REACT PEPE NON-REACT PEPE [facility] INDEX 0.04 <1.00 [facility] Comment: ?? HCV antibody was non-reactive. There is no laboratory ?? evidence of HCV infection. ?? In most cases, no further action is required. However, if recent HCV exposure is suspected, a test for HCV RNA (test code 68586) is suggested. ?? For additional information please refer to http://education.KXEN.GOQii/faq/BDF65l2 (This link is being provided for informational/ educational purposes only.) ?? 02/18/2021 4:20 PM EST Teri Alanis NP HISTORICAL/NON ORDERABLE LABS Final Result [facility] [address] * HIV 1/2 ANTIGEN/ANTIBODY,FOURTH GENERATION W/RFL (02/18/2021 4:20 PM EST) [facility] HIV-1/2 ANTIGEN AND ANTIBODIES, 4TH GENERATION W/ [...] ? For additional information please refer to http://education.Actiance/faq/JDD442 (This link is being provided for informational/ educational purposes only.) ? The performance of this assay has not been clinically validated in patients less than 2 years old. ?? 02/18/2021 4:20 PM EST us Teri Alanis PRINT PRODUCTION COORDINATOR LAB BLOOD ORDERABLES Final Res ult [facility] [address] from Last 3 Months or Most Recently Relevant to Health Maintenance [place] [address] [place] [address] - [employer] [facility] [employer] STAND ADULT Care Teams Consumer Lender Relationship Specialty Start Date End Date Adrienne Sheehan FNP [address] [place] [phone] PCP - General Family Medicine 07/04/23
--- OUTSIDE RECORDS SUMMARY | 2024-05-04 09:05 | XMS_ITS | Encounter Summary ---
Author Organization [employer] Address [address] [place] [address] Care Team Providers Care Hat Stock Laminating Machine Operator Name Role Phone [facility] Primary Care Provider [phone] Reason for Visit * Reason Comments Med Refill Encounter Details Date Type Department Care Team ([facility] st Contact Info) Description 11/07/2023 Refill [facility] [address] [place], [place] [phone] [facility] [address] [place], [place] [phone] Mild intermittent asthma without complication Social History [...] Office Visit [facility] [address] [place] [phone] [facility] [address] [place] [address] 05/15/2024 11:00 AM EDT Medication Management [facility] [address] [place] [phone] Margret Strauss, PharmD [address] [place] [address] 07/20/2024 2:30 PM EDT Office Visit [facility] [address] [place] [address] [facility] [address] [place] [address] 07/23/2024 2:00 PM EDT Office Visit [facility] OPTOMETRY [address] [place] [phone] Tom, Lou, OD [address] [place] [address] documented as of this encounter Goals Goal [...] documented as of this encounter Care Teams Hat Stock Laminating Machine Operator Relationship Specialty Start Date End Date Adrienne Sheehan FNP [address] [place] [phone] PCP - General Family Medicine 07/04/23 documented as of this encounter
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
== END 2024-05-04 11:03 | disposition home or self-care (01) ==
LOC: HO.HBST 08:46
PROVIDERS: PCP Registered Nurse; Visit Provider Counselor Mental Health
DX: F43.20 Adjustment disorder, unspecified (principal)
CPT/HCPCS: 90791

== ENCOUNTER → 2024-05-04 08:46 | Outpatient (BNVA) | payer OTHER, SELFPAY | PROVIDERS: PCP Registered Nurse; Visit Provider Counselor Mental Health ==

== ENCOUNTER → 2024-05-10 10:13 | Outpatient (REF) | payer OTHER, SELFPAY ==
--- NOTE | 2024-05-10 10:16 | CA_ITS ---
Acquisition Time: 2024-05-10 11:01:31 Total Exercise Time: 00:08:56 Test Indications: ABN EKG, PREOP Medications: SEE H&P Protocol: TOM Max HR: 157 BPM 95% of Pred: 165 BPM Max BP: 138/88 mmHG Max Work Load: 10.2 METS Exercise stress test with exercise 8 mins 56 secs of Tom Protocol, achieving 81% MPHR, with reports of SOB and dizziness, no chest pain, without any arrythmias, with normotensive response to exercise. Without any EKG changes meeting criteria for ischemia. In recovery, pt's dizziness resolved and breathing returned to baseline. Echo images obtained by tech at rest and post peak exercise. Definity contrast utilized. Test reviewed with Dr. Quiroz. Referred By: Saul Sanchez Electronically Signed By: Sherman Rubio
--- OUTSIDE RECORDS SUMMARY | 2024-05-10 13:12 | XMS_ITS | Encounter Summary ---
Author Organization [employer] Address [address] [address] [place] [address] Care Team Providers Care Conservation Educator Name Role Phone Adrienne Sheehan [facility] Primary Care Provider [phone] Encounter Details Date Type Department Care Team (Late st Contact Info) Description 05/03/2024 Orders Only [facility] External Provider, [facility] Social History Tobacco Use Types Packs/Day Years [...] Care Team (Late st Contact Info) Description 05/15/2024 11:00 AM EDT Medication Management [facility] [address] [place] [address] Margret Strauss, SarayD [address] [place] [address] 07/20/2024 2:30 PM EDT Office Visit [facility] [address] [place] [address] [facility] [address] [place] [address] 07/23/2024 2:00 PM EDT Office Visit [facility] OPTOMETRY [address] [place] [address] Tom, Lou, OD [address] [place] [address] 08/08/2024 2:00 PM EDT Office Visit [facility] [address] [place] [address] [facility] [address] [place] [address] documented as of this encounter Goals Goal [...] EDT Narrative 05/03/2024 12:25 PM EDT ? [facility] ?[address] ?[place] [address] ? Ultrasound Report ? Signed ? Patient: Michele Alicea ?MR#: [id number] ?? [id number] ? : 1970 ?Acct:[id number] ? Age/Sex: 53 / M ?ADM Date: 05/03/24 ? Loc: HO.US ? Attending Dr: Saul Sanchez MD ? Ordering Physician: Saul Sanchez MD ?? Date of Service: 05/03/24 ?? Procedure(s): US abdomen comp w elastography ?? Accession Number(s): [id number] ? cc: Saul Sanchez MD; Adrienne Sheehan [...] DD/ 0906 ? TD/TT: 05/03/24 0941 ? Facsimile Operator: ? Procedure Note Gregoria Castro - 05/03/[address] [address] Ultrasound Report Signed Patient: Michele Alicea R#: [id number] : 1970Acct:[id number] Age/Sex: 53 / MADM Date: 05/03/24 Loc: HO.US Attending Dr: Saul Sanchez MD Ordering Physician: Saul Sanchez MD Date of Service: 05/03/24 Procedure(s): US abdomen comp w elastography Accession Number(s): [id number] cc: Saul Sanchez MD; [facility] EXAMINATION: US ABDOMEN COMPLETE WITH LIVER [...] 05/03/24 1222 DD/ 0906 TD/TT: 05/03/24 0941 Facsimile Operator: [facility] External Provider IMG US PROCEDURES Final Result documented in this encounter Visit Diagnoses Not on filedocumented in this encounter Additional Health Concerns Assessment Noted Time PHQ-9 Depression Total Score: 0 04/19/19 25 10:48 AM EST documented as of this encounter Care Teams Conservation Educator Relationship Specialty Start Date End Date Adrienne Sheehan FNP [address] [place] [phone] PCP - General Family Medicine 07/04/23 documented as of this encounter
--- OUTSIDE RECORDS SUMMARY | 2024-05-10 13:12 | XMS_ITS | Encounter Summary ---
Author Organization [employer] Address [address] 7t [place] [address] Care Team Providers Care Endorsement Clerk Name Role Phone [facility] Primary Care Provider [phone] Reason for Visit * Reason Comments Pre-visit Planning SDOH screening posit marilyn and tobacco screening negative Encounter Details Date Type Department Care Team ([facility] st Contact Info) Description 04/30/2024 Patient Outreach [facility] MEDICINE [address] [place] [address] [facility] 230 [place] [address] Pre-visit Planning (SDOH screening positive and tobacco [...] appointment a photo id and insurance card, SDOK positive. Patient looking for assistance with pest control Referral will be placed. documented in this encounter Plan of Treatment Upcoming Encounters Date Type Department Care Team (Late st Contact Info) Description 05/15/2024 11:00 AM EDT Medication Management [facility] MEDICINE [address] [place] [address] Margret Strauss, Rayshawn 230 [place] [address] 07/20/2024 2:30 PM EDT Office Visit [facility] MEDICINE [address] [place] [address] Adrienne Sheehan FNP 230 [place] [address] 07/23/2024 2:00 PM EDT Office Visit [facility] OPTOMETRY [address] [place] [address] Tom, Lou, OD 230 [place] [address] 08/08/2024 2:00 PM EDT Office Visit [facility] MEDICINE [address] [place] [address] Adrienne Sheehan [facility] 230 [place] [address] documented as of this encounter Goals Goal [...] documented as of this encounter Care Teams Endorsement Clerk Relationship Specialty Start Date End Date Aguila MARILOU DeleonP 230 [place] [address] PCP - General Family Medicine 07/04/23 documented as of this encounter
--- OUTSIDE RECORDS SUMMARY | 2024-05-10 13:12 | XMS_ITS | Clinical Summary ---
Author Organization [facility] [employer] [facility] Address [address] [place] [address] Care Team Providers Care Recyclable Materials Distributor Name Role Phone Unavailable Primary Care Provider [...]
--- OUTSIDE RECORDS SUMMARY | 2024-05-10 13:12 | XMS_ITS | Encounter Summary ---
Author Organization [employer] Address [address] [facility] [address] 7t [place] [address] Care Team Providers Care Caustic Purification Operator Name Role Phone [facility] Primary Care Provider [phone] Reason for Visit * Reason Comments Med Refill Encounter Details Date Type Department Care Team ([facility] st Contact Info) Description 10/28/[address] [facility] MEDICINE [address] [place] [address] [facility] 230 [place] [address] Social History Tobacco Use Types Packs/Day Years [...] Upcoming Encounters Date Type Department Care Team ([facility] st Contact Info) Description 05/15/2024 11:00 AM EDT Medication Management [facility] MEDICINE [address] [place] [address] Margret Strauss, PharmD [address] [place] [address] 07/20/2024 2:30 PM EDT Office Visit [facility] MEDICINE [address] [place] [address] [facility] [address] [place] [address] 07/23/2024 2:00 PM EDT Office Visit [facility] OPTOMETRY [address] [place] [address] Tom, Lou, OD 230 [place] [address] 08/08/2024 2:00 PM EDT Office Visit [facility] MEDICINE [address] [place] [address] [facility] [address] [place] [address] documented as of this encounter Goals Goal [...] documented as of this encounter Care Teams Caustic Purification Operator Relationship Specialty Start Date End Date Adrienen Sheehan FNP [address] [place] [address] PCP - General Family Medicine 07/04/23 documented as of this encounter
--- OUTSIDE RECORDS SUMMARY | 2024-05-10 13:12 | XMS_ITS | Encounter Summary ---
Author Organization [employer] Address [address] [facility] 7t [place] [address] Care Team Providers Care School Cafeteria Head Cook Name Role Phone Sophia Burns PROJECT ADMINISTRATIVE ASSISTANT Primary Care Provider [phone] Kori Alonso AIRLINE MANAGER Primary Care Provider [phone] Boom Estevez MD Primary Care Provider [phone] Kori Alonso AIRLINE MANAGER Primary Care Provider [phone] [facility] PROJECT ADMINISTRATIVE ASSISTANT Primary Care Provider [phone] Encounter Details Date Type Department Care Team (Latest Contact Info) Description 04/17/2021 Abstract [facility] CONVERSIONS Dental, Provider, DDS Social [...] Description 05/15/2024 11:00 AM EDT Medication Management [facility] MEDICINE [address] [place] [address] Margret Strauss, SarayD [address] [place] [address] 07/20/2024 2:30 PM EDT Office Visit [facility] MEDICINE [address] [place] [address] [facility] 230 [place] [address] 07/23/2024 2:00 PM EDT Office Visit [facility] OPTOMETRY [address] [place] [address] Tom, Lou, OD 230 [place] [address] 08/08/2024 2:00 PM EDT Office Visit [facility] MEDICINE [address] [place] [address] [facility] 230 [place] [address] documented as of this encounter Visit Diagnoses Not on filedocumented in this encounter Care Teams School Cafeteria Head Cook Relationship Specialty Start Date End Date Sophia Burns FNP PCP - General Family Medicine 10/12/21 11/22/22 Kori Alonso NP [address] [place] [address] PCP - General Family Medicine 11/23/22 01/16/23 Boom Estevez MD [address] [place] [address] PCP - General Internal Medicine 01/17/23 01/18/23 Kori Alonso NP [address] [place] [address] PCP - General Family Medicine 01/19/23 07/03/23 Adrienne Sheehan FNP [address] [place] [address] PCP - General Family Medicine 07/04/23 documented as of this encounter
--- OUTSIDE RECORDS SUMMARY | 2024-05-10 13:12 | XMS_ITS | Encounter Summary ---
Author Organization [employer] Address [address] [facility] [address] 7[address] [place] [address] Care Team Providers Care Die Inspector Name Role Phone [facility] Primary Care Provider [phone] Reason for Visit * Reason Comments Care Coordination CHW outreach [facility] pe st control - referral completed Encounter Details Date Type Department Care Team (Latest Contact Info) Description 04/30/2024 Patient Outreach [facility] MEDICINE 230 [place] [address] [facility] 230 [place] [address] Care Coordination (CHW outreach SDOH pest control [...] Wednesdays, and Walk-In Urgent Care Located in [facility] of [facility]. Patient provided with after-hours line for [facility], , which offer night time triage service and option to transfer to agricultural extension officer provider if needed. documented in this encounter Plan of Treatment Upcoming Encounters Date Type Department Care Team (Late st Contact Info) Description 05/15/2024 11:00 AM EDT Medication Management [facility] MEDICINE 230 [place] [address] Margret Strauss PharmD [address] [place] [address] 07/20/2024 2:30 PM EDT Office Visit [facility] MEDICINE [address] [place] [address] Adrienne Sheehan FNP [address] [place] [address] 07/23/2024 2:00 PM EDT Office Visit [facility] OPTOMETRY [address] [place] [address] Tom, Lou, OD 230 [place] [address] 08/08/2024 2:00 PM EDT Office Visit [facility] MEDICINE 230 [place] [address] VENDOR [address] [place] [address] documented as of this encounter Goals Goal [...] documented as of this encounter Care Teams Die Inspector Relationship Specialty Start Date End Date Adrienne Sheehan FNP [address] [place] [address] PCP - General Family Medicine 07/04/23 documented as of this encounter
--- OUTSIDE RECORDS SUMMARY | 2024-05-10 13:12 | XMS_ITS | Encounter Summary ---
Author Organization [employer] Address [address] [address] 7t [place] [address] Care Team Providers Care Neon Molder Name Role Phone Adrienne Sheehan [facility] Primary Care Provider [phone] Reason for Referral * Consultation (Routine) - Authorized Specialty Diagnoses / Procedures Referred By Darryl huitron Referred To Contact Pharmacy Diagnoses Type 2 diabetes mellitus with hyperglycemia, with long-term current use of insulin (CMS/HCC) Emily Brooks MD 230 [place] [address] Phone: tel: fax: Referral ID Status Reason Start Date Expiration Date Visits Requested Visits Authorized [id number] Authorized Consult and Treat 04/18/2024 04/18/2025 6 6 Encounter Details Date Type Department Care Team (Late st Contact Info) Description 04/18/2024 Orders Only [facility] MEDICINE [address] [place], [place] [phone] Emily Brooks MD 230 [place] [address] Type 2 diabetes mellitus with [...] Description 05/15/2024 11:00 AM EDT Medication Management [facility] MEDICINE [address] [place] [address] Margret Strauss, PharmD [address] [place] [address] 07/20/2024 2:30 PM EDT Office Visit [facility] MEDICINE 230 [place] [address] OrocovisAdrienne, FOOTWEAR SALES REPRESENTATIVE [address] [place] [address] 07/23/2024 2:00 PM EDT Office Visit [facility] OPTOMETRY [address] [place] [address] Lou Santos, OD 230 [place] [address] 08/08/2024 2:00 PM EDT Office Visit [facility] MEDICINE [address] [place] [address] Adrienne Sheehan FNP [address] [place] [address] Scheduled Referrals Name Type Priority Associated Diagnoses Orde r Schedule Referral to Pharmacy CDTM Outpatient Referral Routine Type 2 diabetes mellitus with hyperglycemia, with long-term current use of insulin ([facility]) Ordered: 04/18/2024 documented as of this encounter [...] hyperglycemia, with long-term current use of insulin ([facility])- Primary documented in this encounter Additional Health Concerns Assessment Noted Time PHQ-9 Depression Total Score: 0 04/19/19 10:48 AM EST documented as of this encounter Care Teams Neon Molder Relationship Specialty Start Date End Date Adrienne Sheehan FNP [address] [place] [address] PCP - General Family Medicine 07/04/23 documented as of this encounter
--- OUTSIDE RECORDS SUMMARY | 2024-05-10 13:12 | XMS_ITS | Encounter Summary ---
Author Organization [employer] Address [address] 7t [place] [address] Care Team Providers Care Clean Up Person Name Role Phone [facility] Primary Care Provider [phone] Encounter Details Date Type Department Care Team ([facility] st Contact Info) Description 05/09/2024 Telephone [facility] MEDICINE [address] [place], [place] [phone] [facility] 230 [place] [address] Social History Tobacco Use Types Packs/Day Years [...] encounter Miscellaneous Notes * Telephone Encounter - Marita Love - 05/09/2024 8:25 AM EDT Called pt to inform them there appt for today has been cancelled due to the provider being out , wers appt for 08/08/24 documented in this encounter Plan of Treatment Upcoming Encounters Date Type Department Care Team (Late st Contact Info) Description 05/15/2024 11:00 AM EDT Medication Management [facility] MEDICINE 230 [place] [address] Margret Strauss, PharmD 230 [place] [address] 07/20/2024 2:30 PM EDT Office Visit [facility] MEDICINE [address] [place] [address] Adrienne Sheehan, DUY [address] [place] [address] 07/23/2024 2:00 PM EDT Office Visit [facility] OPTOMETRY [address] [place] [address] Lou Santos, OD 230 [place] [address] 08/08/2024 2:00 PM EDT Office Visit [facility] MEDICINE 230 [place], [place] [phone] Adrienne Sheehan FNP [address] [place] [address] documented as of this encounter Goals Goal [...] documented as of this encounter Care Teams Clean Up Person Relationship Specialty Start Date End Date Adrienne Sheehan FNP [address] [place] [address] PCP - General Family Medicine 07/04/23 documented as of this encounter
--- OUTSIDE RECORDS SUMMARY | 2024-05-10 13:12 | XMS_ITS | Encounter Summary ---
Author Organization [employer] Address [address] 7t [place] [address] Care Team Providers Care Office Machine Inspector Name Role Phone Kori Alonso NP Primary Care Provider [phone] [facility] Primary Care Provider [phone] Reason for Visit * Reason Onset Date Comments Med Refill 03/16/2023 Encounter Details Date Type Department Care Team (Late st Contact Info) Description 03/16/2023 Telephone [facility] MEDICINE [address] [place], [place] [phone] Kori Alonso NP 230 [place], [place] [phone] Med Refill Social History Tobacco Use Types [...] Description 05/15/2024 11:00 AM EDT Medication Management [facility] MEDICINE [address] [place] [address] Margret Strauss, PharmD 230 [place] [address] 07/20/2024 2:30 PM EDT Office Visit [facility] MEDICINE [address] [place] [address] [place] Adrienne [facility] 230 [place] [address] 07/23/2024 2:00 PM EDT Office Visit [facility] OPTOMETRY [address] [place] [address] Lou Santos, OD 230 [place] [address] 08/08/2024 2:00 PM EDT Office Visit [facility] MEDICINE [address] [place] [address] [place] Adrienne [facility] 230 [place] [address] documented as of this encounter Goals Goal [...] documented as of this encounter Care Teams Office Machine Inspector Relationship Specialty Start Date End Date Kori Alonso NP [address] [place] [address] PCP - General Family Medicine 01/19/23 07/03/23 AguilaAdrienne beltran FNP 230 [place] [address] PCP - General Family Medicine 07/04/23 documented as of this encounter
--- OUTSIDE RECORDS SUMMARY | 2024-05-10 13:12 | XMS_ITS | Encounter Summary ---
Author Organization [employer] Address [address] 7t [place] [address] Care Team Providers Care Manager Battery Name Role Phone Adrienne Sheehan [facility] Primary Care Provider [phone] Encounter Details Date Type Department Care Team [...] Description 05/15/2024 11:00 AM EDT Medication Management [facility] MEDICINE [address] [place] [address] Margret Strauss PharmD 230 [place] [address] 07/20/2024 2:30 PM EDT Office Visit [facility] MEDICINE [address] [place] [address] [facility] 230 [place] [address] 07/23/2024 2:00 PM EDT Office Visit [facility] OPTOMETRY [address] [place] [address] Tom, Lou, OD 230 [place] [address] 08/08/2024 2:00 PM EDT Office Visit [facility] MEDICINE [address] [place] [address] [facility] 230 [place] [address] documented as of this encounter Goals Goal [...] as of this encounter Care Teams Manager Battery Relationship Specialty Start Date End Date Adrienne Sheehan FNP [address] [place] [address] PCP - General Family Medicine 07/04/23 documented as of this encounter
--- OUTSIDE RECORDS SUMMARY | 2024-05-10 13:12 | XMS_ITS | Encounter Summary ---
Author Organization [employer] Address [address] [facility] 7 [place] [address] Care Team Providers Care Shipsmith Name Role Phone Adrienne Sheehan Primary Care Provider [phone] Reason for Referral * Consultation (Routine) - Authorized Specialty Diagnoses / Procedures Referred By Darryl huitron Referred To Contact Sleep Medicine Diagnoses Obstructive sleep apnea Adrienne Sheehan FNP 230 [place] [address] Phone: tel: fax: [facility] Phone: tel: fax: Referral ID Status Reason Start Date Expiration Date Visits Requested Visits Authorized [id number] Authorized Specialty Services Required 04/18/2024 04/18/2025 1 1 Reason for Visit * Reason Comments Follow-up Encounter Details Date Type Department Care Team (Late st Contact Info) Description 04/18/2024 10:00 AM EST Office Visit [facility] MEDICINE [address] [place] [address] Adrienne Sheehan FNP [address] [place] [address] Type 2 diabetes mellitus with hyperglycemia, with long-term current use of insulin ([facility]HCC) (Primary Dx); Acquired hypothyroidism; Obstructive sleep apnea; [...] documented in this encounter Progress Notes * [facility], SAFETY SCIENTIST - 04/18/2024 10:00 AM EST SUBJECTIVE: Michele Lobo is a 53 y.o. year old male with T2DM, BENITA, HTN, hypothyroidism, HLD, glaucoma, who presents for diabetes . Denies recent illness, injury, or hospitalization. Interval History [id number] the last visit 03/09/2024 evening Lantus 14 units was started and Trulicity switched to Mounjaro with referral to CDTM--was increased to 18 units by weight mngmt. Post prandial blood sugar <200; FBG- 125-130; No hypogglycemia episdoes. Using freestyle 3- HLD-atorvastatin increased 03/2024, tolerating well BENITA-Overdue for follow up with sleep medicine; CPAP from [facility]; reports is broken have not contacted company. 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 Sexually active: yes Partners [...] active 97% - Missed eye exam at [facility]-->needs to call reschedule - UTD on foot exam Asa: no Statin: yes Jamel/Arb: Yes BENITA - Sleep study [facility] 2021- severe BENITA - Overdue for follow up with sleep medicine--> new referral back to [facility] -Patient has been unsuccessful in addressing issue with CPAP, our office will call Omer for more information Hypothyroid -Due to repeat TSH in 2-3 weeks - Will order lab and patient will check at that time Follow Up: 3 months, routine Diagnosis Plan 1. Type 2 diabetes mellitus with hyperglycemia, with long-term current use of insulin ([facility]) POCT Glucose Tirzepatide (Mounjaro) 5 MG/0.5ML solution auto-injector insulin glargine (Lantus SoloStar) 100 UNIT/ML pen 2. Acquired hypothyroidism TSH TSH 3. Obstructive sleep apnea Referral to Sleep Medicine Referral to Sleep Medicine 4. Encounter for immunization FLU VACCINE TRIVALENT (Fluarix) 6 mo + COVID-19 VACCINE (Pfizer) 5730-0132 12 yrs + Current Outpatient Medications on [...] NOON 90 capsule 1 Continuous Blood Gluc Clinical Allergist (FreeStyle Dayana 2 Ramona) device Scan sensor every 8 hours 1 each 0 Continuous Glucose Sensor (FreeStyle Dayana 3 Plus Sensor) misc USE DIRECTED. CHANGE EVERY 15 DAYS 2 each 0 dulaglutide (Trulicity) 4.5 MG/0.5ML solution pen-injector Inject 4.5 mg under the skin 1 (one) time per week. 4 each 11 Easy Touch Pen [place] 31G X 8 MM misc USE DIRECTED [...] pads USE DIRECTED TO CLEAN SKIN SAMI VECCUCA AL Ruth A No current facility-administered medications on file prior to visit. Swiss Translation: Provided by [facility] staff member YENIFER Roberts documented in this encounter Plan of Treatment Upcoming Encounters Date Type Department Care Team (Late st Contact Info) Description 05/15/2024 11:00 AM EDT Medication Management [facility] MEDICINE [address] [place] [address] Margret Strauss, PharmD 230 [place] [address] 07/20/2024 2:30 PM EDT Office Visit [facility] MEDICINE [address] [place] [address] Adrienne Sheehan FNP 230 [place] [address] 07/23/2024 2:00 PM EDT Office Visit [facility] OPTOMETRY [address] [place] [address] Lou Santos, OD 230 [place] [address] 08/08/2024 2:00 PM EDT Office Visit [facility] MEDICINE [address] [place] [address] [facility] 230 [place] [address] Scheduled Referrals Name Type Priority Associated Diagnoses [...] hyperglycemia, with long-term current use of insulin ([facility]) documented in this encounter Results * (ABNORMAL) TSH (05/03/2024 8:02 AM EDT) Thyroid Stimulating Hormone 7.86(H) 0.32 - 4.0 uIU/mL [facility] Comment:Note: A sustained TS H level above 2.5 uIU/mL may warrant further investigation. TSH 3rd Generation ([facility]) Blood Venous blood specimen / Unknown 05/03/2024 8:02 AM EDT 05/03/2024 8:02 AM EDT [facility] BLOOD ORDERABLES Final Re sult [facility] [address] [place] [address] [phone] * POCT Glucose (04/18/2024 10:48 AM EST) Glucose Blood, POC 148 60 - 200 mg/dL Blood Capillary blood specimen / Unknown 04/18/2024 10:48 AM EST [facility] POINT OF CARE TEST ENTER/EDIT ORDERABLES Final Result documented in this encounter Visit Diagnoses Diagnosis Type 2 diabetes mellitus with hyperglycemia, with long-term current use of insulin ([facility])- Primary Acquired hypothyroidism Unspecified hypothyroidism Obstructive sleep apnea Obstructive sleep apnea (adult) (pediatric) Encounter for immunization documented in this encounter Additional Health Concerns Assessment Noted Time PHQ-9 Depression Total Score: 0 04/19/19 25 10:48 AM EST documented as of this encounter Care Teams Shipsmith Relationship Specialty Start Date End Date Adrienne Sheehan FNP [address] [place] [address] PCP - General Family Medicine 07/04/23 documented as of this encounter
--- OUTSIDE RECORDS SUMMARY | 2024-05-10 13:12 | XMS_ITS | Encounter Summary ---
Author Organization [employer] Address [address] [facility] [place] [address] Care Team Providers Care Faith Healer Name Role Phone [facility] Primary Care Provider [phone] Reason for Visit * Reason Onset Date Comments Med Refill 04/23/2024 Encounter Details Date Type Department Care Team (Late st Contact Info) Description 04/23/2024 Refill [facility] [address] [place] [address] [facility] [address], [place] [id number] Type 2 diabetes mellitus with hyperglycemia, with long-term current use of insulin ([facility]) Social History Tobacco Use Types Packs/Day Years [...] 11:00 AM EDT Medication Management [facility] [address] [place] [address] Margret Strauss, PharmD [address] [place] [address] 07/20/2024 2:30 PM EDT Office Visit [facility] [address] [place] [address] Adrienne Sheehan, DUY [address] [place] [address] 07/23/2024 2:00 PM EDT Office Visit [facility] OPTOMET[facility] [address] [place] [address] Lou Santos, OD [address] [place] [address] 08/08/2024 2:00 PM EDT Office Visit [facility] [address] [facility] [address] Adrienne Sheehan FNP [address] [place] [address] documented as of this encounter Goals Goal [...] hyperglycemia, with long-term current use of insulin ([facility]) documented in this encounter Additional Health Concerns Assessment Noted Time PHQ-9 Depression Total Score: 0 04/19/19 10:48 AM EST documented as of this encounter Care Teams Faith Healer Relationship Specialty Start Date End Date Adrienne Sheehan FNP [address] [place] [address] PCP - General Family Medicine 07/04/23 documented as of this encounter
--- OUTSIDE RECORDS SUMMARY | 2024-05-10 13:12 | XMS_ITS | Encounter Summary ---
Author Organization [employer] Address [address] [place] [address] Care Team Providers Care Dam Worker Name Role Phone [facility] Primary Care Provider [phone] Encounter Details Date Type Department Care Team ([facility] st Contact Info) Description 04/18/2024 Telephone [facility] [address] [place], [place] [phone] [facility] [address] [place] [address] Social History Tobacco Use Types Packs/Day Years [...] Description 05/15/2024 11:00 AM EDT Medication Management [facility] [address] [place] [address] Margret Strauss, PharmD [address] [place] [address] 07/20/2024 2:30 PM EDT Office Visit [facility] [address] [place] [address] Adrienne Sheehan, SIGNAL INTELLIGENCE/ELECTRONIC WARFARE [address] [place] [address] 07/23/2024 2:00 PM EDT Office Visit [facility] OPT[facility]ET[facility] [address] [place] [address] Lou Santos, OD [address] [place] [address] 08/08/2024 2:00 PM EDT Office Visit [facility] [address] [place] [address] Adrienne Sheehan FNP [address] [place] [address] documented as of this encounter Goals Goal [...] documented as of this encounter Care Teams Dam Worker Relationship Specialty Start Date End Date Adrien[place] [address] PCP - General Family Medicine 07/04/23 documented as of this encounter
--- OUTSIDE RECORDS SUMMARY | 2024-05-10 13:13 | XMS_ITS | Clinical Summary ---
Author Organization [employer] Address [address] [facility] [address] [place] [address] Care Team Providers Care Airborne Weapons Technical Manager Name Role Phone [facility] Primary Care Provider [phone] Allergies No known active allergies Medications FREESTYLE [...] at bedtime. 023 Active Continuous Blood Gluc Image Archivist (FreeStyle Dayana 2 Mertens) deviceIndications :Type 2 diabetes mellitus with hyperglycemia, with long-term current use of insulin (CMS/HCC) Scan sensor every 8 hours 1 each 023 Active metFORMIN, OSM, (Fortamet) 1000 MG 24 hr tabletIndications :Diabetes mellitus of other type without complication, unspecified whether residential insulin use (CMS/HCC) Take 1 tablet by [...] 10 MG tablet Active Easy Touch Pen [place] 31G X 8 MM misc USE DIRECTED Active glucose 4 g chewable tabletIndications :Type 2 diabetes mellitus with hypoglycemia without coma, with long-term current use of insulin ([facility]) Chew 4 tablets (16 g) [...] hyperglycemia, with long-term current use of insulin ([facility]) Use one pad each to prep skin prior to injection as directed 100 each Active insulin pen needle 30G x 5 mm miscIndications:T ype 2 diabetes mellitus with hyperglycemia, with long-term current use of insulin ([facility]) Use as instructed 100 each Active levothyroxine [...] hyperglycemia, with long-term current use of insulin ([facility]) USE DIRECTED. CHANGE EVERY 15 DAYS 2 [...] Secondary erythrocytosis 08/03/2022 Overview (08/03/2022): Appt 05/04/21 [facility] Hematology Severe hematocrit > 60; increased risk [...] PM EST): -hgb 12.2 on 12/28 @ [facility] -recheck levels Depression, recurrent 03/09/20222023 Encounters Date Type Department Care Team Description 05/09/2024 Telephone [facility] [address] [place] [phone] Adrienne Sheehan FNP 05/03/2024 Orders Only [facility] External Provider, [facility] 04/30/2024 Patient Outreach [facility] [address] [place] [address] Adrienne Sheehan FNP Care Coordination (CHW outreach SDOH pest control - referral completed ) 04/30/2024 Patient Outreach [facility] [address] [place] [address] Adrienne Sheehan FNP Pre-visit Planning (SDOH screening positive and tobacco screening negative) 04/23/2024 Refill [facility] P[facility]S [address] [place] [address] Adrienne Sheehan FNP Type 2 diabetes mellitus with hyperglycemia, with long-term current use of insulin (CMS/HCC) 04/18/2024 10:00 AM EST Office Visit [facility] [address] [place] [address] Adrienne Sheehan FNP Type 2 diabetes mellitus with hyperglycemia, with long-term current use of insulin (CMS/HCC) (Primary Dx); Acquired hypothyroidism; Obstructive sleep apnea; Encounter for immunization 04/18/2024 Orders Only [facility] [address] [place] [address] Emily Brooks MD Type 2 diabetes mellitus with hyperglycemia, with long-term current use of insulin ([facility]) (Primary Dx) 04/18/2024 Telephone [facility] [address] [place] [address] HendersonAdrienne beltran FNP 04/18/2024 Travel 04/17/2024 Orders Only GENERIC EXTERNAL DATA DEPARTMENT Provider, Generic External Data 03/28/2024 Telephone [facility] [address] [place] [address] Marsha Wilson, RN Results 03/28/2024 Telephone [facility] [address] [place] [address] Marsha Wilson, RN Results 03/28/2024 Orders Only [facility] [address] [place] [address] HendersonAdrienne FNP Mixed hyperlipidemia (Primary Dx) 03/28/2024 Orders Only GENERIC EXTERNAL DATA DEPARTMENT Provider, Generic External Data 03/22/2024 Telephone [facility] [address] [place] [address] Arely Novoa, RN 03/21/2024 Orders Only [facility] [address] [place] [address] Adrienne Sheehan FNP Acquired hypothyroidism 03/19/2024 Telephone [facility] [address] [place] [address] Marsha Wilson, JORGE Results 03/19/2024 Orders Only [facility] [address] [place] [address] HendersonAdrienne beltran FNP Acquired hypothyroidism (Primary Dx) 03/13/2024 Telephone [facility] OPTOMETRY [address] [place] [address] Lou Santos, OD 03/09/2024 9:00 AM EST Office Visit [facility] [address] [place] [address] Adrienne Sheehan FNP Type 2 diabetes mellitus with hyperglycemia, with long-term current use of insulin ([facility]) (Primary Dx); Chronic pain of right knee; Acquired hypothyroidism; Dietary counseling; Exercise counseling; Class 3 severe obesity due to excess calories with serious comorbidity and body mass index (BMI) of 40.0 to 44.9 in adult ([facility]) 03/09/2024 Refill [facility] [address] [place], [place] [phone] Henderson, [place], [facility] Type 2 diabetes mellitus with hyperglycemia, with long-term current use of insulin ([facility]) 03/09/2024 Travel from Last 3 Months Immunizations [...] Description 05/15/2024 11:00 AM EDT Medication Management [facility] [address] [place] [address] Margret Strauss, PharmD [address] [place] [address] 07/20/2024 2:30 PM EDT Office Visit [facility] [address] [place] [address] Adrienne Sheehan FNP [address] [place] [address] 07/23/2024 2:00 PM EDT Office Visit [facility] OPTOMETRY [address] [place] [address] Tom, Lou, OD [address] [place] [address] 08/08/2024 2:00 PM EDT Office Visit [facility] MED[facility] [address] [place] [address] Aguila, Adrienne, PROMOTIONS EXECUTIVE [address] [place] [address] Health Maintenance Due Date Last Done Comments [...] hyperglycemia, with long-term current use of insulin ([facility]) HEMATOXYLIN AND EOSIN STAIN Routine 04/17/2024 1:55 [...] EDT Narrative 05/03/2024 12:25 PM EDT ? [facility] ?[address] ?[place] [address] ? Ultrasound Report ? Signed ? Patient: Michele Alicea L ?MR#: [id number] ?? [id number] ? : 1970 ?Acct:[id number] ? Age/Sex: 53 / M ?ADM Date: 05/03/24 ? Loc: HO.US ? Attending Dr: Saul Sanchez MD ? Ordering Physician: Saul Sanchez MD ?? Date of Service: 05/03/24 ?? Procedure(s): US abdomen comp w elastography ?? Accession Number(s): [id number] ? cc: Saul Sanchez MD; [facility] ? EXAMINATION: ??US ABDOMEN COMPLETE WITH [...] Radiologists in Ultrasound Liver Stiffness Thresholds (2020): ? LIVER STIFFNESS THRESHOLDS: ?? *Shear wave [...] DD/ 0906 ? TD/TT: 05/03/24 0941 ? Chemical Machine Tender: ? Procedure Note Matthew, Image - 05/03/[address] [address] Ultrasound Report Signed Patient: Michele Alicea R#: [id number] : 1970Acct:[id number] Age/Sex: 53 / MADM Date: 05/03/24 Loc: HO.US Attending Dr: Saul Sanchez MD Ordering Physician: Saul Sanchez MD Date of Service: 05/03/24 Procedure(s): US abdomen comp w elastography Accession Number(s): [id number] cc: Saul Sanchez MD; HendersonAdrienne EXAMINATION: US ABDOMEN COMPLETE WITH LIVER ELASTOGRAPHY [...] 05/03/24 1222 DD/ 0906 TD/TT: 05/03/24 0941 Chemical Machine Tender: us [facility] External Provider IMG US PROCEDURES Final Result * (ABNORMAL) TSH (05/03/2024 8:02 AM EDT) Only the most recent of3 resultswithin the time period is included. Thyroid Stimulating Hormone 7.86(H) 0.32 - 4.0 uIU/mL [facility] Comment:Note: A sustained TS H level above 2.5 uIU/mL may warrant further investigation. TSH 3rd Generation ([facility]) Blood Venous blood specimen / Unknown 05/03/2024 8:02 AM EDT 05/03/2024 8:02 AM EDT [facility] LAB BLOOD ORDERABLES Final Re sult [facility] [address] [place] [address] [phone] * POCT Glucose (04/18/2024 10:48 AM EST) Only the most recent of2 resultswithin the time period is included. Glucose Blood, POC 148 60 - 200 mg/dL Blood Capillary blood specimen / Unknown 04/18/2024 10:48 AM EST [facility] POINT OF CARE TEST ENTER/EDIT ORDERABLES Final Result * Hematoxylin and Eosin Stain (04/17/2024 1:55 PM EST) 04/17/2024 1:55 PM EST 04/18/2024 8:45 AM EST Narrative [facility] - 04/20/2024 9:09 AM EST ----- ------- Name: Michele Alicea ?Age/Sex: 53/M ? : 1970 Unit#: [id number] ?? Attend Dr: Saul Sanchez MD ?Re04/17/24 ?Status: DEP SDC ? Location: HO.SSS ?Disch: ? ----- ------- SPEC : [id number] ? RECD: 04/18/24 ? STATUS: ??SOUT ? REQ NUM: [id number] ? RAF: 04/17/24-1236 ? SUBM DR: Saul Sanchez MD ? ENTERED: ??04/18/24-901 ?SP TYPE: Surgical ? OTHR DR: Adrienne Sheehan PROMOTIONS EXECUTIVE ? ORDERED: ??HE Stain/6, Gross Micro L4/3, [...] Alicea ?Age/Sex: 53/M ? : 1970 Unit#: [id number] ?? Attend Dr: Saul Sanchez MD ?Re04/17/24 ?Status: DEP SDC ? Location: HO.SSS ?Disch: ? ----- ------- SPEC : [id number] ? RECD: 04/18/24 ? STATUS: ??SOUT ? REQ NUM: [id number] ? RAF: 04/17/24-5273 ? SUBM DR: Saul Sanchez MD ? ENTERED: ??04/18/24 ?SP TYPE: Surgical ? OTHR DR: Adrienne Sheehan ? ORDERED: ??HE Stain/6, Gross Micro L4/3, IHC, Special st. 2/2, H. pylori, AB/PAS/2 ? Copies To: ?? Saul Sanchez MD ?? [facility] ?? [address] ?? [place] [address] ?? [phone] ?? Adrienne Sheehan PROMOTIONS EXECUTIVE ?? [address] [facility] ?? [place] [address] ?? [phone] ----- ------- Signed (signature on file) Yaya Guillory MD 04/20/24 0909 ? ----- ------- ? END OF REPORT ? Generic External Data Provider LAB BLOOD ORDERAB LES Final Result Performing Organization Address City/[facility]/ZIP Co de Phone Number [facility] [address] [place] [phone] [phone] * Glucose, Whole Blood (04/17/2024 1:00 PM EST) Pathologist [facility] Glucose, Whole Blood 111 60 - 115 mg/dL [facility] Comment:METER #: [id number] 04/17/2024 1:00 PM EST 04/17/2024 1:04 PM EST Generic External Data Provider LAB BLOOD ORDERAB LES Final Result Performing Organization Address [facility]/ZIP Co de Phone Number [facility] [address] [place] [phone] * XR Chest 2 Views (03/28/2024 9:38 AM EST) Anatomical Region Laterality Modality Chest Radiographic Nancy ging 03/28/2024 9:38 AM EST Narrative 03/28/2024 9:56 AM EST ? [facility] ?[address] ?[place] [address] ?XRay Report ? Signed ? Patient: Lobo Lobo,Michele L ?MR#: [id number] ?? [id number] ? : 1970 ?Acct:[id number] ? Age/Sex: 53 / M ?ADM Date: 03/28/24 ? Loc: HO.LAB ? Attending Dr: Saul Sanchez MD ? Ordering Physician: Saul Sanchez MD ?? Date of Service: 03/28/24 ?? Procedure(s): XR chest 2V ?? Accession Number(s): [id number] ? cc: Saul Sanchez MD; Adrienne SheehanP ? EXAMINATION: ??XR CHEST 2 VIEWS ? [...] ??Darius Tipton MD ??03/28/2024 09:53 AM EST ?? RP ? Dictated By: ?Darius Tipton MD ? Signed By: ?<Electronically signed by Darius Tipton MD in OV> ?03/28/24 0953 ? DD/ 0938 ? TD/TT: 03/28/24 0942 ? Chemical Machine Tender: ? Procedure Note Gregoria Castro - 03/28/[address] [address] XRay Report Signed Patient: Michele Alicea LMR#: [id number] : 1970Acct:[id number] Age/Sex: 53 / MADM Date: 03/28/24 Loc: HO.LAB Attending Dr: Saul Sanchez MD Ordering Physician: Saul Sanchez MD Date of Service: 03/28/24 Procedure(s): XR chest 2V Accession Number(s): [id number] cc: Saul Sanchez MD; [facility] EXAMINATION: XR CHEST 2 VIEWS HISTORY: E66.01 [...] signed by Darius Tipton MD in OV> 03/28/24 0953 DD/ TD/TT: 03/28/24 0942 Chemical Machine Tender: [facility] External Provider IMG XR PROCEDURES Final Result * Vitamin D, 25-Hydroxy, Total, Immunoassay (03/28/2024 9:12 AM EST) Vitamin D 25-OH Total 39.6 >30 ng/mL [facility] Comment:Health Based Referen ce Values*< 20 ng/mL Uvdjfxjri50-94 ng/mL Insufficient> 30 ng/mL Sufficient*Oscar RUIZ. N [...] ORDERAB LES Final Result Performing Organization Address City/[facility]/ZIP Co de Phone Number [facility] [address] [place] [phone] * Vitamin B12 (Cobalamin) and Folate Panel, Serum (03/28/2024 9:12 AM EST) Vitamin B12 734 200 - 900 pg/mL [facility] Comment:NORMAL 200-900 PG/ML INDETERMINATE 160-199 PG/ML DEFICIENT < 160 PG/ML Folate 8.7 > or = 4.0 ng/mL [facility] Comment:Reference Values:> o r = 4.0 ng/mL< 4.0 ng/mL suggests folate deficiency Methotrexate, aminopterin and folinic acid(leucovorin) are chemotherapeutic agents whose molecularstructures are similar to folate; therefore, the Architectfolate assay cannot be used for patients using these drugs. 03/28/2024 9:12 AM EST 03/28/2024 9:12 AM EST us Generic External Data Provider LAB BLOOD ORDERAB LES Final Result Performing Organization Address [facility] Co de Phone Number [facility] [address] [place] [phone] * (ABNORMAL) TSH with Reflex to Free T4 (03/28/2024 9:12 AM EST) TSH reflex Free T4 4.41(H) 0.32 - 4.0 uIU/mL [facility] 03/28/2024 9:12 AM EST 03/28/2024 9:12 AM EST us Generic External Data Provider LAB BLOOD ORDERAB LES Final Result Performing Organization Address City/[facility]/ZIP Co de Phone Number [facility] [address] [place] [phone] * (ABNORMAL) CBC auto differential (03/28/2024 9:12 AM EST) White Blood Count 7.1 4.8 - 10.8 X10*3/uL [facility] Red Blood Count 5.81(H) 4.60 - 5.80 X10*6/uL [facility] Hemoglobin 15.3 14.0 - 18.0 g/dl [facility] Hematocrit 48.1 42.0 - 52.0 % [facility] Mean Corpuscular Volume 82.8 80.0 - 98.0 fL [facility] Mean Corpuscular Hemoglobin 26.3(L) 27.0 - 33.0 pg [facility] Mean Corpuscular HGB Conc 31.8 31.0 - 36.0 g/dl [facility] Red Cell Distribution Width 14.2 11.0 - 16.0 % [facility] Platelet Count 306 160 - 400 X10*3/uL [facility] Mean Platelet Volume 9.1(L) 9.4 - 12.4 fL [facility] Neutrophils Percent Auto 52.4 45 - 73 % [facility] Imm Gran Pct Auto 0.3 0.0 - 0.4 % [facility] Lymphocytes Percent Auto 35.6 20 - 40 % [facility] Monocytes Percent Auto 6.4 2 - 11 % [facility] Eosinophils Percent Auto 4.7(H) 0 - 4 % [facility] Basophils Percent Auto 0.6 0 - 2 % [facility] NRBC Pct Auto 0.0 0.0 - 0.2 /100WBC [facility] Neutrophils Absolute Auto 3.7 2.0 - 8.3 x10*3/uL [facility] Imm Gran Abs Auto 0.02 0.00 - 0.03 X10*3/uL [facility] Lymphocytes Absolute Auto 2.5 1.2 - 4.9 X10*3/uL [facility] Monocytes Absolute Auto 0.5 0.1 - 1.2 X10*3/uL [facility] Eosinophils Absolute Auto 0.3 0.0 - 0.4 X10*3/uL [facility] Basophils Absolute Auto 0.0 0.0 - 0.2 X10*3/uL [facility] NRBC Abs Auto 0.000 0.0 - 0.012 X10*3/uL [facility] 03/28/2024 9:12 AM EST 03/28/2024 9:12 AM EST Generic External Data Provider LAB BLOOD ORDERAB LES Final Result Performing Organization Address [facility] de Phone Number [facility] [address] [place] [phone] * Iron And Total Iron Binding Capacity (03/28/2024 9:12 AM EST) Iron 97 45 - 160 mcg/dL [facility] Total Iron Binding Capacity 345 228 - 428 mcg/dL [facility] Percent Iron Saturation 28 15 - 50 % [facility] Unsaturated Iron Binding 248 ug/dL [facility] 03/28/2024 9:12 AM EST 03/28/2024 9:12 AM EST [employer] External Data Provider LAB BLOOD ORDERAB LES Final Result Performing Organization Address [facility] Phone Number [facility] [address] [place] [phone] * Insulin (03/28/2024 9:12 AM EST) Insulin 10 2 - 29 uU/mL [facility] Comment:This test was perfor med [...] ORDERAB LES Final Result Performing Organization Address [facility] de Phone Number [facility] [address] [place] [phone] * Zinc (03/28/2024 9:12 AM EST) Pathologist [facility] Zinc 91 60 - 130 mcg/dL [facility] Comment:This test was develo ped and its analytical performancecharacteristics have been determined by [place]. It hasnot been cleared or approved by the .S. Food and DrugAdministration. This assay has been validated pursuantto the CLIA regulations and is used for clinicalpurposes.THIS TEST WAS PERFORMED AT:[employer] [address] [id number] VALVERDE MD,PHD 03/28/2024 9:12 AM EST 03/28/2024 9:12 AM EST [facility] External Data Provider LAB BLOOD ORDERAB LES Final Result Performing Organization Address [facility] Phone Number [facility] [address] [place] [phone] * Vitamin A (03/28/2024 9:12 AM EST) Vitamin A (Retinol) 45 38 - 98 mcg/dL [facility] Comment:Vitamin supplementat ion within 24 hours prior toblood draw may affect the accuracy of the results.This test was developed and its analytical performancecharacteristics have been determined by [place] It hasnot been cleared or approved by the U.S. Food and DrugAdministration. This assay has been validated pursuantto the CLIA regulations and is used for clinicalpurposes.THIS TEST WAS PERFORMED AT:[id number] [place] [address]WDUUPHWPHYLLIS VALVERDE MD,PHD 03/28/2024 9:12 AM EST 03/28/2024 9:12 AM EST Generic External Data Provider LAB BLOOD ORDERAB LES Final Result Performing Organization Address [facility] Co de Phone Number [facility] [address] [place] [phone] * C-reactive Protein (03/28/2024 9:12 AM EST) Pathologist [facility] C Reactive Protein 0.36 < or = 0.50 mg/dL [facility] 03/28/2024 9:12 AM EST 03/28/2024 9:12 AM EST Generic External Data Provider LAB BLOOD ORDERAB LES Final Result Performing Organization Address [facility] de Phone Number [facility] [address] [place] [phone] * T4, Free (03/28/2024 9:12 AM EST) Pathologist [facility] Free T4 (Free Thyroxine) 1.06 0.71 - 1.85 ng/dL [facility] 03/28/2024 9:12 AM EST 03/28/2024 9:12 AM EST Generic External Data Provider LAB BLOOD ORDERAB LES Final Result Performing Organization Address [facility] de Phone Number [facility] [address] [place] [phone] * Vitamin B1 (03/28/2024 9:12 AM EST) Pathologist [facility] Vitamin B1 12 8 - 30 nmol/L [facility] Comment:Vitamin supplementat ion within 24 hours prior toblood draw may affect the accuracy of the results.This test was developed and its analytical performancecharacteristics have been determined by [employer] [place], [place]. It hasnot been cleared or approved by the U.S. Food and DrugAdministration. This assay has been validated pursuantto the CLIA regulations and is used for clinicalpurposes.THIS TEST WAS PERFORMED AT:[employer]/[facility]ITALY[address] [place] [address]CIQXALMPHYLLIS VALVERDE MD,PHD 03/28/2024 9:12 AM EST 03/28/2024 9:12 AM EST Generic External Data Provider LAB BLOOD ORDERAB LES Final Result Performing Organization Address [facility]/ZIP Co de Phone Number [facility] [address] [place] [phone] * (ABNORMAL) Hemoglobin A1c (03/28/2024 9:12 AM EST) Hemoglobin A1c 10.5(H) <6.0 % [facility] Comment:Hemoglobin A1C Refer ence Range Adults: 4.8 - 6.0 % Non diabetic: < 6.0 % Goal: < 7.0 %Additional Action Suggested: > 8.0 %Note: Hemoglobin A1c results are invalid for patients with abnormal amounts of HbF. Blood transfusions may impact the HbA1c concentration in the patient sample. Estimated Average Glucose 255 mg/dL [facility] Comment:eAG = Estimated ave rage glucose which is %A1C expressed asaverage glucose, using the formula of the Y6E-TsocpevGinfxsi Glucose study (ADAG), Diabetes Care, Vol.31,#8,Aug. 2007 03/28/2024 9:12 AM EST 03/28/2024 9:12 AM EST Generic External Data Provider LAB BLOOD ORDERAB LES Final Result Performing Organization Address [facility] Co de Phone Number [facility] [address] [place] [phone] * Ferritin (03/28/2024 9:12 AM EST) Ferritin 72 20 - 250 ng/mL [facility] 03/28/2024 9:12 AM EST 03/28/2024 9:12 AM EST us Generic External Data Provider LAB BLOOD ORDERAB LES Final Result Performing Organization Address [facility] Co de Phone Number [facility] [address] [place] [phone] * (ABNORMAL) Lipid Panel, Standard (03/28/2024 9:12 AM EST) Only the most recent of2 resultswithin the time period is included. Triglycerides 132 <150 mg/dL [facility] Comment:Desirable Triglyceri de: less than 150 mg/dLBorderline High Triglyceride 150-199 mg/dLHigh Triglyceride: 200-499 mg/dLVery High Triglyceride: greater than or equal to 5OO mg/dL Cholesterol 184 <200 mg/dL [facility] Comment:Desirable Cholestero l: less than 200 mg/dLBorderline High Cholesterol: 200-239 mg/dLHigh Cholesterol: greater than 239 mg/dL LDL Cholesterol Calculated 120(H) <100 mg/dL [facility] Comment:Desirable LDL: less than 100 mg/dLNear Optimal/Above Optimal LDL: 110- 129 mg/dLBorderline High LDL: 130-159 mg/dLHigh LDL: 160-189 mg/dLVery High LDL: greater than or equal to 190 mg/dL HDL Cholesterol 38(L) >40 mg/dL [facility] Comment:Desirable HDL: great er than 40 mg/dL Note: This HDL assay may give artificially low results in patients with liver disease. 03/28/2024 9:12 AM EST 03/28/2024 9:12 AM EST us Generic External Data Provider LAB BLOOD ORDERAB LES Final Result Performing Organization Address [facility] Co de Phone Number [facility] [address] [place] [phone] * (ABNORMAL) Comprehensive Metabolic Panel (03/28/2024 9:12 AM EST) Only the most recent of2 resultswithin the time period is included. Sodium 139 135 - 145 mmol/L [facility] Potassium 4.4 3.3 - 5.1 mmol/L [facility] Chloride 102 96 - 108 mmol/L [facility] Carbon Dioxide 32(H) 22 - 29 mmol/L [facility] Anion Gap 9(L) 12 - 20 [facility] Urea Nitrogen (BUN) 18(H) 9 - 16 mg/dL [facility] Creatinine, Serum 1.25 0.5 - 1.4 mg/dL [facility] Estimated Glomerular Filt Rate 60 [facility] Comment:Chronic Kidney Disea se: Estimated GFR < 60 mL/min/[id number] Kidney Disease: Estimated GFR < 15 mL/min/1.73m2 Glucose 235(H) 60 - 115 mg/dL [facility] Calcium 9.8 8.4 - 10.2 mg/dL [facility] Bilirubin, Total 0.6 0.0 - 1.0 mg/dL [facility] Aspartate Amino Transferase 33 5 - 37 U/L [facility] Alanine Aminotransferase 44(H) 0 - 40 U/L [facility] Total Protein 8.3(H) 6.5 - 8.0 g/dL [facility] Albumin Level 4.4 3.5 - 5.0 g/dL [facility] Alkaline Phosphatase 91 39 - 117 U/L [facility] 03/28/2024 9:12 AM EST 03/28/2024 9:12 AM EST us Generic External Data Provider LAB BLOOD ORDERAB LES Final Result [facility] [address] [place] [phone] * XR Knee 3 Views Right (03/21/2024 1:32 PM EST) Anatomical Region Laterality Modality Lower Extremities, Knee Right Radiogra phic Imaging 03/21/2024 1:32 PM EST Narrative 03/21/2024 1:33 PM EST ? [facility] ?[address] ?[place] [address] ?XRay Report ? Signed ? Patient: Lobo Lobo,Michele L ?MR#: [id number] ?? [id number] ? : 1970 ?Acct:[id number] ? Age/Sex: 53 / M ?ADM Date: 03/20/24 ? Loc: HO.XRAY ? Attending Dr: Adrienne Sheehan PROMOTIONS EXECUTIVE ? Ordering Physician: Adrienne Sheehan PROMOTIONS EXECUTIVE ?? Date of Service: 03/20/24 ?? Procedure(s): XR knee RT 3V ?? Accession Number(s): [id number] ? cc: Adrienne Sheehan PROMOTIONS EXECUTIVE ? CLINICAL HISTORY: acute on chronic right [...] in OV> ? 03/21/24 1332 ? DD/ ? TD/TT: 03/21/242 ? Chemical Machine Tender: ? Procedure Note Gregoria Castro - 03/21/[address] [address] XRay Report Signed Patient: Michele Alicea R#: [id number] : 1970Acct:[id number] Age/Sex: 53 / MADM Date: 03/20/24 Loc: TONO[facility]antelleLIZZ[facility] Attending Dr: Adrienne GORDILLO Ordering Physician: Adrienne Sheehan Date of Service: 03/20/24 Procedure(s): XR knee RT 3V Accession Number(s): [id number] cc: Adrienne Sheehan [facility] CLINICAL HISTORY: acute on chronic right knee [...] 03/21/24 1332 DD/ 1332 TD/TT: 03/21/24 133 Chemical Machine Tender: [facility] IMG XR PROCEDURES Edited Resu lt - Final * (ABNORMAL) Albumin, Random Urine W/Creatinine (03/09/2024 10:14 AM EST) Creatinine, Urine 160.00 mg/dL [facility] Microalbumin Urine 475.0 mg/L [facility] Microalbum Creatinine Ratio Ur 296.8(H) <30 ug/mg cr [facility] Comment:Albumin/Creatinine R atio Reference Ranges: Normal: < 30 ug/mg creatinine Microalbuminuria: 30 - 300 ug/mg creatinineClinical Albuminuria: > 300 ug/mg creatinine Urine 03/09/2024 10:1 4 AM EST 03/09/2024 11:34 AM EST [facility] LAB URINE ORDERABLES Final Re sult [facility] [address] [place] [address] [phone] * (ABNORMAL) POCT HGB A1C (03/09/2024 9:33 AM EST) [facility] Hemoglobin A1C 9.7(A) 4.0 - 6.0 % Blood 03/09/2024 9:33 AM EST [facility] POINT OF CARE TEST ENTER/EDIT ORDERABLES Final Result * Colonoscopy (04/16/2021) [facility] Colonoscopy Normal Normal, Abnormal, BIRADS 0 , BIRADS 1 , BIRADS 2, BIRADS 3 , BIRADS 4+ Comment:Patient States got i t done at [facility] and was normal. Result [facility] Historical Provider MD HEALTH MAINTENANCE Final Result * HEPATITIS C AB W/REFL TO HCV RNA, QN, PCR (02/18/2021 4:20 PM EST) [facility] HEPATITIS C ANTIBODY NON-REACT PEPE NON-REACT PEPE [facility] INDEX 0.04 <1.00 [facility] Comment: ?? HCV antibody was non-reactive. There is no laboratory ?? evidence of HCV infection. ?? In most cases, no further action is required. However, if recent HCV exposure is suspected, a test for HCV RNA (test code 00863) is suggested. ?? For additional information please refer to http://education.Payment plugin.TiGenix/faq/SWR40k0 (This link is being provided for informational/ educational purposes only.) ?? 02/18/2021 4:20 PM EST Teri Smithvinny SURVEYOR ROD HELPER HISTORICAL/NON ORDERABLE LABS Final Result [facility] [address] * HIV 1/2 ANTIGEN/ANTIBODY,FOURTH GENERATION W/RFL (02/18/2021 4:20 PM EST) HIV-1/2 ANTIGEN AND ANTIBODIES, 4TH GENERATION W/ REFLEX NON-REACT PEPE NON-REACT PEPE [facility] Comment: HIV-1 antigen and HIV-1/HIV-2 [...] ? For additional information please refer to http://P2P-Next.Everlaw/faq/MVC810 (This link is being provided for informational/ educational purposes only.) ? The performance of this assay has not been clinically validated in patients less than 2 years old. ?? 02/18/2021 4:20 PM EST us Teri Alanis NP LAB BLOOD ORDERABLES Final Res ult [facility] [address] from Last 3 Months or Most Recently Relevant to Health Maintenance Insurance [facility] MEDICAID STAND ADULT Care Teams Airborne Weapons Technical Manager Relationship Specialty Start Date End Date Adrienne Sheehan FNP [address] [place] [phone] PCP - General Family Medicine 07/04/23
--- OUTSIDE RECORDS SUMMARY | 2024-05-10 13:13 | XMS_ITS | Encounter Summary ---
Author Organization [employer] Address [address] [place] [address] Care Team Providers Care Rib Trim Separator Name Role Phone [facility] Primary Care Provider [phone] Reason for Visit * Reason Comments Med Refill Encounter Details Date Type Department Care Team ([facility] st Contact Info) Description 11/07/2023 Refill [facility] [address] [place], [place] [phone] [facility] [address] [place], [place] [phone] Mild intermittent asthma without complication Social History [...] Description 05/15/2024 11:00 AM EDT Medication Management [facility] [address] [place] [address] Margret Strauss, PharmD [address] [place] [address] 07/20/2024 2:30 PM EDT Office Visit [facility] [address] [place] [address] [facility] [address] [place] [address] 07/23/2024 2:00 PM EDT Office Visit [facility] OPTOMET[facility] [address] [place] [address] Tom, Lou, OD [address] [place] [address] 08/08/2024 2:00 PM EDT Office Visit [facility] [address] [place] [address] [facility] [address] [place] [address] documented as of this encounter Goals Goal [...] documented as of this encounter Care Teams Rib Trim Separator Relationship Specialty Start Date End Date Adrienne Sheehan FNP [address] [place] [address] PCP - General Family Medicine 07/04/23 documented as of this encounter
--- OUTSIDE RECORDS SUMMARY | 2024-05-10 13:13 | XMS_ITS | Encounter Summary ---
Author Organization [employer] Address [address] [place] [address] Care Team Providers Care Switch Crew Supervisor Name Role Phone Sophia Burns Primary Care Provider [phone] Kori Alonso NP Primary Care Provider [phone] Boom Estevez MD Primary Care Provider [phone] Kori Alonso NP Primary Care Provider [phone] [place] Adrienne MANAGEMENT TECH Primary Care Provider [phone] Encounter Details Date Type Department Care Team (Late st Contact Info) Description 08/26/2022 [facility] [facility] [address] [place] [address] Sophia Burns FNP [address] [place] [address] Dept [place] [address] Social History Tobacco Use Types Packs/Day Years [...] Description 05/15/2024 11:00 AM EDT Medication Management [facility] [address] [place] [address] Margret Strauss, PharmD [address] [place] [address] 07/20/2024 2:30 PM EDT Office Visit [facility] [address] [place] [address] [facility] [address] [place] [address] 07/23/2024 2:00 PM EDT Office Visit [facility] OPTOMETRY [address] [place] [address] TomDionicio bowien, OD [address] [place] [address] 08/08/2024 2:00 PM EDT Office Visit [facility] [address] [place] [address] [facility] [address] [place] [address] documented as of this encounter Visit Diagnoses Not on filedocumented in this encounter Care Teams Switch Crew Supervisor Relationship Specialty Start Date End Date Sophia Burns FNP PCP - General Family Medicine 10/12/21 11/22/22 Kori Alonso NP [address] [place] [address] PCP - General Family Medicine 11/23/22 01/16/23 Boom Estevez MD [address] [place] [address] PCP - General Internal Medicine 01/17/23 01/18/23 Kori Alonso NP [address] [place] [address] PCP - General Family Medicine 01/19/23 07/03/23 [place] FNP [address] [place] [address] PCP - General Family Medicine 07/04/23 documented as of this encounter
--- OUTSIDE RECORDS SUMMARY | 2024-05-10 13:13 | XMS_ITS | Encounter Summary ---
Author Organization [employer] Address [address] [place] [address] Care Team Providers Care Server Systems Administrator Name Role Phone Aguila [facility] Primary Care Provider [phone] Encounter Details Date Type Department Care Team [...] Description 05/15/2024 11:00 AM EDT Medication Management [facility] [address] [place] [address] Margret Strauss, Rayshawn [address] [place] [address] 07/20/2024 2:30 PM EDT Office Visit [facility] [address] [place] [address] [facility] [address] [place] [address] 07/23/2024 2:00 PM EDT Office Visit [facility] OPTOMETRY [address] [place] [address] Tom, Lou, OD [address] [place] [address] 08/08/2024 2:00 PM EDT Office Visit [facility] [address] [place] [address] [facility] [address] [place] [address] documented as of this encounter Goals Goal Patient Goal Type Associated Problems Recent Progress Patient-Stated? Author Blood Pressure < 140/90 Blood Pressure 134/80(2024 10:46 AM EST) No Souleymane Love, Rayshawn Hemoglobin A1c < 7 Result Component 10.5(02/12/20 [...] 1:55 PM EST 04/18/2024 8:45 AM EST [facility] - 04/20/2024 9:09 AM EST ----- ------- Name: Michele Alicea ?Age/Sex: 53/M ? : 1970 Unit#: [id number] ?? Attend Dr: Saul Sanchez MD ?Re04/17/24 ?Status: DEP [facility] ? Location: HO.SSS ?Disch: ? ----- ------- SPEC : [id number] ? RECD: 04/18/24 ? STATUS: ??SOUT ? REQ NUM: [id number] ? RAF: 04/17/247221 ? SUBM DR: Saul Sanchez MD ? ENTERED: ??04/18/24 ?SP TYPE: Surgical ? OTHR DR: Adrienne Sheehan GENERATOR SWITCHBOARD OPERATOR ? ORDERED: ??HE Stain/6, Gross Micro L4/3, [...] Alicea ?Age/Sex: 53/M ? : 1970 Unit#: [id number] ?? Attend Dr: Saul Sanchez MD ?Re04/17/24 ?Status: DEP SDC ? Location: HO.SSS ?Disch: ? ----- ------- SPEC : [id number] ? RECD: 04/18/24 ? STATUS: ??SOUT ? REQ NUM: [id number] ? RAF: 04/17/24-2529 ? SUBM DR: Saul Sanchez MD ? ENTERED: ??04/18/24-901 ?SP TYPE: Surgical ? OTHR DR: Adrienne Sheehan GENERATOR SWITCHBOARD OPERATOR ? ORDERED: ??HE Stain/6, Gross Micro L4/3, IHC, Special st. 2/2, H. pylori, AB/PAS/2 ? Copies To: ?? Saul Sanchez MD ?? [facility] ?? [address] ?? [place] [address] ?? [phone] ?? Adrienne Sheehan GENERATOR SWITCHBOARD OPERATOR ?? [address] [facility] ?? [place] [address] ?? [phone] ----- ------- Signed (signature on file) Yaya Guillory MD 04/20/24908 ? ----- ------- ? END OF REPORT ? us Generic External Data Provider LAB BLOOD ORDERAB LES Final Result Performing Organization Address [facility] Co de Phone Number [facility] [address] [place] [address] [phone] * Glucose, Whole Blood (04/17/2024 1:00 PM EST) Glucose, Whole Blood 111 60 - 115 mg/dL [facility] Comment:METER #: [id number] 04/17/2024 1:00 PM EST 04/17/2024 1:04 PM EST us Generic External Data Provider LAB BLOOD ORDERAB LES Final Result Performing Organization Address [facility] de Phone Number [facility] [address] [place] [address] [phone] documented in this encounter Visit Diagnoses Not on filedocumented in this encounter Additional Health Concerns Assessment Noted Time PHQ-9 Depression Total Score: 8 03/09/19 25 9:22 AM EST documented as of this encounter Care Teams Server Systems Administrator Relationship Specialty Start Date End Date Adrienne Sheehan FNP [address] [place] [address] PCP - General Family Medicine 07/04/23 documented as of this encounter
== END ==
LOC: HO.CARD 10:13
PROVIDERS: PCP Registered Nurse; Visit Provider Surgery
DX: R94.31 Abnormal electrocardiogram [ECG] [EKG] (principal)
CPT/HCPCS: 93350; Q9957

== ENCOUNTER → 2024-05-10 10:16 | Outpatient (BNV) | payer OTHER, SELFPAY | PROVIDERS: PCP Registered Nurse | DX: R94.31 Abnormal electrocardiogram [ECG] [EKG] (principal) | CPT/HCPCS: 93016; 93018; 93350; 93352 ==

== ENCOUNTER → 2024-05-17 09:08 | Outpatient (AMB) | payer OTHER, SELFPAY ==
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
--- OUTSIDE RECORDS SUMMARY | 2024-05-17 09:28 | XMS_ITS | Clinical Summary ---
Author Organization [facility] Address [address] [place] [address] Care Team Providers Care Animal Keeper Name Role Phone Unavailable Primary Care Provider [...] - 2023-2 5 season) 2023 Influenza Vaccine (Season Ended) 2024 HIB Vaccines Aged Out No longer eligi [...] complete this topic RSV Immunization Patients Un adyd 20 months Aged Out No longer eligible b ased on patient's age to complete this topic Varicella Vaccines Aged Out No longer eligible based on patient's age to complete this topic
== END ==
LOC: HO.HBST 09:08
PROVIDERS: PCP Registered Nurse; Visit Provider Counselor Mental Health
DX: F43.20 Adjustment disorder, unspecified (principal)
CPT/HCPCS: 90834

== ENCOUNTER → 2024-05-17 09:08 | Outpatient (BNVA) | payer OTHER, SELFPAY | PROVIDERS: PCP Registered Nurse; Visit Provider Counselor Mental Health ==

== ENCOUNTER 2024-06-14 07:50 | Outpatient (REF) | payer OTHER, SELFPAY ==
--- NOTE | ~2024-06-14 | FL_ITS ---
EXAMINATION: XR FLUOROSCOPY UPPER GI WITH AIR CLINICAL INFORMATION: Moderate to severe obesity due to excess calories COMPARISON: None available. TECHNIQUE: Randy upper GI contrast study was performed in upright and lying position. FINDINGS: Following oral administration of thick barium and effervescent granules is normal propagation bolus from the oral cavity through the pharynx, esophagus into stomach without any evidence of obstruction, narrowing or stricture. Examination supine and prone lying the course, caliber and peristalsis of the stomach, duodenal bulb and this CT is normal. The mucosal pattern of the stomach and the duodenum is normal. There is no evidence of gastric or duodenal mucosal abnormality or ulceration. There is a moderate gastroesophageal reflux is right decubitus view but no evidence of hernia. FLUOROSCOPY TIME: 2 minutes 0 seconds DOSE AREA PRODUCT: 70.5 uGy-m2 (microgray-meter squared) FL/FL upper GI w air IMPRESSION: Moderate gastroesophageal reflux without hiatal hernia. Electronically signed by: Elias Oconnell MD 06/14/2024 10:17 AM EDT
--- OUTSIDE RECORDS SUMMARY | 2024-06-14 07:53 | XMS_ITS | Encounter Summary ---
Author Organization [employer] Address [address] [place] [address] Care Team Providers Care Machine Operator Slitter Technician Name Role Phone [facility] Primary Care Provider [phone] Margret Strauss PharmD Unavailable [phone] Reason for Visit * Reason Comments Med Refill Encounter Details Date Type Department Care Team (Late st Contact Info) Description 10/28/2023 Refill [facility] [address] [place], [place] [id number] [facility] [address] [place] [address] Social History Tobacco Use Types Packs/Day Years [...] Care Team (Late st Contact Info) Description 07/11/2024 2:30 PM EDT Medication Management [facility] [address] [place] [address] 07/20/2024 2:30 PM EDT Office Visit [facility] [address] [place] [address] [facility] [address] [place] [address] 07/23/2024 2:00 PM EDT Office Visit [facility] [address] [place] [address] Tom, Lou, OD [address] [place] [address] 08/08/2024 2:00 PM EDT Office Visit [facility] [address] [place] [address] [facility] [address] [place] [address] documented as of this encounter Goals Goal Patient Goal Type Associated Problems Recent Progress Patient-Stated? Author Blood Pressure < 140/90 Blood Pressure 134/80(2024 10:46 AM EST) No Souleymane Love PharmD Hemoglobin A1c < 7 Result Component 7.6( 1:26 PM EDT) No Souleymane Love PharmD documented as of this encounter Visit Diagnoses Not on filedocumented in this encounter Additional Health Concerns Assessment Noted Time PHQ-9 Depression Total Score: 0 09/26/19 12:29 PM EDT documented as of this encounter Care Teams Machine Operator Slitter Technician Relationship Specialty Start Date End Date Adrienne Sheehan FNP [address] [place] [address] PCP - General Family Medicine 07/04/23 Margret Strauss PharmD [address] [place] [id number] Pharmacist Internal Medicine 06/12/24 documented as of this encounter
--- OUTSIDE RECORDS SUMMARY | 2024-06-14 07:53 | XMS_ITS | Encounter Summary ---
Author Organization [employer] Address [address] [facility] [address] [place] [address] Care Team Providers Care Surveillance Officer Name Role Phone Sophia Burns FOOD TASTER Primary Care Provider [phone] Kori Alonso PRIMARY MONTESSORI TEACHER Primary Care Provider [phone] Boom Estevez MD Primary Care Provider [phone] Kori Alonso PRIMARY MONTESSORI TEACHER Primary Care Provider [phone] [facility] FOOD TASTER Primary Care Provider [phone] Margret Strauss PharmD Unavailable [phone] Encounter Details Date Type Department Care Team (Latest Contact Info) Description 04/17/2021 Abstract [facility] CONVERSIONS Dental, Provider, DDS Social History Tobacco [...] Description 07/11/2024 2:30 PM EDT Medication Management [address] [address] 07/20/2024 2:30 PM EDT Office Visit [address] [address] [facility] [address] [place] [address] 07/23/2024 2:00 PM EDT Office Visit [facility] [address] [place] [address] Tom, Lou, OD [address] [place] [address] 08/08/2024 2:00 PM EDT Office Visit [facility] [address] [place] [address] [place] [facility] [address] [place] [address] documented as of this encounter Visit Diagnoses Not on filedocumented in this encounter Care Teams Surveillance Officer Relationship Specialty Start Date End Date Sophia Burns FNP PCP - General Family Medicine 10/12/21 11/22/22 Kori Alonso NP [address] [place] [address] PCP - General Family Medicine 11/23/22 01/16/23 Boom Estevez MD [address] [place] [address] PCP - General Internal Medicine 01/17/23 01/18/23 Kori Alonso NP [address] [facility] [place] [address] PCP - General Family Medicine 01/19/23 07/03/23 Adrienne [place] [address] PCP - General Family Medicine 07/04/23 Margret Strauss, SarayD [address] [place] [address] Pharmacist Internal Medicine 06/12/24 documented as of this encounter
--- OUTSIDE RECORDS SUMMARY | 2024-06-14 07:53 | XMS_ITS | Encounter Summary ---
Author Organization [employer] Address [address] [place] [address] Care Team Providers Care Spareribs Trimmer Name Role Phone Adrienne Sheehan [facility] Primary Care Provider [phone] Margret Strauss PharmD Unavailable [phone] Reason for Referral * Consultation (Routine) - Pending Review Specialty Diagnoses / Procedures Referred By Darryl t Referred To Contact Pharmacy Diagnoses Type 2 diabetes mellitus with hyperglycemia, with long-term current use of insulin (CMS/HCC) Emily Brooks MD [address] [place] [address] Phone: tel: fax: Referral ID Status Reason Start Date Expiration Date Visits Requested Visits Authorized [id number] Pending Review Consult and Treat 04/18/2024 04/18/2025 6 6 Encounter Details Date Type Department Care Team (Late st Contact Info) Description 04/18/2024 Orders Only [facility] [address] [place], [place] [phone] Emily Brooks MD [address] [place], [place] [phone] Type 2 diabetes mellitus with hyperglycemia, with [...] Description 07/11/2024 2:30 PM EDT Medication Management [facility] [address] [place] [id number] 07/20/2024 2:30 PM EDT Office Visit [facility] [address] [place] [address] [place], Adrienne, [facility] [address] [place] [address] 07/23/2024 2:00 PM EDT Office Visit [facility] [address] [place] [address] Lou Santos, OD [address] [place] [address] 08/08/2024 2:00 PM EDT Office Visit [facility] [address] [place] [address] Adrienne Sheehan FNP [address] [place] [address] Scheduled Referrals Name Type Priority Associated Diagnoses Orde r Schedule Referral to Pharmacy CDTM Outpatient Referral Routine Type 2 diabetes mellitus with hyperglycemia, with long-term current use of insulin ([facility]) Ordered: 04/18/2024 documented as of this encounter [...] hyperglycemia, with long-term current use of insulin ([facility])- Primary documented in this encounter Additional Health Concerns Assessment Noted Time PHQ-9 Depression Total Score: 0 04/19/19 10:48 AM EST documented as of this encounter Care Teams Spareribs Trimmer Relationship Specialty Start Date End Date Aguila MARILOU DeleonP [address] [place] [address] PCP - General Family Medicine 07/04/23 Margret Strauss PharmD [address] [place] [phone] Pharmacist Internal Medicine 06/12/24 documented as of this encounter
--- OUTSIDE RECORDS SUMMARY | 2024-06-14 07:53 | XMS_ITS | Encounter Summary ---
Author Organization [employer] Address [address] [place] [address] Care Team Providers Care Technical Buyer Name Role Phone [facility] Primary Care Provider [phone] Margret Strauss PharmD Unavailable [phone] Reason for Visit * Reason Comments Med Refill Encounter Details Date Type Department Care Team (Late st Contact Info) Description 11/07/2023 Refill [facility] [address] [place], [place] [phone] [facility] [address] [place], [place] [phone] Mild intermittent asthma without complication Social History [...] Description 07/11/2024 2:30 PM EDT Medication Management [facility] [address] [place] [phone] 07/20/2024 2:30 PM EDT Office Visit [facility] [address] [place] [address] [facility] [address] [place] [address] 07/23/2024 2:00 PM EDT Office Visit [facility] [address] [place] [address] Tom, Lou, OD [address] [place] [address] 08/08/2024 2:00 PM EDT Office Visit [facility] [address] [place] [address] [facility] [address] [place] [address] documented as of this encounter Goals Goal Patient Goal Type Associated Problems Recent Progress Patient-Stated? Author Blood Pressure < 140/90 Blood Pressure 134/80(2024 10:46 AM EST) No Souleymane Love PharmD Hemoglobin A1c < 7 Result Component 7.6( 1:26 PM EDT) No Souleymane Lvoe PharmD documented as of this encounter Visit Diagnoses Diagnosis Mild intermittent asthma without complication documented in this encounter Additional Health Concerns Assessment Noted Time PHQ-9 Depression Total Score: 0 09/26/19 12:29 PM EDT documented as of this encounter Care Teams Technical Buyer Relationship Specialty Start Date End Date Adrienne Sheehan FNP [address] [place] [address] PCP - General Family Medicine 07/04/23 Margret Strauss PharmD [address] [place] [phone] Pharmacist Internal Medicine 06/12/24 documented as of this encounter
--- OUTSIDE RECORDS SUMMARY | 2024-06-14 07:53 | XMS_ITS | Clinical Summary ---
Author Organization [facility] it Address [address] [place] [address] Care Team Providers Care Parts Data Writer Name Role Phone Unavailable Primary Care Provider [...] age to complete this topic Meningococcal B Vaccine Aged Out No l onger eligible based on patient's age to complete [...]
--- OUTSIDE RECORDS SUMMARY | 2024-06-14 07:53 | XMS_ITS | Clinical Summary ---
Author Organization [employer] Address [address] [place] [address] Care Team Providers Care Amalgamator Name Role Phone [facility] Primary Care Provider [phone] Margret Strauss PharmD Unavailable [phone] Allergies No known active allergies Medications FREESTYLE LITE test strip USE SEG N LO INDICADO 2 TO 3 TIMES PER DAY 023 Active FreeStyle lancets USE TO CHECK BLOOD SUGARS 2-3 TIMES DAILY. 023 Active betamethasone, augmented, (Diprolene) 0.05 % ointmentIndicati ons:Lichen simplex chronicus APLIQUE AL AREA AFECTADA DOS VECES AL CINDY 50 g 023 Active traZODone (Desyrel) 50 MG tablet Take 1 tablet by mouth if needed at bedtime. 023 Active Continuous Blood Gluc Extractor Filler (FreeStyle Dayana 2 [place]) deviceIndication s:Type 2 diabetes mellitus with hyperglycemia, with long-term current use of insulin ([facility]) Scan sensor every 8 hours 1 each 023 Active Blood Pressure Monitor kitIndications:E ssential hypertension Use as directed 1 kit 024 Active albuterol 108 (90 Base) MCG/ACT inhalerIndicatio ns:Mild intermittent asthma without complication Inhale 2 puffs every 4 (four) hours. 18 g 3 024 Active timolol (Timoptic) 0.25 % ophthalmic solutionIndicati ons:Low tension glaucoma of left eye, moderate stage Administer 1 drop into the left eye in the morning. 5 mL 024 2024 Active FLUoxetine (PROzac) 20 MG tabletIndication s:Depression, unspecified depression type Take 1 tablet (20 mg) by mouth Once per day. 30 tablet 11 Active busPIRone (Buspar) 10 MG tablet Active Easy Touch Pen [place] 31G X 8 MM misc USE DIRECTED Active glucose 4 g chewable tabletIndication s:Type 2 diabetes mellitus with hypoglycemia without coma, with long-term current use of insulin ([facility]) Chew 4 tablets (16 g) if needed for low blood sugar. 50 tablet 024 2024 Active metFORMIN XR (Glucophage-XR) 500 MG 24 hr tablet TAKE 2 TABLETS BY MOUTH TWICE DAILY AT NOON AND IN THE EVENING DO NOT BREAK, CRUSH, DISSOLVE OR CHEW 120 tablet 5 Active cholecalciferol (D3-1000) 25 MCG (1000 UT) capsuleIndicatio ns:Vitamin D deficiency TAKE 1 CAPSULE BY MOUTH EVERYDAY AT NOON 90 capsule 1 Active lisinopril 20 MG tabletIndication s:Essential hypertension TAKE 1 TABLET BY MOUTH EVERYDAY AT NOON 90 tablet 1 Active Alcohol Swabs (Alcohol Prep) padsIndications: Type 2 diabetes mellitus with hyperglycemia, with long-term current use of insulin ([facility]) Use one pad each to prep skin prior to injection as directed 100 each 025 Active atorvastatin (Lipitor) 40 MG tabletIndication s:Mixed hyperlipidemia Take 1 tablet (40 mg) by mouth Once per day. 30 tablet 11 025 2025 Active Continuous Glucose Sensor (FreeStyle Dayana 3 Plus Sensor) miscIndications: Type 2 diabetes mellitus with hyperglycemia, with long-term current use of insulin ([facility]) USE DIRECTED. CHANGE EVERY 15 DAYS 2 each 3 025 Active levothyroxine (Synthroid) 175 MCG tablet Take 1 tablet (175 mcg) by mouth before breakfast. 90 tablet 3 025 2025 Active ezetimibe (Zetia) 10 MG tablet Take 10 mg by mouth in the morning. Active Mounjaro 7.5 MG/0.5ML solution auto-injector INJECT ONE PEN (=7.5MG) SUBCUTANEOUSLY ONCE A WEEK DIRECTED 025 Active insulin glargine (Lantus SoloStar) 100 UNIT/ML penIndications:T ype 2 diabetes mellitus with hyperglycemia, with long-term current use of insulin (CMS/HCC) Inject 12 units under the skin at bedtime. Reduce to 10 units at bedtime if Mounjaro is increased to 10 mg weekly. 15 mL 2 025 Active UltiCare Alcohol Swabs 70 % pads USE DIRECTED TO CLEAN SKIN SAMI RAYMUNDO AL Ruth A 022 2024 Discontinued(M ed list cleanup (will not trigger notification to Pharmacy)) metFORMIN, OSM, (Fortamet) 1000 MG 24 hr tabletIndication s:Diabetes mellitus of other type without complication, unspecified whether terminal gauger supervisor insulin use ([facility]) Take 1 tablet by mouth twice daily. Do not crush, chew, or split. 60 tablet 3 024 2024 Discontinued(M ed list cleanup (will not trigger notification to Pharmacy)) insulin pen needle 30G x 5 mm miscIndications: Type 2 diabetes mellitus with hyperglycemia, with long-term current use of insulin (CMS/HCC) Use as instructed 100 each 12 025 2024 Discontinued(M ed list cleanup (will not trigger notification to Pharmacy)) Tirzepatide (Mounjaro) 5 MG/0.5ML solution auto-injectorInd ications:Type 2 diabetes mellitus with hyperglycemia, with long-term current use of insulin (CMS/HCC) Inject 5 mg under the skin 1 (one) time per week. 2 mL 11 025 2024 Discontinued(M ed list cleanup (will not trigger notification to Pharmacy)) insulin glargine (Lantus SoloStar) 100 UNIT/ML penIndications:T ype 2 diabetes mellitus with hyperglycemia, with [...] Secondary erythrocytosis 08/03/2022 Overview (08/03/2022): Appt 05/04/21 [facility] Hematology Severe hematocrit > 60; [...] PM EST): -hgb 12.2 on 12/28 @ [facility] -recheck levels Depression, recurrent 03/09/20222023 Encounters Date Type Department Care Team Description 06/12/2024 Travel 05/11/2024 Refill [facility] [address] [place] [phone] Adrienne Sheehan FNP Acquired hypothyroidism 05/09/[address] [address] Adrienne Sheehan FNP 05/03/2024 Orders Only [facility] External Provider, [facility] 04/30/2024 Patient Outreach [facility] [address] [place] [address] Adrienne Sheehan FNP Care Coordination (CHW outreach SDOH pest control - referral completed ) 04/30/2024 Patient Outreach [facility] [address] [place] [address] Adrienne Sheehan FNP Pre-visit Planning (SDOH screening positive and tobacco screening negative) 04/23/2024 Refill [facility] [address] [place] [address] Adrienne Sheehan FNP Type 2 diabetes mellitus with hyperglycemia, with long-term current use of insulin ([facility]) 04/18/2024 10:00 AM EST Office Visit [facility] [address] [place] [phone] Adrienne Sheehan FNP Type 2 diabetes mellitus with hyperglycemia, with long-term current use of insulin ([facility]) (Primary Dx); Acquired hypothyroidism; Obstructive sleep apnea; Encounter for immunization 04/18/2024 Orders Only [facility] [address] [place] [address] Emily Brooks MD Type 2 diabetes mellitus with hyperglycemia, with long-term current use of insulin ([facility]) (Primary Dx) 04/18/2024 Telephone [facility] [address] [place] [address] [facility] 04/18/2024 Travel 04/17/2024 Orders Only GENERIC EXTERNAL DATA DEPARTMENT Provider, Generic External Data 03/28/2024 Telephone [facility] [address] [place] [address] Marsha Wilson, RN Results 03/28/2024 Telephone [facility] [address] [place] [address] Marsha Wilson, RN Results 03/28/2024 Orders Only [facility] [address] [place] [address] [facility] Mixed hyperlipidemia (Primary Dx) 03/28/2024 Orders Only GENERIC EXTERNAL DATA DEPARTMENT Provider, Generic External Data 03/22/2024 Telephone [facility] [address] [place] [address] Arely Novoa, RN 03/21/2024 Orders Only [facility] [address] [place] [address] [facility] Acquired hypothyroidism 03/19/2024 Telephone [facility] [address] [place] [address] Marsha Wilson, RN Results 03/19/2024 Orders Only [facility] [address] [place] [address], [place] [address] [facility] Acquired hypothyroidism (Primary Dx) from Last 3 Months Immunizations Name Administration [...] Description 07/11/2024 2:30 PM EDT Medication Management [facility] [address] [place] [address] 07/20/2024 2:30 PM EDT Office Visit [facility] [address] [place] [address] [facility] [address] [place] [address] 07/23/2024 2:00 PM EDT Office Visit [facility] [address] [place] [address] Tom, Lou, OD [address] [place] [address] 08/08/2024 2:00 PM EDT Office Visit [facility] [address] [place] [address] [facility] [address] [place] [address] Health Maintenance Due Date Last Done Comments CT Colonography 1968 FIT DNA/Cologuard 1968 FIT 1968 FOBT 1968 Sigmoidoscopy 1968 Alcohol/Substance Use Screening 1980 Dental Oral Exam 06/15/2021 12/15/2020 Dental Prophylaxis 10/19/2021 04/17/2021 Dental X-Ray: Bitewings 12/16/2021 12/15/2020 Zoster Vaccines (2 of 2) 03/22/2023 01/25/2023 Dental X-Ray: Full Mouth 04/18/2024 04/17/2021 Diabetes: Foot Exam 08/25/2024 08/26/2023, Diabetes: Hemoglobin A1C 09/11/2024 025, 03/28/2024, 03/09/2024, Additional history exists Diabetes: Urine Protein Screening 03/09/2025 03/09/2024, 05/09/2023, [...] 1:26 PM EDT) No Souleymane Love PharmD Procedures Procedure Name Priority Date/Time Associated Diagnosis Comments POCT GLYCATED HEMOGLOBIN, TOTAL Routine 06/12/2024 1:26 PM EDT Type 2 diabetes mellitus with hyperglycemia, with long-term current use of insulin ([facility]) US ABDOMEN COMPLETE WITH ELASTOGRAPHY Routine 05/03/2024 9:06 AM EDT TSH Routine 05/03/2024 8:02 AM EDT Acquired hypothyroidism POCT GLUCOSE Routine 04/18/2024 10:48 AM EST Type 2 diabetes mellitus with hyperglycemia, with long-term current use of insulin ([facility]) HEMATOXYLIN AND EOSIN STAIN Routine 04/17/2024 1:55 [...] Relevant to Health Maintenance Results * (ABNORMAL) POCT A1C (06/12/2024 1:26 PM EDT) Hemoglobin A1C 7.6(A) 4.0 - 6.0 % QC Media Lot # [id number] Lot# Expiration Date Blood 06/12/2024 1:26 PM EDT [facility] PIGS FEET FINISHER POINT OF CARE TEST ENTER/EDIT ORDERABLES Final Result * US Abdomen Comp w elastography (05/03/2024 9:06 AM EDT) Anatomical Region Laterality Modality Abdomen Ultrasound 05/03/2024 9:06 AM EDT Narrative 05/03/2024 12:25 PM EDT ? [facility] ?[address] ?[place] [address] ? Ultrasound Report ? Signed ? Patient: Lobo Lobo,Michele L ?MR#: [id number] ?? [id number] ? : 1970 ?Acct:[id number] ? Age/Sex: 53 / M ?ADM Date: 05/03/ ? Loc: HO.US ? Attending Dr: Saul Sanchez MD ? Ordering Physician: Saul Sanchez MD ?? Date of Service: 05/03/24 ?? Procedure(s): US abdomen comp w elastography ?? Accession Number(s): [id number] ? cc: Saul Sanchez MD; Adrienne Sheehan [...] DD/ 0906 ? TD/TT: 05/03/24 0941 ? Milk Bottler: ? Procedure Note Donotstefanyinterpreter, Image - 05/03/2024 [place] [address] Ultrasound Report Signed Patient: Michele Alicea LMR#: [id number] : 1970Acct:[id number] Age/Sex: 53 / MADM Date: 05/03/24 Loc: HO.US Attending Dr: Saul Sanchez MD Ordering Physician: Saul Sanchez MD Date of Service: 05/03/24 Procedure(s): US abdomen comp w elastography Accession Number(s): [id number] cc: Saul Sanchez MD; [facility] EXAMINATION: US ABDOMEN COMPLETE WITH LIVER [...] 05/03/24 1222 DD/ 0906 TD/TT: 05/03/24 0941 Milk Bottler: [facility] External Provider IMG US PROCEDURES Final Result * (ABNORMAL) TSH (05/03/2024 8:02 AM EDT) Only the most recent of2 resultswithin the time period is included. Thyroid Stimulating Hormone 7.86(H) 0.32 - 4.0 uIU/mL [facility] Comment:Note: A sustained TS H level above 2.5 uIU/mL may warrant further investigation. TSH 3rd Generation ([facility]) Blood Venous blood specimen / Unknown 05/03/2024 8:02 AM EDT 05/03/2024 8:02 AM EDT [facility] LAB BLOOD ORDERABLES Final Re sult [facility] [address] [place] [phone] * POCT Glucose (04/18/2024 10:48 AM EST) Glucose Blood, POC 148 60 - 200 mg/dL Blood Capillary blood specimen / Unknown 04/18/2024 10:48 AM EST [facility] POINT OF CARE TEST ENTER/EDIT ORDERABLES Final Result * Hematoxylin and Eosin Stain (04/17/2024 1:55 PM EST) 04/17/2024 1:55 PM EST 04/18/2024 8:45 AM EST Narrative [facility] - 04/20/2024 9:09 AM EST ----- ------- Name: Michlee Alicea ?Age/Sex: 53/M ? : 1970 Unit#: [id number] ?? Attend Dr: Saul Sanchez MD ?Re04/17/24 ?Status: DEP SDC ? Location: HO.SSS ?Disch: ? ----- ------- SPEC : [id number] ? RECD: 04/18/24 ? STATUS: ??SOUT ? REQ NUM: [id number] ? RAF: 04/17/24-5568 ? SUBM DR: Saul Sanchez MD ? ENTERED: ??04/18/24 ?SP TYPE: Surgical ? OTHR DR: Adrienne Sheehan P[employer]S FEET FINISHER ? ORDERED: ??HE Stain/6, Gross Micro L4/3, [...] Alicea ?Age/Sex: 53/M ? : 1970 Unit#: [id number] ?? Attend Dr: Saul Sanchez MD ?Re04/17/24 ?Status: DEP SDC ? Location: HO.SSS ?Disch: ? ----- ------- SPEC : [id number] ? RECD: 04/18/24 ? STATUS: ??SOUT ? REQ NUM: [id number] ? RAF: 04/17/24-0727 ? SUBM DR: Saul Sanchez MD ? ENTERED: ??04/18/24 ?SP TYPE: Surgical ? OTHR DR: Adrienne SheehanP ? ORDERED: ??HE Stain/6, Gross Micro L4/3, IHC, Special st. 2/2, H. pylori, AB/PAS/2 ? Copies To: ?? Saul Sanchez MD ?? [facility] ?? [address] ?? [place] [address] ?? [phone] ?? [facility] ?? [address] ?? [place] [address] ?? [phone] ----- ------- Signed (signature on file) Yaya Guillory MD 04/20/24908 ? ----- ------- ? END OF REPORT ? us Generic External Data Provider LAB BLOOD ORDERAB LES Final Result [facility] [address] [place] [address] [phone] * Glucose, Whole Blood (04/17/2024 1:00 PM EST) Glucose, Whole Blood 111 60 - 115 mg/dL [facility] Comment:METER #: [id number] 04/17/2024 1:00 PM EST 04/17/2024 1:04 PM EST us Generic External Data Provider LAB BLOOD ORDERAB LES Final Result [facility] [address] [facility] [place] [address] [phone] * XR Chest 2 Views (03/28/2024 9:38 AM EST) Anatomical Region Laterality Modality Chest Radiographic Nancy ging 03/28/2024 9:38 AM EST Narrative 03/28/2024 9:56 AM EST ? [facility] ?[address] ?[place] [address] ?XRay Report ? Signed ? Patient: Yamil Lobo,Michele L ?MR#: [id number] ?? [id number] ? : 1970 ?Acct:[id number] ? Age/Sex: 53 / M ?ADM Date: 03/28/24 ? Loc: HO.LAB ? Attending Dr: Saul Sanchez MD ? Ordering Physician: Saul Sanchez MD ?? Date of Service: 03/28/24 ?? Procedure(s): XR chest 2V ?? Accession Number(s): [id number] ? cc: Saul Sanchez MD; Adrienne Sheehan [...] DD/ 0938 ? TD/TT: 03/28/24 0942 ? Milk Bottler: ? Procedure Note Donotstefanyinterpreter, Image - 03/28/2024 [place] [address] XRay Report Signed Patient: Michele Alicea LMR#: [id number] : 1970Acct:[id number] Age/Sex: 53 / MADM Date: 03/28/24 Loc: HO.LAB Attending Dr: Saul Sanchez MD Ordering Physician: Saul Sanchez MD Date of Service: 03/28/24 Procedure(s): XR chest 2V Accession Number(s): [id number] cc: Saul Sanchez MD; [facility] EXAMINATION: XR CHEST 2 VIEWS HISTORY: [...] Darius Tipton MD in OV> 03/28/2453 DD/ 7 TD/TT: 03/28/24941 Milk Bottler: [facility] External Provider IMG XR PROCEDURES Final Result * Vitamin D, 25-Hydroxy, Total, Immunoassay (03/28/2024 9:12 AM EST) Vitamin D 25-OH Total 39.6 >30 ng/mL [facility] Comment:Health Based Referen ce Values*< 20 ng/mL Qoqwdklay18-29 ng/mL Insufficient> 30 ng/mL Sufficient*Oscar RUIZ. N [...] ORDERAB LES Final Result Performing Organization Address [facility] Co de Phone Number [facility] [address] [place] [phone] * Vitamin B12 (Cobalamin) and Folate Panel, Serum (03/28/2024 9:12 AM EST) Vitamin B12 734 200 - 900 pg/mL [facility] Comment:NORMAL 200-900 PG/ML INDETERMINATE 160-199 PG/ML DEFICIENT < 160 PG/ML Folate 8.7 > or = 4.0 ng/mL [facility] Comment:Reference Values:> o r = 4.0 ng/mL< 4.0 ng/mL suggests folate deficiency Methotrexate, aminopterin and folinic acid(leucovorin) are chemotherapeutic agents whose molecularstructures are similar to folate; therefore, the Architectfolate assay cannot be used for patients using these drugs. 03/28/2024 9:12 AM EST 03/28/2024 9:12 AM EST us Generic External Data Provider LAB BLOOD ORDERAB LES Final Result Performing Organization Address City/[facility]/ZIP Co de Phone Number [facility] [address] [place] [address] [phone] * (ABNORMAL) TSH with Reflex to Free T4 (03/28/2024 9:12 AM EST) TSH reflex Free T4 4.41(H) 0.32 - 4.0 uIU/mL [facility] 03/28/2024 9:12 AM EST 03/28/2024 9:12 AM EST us Generic External Data Provider LAB BLOOD ORDERAB LES Final Result [facility] [address] [place] [address] [phone] * (ABNORMAL) CBC auto differential (03/28/2024 9:12 AM EST) Pathologist [facility] White Blood Count 7.1 4.8 - 10.8 X10*3/uL [facility] Red Blood Count 5.81(H) 4.60 - 5.80 X10*6/uL [facility] Hemoglobin 15.3 14.0 - 18.0 g/dl [facility] Hematocrit 48.1 42.0 - 52.0 % [facility] Mean Corpuscular Volume 82.8 80.0 - 98.0 fL [facility] Mean Corpuscular Hemoglobin 26.3(L) 27.0 - 33.0 pg [facility] Mean Corpuscular HGB Conc 31.8 31.0 - 36.0 g/dl [facility] Red Cell Distribution Width 14.2 11.0 - 16.0 % [facility] Platelet Count 306 160 - 400 X10*3/uL [facility] Mean Platelet Volume 9.1(L) 9.4 - 12.4 fL [facility] Neutrophils Percent Auto 52.4 45 - 73 % [facility] Imm Gran Pct Auto 0.3 0.0 - 0.4 % [facility] Lymphocytes Percent Auto 35.6 20 - 40 % [facility] Monocytes Percent Auto 6.4 2 - 11 % [facility] Eosinophils Percent Auto 4.7(H) 0 - 4 % [facility] Basophils Percent Auto 0.6 0 - 2 % [facility] NRBC Pct Auto 0.0 0.0 - 0.2 /100WBC [facility] Neutrophils Absolute Auto 3.7 2.0 - 8.3 x10*3/uL [facility] Imm Gran Abs Auto 0.02 0.00 - 0.03 X10*3/uL [facility] Lymphocytes Absolute Auto 2.5 1.2 - 4.9 X10*3/uL [facility] Monocytes Absolute Auto 0.5 0.1 - 1.2 X10*3/uL [facility] Eosinophils Absolute Auto 0.3 0.0 - 0.4 X10*3/uL [facility] Basophils Absolute Auto 0.0 0.0 - 0.2 X10*3/uL [facility] NRBC Abs Auto 0.000 0.0 - 0.012 X10*3/uL [facility] 03/28/2024 9:12 AM EST 03/28/2024 9:12 AM EST us Generic External Data Provider LAB BLOOD ORDERAB LES Final Result Performing Organization Address City/[facility]/ZIP Co de Phone Number [facility] [address] [place] [phone] * Iron And Total Iron Binding Capacity (03/28/2024 9:12 AM EST) Iron 97 45 - 160 mcg/dL [facility] Total Iron Binding Capacity 345 228 - 428 mcg/dL [facility] Percent Iron Saturation 28 15 - 50 % [facility] Unsaturated Iron Binding 248 ug/dL [facility] 03/28/2024 9:12 AM EST 03/28/2024 9:12 AM EST us Generic External Data Provider LAB BLOOD ORDERAB LES Final Result [facility] [address] [place] [phone] * Insulin (03/28/2024 9:12 AM EST) Insulin 10 2 - 29 uU/mL [facility] Comment:This test was perfor med [...] Result Performing Organization Address [facility] de Phone Number [facility] [address] [place] [phone] * Zinc (03/28/2024 9:12 AM EST) Zinc 91 60 - 130 mcg/dL [facility] Comment:This test was develo ped and its analytical performancecharacteristics have been determined by [employer] [place], [place]. It hasnot been cleared or approved by the U.S. Food and DrugAdministration. This assay has been validated pursuantto the CLIA regulations and is used for clinicalpurposes.THIS TEST WAS PERFORMED AT:[employer] [place] [address]YCGOMJGPHYLLIS VALVERDE MD,PHD 03/28/2024 9:12 AM EST 03/28/2024 9:12 AM EST us Generic External Data Provider LAB BLOOD ORDERAB LES Final Result Performing Organization Address [facility] Co de Phone Number [facility] [address] [place] [phone] * Vitamin A (03/28/2024 9:12 AM EST) Pathologist [facility] Vitamin A (Retinol) 45 38 - 98 mcg/dL [facility] Comment:Vitamin supplementat ion within 24 hours prior toblood draw may affect the accuracy of the results.This test was developed and its analytical performancecharacteristics have been determined by [employer] [place], [place]. It hasnot been cleared or approved by the U.S. Food and DrugAdministration. This assay has been validated pursuantto the CLIA regulations and is used for clinicalpurposes.THIS TEST WAS PERFORMED AT:[employer] [place] [address]XQNDKVAPHYLLIS VALVERDE MD,PHD 03/28/2024 9:12 AM EST 03/28/2024 9:12 AM EST Generic External Data Provider LAB BLOOD ORDERAB LES Final Result Performing Organization Address City/[facility]/ZIP Co de Phone Number [facility] [address] [place] [phone] * C-reactive Protein (03/28/2024 9:12 AM EST) [facility] C Reactive Protein 0.36 < or = 0.50 mg/dL [facility] 03/28/2024 9:12 AM EST 03/28/2024 9:12 AM EST Generic External Data Provider LAB BLOOD ORDERAB LES Final Result Performing Organization Address [facility]/ZIP Co de Phone Number [facility] [address] [place] [phone] * T4, Free (03/28/2024 9:12 AM EST) Pathologist [facility] Free T4 (Free Thyroxine) 1.06 0.71 - 1.85 ng/dL [facility] 03/28/2024 9:12 AM EST 03/28/2024 9:12 AM EST us Generic External Data Provider LAB BLOOD ORDERAB LES Final Result Performing Organization Address [facility] Co de Phone Number [facility] [address] [place] [phone] * Vitamin B1 (03/28/2024 9:12 AM EST) Pathologist [facility] Vitamin B1 12 8 - 30 nmol/L [facility] Comment:Vitamin supplementat ion within 24 hours prior toblood draw may affect the accuracy of the results.This test was developed and its analytical performancecharacteristics have been determined by [employer] [place], [place]. It hasnot been cleared or approved by the U.S. Food and DrugAdministration. This assay has been validated pursuantto the CLIA regulations and is used for clinicalpurposes.THIS TEST WAS PERFORMED AT:[employer]/[facility] [place] [id number] VALVERDE MD,PHD 03/28/2024 9:12 AM EST 03/28/2024 9:12 AM EST Generic External Data Provider LAB BLOOD ORDERAB LES Final Result Performing Organization Address [facility] de Phone Number [facility] [address] [place] [phone] * (ABNORMAL) Hemoglobin A1c (03/28/2024 9:12 AM EST) Hemoglobin A1c 10.5(H) <6.0 % [facility] Comment:Hemoglobin A1C Refer ence Range Adults: 4.8 - 6.0 % Non diabetic: < 6.0 % Goal: < 7.0 %Additional Action Suggested: > 8.0 %Note: Hemoglobin A1c results are invalid for patients with abnormal amounts of HbF. Blood transfusions may impact the HbA1c concentration in the patient sample. Estimated Average Glucose 255 mg/dL [facility] Comment:eAG = Estimated ave rage glucose which is %A1C expressed asaverage glucose, using the formula of the W5F-GgvdwhvBhsjjyd Glucose study (ADAG), Diabetes Care, Vol.31,#8,Sep. 2007 03/28/2024 9:12 AM EST 03/28/2024 9:12 AM EST us Generic External Data Provider LAB BLOOD ORDERAB LES Final Result Performing Organization Address [facility] Co de Phone Number [facility] [address] [place] [phone] * Ferritin (03/28/2024 9:12 AM EST) Ferritin 72 20 - 250 ng/mL [facility] 03/28/2024 9:12 AM EST 03/28/2024 9:12 AM EST Generic External Data Provider LAB BLOOD ORDERAB LES Final Result Performing Organization Address [facility] de Phone Number [facility] [address] [place] [phone] * (ABNORMAL) Lipid Panel, Standard (03/28/2024 9:12 AM EST) Triglycerides 132 <150 mg/dL [facility] Comment:Desirable Triglyceri de: less than 150 mg/dLBorderline High Triglyceride 150-199 mg/dLHigh Triglyceride: 200-499 mg/dLVery High Triglyceride: greater than or equal to 5OO mg/dL Cholesterol 184 <200 mg/dL [facility] Comment:Desirable Cholestero l: less than 200 mg/dLBorderline High Cholesterol: 200-239 mg/dLHigh Cholesterol: greater than 239 mg/dL LDL Cholesterol Calculated 120(H) <100 mg/dL [facility] Comment:Desirable LDL: less than 100 mg/dLNear Optimal/Above Optimal LDL: 110- 129 mg/dLBorderline High LDL: 130-159 mg/dLHigh LDL: 160-189 mg/dLVery High LDL: greater than or equal to 190 mg/dL HDL Cholesterol 38(L) >40 mg/dL [facility] Comment:Desirable HDL: great er than 40 mg/dL Note: This HDL assay may give artificially low results in patients with liver disease. 03/28/2024 9:12 AM EST 03/28/2024 9:12 AM EST us Generic External Data Provider LAB BLOOD ORDERAB LES Final Result [facility] [address] [place] [address] [phone] * (ABNORMAL) Comprehensive Metabolic Panel (03/28/2024 9:12 AM EST) Sodium 139 135 - 145 mmol/L [facility] Potassium 4.4 3.3 - 5.1 mmol/L [facility] Chloride 102 96 - 108 mmol/L [facility] Carbon Dioxide 32(H) 22 - 29 mmol/L [facility] Anion Gap 9(L) 12 - 20 [facility] Urea Nitrogen (BUN) 18(H) 9 - 16 mg/dL [facility] Creatinine, Serum 1.25 0.5 - 1.4 mg/dL [facility] Estimated Glomerular Filt Rate 60 [facility] Comment:Chronic Kidney Disea se: Estimated GFR < 60 mL/min/1.81c1Xmpfrn Kidney Disease: Estimated GFR < 15 mL/min/1.73m2 Glucose 235(H) 60 - 115 mg/dL [facility] Calcium 9.8 8.4 - 10.2 mg/dL [facility] Bilirubin, Total 0.6 0.0 - 1.0 mg/dL [facility] Aspartate Amino Transferase 33 5 - 37 U/L [facility] Alanine Aminotransferase 44(H) 0 - 40 U/L [facility] Total Protein 8.3(H) 6.5 - 8.0 g/dL [facility] Albumin Level 4.4 3.5 - 5.0 g/dL [facility] Alkaline Phosphatase 91 39 - 117 U/L [facility] 03/28/2024 9:12 AM EST 03/28/2024 9:12 AM EST us Generic External Data Provider LAB BLOOD ORDERAB LES Final Result Performing Organization Address [facility]/State/ZIP Co de Phone Number [facility] [address] [facility] [place] [address] [phone] * XR Knee 3 Views Right (03/21/2024 1:32 PM EST) Anatomical Region Laterality Modality Lower Extremities, Knee Right Radiogra phic Imaging 03/21/2024 1:32 PM EST Narrative 03/21/2024 1:33 PM EST ? [facility] ?[address] ?[place] [address] ?XRay Report ? Signed ? Patient: Michele Alicea L ?MR#: [id number] ?? [id number] ? : 1970 ?Acct:[id number] ? Age/Sex: 53 / M ?ADM Date: 03/20/24 ? Loc: HO.XRAY ? Attending Dr: Adrienne Sheehan PIGS FEET FINISHER ? Ordering Physician: Adrienne Sheehan ?? Date of Service: 03/20/24 ?? Procedure(s): XR knee RT 3V ?? Accession Number(s): [id number] ? cc: Adrienne Sheehan PIGS FEET FINISHER ? CLINICAL HISTORY: acute on chronic right [...] by Arabella Burton MD in OV> ? 03/21/241331 ? DD/ 31 ? TD/TT: 03/21/24 1332 ? Milk Bottler: ? Procedure Note Varunter, Image - 03/21/2024 [place] [address] XRay Report Signed Patient: Michele Alicea LMR#: [id number] : 1970Acct:[id number] Age/Sex: 53 / MADM Date: 03/20/24 Loc: [facility] Attending Dr: Adrienne GORDILLO Ordering Physician: Adrienne Sheehan Date of Service: 03/20/24 Procedure(s): XR knee RT 3V Accession Number(s): [id number] cc: Adrienne Sheehan PIGS FEET FINISHER CLINICAL HISTORY: acute on chronic right knee [...] signed by Arabella Burton MD in OV> 03/21/241331 DD/ 31 TD/TT: 03/21/241331 Milk Bottler: Adrienne [facility] IMG XR PROCEDURES Edited Resu lt - Final * (ABNORMAL) Albumin, Random Urine W/Creatinine (03/09/2024 10:14 AM EST) Creatinine, Urine 160.00 mg/dL [facility] Microalbumin Urine 475.0 mg/L H [facility] Microalbum Creatinine Ratio Ur 296.8(H) <30 ug/mg cr [facility] Comment:Albumin/Creatinine R atio Reference Ranges: Normal: < 30 ug/mg creatinine Microalbuminuria: 30 - 300 ug/mg creatinineClinical Albuminuria: > 300 ug/mg creatinine Urine 03/09/2024 10:1 4 AM EST 03/09/2024 11:34 AM EST [facility] PIGS FEET FINISHER LAB URINE ORDERABLES Final Re sult Performing Organization Address [facility] Co de Phone Number [facility] [address] [place] [phone] * Colonoscopy (04/16/2021) [facility] Colonoscopy Normal Normal, Abnormal, BIRADS 0 , BIRADS 1 , BIRADS 2, BIRADS 3 , BIRADS 4+ Comment:Patient States got i t done at [facility] and was normal. Historical Provider MD HEALTH MAINTENANCE Final Result * HEPATITIS C AB W/REFL TO HCV RNA, QN, PCR (02/18/2021 4:20 PM EST) Pathologist [facility] HEPATITIS C ANTIBODY NON-REACT PEPE NON-REACT PEPE [facility] INDEX 0.04 <1.00 [facility] Comment: ?? HCV antibody was non-reactive. There is no laboratory ?? evidence of HCV infection. ?? In most cases, no further action is required. However, if recent HCV exposure is suspected, a test for HCV RNA (test code 35041) is suggested. ?? For additional information please refer to http://education.Tier 3/faq/UVB95f4 (This link is being provided for informational/ educational purposes only.) ?? 02/18/2021 4:20 PM EST Teri Alanis AGRONOMY SPECIALIST HISTORICAL/NON ORDERABLE LABS Final Result Performing Organization Address City/[facility]/ZIP Co de Phone Number [facility] [address] * HIV 1/2 ANTIGEN/ANTIBODY,FOURTH GENERATION W/RFL (02/18/2021 4:20 PM EST) HIV-1/2 ANTIGEN AND ANTIBODIES, 4TH GENERATION W/ REFLEX NON-REACT PEPE NON-REACT PEPE [facility] Comment: HIV-1 antigen and HIV-1/HIV-2 [...] ? For additional information please refer to http://education.Tier 3/faq/LUR087 (This link is being provided for informational/ educational purposes only.) ? The performance of this assay has not been clinically validated in patients less than 2 years old. ?? 02/18/2021 4:20 PM EST us Teri Alanis NP LAB BLOOD ORDERABLES Final Res ult Performing Organization Address [facility] de Phone Number [facility] [address] from Last 3 Months or Most Recently Relevant to Health Maintenance Insurance [facility] STANDARD CCA ONE CARE < 65 DENTAL-[facility] MEDICAID STAND ADULT Care Teams Amalgamator Relationship Specialty Start Date End Date Adrienne Sheehan FNP [address] [place] [phone] PCP - General Family Medicine 07/04/23 Margret Strauss, PharmD [address] [place] [phone] Pharmacist Internal Medicine 06/12/24
--- OUTSIDE RECORDS SUMMARY | 2024-06-14 07:53 | XMS_ITS | Encounter Summary ---
Author Organization [employer] Address [address] [place] [address] Care Team Providers Care Foreclosure Paralegal Name Role Phone Adrienne Sheehan ACCOUNTING TECHNICIAN Primary Care Provider [phone] Margret Strauss PharmD Unavailable [phone] Encounter Details Date Type Department Care Team (Latest Contact Info) Description 06/12/2024 Travel Social History Tobacco Use Types Packs/Day [...] Description 07/11/2024 2:30 PM EDT Medication Management [facility] [address] [place] [phone] 07/20/2024 2:30 PM EDT Office Visit [facility] [address] [place] [phone] [facility] [address] [place] [address] 07/23/2024 2:00 PM EDT Office Visit [facility] OPTOMETRY [address] [place] [address] Tom, Lou, OD [address] [place] [address] 08/08/2024 2:00 PM EDT Office Visit [facility] [address] [place] [address] [facility] [address] [place] [address] documented as of this encounter Goals Goal Patient Goal Type Associated Problems Recent Progress Patient-Stated? Author Blood Pressure < 140/90 Blood Pressure 134/80(2024 10:46 AM EST) No Souleymane Love, Rayshawn Hemoglobin A1c < 7 Result Component 7.6( 1:26 PM EDT) Souleymane John, SarayD documented as of this encounter Visit Diagnoses Not on filedocumented in this encounter Additional Health Concerns Assessment Noted Time PHQ-9 Depression Total Score: 0 04/19/19 10:48 AM EST documented as of this encounter Care Teams Foreclosure Paralegal Relationship Specialty Start Date End Date Adrienne Sheehan FNP [address] [place] [address] PCP - General Family Medicine 07/04/23 Margret Strauss, SarayD [address] [place] [address] Pharmacist Internal Medicine 06/12/24 documented as of this encounter
--- OUTSIDE RECORDS SUMMARY | 2024-06-14 07:53 | XMS_ITS | Encounter Summary ---
Author Organization [employer] Address [address] [place] [address] Care Team Providers Care District Manager Primary Care Sales Name Role Phone Kori Alonso NP Primary Care Provider [phone] [facility] LABORATORY SAMPLER Primary Care Provider [phone] Margret Strauss PharmD Unavailable [phone] Reason for Visit * Reason Onset Date Comments Med Refill 03/16/2023 Encounter Details Date Type Department Care Team (Late st Contact Info) Description 03/16/2023 Telephone [facility] [address] [place], [place] [phone] Kori Alonso NP [address] [place], [place] [phone] Med Refill Social History Tobacco Use Types [...] Description 07/11/2024 2:30 PM EDT Medication Management [facility] [address] [place] [phone] 07/20/2024 2:30 PM EDT Office Visit [facility] [address] [place] [address] [facility] [address] [place] [address] 07/23/2024 2:00 PM EDT Office Visit [facility] OPTOMETRY [address] [place] [address] Tom, Lou, OD [address] [place] [address] 08/08/2024 2:00 PM EDT Office Visit [facility] [address] [place] [address] [facility] [address] [place] [address] documented as of this encounter Goals Goal [...] documented as of this encounter Care Teams District Manager Primary Care Sales Relationship Specialty Start Date End Date Kori Alonso NP [address] [place] [address] PCP - General Family Medicine 01/19/23 07/03/23 Adrienne Sheehan FNP [address] [place] [address] PCP - General Family Medicine 07/04/23 Margret Strauss PharmD [address] [place] [address] Pharmacist Internal Medicine 06/12/24 documented as of this encounter
--- OUTSIDE RECORDS SUMMARY | 2024-06-14 07:53 | XMS_ITS | Encounter Summary ---
Author Organization [employer] Address [address] [place] [phone] Care Team Providers Care Motor Electrician Name Role Phone Sophia Burns Primary Care Provider [phone] Kori Alonso MILITARY ADMINISTRATIVE TECHNICIAN Primary Care Provider [phone] Boom Estevez MD Primary Care Provider [phone] Kori Alonso NP Primary Care Provider [phone] Allen GLUING MACHINE ADJUSTER Primary Care Provider [phone] Margret Strauss PharmD Unavailable [phone] Encounter Details Date Type Department Care Team (Late st Contact Info) Description 08/26/2022 [facility] Compliance 11 Information Management [address] [place] [address] Sophia Burns FNP [address] [place] [address] [place] [address] Social History Tobacco Use Types Packs/Day Years [...] Description 07/11/2024 2:30 PM EDT Medication Management [facility] [address] [facility] [place] [address] 07/20/2024 2:30 PM EDT Office Visit [facility] [address] [facility] [place] [address] [facility] [address] [place] [address] 07/23/2024 2:00 PM EDT Office Visit [facility] OPTOMETRY [address] [place] [address] Tom, Lou, OD [address] [place] [address] 08/08/2024 2:00 PM EDT Office Visit [facility] [address] [facility] [place] [address] [facility] [address] [place] [address] documented as of this encounter Visit Diagnoses Not on filedocumented in this encounter Care Teams Motor Electrician Relationship Specialty Start Date End Date Sophia Burns FNP PCP - General Family Medicine 10/12/21 11/22/22 [place] [address] PCP - General Family Medicine 11/23/22 01/16/23 Boom Estevez MD [address] [place] [address] PCP - General Internal Medicine 01/17/23 01/18/23 Kori Alonso NP [address] [place] [address] PCP - General Family Medicine 01/19/23 07/03/23 Adrienne Sheehan FNP [address] [place] [address] PCP - General Family Medicine 07/04/23 Margret Strauss PharmD [address] [place] [address] Pharmacist Internal Medicine 06/12/24 documented as of this encounter
== END 2024-06-14 07:51 | disposition home or self-care (01) ==
LOC: HO.XRAY 07:50
PROVIDERS: PCP Registered Nurse; Visit Provider Surgery
DX: E66.01 Morbid (severe) obesity due to excess calories (principal); E11.9 Type 2 diabetes mellitus without complications; I10 Essential (primary) hypertension; E78.5 Hyperlipidemia, unspecified; Z79.4 Long term (current) use of insulin; E03.9 Hypothyroidism, unspecified
CPT/HCPCS: 74246

== ENCOUNTER → 2024-06-14 08:30 | Outpatient (BNV) | payer OTHER, SELFPAY | PROVIDERS: PCP Registered Nurse; Visit Provider Radiology Diagnostic Radiology | DX: K21.9 Gastro-esophageal reflux disease without esophagitis (principal) | CPT/HCPCS: 74246 ==

== ENCOUNTER 2024-07-10 08:23 | Outpatient (AMB) | payer OTHER, SELFPAY ==
--- OUTSIDE RECORDS SUMMARY | 2024-07-10 08:35 | XMS_ITS | Encounter Summary ---
Author Organization [employer] Address [address] [facility] 7 [place] [address] Care Team Providers Care Railcar Switchman Name Role Phone Kori Alonso NP Primary Care Provider [phone] [facility] BATCH RECORDS CLERK Primary Care Provider [phone] Margret Strauss PharmD Unavailable [phone] Reason for Visit * Reason Onset Date Comments Med Refill 03/16/2023 Encounter Details Date Type Department Care Team (Late st Contact Info) Description 03/16/2023 Telephone [facility] [address] [place], [place] [phone] Kori Alonso NP [address] [place], [place] [phone] Med Refill Social History Tobacco Use Types [...] Description 07/11/2024 2:30 PM EDT Medication Management [facility] [address] [place] [phone] 07/20/2024 2:30 PM EDT Office Visit [facility] [address] [place] [address] [facility] [address] [place] [address] 07/23/2024 2:00 PM EDT Office Visit [facility] OPTOMETRY [address] [place] [address] Tom, Lou, OD [address] [place] [address] 08/08/2024 2:00 PM EDT Office Visit [facility]ICINE [address] [place] [address] [facility] [address] [place] [address] documented as of this encounter Goals Goal [...] documented as of this encounter Care Teams Railcar Switchman Relationship Specialty Start Date End Date Kori Alonso NP [address] [place] [address] PCP - General Family Medicine 01/19/23 07/03/23 Adrienne Sheehan FNP [address] [place] [address] PCP - General Family Medicine 07/04/23 Margret Strauss PharmD [address] [place] [address] Pharmacist Internal Medicine 06/12/24 documented as of this encounter
--- NOTE | 2024-07-10 12:19 | A.OFFVIS_ITS ---
VS Expanded 07/10/24 12:20 Height 5 ft 4 in Weight 225 lb BMI 38.6 Body Fat % 41.6 Body Fat Mass 93.6 Fat Free Mass 131.5 Visceral Fat Rating 21 Body Water % 42.2 Body Water Mass 94.9 Basal Metabolic Rate/Score 1,648 Intake Visit Reasons: TV Pre Op LSG 07/19/2024 *PARTS SALES COUNTERPERSON* Event Marketing Manager Required: Yes Event Marketing Manager Services: Event Marketing Manager Present Information Interpreted: clinical only Allergies No Known Allergies Allergy (Verified 07/10/24 12:28) Medication List - Last Reconciled 07/10/24 by Saul Sanchez MD atorvastatin 40 mg PO BEDTIME buspirone 10 mg PO DAILY cholecalciferol (vitamin D3) (Vitamin D3) 25 mcg PO DAILY ezetimibe 10 mg PO DAILY fluoxetine 20 mg PO DAILY levothyroxine 175 mcg PO QAM lisinopril 20 mg PO DAILY metformin ER 1,000 mg PO BID ondansetron 4 mg PO Q12H pantoprazole 40 mg PO DAILY polyethylene glycol 3350 17 grams PO DAILY sucralfate 10 mL PO BID tirzepatide (Mounjaro) 10 mg (0.5 mL) subcut QWEEK HPI HPI TV Pre Op LSG 07/19/2024 *PARTS SALES COUNTERPERSON*: Details: Start time: 12.14pm, End time: 12.44pm ?I spent 25 minutes speaking with the patient on the phone plus an additional 5 minutes reviewing and updating records for a total of 30 minutes HPI Comments Details: Overall weight loss: 26.4lbs, or 10.5% TBWL Is doing 2 CELEBRATE REBUILD protein shakes (ONE scoop EACH in 12oz low fat unsweetened almond milk each) at 5am-7am and 8am-10am, 2 protein bars (CELEBRATE protein bars, buy at [facility]) at 11am-1pm and 2pm-4pm, dinner at 5pm (10 forks of protein and 10 forks of salad/vegetables) AND TWO more protein bars after dinner at 7pm-9pm and 10pm-12am Exercise: is doing the stationary bike [facility] Medical History (Updated 07/10/24 @ 12:27 by Saul Sanchez MD) SOB (shortness of breath) Asthma BMI 39.0-39.9,adult Obesity BENITA (obstructive sleep apnea) Hypothyroidism Hyperlipidemia DJD (degenerative joint disease) Anxiety Depression Hypertension Insulin dependent type 2 diabetes mellitus Morbid obesity Surgical History (Updated 07/04/24 @ 08:40 by Maci Mcdowell RN) History of esophagogastroduodenoscopy (EGD) Hx of circumcision Family History Mother No problems noted. Father No problems noted. Social History Are you a primary animal care attendant to a significant other at home: No Do you presently have visiting nurse or other home services: No Alcohol intake: current Alcohol intake frequency: does not drink Patient Tobacco Use Status: Former Tobacco user Tobacco use type: Cigarette Telehealth Telehealth Telehealth Platform: Telephone Location of provider rendering services: practice address Location of patient: address on file Patient Identification confirmed using: Name, : Yes Telehealth method: voice only Patient verbally consented to treatment: Yes Patient verbally consented to billing insurance company: Yes Patient informed of any privacy concerns related to visit: Yes Minutes spent on Phone/Video with Pt.: 30 Assessment & Plan Assessment & Plan (1) Obesity: Code(s): E66.9 - Obesity, unspecified Category: Medical Qualifiers: Obesity type: due to excess calories Obesity classification: adult class 2 (BMI 35 - 39.9) Serious obesity comorbidity presence: with serious comorbidity Body mass index: BMI 38.0-38.9 Qualified Code(s): E66.812 - Obesity, class 2; E66.01 - Morbid (severe) obesity due to excess calories; Z68.38 - Body mass index [BMI] 38.0-38.9, adult Plan: 1. Plan for lap sleeve gastrectomy including upper GI endoscopy. All tests has been completed and reviewed and the patient is cleared for the surgery. ?If diaphragmatic or ventral hernias are present at time of surgery, these will be repaired laparoscopically as well. Risks and complications were discussed in detail including possible conversion to an open procedure, anastomotic leak, bleeding requiring transfusion, small bowel obstruction, , DVT and pulmonary embolism, cardiac, or pulmonary complications, as half-way complications such as anastomotic ulcer, insufficient weight loss and vitamin deficiencies. I emphasized the importance of close follow-up, adherence to instructions and good communication. So far he has proven to be an excellent communicator and very compliant with all our directions accomplishing a great weight loss. I believe that he is an excellent candidate and he is ready. 2. Preop prescriptions were provided and explained the purpose of each one. Need to be purchased preop. Start Pantoprazole now as you get it from the pharmacy, 1 pill per day. Sucralfate and Zofran are for after surgery as needed. 3. Bowel prep: please do 7 packets ?of Miralax mixing each one with a an 8oz glass of water, crystal light, gatorade zero, or propel ?on 07/17/24 and the same amount on 07/18/24. The Miralax you begin with one packet at a time in 8oz water or crystal light, gatorade zero, or propel ?as early in the day as you can and you do them back to back until you finish them. Continue the protein shakes during ?the bowel prep. 4. Needs to purchase 1oz medicine cups . 5. Needs to purchase Children's liquid Tylenol for postop pain control. 6. He needs to stop the Mounjaro after today's dose. Avoid aspirin, motrin, Advil, Aleve, Meloxicam, Excedrin, Ibuprofen, Naproxyn. Tylenol is OK. 7. He needs to purchase the Celebrate multivitamins from the hospital's gift shop, chewable or pills whatever you prefer. 8. Will do basic preop blood work-up on Tuesday07/13/24 fasting for 12 hours and is scheduled to see the Anesthesiologist prior to the day of surgery. 9. Importance of adherence to postop folllow-up and recommendations was underscored and she understands that. 10. Stop food and bars as of tomorrow 07/11/24 and continue with 5 Celebrate Rebuild protein shakes (ONE scoop EACH in 8oz almond milk) at 5am-7am, 8am-10am, 11am-1pm, 2pm-4pm, 5pm-7pm and one more Celebrate Rebuild protein shake with TWO scoops in 8oz of almond milk at 8pm-10pm 11. No soups, broths or V8 12. The patient's?medical?history has been reviewed and they are considered low risk for post op DVT and therefore DVT prophylaxis is not considered necessary. Travel after surgery was reviewed. The patient has not disclosed any travel plans during the first 30 days after surgery and they have been advised that within the first 30 days after surgery any bus, plane, train or car travel over 2 hours in duration is contraindicated due to the possibility of developing blood clots from immobility. Any travel, needs to include periods of ambulation of 10 minutes in duration every 2 hours.? Patient was instructed to discuss any plans for travel during this period with their bariatric surgeon.? 13. Use your CPAP daily and bring it to the hospital with your mask 14. As of tomorrow, please check your blood pressure daily in the morning. If your blood pressure is: Below 120/70: do not take the Lisinopril 121/71 to 135/85: take HALF Lisinopril Over 136/86: take the whole Lisinopril 15. Please take at the day of surgery the following medications: Lisinopril if the blood pressure that day is high enough to justify it based on the parameters at the previous bullet point. 16. Absolutely no smoking or vaping, or marijuana until the surgery and for at least the first 4 weeks. Only nicotine patches are allowed. 17. Send me weight measurements today 07/10/24, on Tuesday07/15/24 and then on 07/19/24, the day of surgery before you go to the hospital. 18. Avoid any steroids by mouth for any reason. Let me know if someone prescribes them to you 19. These instructions supersede anything else you read in the handbook, anything you watched in videos or classes or you were told by any other provider. If there is any conflict, you follow the above instructions and nothing else. Orders: Orders Comprehensive Met. Panel Today E03.9 - Hypothyroidism, unspecified, E11.9 - Type 2 diabetes mellitus without complications, E66.9 - Obesity, unspecified, I10 - Essential (primary) hypertension, Z79.4 - assisted (current) use of insulin Prothrombin Time INR Today E03.9 - Hypothyroidism, unspecified, E11.9 - Type 2 diabetes mellitus without complications, E66.9 - Obesity, unspecified, I10 - Essential (primary) hypertension, Z79.4 - vermin exterminator (current) use of insulin C Reactive Protein Today E03.9 - Hypothyroidism, unspecified, E11.9 - Type 2 diabetes mellitus without complications, E66.9 - Obesity, unspecified, I10 - Essential (primary) hypertension, Z79.4 - vermin exterminator (current) use of insulin Partial Thromboplastin Time Today E03.9 - Hypothyroidism, unspecified, E11.9 - Type 2 diabetes mellitus without complications, E66.9 - Obesity, unspecified, I10 - Essential (primary) hypertension, Z79.4 - vermin exterminator (current) use of insulin Complete Blood Count Auto Diff Today E03.9 - Hypothyroidism, unspecified, E11.9 - Type 2 diabetes mellitus without complications, E66.9 - Obesity, unspecified, I10 - Essential (primary) hypertension, Z79.4 - assisted (current) use of insulin Insulin Today E03.9 - Hypothyroidism, unspecified, E11.9 - Type 2 diabetes mellitus without complications, E66.9 - Obesity, unspecified, I10 - Essential (primary) hypertension, Z79.4 - assisted (current) use of insulin TSH reflex Free T4 Today E03.9 - Hypothyroidism, unspecified, E11.9 - Type 2 diabetes mellitus without complications, E66.9 - Obesity, unspecified, I10 - Essential (primary) hypertension, Z79.4 - assisted (current) use of insulin Type and Screen Today E03.9 - Hypothyroidism, unspecified, E11.9 - Type 2 diabetes mellitus without complications, E66.9 - Obesity, unspecified, I10 - Essential (primary) hypertension, Z79.4 - vermin exterminator (current) use of insulin Lipid Panel Today E03.9 - Hypothyroidism, unspecified, E11.9 - Type 2 diabetes mellitus without complications, E66.9 - Obesity, unspecified, I10 - Essential (primary) hypertension, Z79.4 - assisted (current) use of insulin Hemoglobin A1c Today E03.9 - Hypothyroidism, unspecified, E11.9 - Type 2 diabetes mellitus without complications, E66.9 - Obesity, unspecified, I10 - Essential (primary) hypertension, Z79.4 - vermin exterminator (current) use of insulin Medications: New pantoprazole 40 mg PO DAILY 90 tabs 0RF K21.9 - Gastro-esophageal reflux disease without esophagitis sucralfate 10 mL PO BID 600 mL 0RF K21.9 - Gastro-esophageal reflux disease without esophagitis ondansetron Only take one every 12 hours as needed if you have nausea 4 mg PO Q12H 20 tabs 0RF nausea and vomiting R11.0 - Nausea polyethylene glycol 3350 Mix each measuring cup with 8oz of water, Crystal light, or Gatorade zero, or Propel and do 7 measuring cups on 07/17/24 and another 7 measuring cups on 07/18/24 17 grams PO DAILY 238 grams 0RF Z01.818 - Encounter for other preprocedural examination
[2024-07-10 12:20] VITALS: BMI 38.6
== END 2024-07-10 12:45 | disposition home or self-care (01) ==
LOC: HO.HBS 08:23
PROVIDERS: PCP Registered Nurse; Visit Provider Surgery
DX: E66.812 Obesity, class 2 (principal); E66.01 Morbid (severe) obesity due to excess calories; Z68.38 Body mass index [BMI] 38.0-38.9, adult
CPT/HCPCS: 99499

== ENCOUNTER 2024-07-13 07:54 | Outpatient (REF) | payer OTHER, SELFPAY ==
--- OUTSIDE RECORDS SUMMARY | 2024-07-13 07:56 | XMS_ITS | Encounter Summary ---
Author Organization [employer] Address [address] [facility] 7 [place] [address] Care Team Providers Care Page Technician Name Role Phone Kori Alonso NP Primary Care Provider [phone] [facility] DIRECTOR WEIGHTS AND MEASURES Primary Care Provider [phone] Margret Strauss PharmD Unavailable [phone] Reason for Visit * Reason Onset Date Comments Med Refill 03/16/2023 Encounter Details Date Type Department Care Team (Late st Contact Info) Description 03/16/2023 Telephone [facility] MEDICINE [address] [place], [place] [phone] Kori Alonso NP [address] [place], [place] [phone] Med Refill Social History Tobacco Use Types [...] the past 12 months, has t he [employer], gas, oil or water company threatened to [...] Care Team (Late st Contact Info) Description 07/20/2024 2:30 PM EDT Office Visit [facility] MEDICINE [address] [place] [address] [id number] [facility] [address] [place] [address] 07/23/2024 2:00 PM EDT Office Visit [facility] OPTOMETRY [address] [place] [address] Tom, Lou, OD [address] [place] [address] 08/08/2024 2:00 PM EDT Office Visit [facility] MEDICINE [address] [place] [address] [place] [facility] [address] [place] [address] documented as of this encounter Goals Goal [...] Time PHQ-9 Depression Total Score: 6 01/06/20 10:38 AM EST documented as of this encounter Care Teams Page Technician Relationship Specialty Start Date End Date Kori Alonso NP [address] [place] [id number] PCP - General Family Medicine 01/19/23 07/03/23 Adrienne Sheehan FNP [address] [place] [id number] PCP - General Family Medicine 07/04/23 Margret Strauss PharmD [address] [place] [id number] Pharmacist Internal Medicine 06/12/24 documented as of this encounter
[2024-07-13 08:22] LABS: MANUAL DIFF FLAG NO
[2024-07-13 09:05] LABS: Basophils Percent Auto 0.5 % (0-2); Eosinophils Absolute Auto 0.5 X10*3/uL (0.0-0.4); Eosinophils Percent Auto 6.6 % (0-4); Hematocrit 44.7 % (42.0-52.0); Hemoglobin 14.4 g/dl (14.0-18.0); Imm Gran Abs Auto 0.01 X10*3/uL (0.00-0.03); Imm Gran Pct Auto 0.1 % (0.0-0.4); Lymphocytes Absolute Auto 2.7 X10*3/uL (1.2-4.9); Lymphocytes Percent Auto 36.7 % (20-40); Mean Corpuscular HGB Conc 32.2 g/dl (31.0-36.0); Mean Corpuscular Hemoglobin 25.5 pg (27.0-33.0); Mean Corpuscular Volume 79.3 fL (80.0-98.0); Mean Platelet Volume 9.1 fL (9.4-12.4); Monocytes Absolute Auto 1.1 X10*3/uL (0.1-1.2); Monocytes Percent Auto 14.4 % (2-11); Neutrophils Absolute Auto 3.1 x10*3/uL (2.0-8.3); Neutrophils Percent Auto 41.7 % (45-73); Platelet Count 242 X10*3/uL (160-400); Red Blood Count 5.64 X10*6/uL (4.60-5.80); Red Cell Distribution Width 14.6 % (11.0-16.0); White Blood Count 7.3 X10*3/uL (4.8-10.8)
[2024-07-13 09:11] LABS: Estimated Average Glucose 157 mg/dL; Hemoglobin A1c % 7.1 % (<6.0)
[2024-07-13 09:18] LABS: INTERNATIONAL NORM RATIO 0.9 (0.9-1.1); Prothrombin Time 10.8 SEC (10.9-12.4)
[2024-07-13 09:21] LABS: Partial Thromboplastin Time 32.4 SEC (26.0-36.8)
[2024-07-13 09:39] LABS: Albumin Level 4.5 g/dL (3.5-5.0); Alkaline Phosphatase 67 U/L (39-117); Anion Gap 14 (12-20); Aspartate Amino Transferase 30 U/L (5-37); Bilirubin Total 0.6 mg/dL (0.0-1.0); Blood Urea Nitrogen 22 mg/dL (9-16); C Reactive Protein 0.81 mg/dL (< or = 0.50); Calcium 10.1 mg/dL (8.4-10.2); Carbon Dioxide 29 mmol/L (22-29); Chloride 105 mmol/L (96-108); Cholesterol 137 mg/dL (<200); Estimated Glomerular Filt Rate > 60; Glucose Random 92 mg/dL (60-115); HDL Cholesterol 33 mg/dL (>40); LDL Cholesterol Calculated 92 mg/dL (<100); Potassium 4.5 mmol/L (3.3-5.1); Sodium 143 mmol/L (135-145); Total Protein 7.6 g/dL (6.5-8.0); Triglycerides 63 mg/dL (<150)
[2024-07-13 09:48] LABS: Alanine Aminotransferase 45 U/L (0-40)
[2024-07-13 09:57] LABS: TSH reflex Free T4 2.27 uIU/mL (0.32-4.0)
[2024-07-13 10:27] LABS: Insulin 7 uU/mL (2-29)
== END 2024-07-13 07:55 | disposition home or self-care (01) ==
LOC: HO.LAB 07:54
PROVIDERS: PCP Registered Nurse; Visit Provider Surgery
DX: E66.9 Obesity, unspecified (principal); E03.9 Hypothyroidism, unspecified; E11.9 Type 2 diabetes mellitus without complications; Z79.4 Long term (current) use of insulin; I10 Essential (primary) hypertension; Z79.01 Long term (current) use of anticoagulants
CPT/HCPCS: 36415; 80053; 80061; 83036; 83525; 84443; 85025; 85610; 85730; 86140

== ENCOUNTER 2024-07-19 06:35 | Inpatient (IN) | payer OTHER, SELFPAY ==
[2024-07-05 14:20] VITALS: BMI 38.6
--- NOTE | 2024-07-17 13:29 | HO.ANESPROP2 ---
Documented by User: Wanda Rodriguez NP 07/17/24 13:34 HPI - Anesthesia Eval Consult details Narrative: 53yo M for Gastrectomy Sleeve - EGD, possible diaphragmatic hernia, possible ventral hernia, possible open Anesthesia Pre-Procedure Meds Is the patient on any of the following meds?: GLP1/DPP4 PMFSH Active Problems Active Problems: All Active Problems Abnormal EKG (Acute) BMI 39.0-39.9,adult (Acute) Obesity (Acute) Hypothyroidism (Acute) Hyperlipidemia (Acute) DJD (degenerative joint disease) (Acute) Anxiety (Acute) Depression (Acute) Hypertension (Acute) Insulin dependent type 2 diabetes mellitus (Acute) Morbid obesity (Acute) Past Medical History Medical History SOB (shortness of breath) Asthma BMI 39.0-39.9,adult Obesity BENITA (obstructive sleep apnea) Hypothyroidism Hyperlipidemia DJD (degenerative joint disease) Anxiety Depression Hypertension Insulin dependent type 2 diabetes mellitus Morbid obesity Family History Family History Mother No problems noted. Father No problems noted. Surgical History Surgical History History of esophagogastroduodenoscopy (EGD) Hx of circumcision History of Problems with Anesthesia: No Social History Social History Are you a primary pet care worker to a significant other at home: No Do you presently have visiting nurse or other home services: No Alcohol intake: current Alcohol intake frequency: does not drink Patient Tobacco Use Status: Former Tobacco user Tobacco use type: Cigarette Use of substances other than those prescribed or required for medical reasons: No Have you been hit, kicked, punched, or otherwise hurt by someone within the past year? If so, by whom?: No Are you DNR?: No Advance Directives: No Advance Directives Information Provided: No Advance Directives on File: No Poor oral hygiene: Yes Meds Allergies Allergy/AdvReac Type Severity Reaction Status Date / Time No Known Allergies Allergy Verified 07/19/24 06:44 Home Medications ?Medication ?Instructions ?Recorded ?Confirmed ?Last Taken ?Type buspirone 10 mg tablet 10 mg PO DAILY 03/19/24 07/10/2407/12/25 History lisinopril 20 mg tablet 20 mg PO DAILY 03/19/24 07/10/24 07/12/24 History atorvastatin 40 mg tablet 40 mg PO BEDTIME 07/05/24 07/10/24 07/12/24 History cholecalciferol (vitamin D3) 25 25 mcg PO DAILY 07/05/24 07/10/24 07/12/24 History mcg (1,000 unit) tablet (Vitamin D3) ezetimibe 10 mg tablet 10 mg PO DAILY 07/05/24 07/10/24 07/12/24 History fluoxetine 20 mg capsule 20 mg PO DAILY 07/05/24 07/10/24 07/12/24 History levothyroxine 175 mcg tablet 175 mcg PO QAM 07/05/24 07/10/24 07/16/24 History insulin glargine 100 unit/mL (3 12 unit subcut BEDTIME 07/19/24 07/19/24 Unknown History mL) subcutaneous pen (Lantus Solostar U-100 Insulin) timolol maleate 0.25 % eye drops 1 drp ophthalmic-Left DAILY 07/19/24 07/19/24 Unknown History tirzepatide 10 mg/0.5 mL 10 mg subcut MO 07/19/24 07/19/24 07/02/24 History subcutaneous pen injector (Mounjaro) trazodone 50 mg tablet 50 mg PO BEDTIME PRN Sleep 07/19/24 07/19/24 Unknown History Exam Height,Weight and Vital Signs: Height 5 ft 4 in Weight 102.058 kg Pertinent Lab Results Pertinent Lab Results: Laboratory Tests 07/13/24 08:21 WBC 7.3 Hgb 14.4 Hct 44.7 Plt Count 242 Sodium 143 Potassium 4.5 Chloride 105 Carbon Dioxide 29 BUN 22 H Creatinine 1.10 Narrative Narrative: EKG 03/2024 Vent. Rate : 59 BPM Atrial Rate : 59 BPM P-R Int : 132 ms QRS Dur : 82 ms QT Int : 408 ms P-R-T Axes : 20 -22 76 degrees QTcB Int : 403 ms Sinus bradycardia Nonspecific T wave abnormality Abnormal ECG When compared with ECG of 12-Jul-2023 15:14, No significant change was found ECHO 04/2024 Conclusions: - 1. Normal LV ejection fraction of 65-70% 2. Normal cardiac valvular Dopplers 3. No gross pericardial effusion Stress ECHO 04/2024 Conclusion : Stress echo is ngeative for ischemia at achieved HR and owrkload. Assessment and Plan Assessment Anesthesia Assessment: Chart Reviewed Final Anesthetic Review History of Problems with Anesthesia: No Documented by User: Paz Ledbetter MD 07/19/24 07:35 PMF Past Medical History Medical History SOB (shortness of breath) Asthma BMI 39.0-39.9,adult Obesity BENITA (obstructive sleep apnea) Hypothyroidism Hyperlipidemia DJD (degenerative joint disease) Anxiety Depression Hypertension Insulin dependent type 2 diabetes mellitus Morbid obesity Family History Family History Mother No problems noted. Father No problems noted. Surgical History Surgical History History of esophagogastroduodenoscopy (EGD) Hx of circumcision Social History Social History Are you a primary pet care worker to a significant other at home: No Do you presently have visiting nurse or other home services: No Alcohol intake: current Alcohol intake frequency: does not drink Patient Tobacco Use Status: Former Tobacco user Tobacco use type: Cigarette Use of substances other than those prescribed or required for medical reasons: No Have you been hit, kicked, punched, or otherwise hurt by someone within the past year? If so, by whom?: No Are you DNR?: No Advance Directives: No Advance Directives Information Provided: No Advance Directives on File: No Poor oral hygiene: Yes Meds Allergies Allergy/AdvReac Type Severity Reaction Status Date / Time No Known Allergies Allergy Verified 07/19/24 06:44 Home Medications ?Medication ?Instructions ?Recorded ?Confirmed ?Last Taken ?Type buspirone 10 mg tablet 10 mg PO DAILY 03/19/24 07/10/24 07/12/24 History lisinopril 20 mg tablet 20 mg PO DAILY 03/19/24 07/10/24 07/12/24 History atorvastatin 40 mg tablet 40 mg PO BEDTIME 07/05/24 07/10/24 07/12/24 History cholecalciferol (vitamin D3) 25 25 mcg PO DAILY 07/05/24 07/10/24 07/12/24 History mcg (1,000 unit) tablet (Vitamin D3) ezetimibe 10 mg tablet 10 mg PO DAILY 07/05/24 07/10/24 07/12/24 History fluoxetine 20 mg capsule 20 mg PO DAILY 07/05/24 07/10/24 07/12/24 History levothyroxine 175 mcg tablet 175 mcg PO QAM 07/05/24 07/10/24 07/16/24 History insulin glargine 100 unit/mL (3 12 unit subcut BEDTIME 07/19/24 07/19/24 Unknown History mL) subcutaneous pen (Lantus Solostar U-100 Insulin) timolol maleate 0.25 % eye drops 1 drp ophthalmic-Left DAILY 07/19/24 07/19/24 Unknown History tirzepatide 10 mg/0.5 mL 10 mg subcut MO 07/19/24 07/19/24 07/02/24 History subcutaneous pen injector (Reed) trazodone 50 mg tablet 50 mg PO BEDTIME PRN Sleep 07/19/24 07/19/24 Unknown History Exam Airway Mallampati Class: III TM Dist: >3cm Neck ROM: Full Loose/Missing/Broken Teeth: No Heart: RRR Lungs: CTA Assessment and Plan Assessment Anesthesia Assessment: Anesthesia Plan Discussed Final Anesthetic Review NPO: Yes ASA Class: III Final Preanesthetic Review: Meds/Allgs Chart Reviewed, Consent Obtained/Reviewed and Anes Risks/Benef Reviewed Patient Risk: Intermediate Procedure Risk: Low Anesthetic Plan Anesthetic Plan: MAC: Disposition: Standard PACU
[2024-07-19] VITALS (18 sets, daily range): BP systolic 102–140; BP diastolic 50–82; PULSE 63–76; RESP 12–20; TEMP 36.3–37.3; O2SAT 92–100; BMI 36.9
--- OUTSIDE RECORDS SUMMARY | 2024-07-19 06:39 | XMS_ITS | Encounter Summary ---
Author Organization [employer] Address [address] [facility] 7 [place] [address] Care Team Providers Care City Superintendent Of [employer] Name Role Phone Kori Alonso NP Primary Care Provider [phone] [facility] DIRECTOR OF HOME ECONOMICS Primary Care Provider [phone] Margret Strauss PharmD Unavailable [phone] Reason for Visit * Reason Onset Date Comments Med Refill 03/16/2023 Encounter Details Date Type Department Care Team (Late st Contact Info) Description 03/16/2023 Telephone [facility] MEDICINE [address] [place], [place] [phone] Kori Alonso NP [address] [place], [place] [phone] Med Refill Social History Tobacco Use Types [...] the past 12 months, has t he [email or web address], gas, oil or water company threatened to [...] Description 07/20/2024 2:30 PM EDT Office Visit [facility] MEDICINE [address] [place] [phone] [facility] [address] [place] [address] 07/23/2024 2:00 PM EDT Office Visit [facility] OPTOMETRY [address] [place] [address] Tom, Lou, OD [address] [place] [address] 08/08/2024 2:00 PM EDT Office Visit [facility] MEDICINE [address] [place] [address] [facility] [address] [place] [address] documented as of this encounter Goals Goal Patient Goal Type Associated Problems Recent Progress Patient-Stated? Author Blood Pressure < 140/90 Blood Pressure 134/80(2024 10:46 AM EST) No Souleymane Love PharmD Hemoglobin A1c < 7 Result Component 7.1( 8:21 AM EDT) No Souleymane Love PharmD documented as of this encounter Visit Diagnoses Not on filedocumented in this encounter Additional Health Concerns Assessment Noted Time PHQ-9 Depression Total Score: 6 01/06/20 23 10:38 AM EST documented as of this encounter Care Teams City Superintendent Of [employer] Relationship Specialty Start Date End Date Kori Alonso NP [address] [place] [id number] PCP - General Family Medicine 01/19/23 07/03/23 Adrienne Sheehan FNP [address] [place] [address] PCP - General Family Medicine 07/04/23 Margret Strauss PharmD [address] [place] [address] Pharmacist Internal Medicine 06/12/24 documented as of this encounter
[2024-07-19] MEDS: Lactated Ringers 1,000 ML 999 ML IV (07:00)
[2024-07-19 07:04] LABS: Glucose, Whole Blood 92 mg/dL (60-115)
[2024-07-19] MEDS: Aprepitant 32 MG/4.4 ML VIAL IVPUSH (07:08)
--- NOTE | 2024-07-19 07:29 | MHC.SHP ---
Pre-Procedural Eval Section A - 24 Hr Update-Section A only Date of Service: 07/19/24 The patient is an INPATIENT: Yes The patient has been examined within 24 hours of the surgical procedure. The History & Physical has been completed within 30 days and I have reviewed it.: Yes Section B - Complete if H&P > 30 days Chief Complaint: Obesity Relevant Family History (Specify if Yes): No Relevant Social History: None Present Medications: None Medical History: No relevant PMH History of Previous Operations: No relevant previous surgery Allergies: Allergies Allergy/AdvReac Type Severity Reaction Status Date / Time No Known Allergies Allergy Verified 07/19/24 06:44 Review of Systems Sugical H&P ROS: Negative: Constitution, Cardiovascular, Respiratory, Neurological, Psychiatric, Hem-Onc, Allergic/Immunologic, Gastrointestinal, Genitourinary, Musculoskeletal, Integumentary, Endocrine and Eyes/Ears/Nose/Throat Exam Surgical H&P Exam: Normal: HEENT, Normal: Heart, Normal: Lungs, Normal: Extremities, Normal: Abdomen, Normal: Skin and Normal: Neurological Plan Diagnosis/Plan: Unchanged I have reviewed the history and physical and performed a pertinent physical examination on my patient. No changes have occurred unless specified. Time Spent With Patient Time: Total time managing care of this patient today ____ minutes.
--- NOTE | 2024-07-19 07:30 | PM.OP ---
Brief Operative Note Date of Service: 07/19/24 Pre-op diagnosis: Severe obesity with comorbidities (see below) Post-op diagnosis: same Procedure: INITIAL PATIENT BMI ON PRESENTATION AT OUR OFFICE: 43.2 kg/m2 LAST BMI BEFORE SURGERY: 38 Kg/m2 COMORBIDITIES: sleep apnea on CPAP, hypertension, insulin dependent diabetes, depression, anxiety hyperlipidemia, hypothyroidism, GERD, DJD ?The patient presented to the Weight Management Program with significant obesity that was negatively impacting the patient's comorbidities as listed above.? The program is a phased program with a special focus on preoperative medical weight management to promote substantial weight loss and prepare the patients for the second phase of the program: bariatric surgery. The patient participated in an intensive weekly lifestyle ?intervention and exercise program during which the patient ?has lost between the initial office visit and the last preoperative visit 29.9 lbs, or 11.9% of initial actual body weight. It was deemed appropriate for the patient to now have bariatric surgery. In light of the current Covid-19 pandemic and the well documented strong association of obesity and increased risk of worse outcomes if infected with Covid-19 (REFERENCES:https://pubmed.ncbi.nlm.nih.gov/06640612/,?https://pubmed.ncbi.nlm.nih.gov/19840305/), any delay in undergoing bariatric surgery may lead to the patient's worsening health condition and increased?risk of more severe Covid-19 disease if infected. In addition a recent?study from [facility] published in [facility] on 02/09/2021 ([email or web address]) found that, among patients with obesity, substantial weight loss achieved with surgery was associated with improved outcomes of COVID-19 infection. The findings suggest that obesity can be a modifiable risk factor for the severity of COVID-19 infection. In addition, the patient met the BMI-criteria for bariatric surgery based on the BMI on initial presentation. The patient should not be penalized for achieving such weight loss because ?it is not sustainable long-term without surgical intervention and it was achieved in preparation for bariatric surgery ?under my direction and based on my published research ([email or web address]).[email or web address] and?[email or web address].soard.org/article/[email or web address])41830-X/pdf) ?that a 10% preoperative weight loss improves long-term weight loss after surgery and reduces perioperative complications.? Insurance carriers such as [facility] have endorsed my recommendations ?and have included in their policies criteria to include a 10% preoperative weight loss requirement. PROCEDURE: Esophago-gastroscopy, laparoscopic sleeve gastrectomy and laparoscopic gastropexy INDICATIONS: This is a 53 year-old male who was electively scheduled for laparoscopic, possibly open sleeve gastrectomy. The risks and complications of the procedure were discussed with the patient in advance, particularly the possibility of ; pulmonary embolism; staple line leak; bleeding; GERD; cardiac, pulmonary, or renal complications; as well as long-term problems such as insufficient weight loss, vitamin deficiency, strictures, or ulcers. The patient understood all the risks, and was in agreement to proceed with surgery. DESCRIPTION OF PROCEDURE: After informed consent was obtained from the patient, the patient was given preoperative antibiotics, and was transferred to the operating room. After successful induction of general anesthesia, pneumatic compression devices were placed on both lower extremities. An upper endoscopy was performed next. The oropharynx and esophagus appeared to be within normal limits. There was no diaphragmatic hernia present. The stomach was entered. Then after all fluid and air were suctioned and the stomach was fully decompressed, the scope was withdrawn and secured in the mid esophagus. The patient was then prepped and draped in the usual sterile manner, and abdominal access was established at the right upper quadrant with the Christel technique. A 12 mm blunt port was inserted, and the abdomen was insufflated with CO2 to a pressure of 15 mmHg. Under direct visualization, additional ports were placed, specifically two 5 mm Versi-step ports to the left upper quadrant, and a 5 mm Versi-Step port to the right upper quadrant. 1% lidocaine plain was used to infiltrate all port sites as well as all fascia defects. Following that, the patient was placed in a steep reverse Trendelenburg position. An additional 5 mm port was placed to the right flank for the Mediflex retractor that was used to retract the left lobe of the liver. The gastro-esophageal fat pad was opened with the ultrasonic device (Thunderbeat, Olympus) and the anterior esophagus and hiatus were exposed. The angle of His was opened with the ultrasonic device the fundus of the stomach from any diaphragmatic and splenic attachments. I then opened the gastrocolic ligament between the transverse colon and the greater curvature of the stomach with the ultrasonic device to enter the lesser sac and facilitate the ligation of the short gastric vessels. I started at a mid-point along the greater curvature and using the Thunderbeat, all short gastric vessels were divided all the way to the angle of His until the left jeanne was completely dissected at its entirety. I then divided the gastro-colic ligament distally to a distance of about 3-4 cm proximal to the pylorus. The stomach was then divided transversely with three Endo NADINE-45 purple and four NADINE-60 articulating purple loads using the AEON stapler and loads. Every effort was made that the gastric sleeve had a tubular shape and an even caliber throughout. Once the sleeve resection was completed, the staple line of the gastric sleeve was reinforced with Hemoclips. The resected stomach was retrieved without difficulty from the Christel port. A gastropexy was then performed in order to prevent postoperative GERD and partial gastric volvulus. Several interrupted 2.0 Surgidac sutures were placed between the sleeve's staple line and the previously divided greater omentum and gastro-colic ligament using the Endo-Stitch device. ?An upper endoscopy was performed. There was no narrowing at the GE junction. The scope was easily advanced all the way to the pylorus which was clearly visualized. There was no narrowing anywhere and the sleeve's caliber was even throughout. The sleeve's staple line was inspected and there was no evidence of ischemia, bleeding or dehiscence. At that point the gastroscope was withdrawn from the patient?s mouth while we were decompressing the bowel and the stomach from any remaining air. I looked into the lesser sac to see how the sleeve was situating and it was situating well. There was no bleeding from the staple line, spleen, or short gastric vessels. The Mediflex retractor was removed, and the undersurface of the liver was inspected and there was no bleeding. The patient was placed in supine position. I closed the fascial defect of the 12 mm port site with a figure of eight #1 Polysorb suture. Then 30cc Ropivacaine plain with 10 mg of Dexamethasone were used to infiltrate the fascial closure as well as all skin incisions. At this point, the abdomen was deflated, all ports were removed under direct vision, and no bleeding was noted from any of the port sites. The skin incisions were irrigated with saline and were closed with 4-0 absorbable monofilament sutures. Steri-Strips and OpSites were used to cover all incisions. The patient was extubated and was transferred in stable condition to the recovery room for further care. I was present and performed all barba parts of the procedure. Chantelle Muro was the assistant public defender. There were no residents to assist with this case. Jose R Sanchez MD, PhD, FACS Surgeon: Saul Sanchez MD Anesthesia: GETA, local and other (TAP block) Was an Floodplain Manager used for this Procedure?: No Floodplain Manager: Antionette Muro Estimated blood loss (mL): 10 IV fluids (mL): 2,500 Urine output (mL): 0 (No Loaiza to record output) Pathology: other (1) Stomach, 2) Gastro-esophageal fat pad) Condition: stable Disposition: PACU
--- NOTE | 2024-07-19 07:34 | PM.PNGS ---
Subjective Subjective Date of Service: 07/20/24 Interval history: Feels well. Mild incisional pain. She is tolerating phase 1 bariatric diet Physical Exam Vital Signs: Vital Signs: Last Vital Signs Temp 97.4 F 07/19/24 06:47 Pulse 65 07/19/24 06:47 Resp 16 07/19/24 06:47 BP 111/78 07/19/24 06:47 Pulse Ox 97 07/19/24 06:47 O2 Del Method Room Air 07/19/24 06:47 BMI result Body Mass Index 36.9 GI: Inspection: Yes incision (clean, dry and intact) and Yes obesity Palpation (GI): Soft to palpation Extrem: Right lower extremity: normal to inspection (no calf tenderness) Left lower extremity: normal to inspection (no calf tenderness) Objective Data Active Medications Lactated Ringer's (Lr) 1,000 mls @ 100 mls/hr IV .Q10H [facility] Stop: 07/19/24 09:29 Lactated Ringer's (Lr) 1,000 mls @ 999 mls/hr IV .Q1H1M [facility] Stop: 07/19/24 08:30 Last Admin: 07/19/24 07:00 Dose: 999 mls/hr Documented By: JORGE Labs 07/20/24 05:22 07/20/24 05:22 Labs: Laboratory Results - last 24 hr 07/19/24 07/19/24 06:58 06:59 POC Glucose 92 Blood Type O Positive Procedures Date of Service Date of Service: 07/20/24 Progress Note: A&P Assessment and plan (1) Obesity: Status: Acute Assessment and Plan: s/p laparoscopic sleeve gastrectomy and gastropexy Doing well Will check am labs and if OK the patient will be discharged home (2) BMI 38.0-38.9,adult: Status: Acute (3) Hypertension: Status: Acute (4) Hyperlipidemia: Status: Acute (5) Insulin dependent type 2 diabetes mellitus: Status: Acute (6) Hypothyroidism: Status: Acute (7) DJD (degenerative joint disease): Status: Acute (8) GERD (gastroesophageal reflux disease): Status: Acute (9) Sleep apnea treated with continuous positive airway pressure (CPAP): Status: Acute (10) S/P laparoscopic sleeve gastrectomy: Status: Acute Time Spent With Patient Time: Total time managing care of this patient today ____ minutes. Quality Stroke Does the patient have a stroke diagnosis?: No VTE Prior VTE?: No VTE Risk Level:: Surgical - moderate VTE Device Contraindication: N/A - Device Ordered VTE Drug Contraindication: Treatment Not Indicated
--- NOTE | 2024-07-19 07:35 | PHA.MEDREC ---
Pharmacy Consult ? Medication Reconciliation Pharmacy has reviewed the medication reconciliation done by nursing. Also went to talk to patient and he said he takes lantus 12 units at bedtime, no longer taking metformin, mounjaro on mondays and timolol 0.25% 1 drop in the left eye daily.
[2024-07-19] MEDS: ceFAZolin Sodium/Dextrose,Iso 2 GM/50 ML PIGGYBACK IV ×2 (07:49→14:15)
--- NOTE | 2024-07-19 10:24 | PM.DS ---
DS: Providers Provider Date of admission: 07/19/24 06:35 Primary care physician: DUY Ramey DS: Diagnosis Discharge Diagnosis (1) Obesity: Status: Acute (2) BMI 38.0-38.9,adult: Status: Acute (3) Hypertension: Status: Acute (4) Hyperlipidemia: Status: Acute (5) Insulin dependent type 2 diabetes mellitus: Status: Acute (6) Hypothyroidism: Status: Acute (7) DJD (degenerative joint disease): Status: Acute (8) GERD (gastroesophageal reflux disease): Status: Acute (9) Sleep apnea treated with continuous positive airway pressure (CPAP): Status: Acute (10) S/P laparoscopic sleeve gastrectomy: Status: Acute DS: Summary Hospital Course Hospital Course: ADMITTING DIAGNOSIS: morbid obesity, BENITA, GERD, hypothyroidism, HLD, DJD, anxiety, depression, HTN, IDDM DISCHARGE DIAGNOSIS: same, s/p laparoscopic sleeve gastrectomy and gastropexy PAST SURGICAL HISTORY:?History of esophagogastroduodenoscopy (EGD), Hx of circumcision PROCEDURE: upper endoscopy, laparoscopic sleeve gastrectomy and gastropexy DISCHARGE SUMMARY: History of Present Illness: The patient is a?53 year-old man with a BMI of?36.9 kg/m2 and associated co-morbidities as described above. The patient had extensive work-up, lost?35.7 lbs preoperatively and was electively scheduled for laparoscopic, possible open sleeve gastrectomy and gastropexy. Risks and complications of the surgery were discussed with the patient in advance, particularly the possibility of , pulmonary embolism, anastomotic leak, bleeding, bowel injury, GERD, cardiac, renal or pulmonary complications. The patient understood all the risks and was in agreement with the surgical plan. Hospital Course: The patient underwent an uneventful laparoscopic sleeve gastrectomy with gastropexy on the day of admission. Postoperatively, the patient was transferred to the surgical floor. The patient received IV acetaminophen and IV Dilaudid for pain control. Patient was started on bariatric phase 1 diet POD #0. On postoperative day one, the patient was feeling well without nausea, vomiting, fevers, or tachycardia. The patient had some mild incisional pain and the abdomen was soft.? ? On the morning of postoperative day one, the patient was continued on 1 ounce of water or ice every half hour. During the day, the patient did fairly well, having some incisional pain, but able to ambulate adequately and to tolerate liquids well. Since the patient is doing well, we decided that the patient was ready to be discharged. The patient was given instructions to follow-up in office next week and to call the office for any fever over 101, persistent abdominal pain, nausea, vomiting, GERD, symptoms of DVT such as calf tenderness, or leg swelling, or pulmonary embolism such as chest pain or shortness of breath.? The patient was also instructed to drink 40-60 ounces of liquids per day using the 1-ounce cups. The patient had been given prescriptions for Tylenol for pain, Zofran prn for nausea, and pantoprazole and carafate previously. The patient was encouraged to ambulate and use the incentive spirometer. The patient was allowed to shower, but no baths, and encouraged to stay active at home. All of these instructions were given to the patient personally. All questions were answered and the patient understood all instructions, the instructions were also given to the patient in print. Time Attestation Discharge Coordination Time (in mins): 30 Quality: Safe Use of Opioids Does Pt have an Active Cancer Diagnosis on the Problem List?: No Quality: Stroke Does the patient have a stroke diagnosis?: No Physical Exam Vital Signs: Vital Signs: Last Vital Signs Temp 99.2 F 07/19/24 10:06 Pulse 69 07/19/24 10:21 Resp 20 07/19/24 10:21 BP 125/73 07/19/24 10:21 Pulse Ox 100 07/19/24 10:21 O2 Del Method Room Air 07/19/24 10:21 O2 Flow Rate 4 07/19/24 10:16 BMI result Body Mass Index 36.9 DS: Data Data Completed and Pending Pending studies at discharge: Pending at discharge 07/19/24 09:17 Surgical [PTH] Routine Labs on day of discharge: Laboratory Results - last 24 hr 07/19/24 07/19/24 06:58 06:59 POC Glucose 92 Blood Type O Positive Antibody Screen NEGATIVE Discharge Plan Discharge Anticipated Discharge Date/Time: 07/20/24 10:00 Patient Disposition: Home, Self-Care Discharge Diagnosis: s/p laparoscopic sleeve gastrectomy with gastropexy Referrals: Adrienne Sheehan, DIGITAL MEDIA ANALYST [Primary Care Provider] - 1 Week Discharge Medications: Continued atorvastatin 40 mg tablet 40 mg PO BEDTIME fluoxetine 20 mg capsule 20 mg PO DAILY ezetimibe 10 mg Tablet 10 mg PO DAILY cholecalciferol (vitamin D3) [Vitamin D3] 25 mcg (1,000 unit) Tablet 25 mcg PO DAILY levothyroxine 175 mcg tablet 175 mcg PO QAM trazodone 50 mg tablet 50 mg PO BEDTIME PRN (Reason: Sleep) timolol maleate 0.25 % drops 1 drp ophthalmic-Left DAILY buspirone 10 mg tablet 10 mg PO DAILY pantoprazole 40 mg tablet,delayed release (DR/EC) 40 mg PO DAILY Qty: 90 0RF sucralfate 100 mg/mL suspension 10 ml PO BID Qty: 600 0RF ondansetron 4 mg tablet,disintegrating 4 mg PO Q12H Qty: 20 0RF Rx Instructions: Only take one every 12 hours as needed if you have nausea Held lisinopril 20 mg tablet 20 mg PO DAILY Hold Instructions: Resume on 07/20/24. Only resume according to parameters given by Dr. Sanchez Discontinued insulin glargine [Lantus Solostar U-100 Insulin] 100 unit/mL (3 mL) insulin pen 12 unit subcut BEDTIME Mounjaro 10 mg/0.5 mL pen injector 10 mg subcut MO Activity on Discharge: No heavy lifting Stand Alone Forms: Patient Portal Discharge page Print Language: Nigerien Care Plan Goals: weight loss Health Concerns: morbid obesity Plan of Treatment: No tub baths, sex or returning to work until discussed at first post op appointment. No alcohol, tobacco or illegal drug use. Continue to use incentive spirometer hourly while awake. Walk in home for 5- 10 minutes every 2 hours during the first week. Wear abdominal binder with activity. Follow all meal plan instructions from your bariatric surgeon. Review bariatric handbook and call with any questions. Discharge Instructions 1. Please call your doctor or come back to the emergency room should any new symptoms arise. 2. Activity: abstain from alcohol,? limited stair climbing, no bending, no driving, no exercise, no illicit substances, no lifting, no sex, no tub bath, no work. 4. Diet: follow your bariatric surgeon's recommendations for advancing diet. 5. Dressing Change/Wound Care: Your incisions are covered with waterproof dressings. You can shower with these and pat dry. Do not rub over dressings or incisions. If the area is tender, you may apply an ice pack for short intervals (no more than 20 minutes on, followed by at least 20 minutes off). Do not apply heat. Do not use creams, lotions, or topical antibiotics unless instructed to do so by your surgeon. 6. Call your doctor if: - Your temperature exceeds 101.5 F - You experience excessive pain or swelling - You have an unexpected reaction to medication - You have excessive bleeding - You experience continued vomiting/nausea - Your incision begins to separate - Your incision shows signs of infection such as increased redness, swelling, excessive pain, heat, or drainage (light blood or clear fluid is normal) General instructions: No lifting greater than 10 lbs for the next 6 weeks. No driving within 24 hours of taking narcotic pain medications. If you do not move your bowels in the next 2 days, please take milk of magnesia over the counter. Please follow the post op diet and do not advance your diet until instructed by your surgeon or until you are seen in the office in about 1 week. Please walk around your home every hour or two to prevent blood clots from forming in your legs. You do not need to wake from sleeping to walk. Please sleep in a bed or couch to prevent kinking at the hips and knees. Please take your incentive spirometer (your lung graphics coordinator) home with you and use it for the next few days to prevent pneumonias. You may shower; no hot tubs, baths or swimming pools. Please make sure you are consuming 40-60 ounces of total fluids per day. Avoid all carbonation. Please call the office with any questions or concerns such as increasing abdominal pain, fever, chills, shortness of breath, chest pain, leg pain or swelling, or redness or drainage from your incisions. Do not hesitate to contact the office with any questions at . The patient's medical history has been reviewed and they are considered low risk for post op DVT and therefore DVT prophylaxis is not considered necessary. Travel after surgery was reviewed. The patient has not disclosed any travel plans during the first 30 days after surgery and they have been advised that within the first 30 days after surgery any bus, plane, train or car travel over 2 hours in duration is contraindicated due to the possibility of developing blood clots from immobility. Any travel, needs to include periods of ambulation of 10 minutes in duration every 2 hours.? The patient was instructed to discuss any plans for travel during this period with their bariatric surgeon. Assessment: s/p laparoscopic sleeve gastrectomy with gastropexy
[2024-07-19] MEDS: fentaNYL citrate/PF 100 MCG/2 ML VIAL 25 MCG IVPUSH ×2 (10:31→10:36)
[2024-07-19 10:48] LABS: Hematocrit 41.3 % (42.0-52.0); Hemoglobin 13.7 g/dl (14.0-18.0)
[2024-07-19 11:02] LABS: Anion Gap 12 (12-20); Blood Urea Nitrogen 15 mg/dL (9-16); Calcium 9.4 mg/dL (8.4-10.2); Carbon Dioxide 29 mmol/L (22-29); Chloride 103 mmol/L (96-108); Creatinine Clr Calc Pharmacy 79.9; Estimated Glomerular Filt Rate > 60; Glucose Random 113 mg/dL (60-115); Sodium 140 mmol/L (135-145)
[2024-07-19 13:15] LABS: Glucose, Whole Blood 134 mg/dL (60-115)
[2024-07-19] MEDS: HYDROmorphone HCl 0.5 MG/0.5 ML SYRINGE 0.25 MG IVPUSH (14:12)
[2024-07-19] MEDS: Acetaminophen 1,000 MG/100 ML PIGGYBACK 16.7 MG IV ×2 (14:41→20:44)
[2024-07-19] MEDS: Lactated Ringers 1,000 ML 100 ML IVCONT ×2 (14:42→23:53)
[2024-07-19 14:48] LABS: Glucose, Whole Blood 135 mg/dL (60-115)
[2024-07-19 16:22] LABS: Glucose, Whole Blood 126 mg/dL (60-115)
[2024-07-19] MEDS: Famotidine/PF 20 MG/2 ML VIAL IVPUSH (20:44)
[2024-07-19] MEDS: Atorvastatin Calcium 40 MG TABLET PO (20:44)
[2024-07-19] MEDS: 0.9 % Sodium Chloride Flush 3 ML SYRINGE IVFLUSH (20:48)
[2024-07-19 21:36] LABS: Glucose, Whole Blood 130 mg/dL (60-115)
[2024-07-20 01:55] LABS: Glucose, Whole Blood 104 mg/dL (60-115)
[2024-07-20] MEDS: Acetaminophen 1,000 MG/100 ML PIGGYBACK 16.7 MG IV (02:40)
[2024-07-20 03:31] VITALS: BP 123/79; PULSE 59; RESP 18; TEMP 36.6; O2SAT 96
[2024-07-20] MEDS: Levothyroxine Sodium 175 MCG TABLET PO (05:12)
[2024-07-20 05:27] LABS: Glucose, Whole Blood 105 mg/dL (60-115)
[2024-07-20 06:06] LABS: MANUAL DIFF FLAG NO
[2024-07-20 06:20] LABS: Anion Gap 12 (12-20); Blood Urea Nitrogen 13 mg/dL (9-16); Calcium 9.5 mg/dL (8.4-10.2); Carbon Dioxide 26 mmol/L (22-29); Chloride 106 mmol/L (96-108); Creatinine Clr Calc Pharmacy 92.5; Estimated Glomerular Filt Rate > 60; Glucose Random 90 mg/dL (60-115); Potassium 4.4 mmol/L (3.3-5.1); Sodium 140 mmol/L (135-145)
[2024-07-20 06:29] LABS: Basophils Percent Auto 0.1 % (0-2); Hematocrit 38.8 % (42.0-52.0); Hemoglobin 12.8 g/dl (14.0-18.0); Imm Gran Abs Auto 0.01 X10*3/uL (0.00-0.03); Imm Gran Pct Auto 0.1 % (0.0-0.4); Lymphocytes Absolute Auto 1.5 X10*3/uL (1.2-4.9); Lymphocytes Percent Auto 16.6 % (20-40); Mean Corpuscular Hemoglobin 25.7 pg (27.0-33.0); Mean Corpuscular Volume 77.9 fL (80.0-98.0); Monocytes Absolute Auto 0.5 X10*3/uL (0.1-1.2); Monocytes Percent Auto 5.6 % (2-11); Neutrophils Percent Auto 77.6 % (45-73); Platelet Count 253 X10*3/uL (160-400); Red Blood Count 4.98 X10*6/uL (4.60-5.80); Red Cell Distribution Width 14.4 % (11.0-16.0)
[2024-07-20] MEDS: FLUoxetine HCl 20 MG CAPSULE PO (07:37)
[2024-07-20] MEDS: Famotidine/PF 20 MG/2 ML VIAL IVPUSH (07:37)
[2024-07-20] MEDS: Ezetimibe 10 MG TABLET PO (07:38)
[2024-07-20] MEDS: 0.9 % Sodium Chloride Flush 3 ML SYRINGE IVFLUSH (07:38)
[2024-07-20] MEDS: busPIRone HCl 10 MG TABLET PO (07:38)
[2024-07-20 08:04] VITALS: BP 123/66; PULSE 60; RESP 18; TEMP 36.9; O2SAT 94
--- NOTE | 2024-07-20 08:28 | HO.POSTANES ---
Post Anesthesia Evaluation Post Anesthesia Evaluation Date of Service: 07/20/24 Vital Signs: Vital Signs Temp Pulse Resp BP Pulse Ox O2 Del Method 07/20/24 08:04 98.5 F 60 18 123/66 94 Room Air 07/20/24 03:31 97.8 F 59 18 123/79 96 Room Air 07/19/24 23:17 97.7 F 70 18 140/78 H 97 Room Air Anesthesia: General Endotracheal-GETA Mental Status: Awake Pain Control: Satisfactory Nausea/Vomiting: None Hydration: Adequate Anesthesia-Related Issues: No Anes. Related Issues
--- NOTE | 2024-07-20 10:16 | PC.NURSE ---
no BM ,unable to collect specimen
--- NOTE | 2024-07-20 10:41 | MHC.CM.PN ---
Addendum entered by Alice Gutierrez RN 07/20/24 10:43: DC'd prior to CM assessment Original Note: Patient dc'd home self care via private transport
== END 2024-07-20 10:24 | disposition home or self-care (01) | DRG 621 ==
LOC: HO.SSSA 10:23 → HO.S3 14:10
PROVIDERS: Physician Assistant Surgical; Admitting Provider Surgery; PCP Registered Nurse; Visit Provider Surgery
PROC: 0DB64Z3 Excision of Stomach, Percutaneous Endoscopic Approach, Vertical (ICD-10-PCS; CPT 43845; principal; 2024-07-19 07:30)
DX: E66.01 Morbid (severe) obesity due to excess calories (principal); E03.9 Hypothyroidism, unspecified; E78.5 Hyperlipidemia, unspecified; G47.33 Obstructive sleep apnea (adult) (pediatric); E11.9 Type 2 diabetes mellitus without complications; I10 Essential (primary) hypertension; Z87.891 Personal history of nicotine dependence; Z68.38 Body mass index [BMI] 38.0-38.9, adult; Z79.890 Hormone replacement therapy; Z79.899 Other long term (current) drug therapy
CPT/HCPCS: 36415; 80048; 82947; 85014; 85018; 85025; 86850; 86900; 86901; 88304; 88307; 88342; A4649; C9145; J0131; J0690; J1100; J1171; J1308; J2003; J2250; J2704; J2795; J3010; J7120

== ENCOUNTER → 2024-07-19 06:35 | Outpatient (BNV) | payer OTHER, SELFPAY | PROVIDERS: Admitting Provider Surgery; PCP Registered Nurse; Visit Provider Surgery | DX: E66.812 Obesity, class 2 (principal); E66.01 Morbid (severe) obesity due to excess calories; Z68.38 Body mass index [BMI] 38.0-38.9, adult; I10 Essential (primary) hypertension; E78.5 Hyperlipidemia, unspecified; E11.9 Type 2 diabetes mellitus without complications; Z79.4 Long term (current) use of insulin; E03.9 Hypothyroidism, unspecified; M19.90 Unspecified osteoarthritis, unspecified site; K21.9 Gastro-esophageal reflux disease without esophagitis; G47.30 Sleep apnea, unspecified; Z98.84 Bariatric surgery status | CPT/HCPCS: 43659; 43775; 99024 ==

== ENCOUNTER 2024-07-26 09:59 | Outpatient (AMB) | payer OTHER, SELFPAY ==
--- NOTE | 2024-07-26 10:48 | A.OFFVIS_ITS ---
VS Expanded 07/26/24 11:03 BP 122/79 Blood Pressure Location Rt brachial Blood Pressure Position Sitting Pulse 61 Pulse Source Pulse Oximeter Temp 96.6 F L Temperature Source Temporal Artery Scan Pulse Oximetry 98 Oxygen Delivery Method Room Air Height 5 ft 4 in Weight 209 lb 3.2 oz BMI 35.9 Body Fat % 31.3 Body Fat Mass 65.4 Fat Free Mass 143.6 Visceral Fat Rating 18.0 Body Water % 50.9 Body Water Mass 106.4 Muscle Mass/Score 136.4 Basal Metabolic Rate/Score 1,923 Intake Visit Reasons: OV PO LSG 07/19/2024 Denture Contour Wire Specialist Required: Yes Denture Contour Wire Specialist Name: #[id number] Allergies No Known Allergies Allergy (Verified 07/26/24 11:04) HPI Comments Details: Patient is a 53-year-old male who returns to the office today in follow-up. He is approximately 7 days post sleeve gastrectomy performed on 07/19/2024. Tolerating 3 celebrate rebuild shakes with 1 scoop each. He has moved his bowels. Drinking a proximally 40-50 oz fluids daily. [facility] Medical History (Updated 07/21/24 @ 00:01 by [facility] Lisa) BMI 38.0-38.9,adult SOB (shortness of breath) Asthma BMI 39.0-39.9,adult Obesity BENITA (obstructive sleep apnea) Hypothyroidism Hyperlipidemia DJD (degenerative joint disease) Anxiety Depression Hypertension Insulin dependent type 2 diabetes mellitus Morbid obesity Surgical History (Updated 07/26/24 @ 11:07 by Madhuri Herr CMA) S/P laparoscopic sleeve gastrectomy History of esophagogastroduodenoscopy (EGD) Hx of circumcision Family History Mother No problems noted. Father No problems noted. Social History Household Members: Family Housing: Apartment Are you a primary care transport nurse to a significant other at home: No Do you presently have visiting nurse or other home services: No Alcohol intake: current Alcohol intake frequency: does not drink Patient Tobacco Use Status: Former Tobacco user Tobacco use type: Cigarette Physical Exam Vital Signs: Last Vital Signs Temp 96.6 F L 07/26/24 11:03 Pulse 61 07/26/24 11:03 BP 122/79 07/26/24 11:03 Pulse Ox 98 07/26/24 11:03 Oxygen Delivery Method Room Air 07/26/24 11:03 BMI result Body Mass Index 35.9 GI Inspection: Yes incision (Clean, dry, intact.) Assessment & Plan Assessment & Plan (1) S/P laparoscopic sleeve gastrectomy: Code(s): Z98.84 - Bariatric surgery status Category: Surgical Plan: POD 7 s/p LSG on 07/19/[address] Sanchez Weight loss prior to surgery was 35.7 pounds or 14.2 % TBWL. Original weight on 03/26/2024 was 251.4 pounds and op weight was 215.7 pounds. Be sure to text Dr Sanchez exactly 1 week after surgery your weight from your home scale so he can adjust your meal plan. Continue meal plan until f/u ania Dasilva in 2 weeks May shower, no submersion in bath for another week Continue abdominal binder with activity and exercise for the next 2 weeks. Exercise prior to surgery was walking outside and may resume No abdominal exercises for 6 weeks post operatively Will be emailed link to post op video for review Reminded of the pace of drinking, 2 mL per minute, 1 oz/15 min.
[2024-07-26 11:03] VITALS: BP 122/79; PULSE 61; TEMP 35.9; O2SAT 98; BMI 35.9
--- OUTSIDE RECORDS SUMMARY | 2024-07-26 11:15 | XMS_ITS | Encounter Summary ---
Author Organization [employer] Address [address] [facility] 7 [place] [address] Care Team Providers Care An Employee Sponsor Or Advocate And Name Role Phone Kori Alonso NP Primary Care Provider [phone] [facility] DECK SPECIALIST Primary Care Provider [phone] Margret Strauss PharmD Unavailable [phone] Reason for Visit * Reason Onset Date Comments Med Refill 03/16/2023 Encounter Details Date Type Department Care Team (Late st Contact Info) Description 03/16/2023 Telephone [facility] MEDICINE [address] [place], [place] [phone] Kori Alonso NP [address] [place], [place] [phone] Med Refill Social History Tobacco Use Types [...] the past 12 months, has t he [employer], gas, oil or water company threatened to [...] Care Team (Late st Contact Info) Description 08/08/2024 2:00 PM EDT Office Visit [facility] MEDICINE [address] [place] [address] Buena, Adrienne, DECK SPECIALIST [address] [place] [address] 12/11/2024 2:00 PM EDT Office Visit [facility] OPTOMETRY [address] [place], [place] [phone] Tom, Lou, OD 230 [place] [address] documented as of this encounter Goals Goal Patient Goal Type Associated Problems Recent Progress Patient-Stated? Author Blood Pressure < 140/90 Blood Pressure 134/80(2024 10:46 AM EST) No Souleymane Love, Rayshawn Hemoglobin A1c < 7 Result Component 7.1( 8:21 AM EDT) No Souleymane Love PharmD documented as of this encounter Visit Diagnoses Not on filedocumented in this encounter Additional Health Concerns Assessment Noted Time PHQ-9 Depression Total Score: 6 01/06/20 23 10:38 AM EST documented as of this encounter Care Teams An Employee Sponsor Or Advocate And Relationship Specialty Start Date End Date Kori Alonso NP [address] [place] [address] PCP - General Family Medicine 01/19/23 07/03/23 AguilaAdrienne beltran FNP [address] [place] [address] PCP - General Family Medicine 07/04/23 Margret Strauss PharmD [address] [place] [id number] Pharmacist Internal Medicine 06/12/24 documented as of this encounter
== END 2024-07-26 11:40 | disposition home or self-care (01) ==
LOC: HO.HBS 09:59
PROVIDERS: PCP Registered Nurse; Visit Provider Physician Assistant Surgical
DX: Z98.84 Bariatric surgery status (principal)
CPT/HCPCS: 99024

== ENCOUNTER → 2024-07-26 09:59 | Outpatient (BNVA) | payer OTHER, SELFPAY | PROVIDERS: PCP Registered Nurse; Visit Provider Physician Assistant Surgical | DX: Z98.84 Bariatric surgery status (principal) | CPT/HCPCS: 99212 ==

== ENCOUNTER 2024-07-27 14:56 | Outpatient (AMB) | payer OTHER, SELFPAY ==
--- NOTE | 2024-07-27 14:56 | A.OFFWM_ITS ---
Intake Intake Visit Reasons: TV PO LSG 07/19/2024 Allergies No Known Allergies Allergy (Verified 09/11/24 09:11) PFSH Medical History BMI 38.0-38.9,adult SOB (shortness of breath) Asthma BMI 39.0-39.9,adult Obesity BENITA (obstructive sleep apnea) Hypothyroidism Hyperlipidemia DJD (degenerative joint disease) Anxiety Depression Hypertension Insulin dependent type 2 diabetes mellitus Morbid obesity Surgical History S/P laparoscopic sleeve gastrectomy History of esophagogastroduodenoscopy (EGD) Hx of circumcision Family History Mother No problems noted. Father No problems noted. Social History Household Members: Family Housing: Apartment Are you a primary managed care manager to a significant other at home: No Do you presently have visiting nurse or other home services: No Alcohol intake: current Alcohol intake frequency: does not drink Patient Tobacco Use Status: Former Tobacco user Tobacco use type: Cigarette Behavioral Health Assessment Weight Management Therapy Therapy Notes Details Subjective: PT had weight loss surgery on 07/19/24. Weight on day of surgery was 214Lbs. Patient denies any pain or difficulties with recovery and reports she is tolerating the liquid diet well. PT states his recovery is going great, good mood and energy. Tolerating well l iquid plan. Objective: The patient presents for a behavioral health post-operative follow-up. A guided emotional check-in was completed to assess her recovery, mood, and cu rrent functioning. Psychoeducation was provided on the emotional adjustments after bariatric surgery, with a focus on distinguishing hunger from cravings and developing mindful eating strategies. The PHQ-9 screening showed no depressive symptoms. The importance of following the Weight Management Program guidelines, including meal, exercise, and hydration recommendations, was reinforced. Additional resources were provided, and the patient was encouraged to join the program?s Facebook group for ongoing support and updates. Assessment/Response: * Mental status: WNL * Risk reported/identified: None Questionnaires PHQ-9 Over the last 2 weeks, how often have you been bothered by any of the following problems? 1. Little interest or pleasure in doing things: not at all 2. Feeling down, depressed, or hopeless: not at all 3. Trouble falling or staying asleep, or sleeping too much: not at all 4. Feeling tired or having little energy: not at all 5. Poor appetite or overeating: not at all 6. Feeling bad about yourself - or that you are a failure or have let yourself or your family down: not at all 7. Trouble concentrating on things, such as reading the newspaper or watching television: not at all 8. Moving or speaking so slowly that other people could have noticed. Or the opposite - being so fidgety or restless that you have been moving around a lot more than usual: not at all 9. Thoughts that you would be better off or of hurting yourself in some way: not at all Total score: 0 Depression Screening Interpretation: Negative Depression Screening Done: Yes 69780 - PHQ-9 Billing: Yes Source: Developed by Drs. Darius Riley, Camille Christianson, Colby Hayes and colleagues, with an educational clementina from [employer]. Assessment & Plan Assessment & Plan (1) Adjustment disorder: Code(s): F43.20 - Adjustment disorder, unspecified Plan No safety concerns or issues were identified that would necessitate behavioral health monitoring. The patient declined further visits but is aware of the av ailable behavioral health support if needed in the future. Telehealth Telehealth Telehealth Platform: [facility] Location of provider rendering services: practice address Location of patient: address on file Patient Identification confirmed using: Name, : Yes Telehealth method: video Patient verbally consented to treatment: Yes Patient verbally consented to billing insurance company: Yes Patient informed of any privacy concerns related to visit: Yes Minutes spent on Phone/Video with Pt.: 30 Coding Level of Care Code Established Pt Tele Psytx 30 mins ([id number]) Patient Type Established Diagnoses Adjustment disorder F43.20 Additional Codes PHQ-9 - 03043 - PHQ-9 Billing: Yes ([id number]) Time Spent (min) 30
--- OUTSIDE RECORDS SUMMARY | 2024-07-27 14:57 | XMS_ITS | Encounter Summary ---
Author Organization [employer] Address [address] [facility] 7 [place] [address] Care Team Providers Care Turkey Egg Gatherer Name Role Phone Kori Alonso NP Primary Care Provider [phone] [facility] APPLICATIONS PROGRAMMER ANALYST Primary Care Provider [phone] Margret Strauss PharmD Unavailable [phone] Reason for Visit * Reason Onset Date Comments Med Refill 03/16/2023 Encounter Details Date Type Department Care Team (Late st Contact Info) Description 03/16/2023 Telephone [facility] MEDICINE [address] [place], [place] [phone] Kori Alonso NP 230 [place], [place] [phone] Med Refill Social History Tobacco Use Types [...] the past 12 months, has t he [employer], gas, oil or water company threatened to [...] Description 08/08/2024 2:00 PM EDT Office Visit [facility] MEDICINE [address] [place] [address] Latah, Adrienne, APPLICATIONS PROGRAMMER ANALYST [address] [place] [address] 12/11/2024 2:00 PM EDT Office Visit [facility] OPTOMETRY [address] [place], [place] [phone] Tom, Lou, OD [address] [place] [address] documented as of this encounter Goals Goal [...] documented as of this encounter Care Teams Turkey Egg Gatherer Relationship Specialty Start Date End Date Kori Alonso NP [address] [place] [address] PCP - General Family Medicine 01/19/23 07/03/23 AguilaAdrienne beltran FNP [address] [place] [address] PCP - General Family Medicine 07/04/23 Margret Strauss PharmD [address] [place] [id number] Pharmacist Internal Medicine 06/12/24 documented as of this encounter
== END 2024-07-27 16:05 | disposition home or self-care (01) ==
LOC: HO.HBST 14:56
PROVIDERS: PCP Registered Nurse; Visit Provider Counselor Mental Health
DX: F43.20 Adjustment disorder, unspecified (principal)
CPT/HCPCS: 90832

== ENCOUNTER → 2024-07-27 14:56 | Outpatient (BNVA) | payer OTHER, SELFPAY | PROVIDERS: PCP Registered Nurse; Visit Provider Counselor Mental Health ==

== ENCOUNTER 2024-08-08 08:44 | Outpatient (AMB) | payer OTHER, SELFPAY ==
--- NOTE | 2024-08-08 08:46 | A.OFFVIS_ITS ---
VS Expanded 08/08/24 08:53 BP 104/68 Blood Pressure Location Rt brachial Blood Pressure Position Sitting Pulse 59 Pulse Source Pulse Oximeter Temp 97.6 F Temperature Source Temporal Artery Scan Pulse Oximetry 97 Oxygen Delivery Method Room Air Height 5 ft 4 in Weight 201 lb BMI 34.5 Body Fat % 31.5 Body Fat Mass 63.2 Fat Free Mass 137.6 Visceral Fat Rating 17.0 Body Water % 49.6 Body Water Mass 99.6 Muscle Mass/Score 130.8 Basal Metabolic Rate/Score 1,841 Intake Visit Reasons: OV PO LSG 07/19/2024 News Assignment Editor Required: Yes News Assignment Editor Services: News Assignment Editor Present News Assignment Editor Name: hospital cmi Allergies No Known Allergies Allergy (Verified 08/08/24 08:51) Medication List - Last Reconciled 08/08/24 by DARNELL Hubbard atorvastatin 40 mg PO BEDTIME Held on 07/20/24. Instructions: Resume on 07/27/24. buspirone 10 mg PO DAILY cholecalciferol (vitamin D3) (Vitamin D3) 25 mcg PO DAILY ezetimibe 10 mg PO DAILY Held on 07/20/24. Instructions: Resume on 07/27/24. fluoxetine 20 mg PO DAILY levothyroxine 175 mcg PO QAM lisinopril 20 mg PO DAILY Held on 07/20/24. Instructions: Resume on 07/21/24. Check your blood pressure every morning as soon as you wake up and send it to Dr. Sanchez. Do no take the blood pressure medication if the blood pressure is below 120/70. Wait every day to hear back from Dr. Sanchez before you take the medication. pantoprazole 40 mg PO DAILY sucralfate 10 mL PO BID timolol maleate 0.25% 1 drp ophthalmic-Left DAILY trazodone 50 mg PO BEDTIME PRN HPI Comments Details: This?a?53?yo male who is s/p LSG without hiatal hernia repair on?07/19/2024. Presents for 3 week post op visit. Weight today is 201 pounds, with a BMI of 34.5. There has been a 50.4 pound weight loss,(initial weight 251.4 pounds) since starting the program on 03/26/2024 reflecting a 20 % total body weight loss and a weight loss of 14.7 pounds since surgery (operative weight 215.7 pounds) reflecting a 6.8% TBWL since surgery. No complaints of nausea, emesis, abdominal pain or reflux. Reports infrequent but normal bowel movements every 1- 2 days and uses stool softeners regularly. Original weight on 03/26/2024 was 251.4 pounds and op weight was 215.7 pounds. Present meal plan includes: Celebrate rebuild 2 scoops at 8-10, 11-1 1 scoop at 2-4 celebrate bar at 5-8 Drinking 40 oz water Exercise routine includes: treadmill 3 days per week, 180, speed 2, incline 2 [facility] Medical History (Updated 08/03/24 @ 00:03 by [facility] Lisa) BMI 38.0-38.9,adult SOB (shortness of breath) Asthma BMI 39.0-39.9,adult Obesity BENITA (obstructive sleep apnea) Hypothyroidism Hyperlipidemia DJD (degenerative joint disease) Anxiety Depression Hypertension Insulin dependent type 2 diabetes mellitus Morbid obesity Surgical History S/P laparoscopic sleeve gastrectomy History of esophagogastroduodenoscopy (EGD) Hx of circumcision Family History Mother No problems noted. Father No problems noted. Social History Household Members: Family Housing: Apartment Are you a primary child care attendant school to a significant other at home: No Do you presently have visiting nurse or other home services: No Alcohol intake: current Alcohol intake frequency: does not drink Patient Tobacco Use Status: Former Tobacco user Tobacco use type: Cigarette Physical Exam Const General: healthy appearing and no acute distress Resp Effort & Inspection: normal respiratory effort Auscultation: clear to auscultation bilaterally Cardio Rate: regular rate Rhythm: regular rhythm GI Auscultation: normal bowel sounds Extrem General: Yes normal to inspection Assessment & Plan Assessment & Plan (1) S/P laparoscopic sleeve gastrectomy: Code(s): Z98.84 - Bariatric surgery status Category: Surgical Plan: Patient will continue to communicate with Dr. Sanchez regarding his meal plan. We discussed the importance of exercise. He will increase treadmill to 6 days per week. Additionally, increase speed to 3.5. Goal of burning 400 calories per session. He also has a stationary bike that he could certainly incorporate. We will have him return to the office in approximately 1 month.
[2024-08-08 08:53] VITALS: BP 104/68; PULSE 59; TEMP 36.4; O2SAT 97; BMI 34.5
== END 2024-08-08 09:11 | disposition home or self-care (01) ==
LOC: HO.HBS 08:45
PROVIDERS: PCP Registered Nurse; Visit Provider Physician Assistant Surgical
DX: Z98.84 Bariatric surgery status (principal)
CPT/HCPCS: 99024

== ENCOUNTER → 2024-08-08 08:44 | Outpatient (BNVA) | payer OTHER, SELFPAY | PROVIDERS: PCP Registered Nurse; Visit Provider Physician Assistant Surgical | DX: Z98.84 Bariatric surgery status (principal) | CPT/HCPCS: 99212 ==

== ENCOUNTER 2024-08-09 13:15 | Outpatient (REF) | payer OTHER, SELFPAY ==
[2024-08-09 17:24] LABS: Prostate Specific Antigen 0.39 ng/mL (<0.05-4.0)
== END 2024-08-09 13:16 | disposition home or self-care (01) ==
LOC: HO.HHCL 13:15
PROVIDERS: PCP Registered Nurse; Visit Provider Registered Nurse
DX: E03.9 Hypothyroidism, unspecified (principal); Z12.5 Encounter for screening for malignant neoplasm of prostate; Z00.00 Encounter for general adult medical examination without abnormal findings
CPT/HCPCS: 36415; 84153; 84443

== ENCOUNTER 2024-09-11 09:01 | Outpatient (AMB) | payer OTHER, SELFPAY ==
--- NOTE | 2024-09-11 09:03 | A.OFFVIS_ITS ---
VS Expanded 09/11/24 09:14 BP 155/85 H Blood Pressure Location Rt brachial Blood Pressure Position Sitting Pulse 53 Pulse Source Pulse Oximeter Temp 97.3 F Temperature Source Temporal Artery Scan Pulse Oximetry 97 Oxygen Delivery Method Room Air Height 5 ft 4 in Weight 200 lb 9.6 oz BMI 34.4 Body Fat % 29.4 Body Fat Mass 58.8 Fat Free Mass 141.6 Visceral Fat Rating 8.0 Body Water % 0.2 Body Water Mass 100.6 Muscle Mass/Score 134.4 Basal Metabolic Rate/Score 1,886 Intake Visit Reasons: OV PO LSG 07/19/2024 Business And Marketing Teacher Required: Yes Business And Marketing Teacher Services: Business And Marketing Teacher Present Business And Marketing Teacher Name: hospital cmi Allergies No Known Allergies Allergy (Verified 09/11/24 09:11) Medication List - Last Reconciled 09/11/24 by DARNELL Hubbard atorvastatin 40 mg PO BEDTIME Held on 07/20/24. Instructions: Resume on 07/27/24. buspirone 10 mg PO DAILY cholecalciferol (vitamin D3) (Vitamin D3) 25 mcg PO DAILY ezetimibe 10 mg PO DAILY Held on 07/20/24. Instructions: Resume on 07/27/24. fluoxetine 20 mg PO DAILY levothyroxine 175 mcg PO QAM lisinopril 20 mg PO DAILY Held on 07/20/24. Instructions: Resume on 07/21/24. Check your blood pressure every morning as soon as you wake up and send it to Dr. Sanchez. Do no take the blood pressure medication if the blood pressure is below 120/70. Wait every day to hear back from Dr. Sanchez before you take the medication. pantoprazole 40 mg PO DAILY sucralfate 10 mL PO BID timolol maleate 0.25% 1 drp ophthalmic-Left DAILY trazodone 50 mg PO BEDTIME PRN HPI Comments Details: This?a?53?yo male who is s/p LSG without hiatal hernia repair on?07/19/2024. Presents for 1 month 3 week post op visit. Weight today is 200.6 pounds, with a BMI of 34.4. There has been a 50.4 pound weight loss,(initial weight 251.4 pounds) since starting the program on 03/26/2024 reflecting a 20 % total body weight loss and a weight loss of 14.7 pounds since surgery (operative weight 215.7 pounds) reflecting a 6.8% TBWL since surgery. No complaints of nausea, emesis, abdominal pain or reflux. Reports infrequent but normal bowel movements every 1-2 days and uses stool softeners regularly. He has been under a lot of stress lately and spent a lot of time playing x box. He has been dealing with the illness of his father in [place]. He is only having 2 shakes and 1 bar. Present meal plan includes: Celebrate rebuild 2 scoops at 8-10, 11-1 1 scoop at 2-4 celebrate bar at 5-8 Drinking 40 oz water Exercise routine includes: not as much exercising in the last month treadmill 3 days per week, 180, speed 2, incline 2 PFSH Medical History BMI 38.0-38.9,adult SOB (shortness of breath) Asthma BMI 39.0-39.9,adult Obesity BENITA (obstructive sleep apnea) Hypothyroidism Hyperlipidemia DJD (degenerative joint disease) Anxiety Depression Hypertension Insulin dependent type 2 diabetes mellitus Morbid obesity Surgical History S/P laparoscopic sleeve gastrectomy History of esophagogastroduodenoscopy (EGD) Hx of circumcision Family History Mother No problems noted. Father No problems noted. Social History Household Members: Family Housing: Apartment Are you a primary youth career specialist to a significant other at home: No Do you presently have visiting nurse or other home services: No Alcohol intake: current Alcohol intake frequency: does not drink Patient Tobacco Use Status: Former Tobacco user Tobacco use type: Cigarette Physical Exam Const General: healthy appearing and no acute distress Resp Effort & Inspection: normal respiratory effort Auscultation: clear to auscultation bilaterally Cardio Rate: regular rate Rhythm: regular rhythm GI Auscultation: normal bowel sounds Extrem General: Yes normal to inspection Assessment & Plan Assessment & Plan (1) S/P laparoscopic sleeve gastrectomy: Code(s): Z98.84 - Bariatric surgery status Category: Surgical Plan: Patient has been under a lot of stress lately with the illness of his father in [place]. As a result he has not been following the meal plan or exercise plan. Discussed the importance of doing both. He has been playing a lot of video games. He does have a treadmill at home and we discussed that he certainly can play video games but he needs to exercise at least 1 hour per day. Additionally, following the meal plan. He will continue to communicate with Dr. Sanchez. Return to the office in 1 month.
[2024-09-11 09:14] VITALS: BP 155/85; PULSE 53; TEMP 36.3; O2SAT 97; BMI 34.4
--- OUTSIDE RECORDS SUMMARY | 2024-09-11 09:23 | XMS_ITS | Clinical Summary ---
Author Organization [employer] [facility] ity Address [address] [place] [address] Care Team Providers Care Weaving Teacher Name Role Phone Unavailable Primary Care Provider [...] Vaccines (1 of 2) 2018 COVID-19 Vaccine (1 - 2023-2 5 season) 2023 Depression Screening 02/15/2024 Influenza Vaccine (#1) 2024 HIB Vaccines Aged Out No longer [...]
--- OUTSIDE RECORDS SUMMARY | 2024-09-11 09:23 | XMS_ITS | Encounter Summary ---
Author Organization [employer] Address [address] [facility] 7 [place] [address] Care Team Providers Care Blasting Helper Name Role Phone Kori Alonso NP Primary Care Provider [phone] [facility] ROLL PRESS OPERATOR Primary Care Provider Margret Strauss PharmD Unavailable [phone] Reason for Visit * Reason Onset Date Comments Med Refill 03/16/2023 Encounter Details Date Type Department Care Team (Late st Contact Info) Description 03/16/2023 Telephone [facility] MEDICINE [address] [place], [place] [phone] Kori Alonso NP [address] [place], [place] [phone] Med Refill Social History Tobacco Use Types [...] the past 12 months, has t he [employer], gas, oil or water company threatened to [...] Care Team (Late st Contact Info) Description 10/11/2024 10:30 AM EDT Medication Management [facility] MEDICINE [address] [place] [address] Margret Strauss PharmD [address] [place] [address] 12/11/2024 2:00 PM EDT Office Visit [facility] OPTOMETRY [address] [place] [address] Tom, Lou, OD [address] [place] [address] documented as of this encounter Goals Goal Patient Goal Type Associated Problems Recent Progress Patient-Stated? Author Blood Pressure < 140/90 Blood Pressure 118/80(2024 2:15 PM EDT) No Souleymane Love, Rayshawn Hemoglobin A1c < 7 Result Component 6(08/08/2024 2:16 PM EDT) No Souleymane Love PharmD documented as of this encounter Visit Diagnoses Not on filedocumented in this encounter Additional Health Concerns Assessment Noted Time PHQ-9 Depression Total Score: 6 01/06/20 23 10:38 AM EST documented as of this encounter Care Teams Blasting Helper Relationship Specialty Start Date End Date Kori Alonso NP [address] [place] [address] PCP - General Family Medicine 01/19/23 07/03/23 Pilot MountainAdrienne beltran FNP [address] [place] [address] PCP - General Family Medicine 07/04/23 Margret Strauss PharmD [address] [place] [id number] Pharmacist Internal Medicine 06/12/24 documented as of this encounter
--- OUTSIDE RECORDS SUMMARY | 2024-09-11 09:24 | XMS_ITS | Data Portability ---
Author Organization [employer] [facility], [facility] Address [address] [place] [address] Care Team Providers Care Professor Of Nursing Name Role Phone [facility] Referring Provider [phone] Assessment Encounter Date Assessment Date Assessment LastModified by Organization Details LastModified Time 12/02/2022 12/02/2022 I provided real -time medical direction via phone for this encounter, and was available for additional phone based assistance as needed. I have reviewed and agree with the Assessment and Plan as documented by the Fabrication Machine Operator. Patient given the opportunity to ask questions via high school vice principal. Advised if develops CP/severe SOB/turning blue/uncontrolle d n/v/d / AMS/ syncope/ hi fever unresponsive to APAP to call 911- verbalized understanding of instructions [email or web address] Not available 12/02/2022 18:26:30 Plan of Treatment Reminders Order Date Submit Date Provider Last Modified By Organization Details Last Modified Time Details Appointments None recorded. Lab unlisted lab - covid-19 (novel coronavirus ) PCR 2022 023 CARMEN [facility] (Centralized Electronic Ordering - All Locations), Patient Can Go To The Location Of Their Choice, [id number] 23:07:35 rapid SARS CoV 2 Ag, QL IA, respiratory specimen 2022 023 [email or web address] 0 [facility], [address] [place] [address], [phone] 3 18:25:57 rapid flu (A+B) 2022 023 [email or web address] 0 [facility], [address] [place] [address], [id number] 3 18:25:55 glucose, fingerstick , blood 2022 023 [email or web address] 0 [facility], [address] [place] [address], [id number] 19:09:38 Referral None recorded. Procedures None recorded. Surgeries None recorded. Imaging None recorded. Medication Orders ondansetron 4 mg disintegrat ing tablet 2022 023 [id number], [address] [place], [address], 19:09:42 albuterol sulfate HFA 90 mcg/actuati on aerosol inhaler 2022 023 [facility], [address] [place], [address], 19:09:38 prednisone 20 mg tablet 2022 023 [email or web address] 0 Not available 19:09:35 prednisone 20 mg tablet 2022 023 [facility], [address] [place], [address], 19:09:38 benzonatate 200 mg capsule 2022 023 [facility], [address] [place], [address], 19:09:39 ondansetron 4 mg disintegrat ing tablet [email or web address] [facility] #1026, [address] [place], [address], 19:09:34 Patient TargetsNo targets recorded. Patient InstructionsNo instructions recorded. Reason for Referral None Reported. Results Created Date Observation Date Name Description Value Unit Range Abnormal Flag Note LastModifiedBy Organization Detail LastModifiedTime 12/03/1912/02/2022 COVID -19 (LOIS IGLESIAS S) PCR results Richarli autumn Order Not Available [facility] (Centralized Electronic Ordering - All Locations) Patient Can Go To The Location Of Their Choice, [id number] 12/02/2022 23:07:35 10/19/20 23 12/02/2022 COVID -19 (NOVE L CORON AVIRU S) PCR covid-19 PCR specimen source NASAL Not Available [facility] (Centralized Electronic Ordering - All Locations) Patient Can Go To The Location Of Their Choice, [id number] 12/04/2022 02:39:17 12/03/1912/04/2022 COVID -19 (NOVE L CORON AVIRU S) PCR covid-19 PCR result (neg) NEGAT PEPE 2019- novel Coron aviru s (2018 -nCoV ) not detec jens by real- time RT-PC R. Note: If clini andrade suspi cion for COVID -19 is high, maame nue to maint ain preca ution s and consi addy repea t testi ng. Resul t repor jens to the [facility]. To preve nt error s in diagn osis, test resul ts shoul d be inter prete d in the dale xt of clini andrade findi ngs and other labor atory data. Rare polym orphi sms exist that could lead to false -nega tive or false -posi tive resul ts. If resul ts obtai ginna do not match the clini andrade findi ngs, addit ional testi ng shoul d be consi dered . This test has been autho rized by the FDA under an Emerg ency Use Autho rizat ion (EUA) for use by autho rized labor atori es. Testi ng perfo rmed by real time PCR [facility]NY Prim Laundry0 SARS- CoV-2 test. Not Available [facility] (Centralized Electronic Ordering - All Locations) Patient Can Go To The Location Of Their Choice, [id number] 12/04/2022 02:39:17 12/03/1912/02/2022 gluco se, bob melvin k, blood Blood Glucose: mg/dl 125 Not Available [facility] [address] [place] [address], [id number] 12/02/2022 19:09:18 12/03/19 23 12/02/2022 rapid flu (A+B) Flu negati ve Not Available [facility] [address] [place] [address], [id number] 12/02/2022 18:25:30 12/03/19 23 12/02/2022 rapid SARS CoV 2 Ag, QL IA, respi rator y speci men rapid SARS CoV 2 Ag, QL IA, respiratory specimen negati ve Not Available [facility] ed [address] [place] [address], [id number] 12/02/2022 18:25:29 Result Notes None recorded. Medical Equipment None Reported. Allergies No known drug allergies Medications Name Sig Start Date Stop Date Status Note LastModified by Organization Details LastModified Time Prescription - Renewal active Not Available Not Available No t Available metformin 500 mg tablet TOME ALIYA TABLETA POR V A ORAL DOS VECES AL D A active Not Available Not Available No t Available levothyroxin e 137 mcg tablet TOME ALIYA TABLETA POR V A ORAL TODOS LOS D active Not Available Not Available No t Available atorvastatin 80 mg tablet TOME ALIYA TABLETA TODOS LOS D active Not Available Not Available No t Available trazodone 50 mg tablet TOME ALIYA TABLETA TODOS LOS D AL ACOSTARSE CUANDO SEA NECESARIO active Not Available Not Available No t Available benzonatate 200 mg capsule TOME ALIYA C PSULA SAMI VECES AL D A CUANDO SEA NECESARIO POR 3 D active Not Available Not Available N ot Available FreeStyle Lancets 28 gauge USE TO CHECK BLOOD SUGARS 2-3 TIMES DAILY. active Not Available Not Available No t Available prednisone 20 mg tablet TOME DOS TABLETAS POR V A ORAL TODOS LOS D CON ALIMENTO POR 4 D active Not Available Not Available N ot Available sulfamethoxa zole 800 mg-trimethop rim 160 mg tablet active Not Available Not Available Not Available meloxicam 7.5 mg tablet active Not Available Not Available Not Available terbinafine HCl 250 mg tablet TOME ALIYA TABLETA (250 MG) POR VIA ORAL EN LA MANANA active Not Available Not Available No t Available buspirone 10 mg tablet TOME ALIYA TABLETA SAMI VECES AL D A active Not Available Not Available No t Available lisinopril 10 mg tablet TOME ALIYA TABLETA SAMI VECES AL D A active Not Available Not Available No t Available betamethason e, augmented 0.05 % topical ointment APLIQUE AL AREA AFECTADA DOS VECES AL CINDY active Not Available Not Available No t Available ondansetron 4 mg disintegrati ng tablet PLACE 1 TABLET ON TOP OF THE TONGUE CADA OCHO HORAS CUANDO SEA NECESARIO active Not Available Not Available No t Available fluoxetine 20 mg capsule TOME ALIYA C PSULA TODOS LOS D active Not Available Not Available No t Available metformin ER 500 mg tablet,exten ded release 24 hr TOME DOS TABLETAS POR V A ORAL DOS VECES AL D A active Not Available Not Available No t Available Ventolin HFA 90 mcg/actuatio n aerosol inhaler INHALE DANDO DOS SOPLIDOS INTO THE LUNGS CUATRO VECES AL D A CUANDO SEA NECESARIO active Not Available Not Available No t Available ezetimibe 10 mg tablet TOME ALIYA TABLETA TODOS LOS D EN LA MA LINDA active Not Available Not Available No t Available Vitamin D3 25 mcg (1,000 unit) capsule TAKE 1 CAPSULE (25 MCG) BY MOUTH IN THE MORNING. active Not Available Not Available No t Available Novolog FlexPen U-100 Insulin aspart 100 unit/mL (3 mL) subcutaneous PLEASE SEE ATTACHED FOR DETAILED DIRECTIONS active Not Available Not Available N ot Available BD Ultra-Fine Short Pen Needle 31 gauge x 5/16 USE SEG N LO INDICADO active Not Available Not Available Not Available FreeStyle Lite Meter kit USE TO CHECK BLOOD SUGARS 2 TO 3 TIMES DAILY. active Not Available Not Available No t Available FreeStyle Lite Strips USE TO CHECK BGS 2-3X DAILY. E11.9 active Not Available Not Available No t Available Lantus Solostar U-100 Insulin 100 unit/mL (3 mL) subcutaneous pen TAKE 12 UNITS SUBCUTANEOU S INJECTION DAILY AT BEDTIME. E11.9 active Not Available Not Available No t Available diclofenac 1 % topical gel APPLY 4 GRAM BY TOPICAL ROUTE 2 TIMES EVERY DAY TO THE AFFECTED AREA(S) active Not Available Not Available No t Available TRUEplus Lancets 33 gauge USE DIRECTED TO TEST BLOOD SUGAR SAMI VECES AL D A active Not Available Not Available No t Available Comfort EZ Pen [place] 33 gauge x 1/4 active Not Available Not Available Not Available Trulicity 1.5 mg/0.5 mL subcutaneous pen injector INJECT 1 PEN ONCE WEEKLY active Not Available Not Available No t Available FreeStyle Dayana 2 Sensor kit USE SEG N LO INDICADO EVERY 14 DAYS active Not Available Not Available No t Available FreeStyle Dayana 2 [place] USE SEG N LO INDICADO active Not Available Not Available Not Available Trulicity 4.5 mg/0.5 mL subcutaneous pen injector INJECT 4.5 MG UNDER THE SKIN 1 TIME PER WEEK. active Not Available Not Available No t Available Vitals Date Recorded Body temperature Respiratory rate Heart rate Oxygen saturation Oxygen saturation in Arterial blood by Pulse oximetry Systolic And Diastolic Provider Name and Address Organization Details Last Updated DateTime 3 97.6 [degF] 16 /min 69 /min 97 % 97 % 145/75 mm[Hg] Not Available [facility] - production 3 18:23:51 Date Recorded Oxygen saturation Oxygen saturation in Arterial blood by Pulse oximetry Respiratory rate Body temperature Heart rate Systolic blood pressure Provider Name and Address Organization Details Last Updated DateTime 3 91 % 91 % 20 /min 98.1 [degF] 84 /min 90 mm[Hg] Not Available [facility] - production 3 18:54:59 Social History None recorded. Functional Status None recorded. Mental Status None recorded. Family History Nothing Reported. Medical History No medical history recorded. Past Encounters Encounter ID Performer Location Encounter Start Date Encounter Closed Date Diagnosis/Indication Diagnosis SNOMED-CT Code Diagnosis ICD10 Code Diagnosis Note [id number] Teri Ruth MD [facility] [address] [place] [id number] 12/02/2022 18:23:49 12/04/2022 17:36:24 Upper respiratory infection 31145245 J06.9 - viral- no fever- no colored sputum to indicate need for abx- had used MDi before- does not have any- is well controlled diabetic - aware prednisone will raise BS temporaril yDiscussed with patient Tessalon for cough suppressio n -he is aware it is not covered so given a smaller dose with refills Advised to quarantine until we get the COVID PCR back sent to [facility] advised would call him at once if the results were positive. Advised sitting up when sleeping at night to prevent coughing [id number] Reinaldo Sultana MD [facility] [address] [place] [id number] 12/25/2022 18:54:56 12/27/2022 14:31:02 Sepsis 54855607 A41.9 This 52-year-ol d male has had abdominal pain and diarrhea for several days. He was apparently seen in the ER where he had an elevated WBC. Today he became developed syncope when standing up, so I ordered that he be sent to ER by ambulance for evaluation of possible sepsis. The pateint agreed with this plan. Health Concerns Section Related Observation LastModified by Organization Detai ls LastModified Time None Recorded Concern Status LastModified by Organization Details LastModified Time None Recorded Advance Directives Directive None Recorded Payers Insurance Date Sequence Insurance Name Policy Number Policy Dickson Covered Member ID Dickson Member ID Guarantor Name 04/11/2023 1 [facility] - DOS ON OR AFTER 2022 - DUAL ELIGIBLE - NURSING HOME OPTIONS AND ONE [employer] (MEDICARE REPLACEMENT/ADV ANTAGE - HMO) Michele Lobo [id number] Michele Lobo
== END 2024-09-11 09:28 | disposition home or self-care (01) ==
LOC: HO.HBS 09:02
PROVIDERS: PCP Registered Nurse; Visit Provider Physician Assistant Surgical
DX: Z98.84 Bariatric surgery status (principal)
CPT/HCPCS: 99024

== ENCOUNTER → 2024-09-11 09:01 | Outpatient (BNVA) | payer OTHER, SELFPAY | PROVIDERS: PCP Registered Nurse; Visit Provider Physician Assistant Surgical | DX: Z98.84 Bariatric surgery status (principal) | CPT/HCPCS: 99212 ==

== ENCOUNTER 2024-10-18 10:33 | Outpatient (AMB) | payer OTHER, SELFPAY ==
--- NOTE | 2024-10-18 10:35 | MHC.OFFVISWM ---
VS Expanded 10/18/24 10:45 BP 126/72 Blood Pressure Location Rt brachial Blood Pressure Position Sitting Pulse 58 Pulse Source Pulse Oximeter Temp 98.0 F Temperature Source Temporal Artery Scan Pulse Oximetry 98 Oxygen Delivery Method Room Air Height 5 ft 4 in Weight 192 lb 9.6 oz BMI 33.1 Body Fat % 25.7 Body Fat Mass 49.4 Fat Free Mass 143.0 Visceral Fat Rating 14.0 Body Water % 5.7 Body Water Mass 107.2 Muscle Mass/Score 136.0 Basal Metabolic Rate/Score 1,890 Intake Visit Reasons: OV PO LSG 07/19/2024 Wind Turbine Machinist Required: Yes Wind Turbine Machinist Services: Wind Turbine Machinist Present Wind Turbine Machinist Name: hospital [facility] Allergies No Known Allergies Allergy (Verified 10/18/24 10:46) Medication List - Last Reconciled 10/18/24 by DARNELL Hubbard atorvastatin 40 mg PO BEDTIME Held on 07/20/24. Instructions: Resume on 07/27/24. buspirone 10 mg PO DAILY cholecalciferol (vitamin D3) (Vitamin D3) 25 mcg PO DAILY ezetimibe 10 mg PO DAILY Held on 07/20/24. Instructions: Resume on 07/27/24. fluoxetine 20 mg PO DAILY levothyroxine 175 mcg PO QAM lisinopril 20 mg PO DAILY Held on 07/20/24. Instructions: Resume on 07/21/24. Check your blood pressure every morning as soon as you wake up and send it to Dr. Sanchez. Do no take the blood pressure medication if the blood pressure is below 120/70. Wait every day to hear back from Dr. Sanchez before you take the medication. timolol maleate 0.25% 1 drp ophthalmic-Left DAILY trazodone 50 mg PO BEDTIME PRN HPI Comments Details: This?a?53?yo male who is s/p LSG without hiatal hernia repair on?07/19/2024. Presents for 3 month post op visit. Weight today is 192.6 pounds, with a BMI of 33.1. There has been a 58.8 pound weight loss,(initial weight 251.4 pounds) since starting the program on 03/26/2024 reflecting a 23.3 % total body weight loss and a weight loss of 23.1 pounds since surgery (operative weight 215.7 pounds) reflecting a 10.7% TBWL since surgery. No complaints of nausea, emesis, abdominal pain or reflux. Reports infrequent but normal bowel movements every 1-2 days and uses stool softeners regularly. He states that he has been working a little bit and has been now exercising more using the treadmill. He is following the meal plan Present meal plan includes: [employer] 2 scoops at 8-10, 11-1 1 scoop at 2-4 fit crunch bar at 5-8 Drinking 40 oz water Exercise routine includes: walking outside treadmill 3 days per week, 230 calories, [facility] Medical History BMI 38.0-38.9,adult SOB (shortness of breath) Asthma BMI 39.0-39.9,adult Obesity BENITA (obstructive sleep apnea) Hypothyroidism Hyperlipidemia DJD (degenerative joint disease) Anxiety Depression Hypertension Insulin dependent type 2 diabetes mellitus Morbid obesity Surgical History S/P laparoscopic sleeve gastrectomy History of esophagogastroduodenoscopy (EGD) Hx of circumcision Family History Mother No problems noted. Father No problems noted. Social History Household Members: Family Housing: Apartment Are you a primary direct care professional to a significant other at home: No Do you presently have visiting nurse or other home services: No Alcohol intake: current Alcohol intake frequency: does not drink Patient Tobacco Use Status: Former Tobacco user Tobacco use type: Cigarette Assessment & Plan Assessment & Plan (1) S/P laparoscopic sleeve gastrectomy: Code(s): Z98.84 - Bariatric surgery status Category: Surgical Plan: Discussed the importance of following the meal plan exactly. Of greater importance as his exercise. He has been active at his job but has not been dedicated cardiovascular activity. He is using his treadmill 3 times per week at 280 calories burned per session. Recommended increasing calories burned to 400 per session and increase frequency to at least 5 days per week. He will continue to communicate with Dr. Sanchez regarding his meal plan and is scheduled to do so tomorrow. We will have him return to the office as scheduled
[2024-10-18 10:45] VITALS: BP 126/72; PULSE 58; TEMP 36.7; O2SAT 98; BMI 33.1
--- OUTSIDE RECORDS SUMMARY | 2024-10-18 11:58 | XMS_ITS | Clinical Summary ---
Author Organization [employer] [facility] ity Address [address] [place] [address] Care Team Providers Care Amphibious Operations Officer Name Role Phone Unavailable Primary Care Provider [...] 2018 Zoster Vaccines (1 of 2) 2018 Depression Screening 02/15/2024 COVID-19 Vaccine (1 - 2023-2 5 season) 2024 Influenza Vaccine (#1) 2024 HIB Vaccines Aged [...]
--- OUTSIDE RECORDS SUMMARY | 2024-10-18 11:58 | XMS_ITS | Encounter Summary ---
Author Organization [employer] Address [address] [facility] [address] [place] [address] Care Team Providers Care Blanking Machine Operator Name Role Phone [facility] Primary Care Provider [phone] Margret Strauss PharmD Unavailable [phone] Reason for Visit * Reason Comments Med Refill Encounter Details Date Type Department Care Team (Late st Contact Info) Description 10/28/2023 Refill [facility] [address] [place], [place] [id number] [facility] [address] [place], [place] [id number] Social History Tobacco Use Types Packs/Day Years [...] Care Team (Late st Contact Info) Description 11/07/2024 10:30 AM EDT Medication Management [facility] [address] [place] [address] Margret Strauss PharmD [address] [place] [address] 12/11/2024 2:00 PM EDT Office Visit [facility] [address] [place] [address] Tom, Lou, OD [address] [place] [address] documented as of this encounter Goals Goal Patient Goal Type Associated Problems Recent Progress Patient-Stated? Author Blood Pressure < 140/90 Blood Pressure 118/80(2024 2:15 PM EDT) No Souleymane Love PharmD Hemoglobin A1c < 7 Result Component 6(08/08/2024 2:16 PM EDT) No Souleymane Love PharmD documented as of this encounter Visit Diagnoses Not on filedocumented in this encounter Additional Health Concerns Assessment Noted Time PHQ-9 Depression Total Score: 0 09/26/19 24 12:29 PM EDT documented as of this encounter Care Teams Blanking Machine Operator Relationship Specialty Start Date End Date [facility] Adrienne, MOLD FILLING OPERATOR [address] [place] [address] PCP - General Family Medicine 07/04/23 Margret Strauss PharmD [address] [place] [address] Pharmacist Internal Medicine 06/12/24 documented as of this encounter
--- OUTSIDE RECORDS SUMMARY | 2024-10-18 11:58 | XMS_ITS | Encounter Summary ---
Author Organization [employer] Address [address] [facility] 7 [place] [address] Care Team Providers Care Environmental Research Project Manager Name Role Phone [facility] Primary Care Provider [phone] Margret Strauss PharmD Unavailable [phone] Reason for Visit * Reason Comments Med Refill Encounter Details Date Type Department Care Team (Late st Contact Info) Description 09/10/2024 Refill [facility] [address] [place], [place] [id number] [facility] [address] [place] [address] Social History Tobacco Use Types Packs/Day Years Used Date Smoking Tobacco: Never Smokeless Tobacco: Never Alcohol Use Standard Drinks/Week Comments Never 0 (1 standard drink = 0.6 oz pur e alcohol) Depression Answer Date Recorded Patient Health Questionnaire-9 Score 0 08/08/2024 Patient Health Questionnaire-9 Score 0 08/08/2024 Last PHQ-9: Questionnaire Data Not on file 0 08/08/2024 Housing Stability Answer Date Recorded What is [...] Date Recorded Patient Health Questionnaire-2 Score 0 08/08/2024 Internet Access Answer Date Recorded Internet Access [...] Description 11/07/2024 10:30 AM EDT Medication Management [facility] [address] [place] [address] Margret Strauss PharmD [address] [place] [address] 12/11/2024 2:00 PM EDT Office Visit [facility] [address] [place] [address] Tom, Olu, OD [address] [place] [address] documented as of this encounter Goals Goal [...] Noted Time PHQ-9 Depression Total Score: 0 08/09/19 2:16 PM EDT documented as of this encounter Care Teams Environmental Research Project Manager Relationship Specialty Start Date End Date Adrienne Sheehan FNP [address] [place] [address] PCP - General Family Medicine 07/04/23 Margret Strauss PharmD [address] [place] [address] Pharmacist Internal Medicine 06/12/24 documented as of this encounter
--- OUTSIDE RECORDS SUMMARY | 2024-10-18 11:58 | XMS_ITS | Encounter Summary ---
Author Organization [employer] Address [address] [facility] [address] [place] [address] Care Team Providers Care Meat Processing Center Manager Name Role Phone Adrienne Sheehan STATE TROOPER Primary Care Provider [phone] Margret Strauss PharmD Unavailable [phone] Reason for Referral * Consultation (Routine) - Pending Review Specialty Diagnoses / Procedures Referred By Darryl t Referred To Contact Pharmacy Diagnoses Type 2 diabetes mellitus with hyperglycemia, with long-term current use of insulin (CMS/HCC) Emily Brooks MD [address] [place] [address] Phone: tel: fax: Referral ID Status Reason Start Date Expiration Date Visits Requested Visits Authorized [id number] Pending Review Consult and Treat 04/18/2024 04/18/2025 6 6 Encounter Details Date Type Department Care Team (Late st Contact Info) Description 04/18/2024 Orders Only [facility] MEDICINE [address] [place], [place] [phone] Emily Brooks MD [address] [place], [place] [phone] Type 2 diabetes mellitus with hyperglycemia, with [...] AM EDT documented as of this encounter Functional Status * Over the past 2 weeks, how often have you been bothered by any of the following problems? Question Answer Date of Assessment Author Patient Health Questionnaire-2 Score 0 04/18/2024 10:48 AM Lesley Kenyon MA * Little interest or pleasure in doing things Answer Date of Assessment Author Not at all 04/18/2024 10:48 AM Lesley Dowd MA * Feeling down, depressed, or hopeless Answer Date of Assessment Author Not at all 04/18/2024 10:48 AM Lesley Dowd MA * Trouble falling or staying asleep, or sleeping too much Answer Date of Assessment Author Not at all 04/18/2024 10:48 AM Lesley Dowd MA * Feeling tired or having little energy Answer Date of Assessment Author Not at all 04/18/2024 10:48 AM Lesley Dowd MA * Poor appetite or overeating Answer Date of Assessment Author Not at all 04/18/2024 10:48 AM Lesley Dowd MA * Feeling bad about yourself - or that you are a failure or have let yourself or your family down Answer Date of Assessment Author Not at all 04/18/2024 10:48 AM Lesley Dowd MA * Trouble concentrating on things, such as reading the newspaper or watching television Answer Date of Assessment Author Not at all 04/18/2024 10:48 AM Lelsey Dowd MA * Moving or speaking so slowly that other people could have noticed? Or the opposite - being so fidgety or restless that you have been moving around a lot more than usual. Answer Date of Assessment Author Not at all 04/18/2024 10:48 AM Lesley Dowd MA * Thoughts that you would be better off or hurting yourself in some way Answer Date of Assessment Author Not at all 04/18/2024 10:48 AM Lesley Dowd MA * Patient Health Questionnaire-9 Score Answer Date of Assessment Author 0 04/18/2024 10:48 AM Lesley Dowd MA documented as of this encounter Plan of Treatment Upcoming Encounters Date Type Department Care Team (Late st Contact Info) Description 11/07/2024 10:30 AM EDT Medication Management [facility] MED[facility] [address] [place] [address] Margret Strauss, PharmD [address] [place] [address] 12/11/2024 2:00 PM EDT Office Visit [facility] OPTOMETRY [address] [place] [address] Lou Santos, OD [address] [place] [address] Scheduled Referrals Name Type Priority Associated Diagnoses Orde r Schedule Referral to Pharmacy CDTM Outpatient Referral Routine Type 2 diabetes mellitus with hyperglycemia, with long-term current use of insulin ([facility]) Ordered: 04/18/2024 documented as of this encounter [...] hyperglycemia, with long-term current use of insulin ([facility])- Primary documented in this encounter Additional Health Concerns Assessment Noted Time PHQ-9 Depression Total Score: 0 04/19/19 25 10:48 AM EST documented as of this encounter Care Teams Meat Processing Center Manager Relationship Specialty Start Date End Date Adrienne Sheehan FNP [address] [place] [address] PCP - General Family Medicine 07/04/23 Margret Strauss PharmD [address] [place] [address] Pharmacist Internal Medicine 06/12/24 documented as of this encounter
--- OUTSIDE RECORDS SUMMARY | 2024-10-18 11:58 | XMS_ITS | Encounter Summary ---
Author Organization [employer] Address [address] [facility] 7 [place] [address] Care Team Providers Care Section Leader Screen Printing Name Role Phone Kori Alonso NP Primary Care Provider [phone] [facility] PUSH BENCH OPERATOR HELPER Primary Care Provider [phone] Margret Strauss PharmD Unavailable [phone] Reason for Visit * Reason Onset Date Comments Med Refill 03/16/2023 Encounter Details Date Type Department Care Team (Late st Contact Info) Description 03/16/2023 Telephone [facility] [address] [place], [place] [phone] Kori Alonso NP [address] [place], [place] [phone] Med Refill Social History Tobacco Use Types [...] the past 12 months, has t he [employer] gas, oil or water company threatened to [...] Description 11/07/2024 10:30 AM EDT Medication Management [facility] MEDICINE [address] [place] [address] Margret Strauss PharmD [address] [place] [address] 12/11/2024 2:00 PM EDT Office Visit [facility] OPTOMETRY [address] [place] [address] Tom, Lou, OD [address] [place] [address] documented as of this encounter Goals Goal [...] documented as of this encounter Care Teams Section Leader Screen Printing Relationship Specialty Start Date End Date Kori Alonso NP [address] [place] [address] PCP - General Family Medicine 01/19/23 07/03/23 AguilaAdrienne beltran FNP [address] [place] [address] PCP - General Family Medicine 07/04/23 Margret Strauss PharmD [address] [place] [address] Pharmacist Internal Medicine 06/12/24 documented as of this encounter
--- OUTSIDE RECORDS SUMMARY | 2024-10-18 11:58 | XMS_ITS | Encounter Summary ---
Author Organization [employer] Address [address] [facility] 7 [place] [address] Care Team Providers Care Oil Heaterman Name Role Phone [facility] Primary Care Provider [phone] Margret Strauss PharmD Unavailable [phone] Reason for Visit * Reason Comments Med Refill Encounter Details Date Type Department Care Team (Late st Contact Info) Description 09/05/2024 Refill [facility] CH[facility] MED & PEDS [address] [place], [place] [phone] [facility] [address] [place] [address] Social History Tobacco Use Types Packs/Day Years [...] Description 11/07/2024 10:30 AM EDT Medication Management [facility] MEDICINE [address] [place] [address] Margret Strauss PharmD [address] [place] [address] 12/11/2024 2:00 PM EDT Office Visit [facility] OPTOMETRY [address] [place] [address] Tom, Lou, OD [address] [place] [address] documented as of this encounter Goals Goal [...] documented as of this encounter Care Teams Oil Heaterman Relationship Specialty Start Date End Date Adrienne Sheehan FNP [address] [place] [address] PCP - General Family Medicine 07/04/23 Margret Strauss PharmD [address] [place] [address] Pharmacist Internal Medicine 06/12/24 documented as of this encounter
--- OUTSIDE RECORDS SUMMARY | 2024-10-18 11:58 | XMS_ITS | Encounter Summary ---
Author Organization [employer] Address [address] [facility] [address] [place] [address] Care Team Providers Care Disc Pad Knockout Worker Name Role Phone GrantSophia CATEGORY DEVELOPMENT MANAGER Primary Care Provider Linda vailable Kori Alonso PARTS INSPECTOR Primary Care Provider [phone] Boom Estevez MD Primary Care Provider [phone] Kori Alonso PARTS INSPECTOR Primary Care Provider [phone] [place] Adrienne CATEGORY DEVELOPMENT MANAGER Primary Care Provider [phone] Margret Strauss PharmD Unavailable [phone] Encounter Details Date Type Department Care Team (Latest Contact Info) Description 04/17/[address] [facility] CONVERSIONS Dental, Provider, DDS Social History [...] Description 11/07/2024 10:30 AM EDT Medication Management [facility] MEDIC[facility] [address] [place] [address] Margret Strauss, SarayD [address] [place] [address] 12/11/2024 2:00 PM EDT Office Visit [facility] OPTOMETRY [address] [place] [address] Lou Santos, OD [address] [place] [address] documented as of this encounter Visit Diagnoses Not on filedocumented in this encounter Care Teams Disc Pad Knockout Worker Relationship Specialty Start Date End Date Sophia Burns FNP PCP - General Family Medicine 10/12/21 11/22/22 Kori Alonso NP [address] [place] [address] PCP - General Family Medicine 11/23/22 01/16/23 Boom Estevez MD [address] [place] [address] PCP - General Internal Medicine 01/17/23 01/18/23 Kori Alonso NP [address] [place] [address] PCP - General Family Medicine 01/19/23 07/03/23 Adrienne Sheehan FNP [address] [place] [address] PCP - General Family Medicine 07/04/23 Margret Strauss PharmD [address] [place] [address] Pharmacist Internal Medicine 06/12/24 documented as of this encounter
--- OUTSIDE RECORDS SUMMARY | 2024-10-18 11:59 | XMS_ITS | Encounter Summary ---
Author Organization [employer] Address [address] [facility] 7 [place] [address] Care Team Providers Care Actuarial Science Teacher Name Role Phone [facility] Primary Care Provider [phone] Margret Strauss PharmD Unavailable [phone] Reason for Visit * Reason Comments Med Refill Encounter Details Date Type Department Care Team (Late st Contact Info) Description 09/11/2024 Refill [facility] CH[facility] MED & PEDS [address] [place], [place] [phone] [facility] [address] [place] [address] Social History Tobacco Use Types Packs/Day Years [...] 10:30 AM EDT Medication Management [facility] MED[facility] [address] [place] [address] Margret Strauss PharmD [address] [place] [address] 12/11/2024 2:00 PM EDT Office Visit [facility] OPTOMETRY [address] [place] [address] Tom, Lou, OD [address] [place] [address] documented as of this encounter Goals Goal [...] documented as of this encounter Care Teams Actuarial Science Teacher Relationship Specialty Start Date End Date Adrienne Sheehan FNP [address] [place] [address] PCP - General Family Medicine 07/04/23 Margret Strauss PharmD [address] [place] [address] Pharmacist Internal Medicine 06/12/24 documented as of this encounter
--- OUTSIDE RECORDS SUMMARY | 2024-10-18 11:59 | XMS_ITS | Clinical Summary ---
Author Organization [employer] Address [address] [facility] 7t [place] [address] Care Team Providers Care Transitions Manager Name Role Phone [facility] Primary Care Provider [phone] Margret Strauss PharmD Unavailable [phone] Allergies No known active allergies Medications FREESTYLE LITE test strip USE SEG N LO INDICADO 2 TO 3 TIMES PER DAY 023 Active FreeStyle lancets USE TO CHECK BLOOD SUGARS 2-3 TIMES DAILY. 023 Active betamethasone, augmented, (Diprolene) 0.05 % ointmentIndicatio ns:Lichen simplex chronicus APLIQUE AL AREA AFECTADA DOS VECES AL CINDY 50 g 023 Active Continuous Blood Gluc Ice Cream Freezer Assistant (FreeStyle Dayana 2 [place]) deviceIndications :Type 2 diabetes mellitus with hyperglycemia, with long-term current use of insulin ([facility]) Scan sensor every 8 hours 1 each 023 Active Blood Pressure Monitor kitIndications:Es sential hypertension Use as directed 1 kit 024 Active albuterol 108 (90 Base) MCG/ACT inhalerIndication s:Mild intermittent asthma without complication Inhale 2 puffs every 4 (four) hours. 18 g 3 024 Active Easy Touch Pen [place] 31G X 8 MM misc USE DIRECTED 024 Active glucose 4 g chewable tabletIndications :Type 2 diabetes mellitus with hypoglycemia without coma, with long-term current use of insulin (CMS/[facility]) Chew 4 tablets (16 g) if needed for low blood sugar. 50 tablet 12 024 Active Alcohol Swabs (Alcohol Prep) padsIndications:T ype 2 diabetes mellitus with hyperglycemia, with long-term current use of insulin (CMS/HCC) Use one pad each to prep skin prior to injection as directed 100 each 025 Active atorvastatin (Lipitor) 40 MG tabletIndications :Mixed hyperlipidemia Take 1 tablet (40 mg) by mouth Once per day. 30 tablet 11 025 2025 Active levothyroxine (Synthroid) 175 MCG tablet Take 1 tablet (175 mcg) by mouth before breakfast. 90 tablet 3 025 2025 Active cholecalciferol (D3-1000) 25 MCG (1000 UT) capsuleIndication s:Vitamin D deficiency TAKE 1 CAPSULE BY MOUTH EVERYDAY AT NOON 90 capsule 1 025 Active pantoprazole (ProtoNix) 40 MG EC tablet Take 40 mg by mouth in the morning. 025 Active sucralfate (Carafate) 1 GM/10ML suspension Take 10 mL by mouth 2 times daily. 025 Active fluticasone (Flonase) 50 MCG/ACT nasal sprayIndications: Middle ear effusion, right Administer 1-2 sprays into each nostril Once per day. Shake gently. Before first use, prime pump. After use, clean tip and replace cap. 16 g 025 2025 Active timolol (Timoptic) 0.5 % ophthalmic solutionIndicatio ns:Low tension glaucoma of left eye, moderate stage Administer 1 drop into the left eye in the morning. 5 mL 025 2025 Active Continuous Glucose Sensor (FreeStyle Dayana 3 Plus Sensor) miscIndications:T ype 2 diabetes mellitus with hyperglycemia, with long-term current use of insulin (CMS/HCC) USE DIRECTED. CHANGE EVERY 15 DAYS 2 each 3 025 Active Continuous Glucose Sensor (FreeStyle Dayana 3 Plus Sensor) miscIndications:T ype 2 diabetes mellitus with hyperglycemia, with long-term current use of insulin (CMS/[facility]) USE DIRECTED. CHANGE EVERY 15 DAYS 2 each 3 025 2024 Discontinued(R eorder (will not trigger [...] Secondary erythrocytosis 08/03/2022 Overview (08/03/2022): Appt 05/04/21 [facility] Hematology Severe hematocrit > 60; increased [...] PM EST): -hgb 12.2 on 12/28 @ [facility] -recheck levels Depression, recurrent 03/09/20222023 Encounters Date Type Department Care Team Description 09/25/2024 Refill [facility] [address] [place] [address] [place]Adrienne [facility] Type 2 diabetes mellitus with hyperglycemia, with long-term current use of insulin ([facility]) 09/11/2024 Refill [facility] [address] [place] [address] [facility] 09/11/2024 Telephone [facility] [address] [place] [address] [facility] 09/10/2024 Refill [facility] [address] [place] [address] [facility] 09/05/2024 Refill [facility] [address] [place] [address] [facility] 08/13/2024 Telephone [facility] [address] [place] [address] [facility] Adrienne [facility] Lab letter sent 08/10/2024 Results Follow-Up [facility] [address] [place] [address] [place] [facility] POCT HGB A1C, POCT Glucose, PSA,Total 08/08/2024 2:00 PM EDT Office Visit [facility] [address] [place] [address] [place] [facility] Type 2 diabetes mellitus with hyperglycemia, with long-term current use of insulin ([facility]) (Primary Dx); Middle ear effusion, right; Healthcare maintenance; Tinea pedis of both feet; Acquired hypothyroidism 08/08/2024 Travel 08/07/2024 Telephone [facility] [address] [place] [address] [place]Adrienne [facility] chart prep 07/31/2024 Patient Outreach [facility] [address] [place] [address] [place] [facility] Pre-visit Planning (SDOH screening is completed) 07/23/2024 2:00 PM EDT Office Visit [facility] [address] [place] [address] Tom, Lou, OD Diabetes mellitus type 2 without retinopathy ([facility]) (Primary Dx); Low tension glaucoma of left eye, moderate stage; Posterior subcapsular polar age-related cataract of both eyes; Presbyopia 07/23/2024 Travel 07/20/2024 Telephone [facility] [address] [place] [address] [place] Adrienne [facility] No Show 07/19/2024 Telephone [facility] [address] [place] [address] [place] [facility] Chart prep from Last 3 Months Immunizations Immunization Administration Dates Next Due HepB-CpG 02/24/2023,01/25/2023 Influenza [...] Sign Reading Time Taken Comments Blood Pressure 118/80 08/08/2024 2:15 PM EDT Pulse 63 08/08/2024 2:15 PM EDT Temperature 37.1 C (98.7 F) 08/08/2024 2:15 PM EDT Respiratory Rate 18 08/08/2024 2:15 PM EDT Oxygen Saturation 98% 04/18/2024 10:46 AM EST Inhaled Oxygen Concentration - - Weight 93.6 kg (206 lb 6.4 oz) 08/08/2024 2:15 P M EDT Height 162.6 cm (5' 4 ) 08/08/2024 2:15 PM EDT Body Mass Index 35.43 08/08/2024 2:15 PM EDT Plan of Treatment Upcoming Encounters Date Type Department Care Team (Late st Contact Info) Description 11/07/2024 10:30 AM EDT Medication Management [facility] [address] [place] [address] Margret Strauss, PharmD [address] [place] [address] 12/11/2024 2:00 PM EDT Office Visit [facility] [address] [place] [address] Tom, Lou, OD [address] [place] [address] Health Maintenance Due Date Last Done Comments CT Colonography 1968 FIT DNA/Cologuard 1968 FIT 1968 FOBT 1968 Sigmoidoscopy 1968 Dental Oral Exam 06/15/2021 12/15/2020 Dental Prophylaxis 10/19/2021 04/17/2021 Dental X-Ray: Bitewings 12/16/2021 12/15/2020 Zoster Vaccines (2 of 2) 03/22/2023 01/25/2023 Dental X-Ray: Full Mouth 04/18/2024 04/17/2021 Influenza Vaccine (#1) 2024 , 01/05/2023, 02/18/2021 Diabetes: Hemoglobin A1C 02/07/2025 025, 07/13/2024, 06/12/2024, Additional history exists Diabetes: Urine Protein Screening 03/09/2025 03/09/2024, 05/09/2023, 02/18/2021 SDOH Screening 04/30/2025 04/30/2024 Lipid Panel 07/13/2025 07/13/2024, 03/17, 03/09/2024, Additional history exists Alcohol/Substance Use Screening 08/08/2025 08/08/2024 Depression Screening 08/08/2025 08/08/2024, 08/09/19 25 Diabetes: Foot Exam 08/08/2025 08/08/2024, 08/08/2024, 08/26/2023, Additional history exists Disability Screening 08/08/2025 08/08/2024 Tobacco Screening 08/10/2025 08/10/2024 Eye Exam 07/23/2026 07/23/2024, 10/2024, 07/23/2024, Additional history exists DTaP/Tdap/Td Vaccines (2 - [...] Completed 04/18/2024, 10/2021, 05/13/2021, Additional history exists HIB Vaccines Aged Out No longer eligi [...] Result Component 6(08/08/2024 2:16 PM EDT) No Love, Souleymane, PharmD Procedures Procedure Name Priority Date/Time Associated Diagnosis Comments PSA, TOTAL Routine 08/09/2024 1:20 PM EDT Healthcare maintenance TSH Routine 08/09/2024 1:20 PM EDT Acquired hypothyroidism POCT GLUCOSE Routine 08/08/2024 2:16 PM EDT Type 2 diabetes mellitus with hyperglycemia, with long-term current use of insulin (CMS/HCC) POCT GLYCATED HEMOGLOBIN, TOTAL Routine 08/08/2024 2:16 PM EDT Type 2 diabetes mellitus with hyperglycemia, with long-term current use of insulin (CMS/HCC) OCT, OPTIC NERVE - OU - BOTH EYES Routine 07/23/2024 2:00 PM EDT Low tension glaucoma of left eye, moderate stage LIPID PANEL, STANDARD Routine 07/13/2024 8:21 AM EDT ALBUMIN, RANDOM URINE W/CREATININE Routine 03/09/2024 10:14 [...] Recently Relevant to Health Maintenance Results * TSH (08/09/2024 1:20 PM EDT) Thyroid Stimulating Hormone 0.90 0.32 - 4.0 uIU/mL [facility] Comment:TSH 3rd Generation ( [facility]) Blood Venous blood specimen / Unknown 08/09/2024 1:20 PM EDT 08/09/2024 4:10 PM EDT [facility] LAB BLOOD ORDERABLES Final Re sult Performing Organization Address City/[facility]/ZIP Co de Phone Number [facility] [address] [place] [phone] * PSA,Total (08/09/2024 1:20 PM EDT) Pathologist [facility] Prostate Specific Antigen 0.39 <0.05 - 4.0 ng/mL [facility] Comment:PSA methodology: Dee Matthewty i ChemiluminescentMicroparticle Immunoassay (CMIA) Blood Venous blood specimen / Unknown 08/09/2024 1:20 PM EDT 08/09/2024 4:10 PM EDT [facility] LAB BLOOD ORDERABLES Final Re sult Performing Organization Address City/[facility] Co de Phone Number [facility] [address] [place] [phone] * (ABNORMAL) POCT HGB A1C (08/08/2024 2:16 PM EDT) Pathologist [facility] Hemoglobin A1C 6.0 4.0 - 6.0 % Blood 08/08/2024 2:16 PM EDT [facility] POINT OF CARE TEST ENTER/EDIT ORDERABLES Final Result * POCT Glucose (08/08/2024 2:16 PM EDT) Glucose Blood, POC 121 60 - 200 mg/dL Blood Capillary blood specimen / Unknown 08/08/2024 2:16 PM EDT [facility] LITHOGRAPHIC PHOTOGRAPHER POINT OF CARE TEST ENTER/EDIT ORDERABLES Final Result * OCT, Optic Nerve - OU - Both Eyes (07/23/2024 2:00 PM EDT) Lou Lynn, OD - 08/08/2024 4:37 PM EDT Images from the original result were not included. Right Eye Images reviewed and comparison made to baseline. To assess optic nerve function and for use in future follow-up. Left Eye Images reviewed and comparison made to baseline. To assess optic nerve function and for use in future follow-up. Notes OCT OPTIC NERVE INTERPRETATION Optical Coherence Tomography Interpretation Report Test Details: Measurements: OD OS C/D Horizontal 0.52 0.68 C/D Vertical 0.45 0.77 Disc area 2.00 mm 2 1.66 mm 2 RNFL Average 93 microns 72 microns Test findings: OD: Borderline RNFL thinning temporal quadrant, normal RNFL thickness in all other quadrants OS: Definite RNFL thinning superior and temporal quadrants, normal RNFL nasal and inferior quadrant Impression and Plan: Right: 3 micron decrease in average RNFL thickness Left: 1 micron decrease in average RNFL thickness Patient will return in 3-4 months for an updated visual field test. us Lou Santos OD OPHTH TOMOGRAPHY Final Result * (ABNORMAL) Lipid Panel, Standard (07/13/2024 8:21 AM EDT) Triglycerides 63 <150 mg/dL [facility] Comment:Desirable Triglyceri de: less than 150 mg/dLBorderline High Triglyceride 150-199 mg/dLHigh Triglyceride: 200-499 mg/dLVery High Triglyceride: greater than or equal to 5OO mg/dL Cholesterol 137 <200 mg/dL [facility] Comment:Desirable Cholestero l: less than 200 mg/dLBorderline High Cholesterol: 200-239 mg/dLHigh Cholesterol: greater than 239 mg/dL LDL Cholesterol Calculated 92 <100 mg/dL [facility] Comment:Desirable LDL: less than 100 mg/dLNear Optimal/Above Optimal LDL: 110- 129 mg/dLBorderline High LDL: 130-159 mg/dLHigh LDL: 160-189 mg/dLVery High LDL: greater than or equal to 190 mg/dL HDL Cholesterol 33(L) >40 mg/dL [facility] Comment:Desirable HDL: great er than 40 mg/dL Note: This HDL assay may give artificially low results in patients with liver disease. 07/13/2024 8:21 AM EDT 07/13/2024 8:21 AM EDT Generic External Data Provider LAB BLOOD ORDERAB LES Final Result Performing Organization Address [facility] de Phone Number [facility] [address] [place] [phone] * (ABNORMAL) Albumin, Random Urine W/Creatinine (03/09/2024 10:14 AM EST) Pathologist [facility] Creatinine, Urine 160.00 mg/dL [facility] Microalbumin Urine 475.0 mg/L H [facility] Microalbum Creatinine Ratio Ur 296.8(H) <30 ug/mg cr [facility] Comment:Albumin/Creatinine R atio Reference Ranges: Normal: < 30 ug/mg creatinine Microalbuminuria: 30 - 300 ug/mg creatinineClinical Albuminuria: > 300 ug/mg creatinine Urine 03/09/2024 10:1 4 AM EST 03/09/2024 11:34 AM EST [facility] LITHOGRAPHIC PHOTOGRAPHER LAB URINE ORDERABLES Final Re sult Performing Organization Address [facility] de Phone Number [facility] [address] [place] [phone] * Colonoscopy (04/16/2021) Pathologist [facility] Colonoscopy Normal Normal, Abnormal, BIRADS 0 , BIRADS 1 , BIRADS 2, BIRADS 3 , BIRADS 4+ Comment:Patient States got i t done at [facility] and was normal. Historical Provider HEALTH MAINTENANCE Final Result * HEPATITIS C AB W/REFL TO HCV RNA, QN, PCR (02/18/2021 4:20 PM EST) Pathologist [facility] HEPATITIS C ANTIBODY NON-REACT PEPE NON-REACT PEPE [facility] INDEX 0.04 <1.00 [facility] Comment: HCV antibody was non-reactive. There is no laboratory evidence of HCV infection. In most cases, no further action is required. However, if recent HCV exposure is suspected, a test for HCV RNA (test code 48883) is suggested. For additional information please refer to http://[employer]/faq/GUG74f7 (This link is being provided for informational/ educational purposes only.) 02/18/2021 4:20 PM EST Teri Smithvinny JO HISTORICAL/NON ORDERABLE LABS Final Result Performing Organization Address [facility] de Phone Number [facility] [address] * HIV 1/2 ANTIGEN/ANTIBODY,FOURTH GENERATION W/RFL (02/18/2021 4:20 PM EST) HIV-1/2 ANTIGEN AND ANTIBODIES, 4TH GENERATION W/ REFLEX NON-REACT PEPE NON-REACT PEPE [facility] Comment: HIV-1 antigen and HIV-1/HIV-2 antibodies were not detected. There is no laboratory evidence of HIV infection. PLEASE NOTE: This information has been disclosed to you from records whose confidentiality may be protected by state law. If your state requires such protection, then the state law prohibits you from making any further disclosure of the information without the specific written consent of the person to whom it pertains, or as otherwise permitted by law. A general authorization for the release of medical or other information is NOT sufficient for this purpose. For additional information please refer to http://[employer]/faq/DQF309 (This link is being provided for informational/ educational purposes only.) The performance of this assay has not been clinically validated in patients less than 2 years old. 02/18/2021 4:20 PM EST Teri Alanis NP LAB BLOOD ORDERABLES Final Res ult Performing Organization Address [facility] Co de Phone Number [facility] [address] from Last 3 Months or Most Recently Relevant to Health Maintenance Insurance [facility] STANDARD [facility] CARE < 65 DENTAL-[facility] MEDICAID STAND ADULT Care Teams Transitions Manager Relationship Specialty Start Date End Date [place] Adrienne [facility] [address] [place] [address] PCP - General Family Medicine 07/04/23 Margret Strauss PharmD [address] [place] [address] Pharmacist Internal Medicine 06/12/24
--- OUTSIDE RECORDS SUMMARY | 2024-10-18 11:59 | XMS_ITS | Encounter Summary ---
Author Organization [employer] Address [address] [facility] 7 [place] [address] Care Team Providers Care Propellant Charge Zone Assembler Name Role Phone [facility] Primary Care Provider [phone] Margret Strauss PharmD Unavailable [phone] Encounter Details Date Type Department Care Team (Late st Contact Info) Description 09/11/2024 Telephone [facility] [address] [place], [place] [phone] [facility] [address] [place], [place] [phone] Social History Tobacco Use Types Packs/Day Years [...] Management [facility] [address] [place] [address] Margret Strauss PharmD [address] [place] [address] 12/11/2024 2:00 PM EDT Office Visit [facility] [address] [place] [address] Tom, Lou, OD [address] [place] [address] documented as of this encounter Goals Goal [...] documented as of this encounter Care Teams Propellant Charge Zone Assembler Relationship Specialty Start Date End Date Aguila, Adrienne, DUY [address] [place] [address] PCP - General Family Medicine 07/04/23 Margret Strauss PharmD [address] [place] [address] Pharmacist Internal Medicine 06/12/24 documented as of this encounter
--- OUTSIDE RECORDS SUMMARY | 2024-10-18 11:59 | XMS_ITS | Encounter Summary ---
Author Organization [employer] Address [address] [place] [address] Care Team Providers Care Appellate Court Clerk Name Role Phone Sophia BurnsP Primary Care Provider Linda vailable Kori Alonso LPN HOME HEALTH Primary Care Provider [phone] Boom Estevez MD Primary Care Provider [phone] Kori Alonso LPN HOME HEALTH Primary Care Provider [phone] [facility] SERVICE CAPTAIN Primary Care Provider [phone] Margret Strauss PharmD Unavailable [phone] Encounter Details Date Type Department Care Team (Late st Contact Info) Description 08/26/2022 [facility] Information Management [address] [place], [place] [phone] Sophia Burns FNP Social History Tobacco Use Types Packs/Day Years [...] Description 11/07/2024 10:30 AM EDT Medication Management [facility] [address] [place] [address] Margret Strauss, PharmD [address] [place] [address] 12/11/2024 2:00 PM EDT Office Visit [facility] [address] [place] [address] Lou Santos, OD [address] [place] [address] documented as of this encounter Visit Diagnoses Not on filedocumented in this encounter Care Teams Appellate Court Clerk Relationship Specialty Start Date End Date Sophia Burns FNP PCP - General Family Medicine 10/12/21 11/22/22 Kori Alonso NP [address] [place] [address] PCP - General Family Medicine 11/23/22 01/16/23 Boom Estevez MD [address] [place] [address] PCP - General Internal Medicine 01/17/23 01/18/23 Kori Alonso NP [address] [place] [address] PCP - General Family Medicine 01/19/23 07/03/23 Adrienne Sheehan FNP [address] [place] [address] PCP - General Family Medicine 07/04/23 Margret Strauss PharmD [address] [place] [phone] Pharmacist Internal Medicine 06/12/24 documented as of this encounter
--- OUTSIDE RECORDS SUMMARY | 2024-10-18 11:59 | XMS_ITS | Encounter Summary ---
Author Organization [employer] Address 75 [facility] 7 [place] [address] Care Team Providers Care Clinical Pharmacy Manager Name Role Phone [facility] Primary Care Provider [phone] Margret Strauss PharmD Unavailable Reason for Visit * Reason Comments Med Refill Encounter Details Date Type Department Care Team (Late st Contact Info) Description 11/07/[address] [facility] [address] [place], [place] [phone] [facility] [address] [place], [place] [phone] Mild intermittent asthma without complication Social History [...] [facility] [address] [place] [address] Margret Strauss PharmD [address] [place] [address] 12/11/2024 2:00 PM EDT Office Visit [facility] [address] [place] [address] Tom, Lou, OD [address] [place] [address] documented as of this encounter Goals Goal [...] as of this encounter Care Teams Clinical Pharmacy Manager Relationship Specialty Start Date End Date Adrienne Sheehan SCREEN AND CYCLONE REPAIRER [address] [place] [address] PCP - General Family Medicine 07/04/23 Margret Strauss PharmD [address] [place] [address] Pharmacist Internal Medicine 06/12/24 documented as of this encounter
== END 2024-10-18 10:59 | disposition home or self-care (01) ==
LOC: HO.HBS 10:34
PROVIDERS: PCP Registered Nurse; Visit Provider Physician Assistant Surgical
DX: E66.9 Obesity, unspecified (principal); Z68.33 Body mass index [BMI] 33.0-33.9, adult; Z90.3 Acquired absence of stomach [part of]; Z98.84 Bariatric surgery status
CPT/HCPCS: 99213

== ENCOUNTER → 2024-10-18 10:33 | Outpatient (BNVA) | payer OTHER, SELFPAY | PROVIDERS: PCP Registered Nurse; Visit Provider Physician Assistant Surgical | DX: E66.9 Obesity, unspecified (principal); Z90.3 Acquired absence of stomach [part of]; Z68.33 Body mass index [BMI] 33.0-33.9, adult | CPT/HCPCS: 99212 ==

== ENCOUNTER 2025-01-19 17:12 | Emergency (ER) | payer OTHER, SELFPAY ==
--- NOTE | ~2025-01-19 | XR_ITS ---
CLINICAL HISTORY: L shoulder pain s p shoveling snow 4 view left shoulder Comparison: None provided Findings: Bones intact. No dislocations. Moderate degenerative changes of the glenohumeral joint. Mild degenerative changes of the acromioclavicular joint. Small calcifications in the region of the supraspinatus. No erosions. No radiopaque foreign body. IMPRESSION: 1. No acute fracture. 2. Degenerative changes as above. 3. Calcifications in the region of the supraspinatus tendon may represent calcific tendinitis. This document has been electronically signed by: Rianna Jeffers MD on 01/19/2025 18:25:58
[2025-01-19 17:21] VITALS: BP 132/63; PULSE 58; RESP 18; TEMP 36.4; O2SAT 98; BMI 33.5
--- NOTE | 2025-01-19 17:21 | ED.GENADULT ---
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 Reports pain began after shoveling snow. Pain is localized to the outer aspect of the left shoulder, no radiation. Worse with movement of the left shoulder. Denies blunt injury or trauma to the shoulder. Denies numbness/tingling/weakness of the left upper extremity. Denies history of surgery in the shoulder. Denies chest pain, palpitations, shortness of breath, jaw pain. He did not trial any [id number] pain meds prior to arrival. Related Data Home Medications ?Medication ?Instructions ?Recorded ?Confirmed buspirone 10 mg tablet 10 mg PO DAILY 03/19/24 10/18/24 lisinopril 20 mg tablet 20 mg PO DAILY 03/19/24 10/18/24 Held on 07/20/24. Instructions: Resume on 07/21/24. Check your blood pressure every morning as soon as you wake up and send it to Dr. Sanchez. Do no take the blood pressure medication if the blood pressure is below 120/70. Wait every day to hear back from Dr. Sanchez before you take the medication. atorvastatin 40 mg tablet 40 mg PO BEDTIME 07/05/24 10/18/24 Held on 07/20/24. Instructions: Resume on 07/27/24. cholecalciferol (vitamin D3) 25 25 mcg PO DAILY 07/05/24 10/18/24 mcg (1,000 unit) tablet (Vitamin D3) ezetimibe 10 mg tablet 10 mg PO DAILY 07/05/24 10/18/24 Held on 07/20/24. Instructions: Resume on 07/27/24. fluoxetine 20 mg capsule 20 mg PO DAILY 07/05/24 10/18/24 levothyroxine 175 mcg tablet 175 mcg PO QAM 07/05/24 10/18/24 timolol maleate 0.25 % eye drops 1 drp ophthalmic-Left DAILY 07/19/24 10/18/24 trazodone 50 mg tablet 50 mg PO BEDTIME PRN Sleep 07/19/24 10/18/24 Previous Rx's ?Medication ?Instructions ?Recorded prednisone 20 mg tablet 40 mg (2 x 20 mg) PO DAILY 5 days 01/19/25 #10 tabs Allergies Allergy/AdvReac Type Severity Reaction Status Date / Time No Known Allergies Allergy Verified 01/19/25 17:23 Review of Systems Review of Systems: Yes all other systems are reviewed and are negative [facility] Past Medical History Attestation statement: The following information was validated with the patient. Source: old records reviewed and nursing notes reviewed Medical History BMI 38.0-38.9,adult SOB (shortness of breath) Asthma BMI 39.0-39.9,adult Obesity BENITA (obstructive sleep apnea) Hypothyroidism Hyperlipidemia DJD (degenerative joint disease) Anxiety Depression Hypertension Insulin dependent type 2 diabetes mellitus Morbid obesity Surgical History S/P laparoscopic sleeve gastrectomy History of esophagogastroduodenoscopy (EGD) Hx of circumcision Family History Family History Mother No problems noted. Father No problems noted. Social History Social History Household Members: Family Housing: Apartment Are you a primary home care provider to a significant other at home: No Do you presently have visiting nurse or other home services: No Alcohol intake: current Alcohol intake frequency: does not drink Patient Tobacco Use Status: Former Tobacco user Tobacco use type: Cigarette Advance Directives: No Advance Directives Information Provided: No Do you have a plan to hurt others: No Plan Physical Exam ED Vital Signs: Vital Signs - 24 hr 01/19/25 17:21 Temperature 97.5 F Pulse Rate 58 Respiratory Rate 18 Blood Pressure 132/63 Pulse Oximetry 98 Oxygen Delivery Method Room Air BMI result Body Mass Index 33.5 vital signs stable General: Well appearing, in no acute distress. Skin: Warm, dry, intact. No rashes or lesions. Head: Normocephalic, atraumatic. EENT: Hearing is intact b/l. Conjunctiva clear. Sclera is anicteric. PERRLA. EOM intact. Moist mucous membranes.? Cardiac: Chest wall symmetric. RRR Lungs: Normal respiratory effort without accessory muscle use. CTA bilaterally Abdomen: Soft, non-tender, non-distended. No rebound tenderness or guarding. Positive BS x4. Back: No midline spinous or paraspinal tenderness. No step off deformity. Ext: +no overlying skin changes, swelling or deformity to left shoulder. There is pain with both active and passive extension and abduction of left shoulder. Patient is able to extend/abduct to approximately 30? before pain is elicited. Tender to palpation over left deltoid and supraspinatus region, no palpable deformity, crepitus. Store Lead strength intact without pain. 2+ radial pulse intact. Sensation intact. Neuro: AOx3. Normal speech. Ambulating with steady gait. Course Course Course Narrative: This is a Rapid Medical Examination (RME) performed by Darshan Cyr PA-C in triage. Full HPI, ROS, assessment and treatment plan per primary provider in the Main ED. Hx: 54 yo M here w/ left upper arm/shoulder pain which began after shoveling snow. no OTC pain meds [employer]. Plan: xr, labs, ekg Reevaluation(s) Reevaluation #1: CBC without leukocytosis or left shift. Microcytic anemia, H and H stable when compared to priors and above transfusion threshold. Chemistry without acute electrolyte abnormality requiring intervention. Patient is slightly dehydrated, will encourage water intake. Liver function around baseline. Troponin undetectable x2. EKG shows mild bradycardia, no acute ischemic changes or ST elevations. X-ray left shoulder shows findings consistent with supraspinatus calcific tendonitis. > discussed all workup results with patient. He is status post gastric bypass surgery. Will avoid treatment with NSAIDs. His blood sugar is well-controlled. Glucose in the ED 95. Discussed management with prednisone, advised to monitor blood sugar closely at home. Sling applied in the ED for comfort. Educated on gentle range of motion to prevent frozen shoulder. Advised follow up with PCP, he may require physical therapy. Patient has remained stable throughout ED visit today. Discussed worrisome signs and symptoms and when to return to the ED. All questions answered at this time. Patient is agreeable with disposition and stable for discharge. Procedures Orthopedic Splinting/Casting Injury #1: Side: left Upper Extremity Injury Location: shoulder Upper Extremity Immobilizer: sling/shoulder immobilizer Medical Decision Making Medical Decision Making [facility] Narrative: 54 year old male with pmhx significant for HTN, T2DM, anxiety, depression, HLD, hypothyroidism, GERD, BENITA on CPAP presents to the ED today for evaluation of left shoulder pain x yesterday. vital signs stable. he is well appearing in NAD. On exam of LUE, no overlying skin changes, swelling or deformity to left shoulder. There is pain with both active and passive extension and abduction of left shoulder. Patient is able to extend/abduct to approximately 30? before pain is elicited. Tender to palpation over left deltoid and supraspinatus region, no palpable deformity, crepitus. Store Lead strength intact without pain. 2+ radial pulse intact. Sensation intact. Differential diagnosis includes arthritis, tendonitis, MSK sprain/strain, rotator cuff injury, fracture, dislocation, ACS, arrhythmia Plan for labs, ekg, xr, pain control, re-evaluation. Differential Diagnosis Differential Diagnoses: The differential diagnosis associated with the presentation includes as above. Admission/Observation not indicated. Lab Data [facility] Lab Attestation statement: I reviewed the patient's lab results. as above. 01/19/25 17:52 01/19/25 17:52 Labs: Lab Results 01/19/25 01/19/25 Range/Units 17:52 19:54 WBC 7.5 (4.8-10.8) X10*3/uL RBC 5.15 (4.60-5.80) X10*6/uL Hgb 13.5 L (14.0-18.0) g/dl Hct 39.9 L (42.0-52.0) % MCV 77.5 L (80.0-98.0) fL MCH 26.2 L (27.0-33.0) pg MCHC 33.8 (31.0-36.0) g/dl RDW 14.6 (11.0-16.0) % Plt Count 226 (160-400) X10*3/uL MPV 8.6 L (9.4-12.4) fL Immature Gran % (Auto) 0.1 (0.0-0.4) % Neut % (Auto) 42.8 L (45-73) % Lymph % (Auto) 46.2 H (20-40) % [place] % (Auto) 5.2 (2-11) % Eos % (Auto) 5.2 H (0-4) % Baso % (Auto) 0.5 (0-2) % Lymph # (Auto) 3.5 (1.2-4.9) X10*3/uL [place] # (Auto) 0.4 (0.1-1.2) X10*3/uL Eos # (Auto) 0.4 (0.0-0.4) X10*3/uL Baso # (Auto) 0.0 (0.0-0.2) X10*3/uL Abs Immat Gran (auto) 0.01 (0.00-0.03) X10*3/uL Absolute Neuts (auto) 3.2 (2.0-8.3) x10*3/uL Absolute Nucleated RBC 0.000 (0.0-0.012) X10*3/uL Nucleated RBC % (auto) 0.0 (0.0-0.2) /100WBC Sodium 142 (135-145) mmol/L Potassium 3.8 (3.3-5.1) mmol/L Chloride 109 H (96-108) mmol/L Carbon Dioxide 27 (22-29) mmol/L Anion Gap 10 L (12-20) BUN 26 H (9-16) mg/dL Creatinine 1.01 (0.5-1.4) mg/dL Estim Creat Clear Calc 81.8 Estimated GFR > 60 Random Glucose 95 (60-115) mg/dL Calcium 10.1 D (8.4-10.2) mg/dL Magnesium 2.2 (1.6-2.6) mg/dL Total Bilirubin 0.3 (0.0-1.0) mg/dL AST 42 H (5-37) U/L ALT 58 H (0-40) U/L Alkaline Phosphatase 70 (39-117) U/L Troponin I High Sens < 2.7 < 2.7 (<3.5-35.0) ng/L Total Protein 7.7 (6.5-8.0) g/dL Albumin 4.6 (3.5-5.0) g/dL Independent Interpretation I performed an independent interpretation of an: EKG and Plain X-Ray Interpretation: xr right shoulder without fracture ekg showing sinus bradycardia, rate of 58 beats per minute, no acute ischemic changes or ST elevations Radiology Impression Discussion of test interpretation with radiology: I have reviewed the radiologist's reading. Radiologist Impression: Procedure(s): XR shoulder LT min 2V Accession Number(s): [id number] cc: Dinora Cyr; [facility]~ Reason for Exam: L shoulder pain s/p shoveling snow CLINICAL HISTORY: L shoulder pain s p shoveling snow 4 view left shoulder Comparison: None provided Findings: Bones intact. No dislocations. Moderate degenerative changes of the glenohumeral joint. Mild degenerative changes of the acromioclavicular joint. Small calcifications in the region of the supraspinatus. No erosions. No radiopaque foreign body. IMPRESSION: 1. No acute fracture. 2. Degenerative changes as above. 3. Calcifications in the region of the supraspinatus tendon may represent calcific tendinitis. This document has been electronically signed by: Rianna Jeffers MD on 01/19/2025 18:25:58 Independent Historian Clinical information obtained from an independent historian. History obtained from or confirmed by: Spouse External Record Review External record reviewed: Inpatient record Prescription Management I considered prescription management with: Pain Medication and Other (Prednisone) Chronic Conditions Patient?s care impacted by: Diabetes Social Determinants Patient?s care significantly limited by Social Determinants of Health including: Other Social Determinant of Health Critical Care Time Critical Care Time Critical Care Time: No Discharge Plan Discharge Clinical Impression: Calcific tendinitis of left shoulder Patient Disposition: Home, Self-Care Instructions: Calcific Tendinitis (ED) Additional Instructions: You were evaluated in the ED today for left shoulder pain. Your blood work is reassuring. You are mildly dehydrated, please increase your water intake. Your cardiac enzyme is normal. The EKG of your heart shows a mildly low heart rate, otherwise normal. The x-ray of your left shoulder shows findings consistent with calcific tendonitis. See home care instructions. I am starting you on a 5 day course of Prednisone. Take this as prescribed. Your sugars appear to be well-controlled however please monitor these over the next 5 days while taking Prednisone as this can increase blood sugar. If you find that your blood sugar is significantly more elevated, please discontinue prednisone. Please follow up with your primary care provider. You may require physical therapy, they can refer you. We have provided you with a sling. Please remove your left arm from the sling multiple times daily and engage in gentle range of motion to prevent frozen shoulder. Return with any new or worsening symptoms. In the case of an emergency call 911. Prescriptions: New prednisone 20 mg tablet 40 mg PO DAILY 5 Days Qty: 10 0RF No Action atorvastatin 40 mg tablet 40 mg PO BEDTIME fluoxetine 20 mg capsule 20 mg PO DAILY ezetimibe 10 mg Tablet 10 mg PO DAILY cholecalciferol (vitamin D3) [Vitamin D3] 25 mcg (1,000 unit) Tablet 25 mcg PO DAILY levothyroxine 175 mcg tablet 175 mcg PO QAM trazodone 50 mg tablet 50 mg PO BEDTIME PRN (Reason: Sleep) timolol maleate 0.25 % drops 1 drp ophthalmic-Left DAILY lisinopril 20 mg tablet 20 mg PO DAILY buspirone 10 mg tablet 10 mg PO DAILY Referrals: Adrienne Sheehan, BUDGET REPORT CLERK [Primary Care Provider, Medical] Print Language: Fijian
--- NOTE | 2025-01-19 17:22 | ECG_ITS ---
Test Reason : L SHOULDER PAIN Blood Pressure : */* mmHG Vent. Rate : 58 BPM Atrial Rate : 58 BPM P-R Int : 134 ms QRS Dur : 88 ms QT Int : 416 ms P-R-T Axes : 7 -33 14 degrees QTcB Int : 408 ms Sinus bradycardia Left axis deviation Nonspecific T wave abnormality Abnormal ECG When compared with ECG of 28-Mar-2024 08:50, No significant change was found Referred By: Dinora Cyr Electronically Signed By: ELISSA PATINO
[2025-01-19 17:59] LABS: MANUAL DIFF FLAG NO
[2025-01-19 18:00] LABS: Hematocrit 39.9 % (42.0-52.0); Hemoglobin 13.5 g/dl (14.0-18.0); Imm Gran Abs Auto 0.01 X10*3/uL (0.00-0.03); Imm Gran Pct Auto 0.1 % (0.0-0.4); Lymphocytes Absolute Auto 3.5 X10*3/uL (1.2-4.9); Mean Corpuscular HGB Conc 33.8 g/dl (31.0-36.0); Mean Corpuscular Hemoglobin 26.2 pg (27.0-33.0); Mean Corpuscular Volume 77.5 fL (80.0-98.0); NRBC Abs Auto 0.000 X10*3/uL (0.0-0.012); NRBC Pct Auto 0.0 /100WBC (0.0-0.2); Platelet Count 226 X10*3/uL (160-400); Red Blood Count 5.15 X10*6/uL (4.60-5.80); White Blood Count 7.5 X10*3/uL (4.8-10.8)
[2025-01-19 18:15] LABS: Alanine Aminotransferase 58 U/L (0-40); Albumin Level 4.6 g/dL (3.5-5.0); Alkaline Phosphatase 70 U/L (39-117); Anion Gap 10 (12-20); Aspartate Amino Transferase 42 U/L (5-37); Blood Urea Nitrogen 26 mg/dL (9-16); Calcium 10.1 mg/dL (8.4-10.2); Carbon Dioxide 27 mmol/L (22-29); Chloride 109 mmol/L (96-108); Creatinine Clr Calc Pharmacy 81.8; Estimated Glomerular Filt Rate > 60; Magnesium 2.2 mg/dL (1.6-2.6); Potassium 3.8 mmol/L (3.3-5.1); Sodium 142 mmol/L (135-145); Total Protein 7.7 g/dL (6.5-8.0)
[2025-01-19 18:24] LABS: Troponin-I High Sensitivity < 2.7 ng/L (<3.5-35.0)
--- OUTSIDE RECORDS SUMMARY | 2025-01-19 20:11 | XMS_ITS | Encounter Summary ---
Author Organization [employer] Address [address] [facility] [address] [place] [address] Care Team Providers Care Customer Management Specialist Name Role Phone Sophia Burns LANDSCAPE SPECIALIST Primary Care Provider Linda vailable Kori Alonso MECHANICAL APPRENTICE Primary Care Provider [phone] Boom Estevez MD Primary Care Provider [phone] Kori Alonso MECHANICAL APPRENTICE Primary Care Provider [phone] [facility] LANDSCAPE SPECIALIST Primary Care Provider [phone] Margret Strauss PharmD Unavailable [phone] Encounter Details Date Type Department Care Team (Latest Contact Info) Description 04/17/2021 Abstract [facility] CONVERSIONS Dental, Provider, DDS Social History Tobacco [...] Care Team (Late st Contact Info) Description 01/21/2025 1:30 PM EST Medication Management [facility] MEDICINE [address] [place], [place] [phone] Souleymane Love, PharmD [address] [place] [address] 04/04/2025 2:00 PM EST Office Visit [facility] OPTOMETRY [address] [place] [address] Lou Santos, OD [address] [facility] [place] [address] 04/17/2025 10:15 AM EST Office Visit [facility] ADULT DENTAL [address] [place] [address] Fortunato, Juli [address] [place] [address] documented as of this encounter Visit Diagnoses Not on filedocumented in this encounter Care Teams Customer Management Specialist Relationship Specialty Start Date End Date Sophia Burns FNP PCP - General Family Medicine 10/12/21 11/22/22 Kori Alonso NP [address] [place] [address] PCP - General Family Medicine 11/23/22 01/16/23 Boom Estevez MD [address] [place] [address] PCP - General Internal Medicine 01/17/23 01/18/23 Kori Alonso NP [address] [place] [address] PCP - General Family Medicine 01/19/23 07/03/23 HallsteadAdrienne FNP [address] [place] [address] PCP - General Family Medicine 07/04/23 [place] [address] Pharmacist Internal Medicine 06/12/24 documented as of this encounter
--- OUTSIDE RECORDS SUMMARY | 2025-01-19 20:11 | XMS_ITS | Encounter Summary ---
Author Organization [employer] Address [address] [facility] [place] [address] Care Team Providers Care Plastic Worker Name Role Phone [facility] Primary Care Provider [phone] Margret Strauss PharmD Unavailable [phone] Reason for Visit * Reason Comments Med Refill Encounter Details Date Type Department Care Team (Late st Contact Info) Description 10/28/2023 Refill [facility] MEDICINE [address] [place], [place] [phone] [facility] [address] [place], [place] [phone] Social History Tobacco Use Types Packs/Day Years [...] Description 01/21/2025 1:30 PM EST Medication Management [facility] MEDICINE [address] [place] [address] Souleymane Love, PharmD [address] [place] [address] 04/04/2025 2:00 PM EST Office Visit [facility] OPTOMETRY [address] [place] [address] Tom, Lou, OD [address] [place] [address] 04/17/2025 10:15 AM EST Office Visit [facility] ADULT DENTAL [address] [place] [address] Fortunato, Juli [address] [place] [address] documented as of this encounter Goals Goal Patient Goal Type Associated Problems Recent Progress Patient-Stated? Author Blood Pressure < 140/90 Blood Pressure 118/80(2024 2:15 PM EDT) No Souleymane Love, PharmRuth Hemoglobin A1c < 7 Result Component 6(08/08/2024 2:16 PM EDT) No Love, Souleymane, PharmD documented as of this encounter Visit Diagnoses Not on filedocumented in this encounter Additional Health Concerns Assessment Noted Time PHQ-9 Depression Total Score: 0 09/26/19 24 12:29 PM EDT documented as of this encounter Care Teams Plastic Worker Relationship Specialty Start Date End Date Adrienne SheehanDUY [address] [place] [address] PCP - General Family Medicine 07/04/23 Margret Strauss, SarayD [address] [place] [address] Pharmacist Internal Medicine 06/12/24 documented as of this encounter
--- OUTSIDE RECORDS SUMMARY | 2025-01-19 20:11 | XMS_ITS | Encounter Summary ---
Author Organization [employer] Address [address] [place] [address] Care Team Providers Care Spot Washer Name Role Phone [facility] Primary Care Provider [phone] Magrret Strauss PharmD Unavailable [phone] Reason for Referral * Consultation (Routine) - Pending Review Specialty Diagnoses / Procedures Referred By Contac t Referred To Contact Pharmacy Diagnoses Type 2 diabetes mellitus with hyperglycemia, with long-term current use of insulin (HCC) Emily Brooks MD [address] [place] [address] Phone: tel: fax: Referral ID Status Reason Start Date Expiration Date Visits Requested Visits Authorized [id number] Pending Review Consult and Treat 04/18/2024 04/18/2025 6 6 Encounter Details Date Type Department Care Team (Late st Contact Info) Description 04/18/2024 Orders Only [facility] MEDICINE [address] [place], [place] [phone] Emily Brooks MD [address] [place], [place] [phone] Type 2 diabetes mellitus with hyperglycemia, with [...] 04/18/2024 10:48 AM Lesley Dowd MA * Moving or speaking so [...] Not at all 04/18/2024 10:48 AM Lesley oDwd MA * Patient Health Questionnaire-9 Score Answer Date of Assessment Author 0 04/18/2024 10:48 AM Lesley Dowd MA documented as of this encounter Plan of Treatment Upcoming Encounters Date Type Department Care Team (Late st Contact Info) Description 01/21/2025 1:30 PM EST Medication Management [facility] [address] [place] [address] Souleymane Love, PharmD [address] [place] [address] 04/04/2025 2:00 PM EST Office Visit [facility] OPTOMETRY [address] [place] [address] Tom, Lou, OD [address] [place] [address] 04/17/2025 10:15 AM EST Office Visit [facility] ADULT DENTAL [address] [place] [address] Juli Bucio [address] [place] [address] Scheduled Referrals Name Type Priority Associated Diagnoses Orde r Schedule Referral to Pharmacy CD Outpatient Referral Routine Type 2 diabetes mellitus with hyperglycemia, with long-term current use of insulin ([facility]) Ordered: 04/18/2024 documented as of this encounter Goals Goal Patient Goal Type Associated Problems Recent Progress Patient-Stated? Author Blood Pressure < 140/90 Blood Pressure 118/80(2024 2:15 PM EDT) No Souleymane Love PharmD Hemoglobin A1c < 7 Result Component 6(08/08/2024 2:16 PM EDT) No Souleymane Love, PharmRuth documented as of this encounter Visit Diagnoses Diagnosis Type 2 diabetes mellitus with hyperglycemia, with long-term current use of insulin ([facility])- Primary documented in this encounter Additional Health Concerns Assessment Noted Time PHQ-9 Depression Total Score: 0 04/19/19 10:48 AM EST documented as of this encounter Care Teams Spot Washer Relationship Specialty Start Date End Date Adrienne Sheehan FNP [address] [place] [address] PCP - General Family Medicine 07/04/23 Margret Strauss PharmD [address] [place] [address] Pharmacist Internal Medicine 06/12/24 documented as of this encounter
--- OUTSIDE RECORDS SUMMARY | 2025-01-19 20:11 | XMS_ITS | Encounter Summary ---
Author Organization [employer] Address [address] [place] [address] Care Team Providers Care Sprinkler Inspector Name Role Phone Kori Alonso NP Primary Care Provider [phone] Provider [phone] Margret Strauss PharmD Unavailable [phone] Reason for Visit * Reason Onset Date Comments Med Refill 03/16/2023 Encounter Details Date Type Department Care Team (Late st Contact Info) Description 03/16/2023 Telephone [facility] MEDICINE [address] [place], [place] [phone] Kori Alonso NP [address] [place], [place] [phone] Med Refill Social History Tobacco Use Types [...] Description 01/21/2025 1:30 PM EST Medication Management [facility] MEDICINE [address] [place] [address] Souleymane Love, PharmD [address] [place] [address] 04/04/2025 2:00 PM EST Office Visit [facility] OPTOMETRY [address] [place] [address] Lou Santos, OD [address] [place] [address] 04/17/2025 10:15 AM EST Office Visit [facility] ADULT DENTAL [address] [place] [address] Juli Bucio [address] [place] [address] documented as of this encounter Goals Goal [...] documented as of this encounter Care Teams Sprinkler Inspector Relationship Specialty Start Date End Date Kori Alonso NP [address] [place] [address] PCP - General Family Medicine 01/19/23 07/03/23 Adrienne Sheehan FNP [address] [place] [address] PCP - General Family Medicine 07/04/23 Margret Strauss PharmD [address] [place] [address] Pharmacist Internal Medicine 06/12/24 documented as of this encounter
--- OUTSIDE RECORDS SUMMARY | 2025-01-19 20:11 | XMS_ITS | Encounter Summary ---
Author Organization [employer] Address [address] [place] [address] Care Team Providers Care Lan Support Specialist Name Role Phone [facility] Primary Care Provider [phone] Margret Strauss PharmD Unavailable [phone] Reason for Visit * Reason Comments Med Refill Encounter Details Date Type Department Care Team (Late st Contact Info) Description 09/05/2024 Refill [facility] PEDS [address] [place], [place] [phone] [facility] [address] [place] [address] Social History Tobacco Use Types Packs/Day Years [...] Description 01/21/2025 1:30 PM EST Medication Management [facility] MEDICINE [address] [place] [address] Souleymane Love, PharmD [address] [place] [address] 04/04/2025 2:00 PM EST Office Visit [facility] OPTOMETRY [address] [place] [address] Tom, Lou, OD [address] [place] [address] 04/17/2025 10:15 AM EST Office Visit [facility] ADULT DENTAL [address] [place] [address] Juli Bucio [address] [place] [address] documented as of this encounter Goals Goal [...] documented as of this encounter Care Teams Lan Support Specialist Relationship Specialty Start Date End Date Adrienne Sheehan FNP [address] [place] [address] PCP - General Family Medicine 07/04/23 Margret Strauss PharmD [address] [place] [address] Pharmacist Internal Medicine 06/12/24 documented as of this encounter
--- OUTSIDE RECORDS SUMMARY | 2025-01-19 20:11 | XMS_ITS | Encounter Summary ---
Author Organization [employer] Address [address] [place] [address] Care Team Providers Care Rn Maternity Name Role Phone [facility] Primary Care Provider Margret Strauss PharmD Unavailable [phone] Reason for Visit * Reason Comments Med Refill Encounter Details Date Type Department Care Team (Late st Contact Info) Description 09/10/[address] [facility] MED & PEDS [address] [place], [place] [phone] [facility] [address] [place] [address] Social History Tobacco Use Types Packs/Day Years [...] Description 01/21/2025 1:30 PM EST Medication Management [facility] MEDICINE [address] [place] [address] Souleymane Love, PharmD [address] [place] [address] 04/04/2025 2:00 PM EST Office Visit [facility] OPTOMETRY [address] [place] [address] Tom, Lou, OD [address] [place] [address] 04/17/2025 10:15 AM EST Office Visit [facility] ADULT DENTAL [address] [place] [address] Juli Bucio [address] [place] [address] documented as of this encounter Goals Goal [...] documented as of this encounter Care Teams Rn Maternity Relationship Specialty Start Date End Date Adrienne Sheehan FNP [address] [place] [address] PCP - General Family Medicine 07/04/23 Margret Strauss PharmD [address] [place] [address] Pharmacist Internal Medicine 06/12/24 documented as of this encounter
--- OUTSIDE RECORDS SUMMARY | 2025-01-19 20:12 | XMS_ITS | Encounter Summary ---
Author Organization [employer] Address [address] [place] [address] Care Team Providers Care Grit Blaster Name Role Phone Sophia Burns Primary Care Provider Linda vailable Kori Alonso LPTA Primary Care Provider [phone] Boom Estevez MD Primary Care Provider [phone] Kori Alonso LPTA Primary Care Provider [phone] [facility] SKIN INSTALLER Primary Care Provider [phone] Margret Strauss PharmD Unavailable [phone] Encounter Details Date Type Department Care Team (Late st Contact Info) Description 08/26/2022 [facility] Information Management [address] [place], [place] [phone] Sophia Burns FNP Social History Tobacco Use [...] Description 01/21/2025 1:30 PM EST Medication Management [facility] MEDIC[facility] [address] [place] [address] Souleymane Love, PharmD [address] [place] [address] 04/04/2025 2:00 PM EST Office Visit [facility] OPTOMETRY [address] [place] [address] Tom, Lou, OD [address] [place] [address] 04/17/2025 10:15 AM EST Office Visit [facility] ADULT DENTAL [address] [place] [address] Fortunato Juli [address] [place] [address] documented as of this encounter Visit Diagnoses Not on filedocumented in this encounter Care Teams Grit Blaster Relationship Specialty Start Date End Date Sophia Burns FNP PCP - General Family Medicine 10/12/21 11/22/22 Kori Alonso NP [address] [place] [address] PCP - General Family Medicine 11/23/22 01/16/23 Boom Estevez MD [address] [place] [address] PCP - General Internal Medicine 01/17/23 01/18/23 Kori Alonso NP [address] [place] [address] PCP - General Family Medicine 01/19/23 07/03/23 Adrienne Sheehan FNP [address] [place] [address] PCP - General Family Medicine 07/04/23 Margret Strauss, SarayD [address] [place] [phone] Pharmacist Internal Medicine 06/12/24 documented as of this encounter
--- OUTSIDE RECORDS SUMMARY | 2025-01-19 20:12 | XMS_ITS | Clinical Summary ---
Author Organization [employer] Address [address] [place] [address] Care Team Providers Care Decorator Street And Building Name Role Phone [facility] Primary Care Provider [phone] Margret Strauss PharmD Unavailable [phone] Allergies No known active allergies Medications FREESTYLE LITE test strip USE SEG N LO INDICADO 2 TO 3 TIMES PER DAY 02/19/19 23 Active FreeStyle lancets USE TO CHECK BLOOD SUGARS 2-3 TIMES DAILY. 02/20/19 23 Active betamethasone, augmented, (Diprolene) 0.05 % ointmentIndicatio ns:Lichen simplex chronicus APLIQUE AL AREA AFECTADA DOS VECES AL CINDY 50 g 11/20/19 23 Active Continuous Blood Gluc Healthcare Educator (FreeStyle Dayana 2 Pilger) deviceIndications :Type 2 diabetes mellitus with hyperglycemia, with long-term current use of insulin ([facility]) Scan sensor every 8 hours 1 each 01/06/20 23 Active Blood Pressure Monitor kitIndications:Es sential hypertension Use as directed 1 kit 05/09/19 24 Active albuterol 108 (90 Base) MCG/ACT inhalerIndication s:Mild intermittent asthma without complication Inhale 2 puffs every 4 (four) hours. 18 g 3 05/09/19 24 Active Easy Touch Pen Eclectic 31G X 8 MM misc USE DIRECTED 08/16/19 24 Active glucose 4 g chewable tabletIndications :Type 2 diabetes mellitus with hypoglycemia without coma, with long-term current use of insulin ([facility]) Chew 4 tablets (16 g) if needed for low blood sugar. 50 tablet 12 09/26/19 Active Alcohol Swabs (Alcohol Prep) padsIndications:T ype 2 diabetes mellitus with hyperglycemia, with long-term current use of insulin ([facility]) Use one pad each to prep skin prior to injection as directed 100 each 03/09/19 25 Active atorvastatin (Lipitor) 40 MG tabletIndications :Mixed hyperlipidemia Take 1 tablet (40 mg) by mouth Once per day. 30 tablet 11 5 1:47 PM EST 03/28/19 25 2025 Active levothyroxine (Synthroid) 175 MCG tablet Take 1 tablet (175 mcg) by mouth before breakfast. 90 tablet 3 1:47 PM EST 05/12/19 25 2025 Active pantoprazole (ProtoNix) 40 MG EC tablet Take 40 mg by mouth in the morning. 07/11/19 Active sucralfate (Carafate) 1 GM/10ML suspension Take 10 mL by mouth 2 times daily. 07/11/19 Active timolol (Timoptic) 0.5 % ophthalmic solutionIndicatio ns:Low tension glaucoma of left eye, moderate stage Administer 1 drop into the left eye in the morning. 5 mL 08/10/19 25 2025 Active Continuous Glucose Sensor (FreeStyle Dayana 3 Plus Sensor) miscIndications:T ype 2 diabetes mellitus with hyperglycemia, with long-term current use of insulin ([facility]) USE DIRECTED. CHANGE EVERY 15 DAYS 2 each 3 5 1:47 PM EST 09/27/19 25 Active busPIRone (Buspar) 10 MG tablet Take 10 mg by mouth at bedtime. 10/17/19 25 Active ezetimibe (Zetia) 10 MG tablet Take 10 mg by mouth in the morning. 10/17/19 Active traZODone (Desyrel) 50 MG tablet Take 50 mg by mouth if needed at bedtime. 10/17/19 25 Active fluticasone (Flonase) 50 MCG/ACT nasal sprayIndications: Middle ear effusion, right INSTILL 1-2 SPRAYS IN EACH NOSTRIL ONCE DAILY SHAKE GENTLY 16 g 2 5 1:47 PM EST 11/10/19 25 Active cholecalciferol (D3-1000) 25 MCG (1000 UT) capsuleIndication s:Vitamin D deficiency TAKE 1 CAPSULE BY MOUTH EVERYDAY AT NOON 90 capsule 1 01/08/20 25 Active cholecalciferol (D3-1000) 25 MCG (1000 UT) capsuleIndication s:Vitamin D deficiency TAKE 1 CAPSULE BY MOUTH EVERYDAY AT NOON 90 capsule 1 5 1:47 PM EST 07/17/19 25 2024 Discontinued Active Problems Problem Noted Date Diagnosed Date [...] Secondary erythrocytosis 08/03/2022 Overview (08/03/2022): Appt 05/04/21 [facility] Hematology Severe hematocrit > 60; increased [...] if problems F/U 1 year Severe obesity (CMS/HCC) 03/09/2022 Diabetes mellitus 03/09/2022 Overview (09/02/2023): - [...] Encounters Date Type Department Care Team Description 01/19/2025 Orders Only GENERIC EXTERNAL DATA DEPARTMENT Provider, Generic External Data 01/07/2025 Refill [facility] CHC MED & PEDS [address] [place] [address] [facility] Vitamin D deficiency 11/08/2024 Refill [facility] MEDICINE [address] [place], [place] [phone] [facility] Middle ear effusion, right from Last 3 Months Immunizations Immunization Administration [...] Description 01/21/2025 1:30 PM EST Medication Management [facility] MEDICINE [address] [place] [address] Souleymane Love, PharmD [address] [place] [address] 04/04/2025 2:00 PM EST Office Visit [facility] OPTOMETRY [address] [place] [address] Tom, Lou, OD [address] [place] [address] 04/17/2025 10:15 AM EST Office Visit [facility] ADULT DENTAL [address] [place] [address] Fortunato Juli [address] [place] [address] Health Maintenance Due Date Last Done Comments CT Colonography 1968 FIT DNA/Cologuard 1968 FIT 1968 FOBT 1968 Sigmoidoscopy 1968 RSV Patients and Patients Aged 60 years or older (1 - Risk 50-74 years 1-dose series) 2018 Dental Oral Exam 06/15/2021 12/15/2020 Dental Prophylaxis 10/19/2021 04/17/2021 Dental X-Ray: Bitewings 12/16/2021 12/15/2020 Zoster Vaccines (2 of 2) 03/22/2023 01/25/2023 Dental X-Ray: Full Mouth 04/18/2024 04/17/2021 COVID-19 Vaccine ( season) 2024 04/18/2024, 12/23/2021, 05/13/2021, Additional history exists Influenza Vaccine (#1) 2024 , 01/05/2023, 02/18/2021 Diabetes: Hemoglobin A1C 02/07/2025 025, 07/13/2024, 06/12/2024, Additional history exists Diabetes: Urine Protein Screening 03/09/2025 03/09/2024, 05/09/2023, 02/18/2021 SDOH Screening 04/30/2025 04/30/2024 Lipid Panel 07/13/2025 07/13/2024, 03/17, 03/09/2024, Additional history exists Alcohol/Substance Use Screening 08/08/2025 08/08/2024 Depression Screening 08/08/2025 08/08/2024, 08/09/19 Diabetes: Foot Exam 08/08/2025 08/08/2024, 08/08/2024, 08/26/2023, Additional history exists Disability Screening 08/08/2025 08/08/2024 Tobacco Screening 08/10/2025 08/10/2024 Eye Exam 07/23/2026 07/23/2024, 06/0 10/2024, 07/23/2024, Additional history exists DTaP/Tdap/Td Vaccines (2 - Td or Tdap) 02/18/2031 02/18/2021 Colonoscopy 04/17/2031 04/16/2021 Colorectal Cancer Screening 04/17/2031 HIV Screening Completed 02/18/2021 Hepatitis C Screening [...] 2:16 PM EDT) No Souleymane Love PharmD Procedures Procedure Name Priority Date/Time Associated Diagnosis Comments XR SHOULDER 2+ VIEWS LEFT Routine 01/19/2025 6:25 PM EST HIGH SENSITIVITY TROPONIN I Routine 01/19/2025 5:52 PM EST MAGNESIUM Routine 01/19/2025 5:52 PM EST COMPREHENSIVE METABOLIC PANEL Routine 01/19/2025 5:52 PM EST CBC WITH AUTO DIFFERENTIAL Routine 01/19/2025 5:52 PM EST POCT GLYCATED HEMOGLOBIN, TOTAL Routine 08/08/2024 2:16 PM EDT Type 2 diabetes mellitus with hyperglycemia, with long-term current use of insulin (CMS/HCC) LIPID PANEL, STANDARD Routine 07/13/2024 8:21 AM [...] Relevant to Health Maintenance Results * XR Shoulder 2+ Views Left (01/19/2025 6:25 PM EST) Anatomical Region Laterality Modality Upper Extremities, Shoulder Left Radi ographic Imaging 01/19/2025 6:25 PM EST Narrative 01/19/2025 6:27 PM EST [address] [address] XRay Report Signed Patient: Michele Alicea MR#: [id number] : 1970 Acct:[id number] Age/Sex: 54 / M ADM Date: 01/19/25 Loc: HO.ED Attending Dr: Ordering Physician: Dinora Cyr Date of Service: 01/19/25 Procedure(s): XR shoulder LT min 2V Accession Number(s): [id number] cc: Dinora Cyr; [facility] Reason for Exam: L shoulder pain s/p shoveling snow CLINICAL HISTORY: L shoulder pain s p shoveling snow 4 view left shoulder Comparison: None provided Findings: Bones intact. No dislocations. Moderate degenerative changes of the glenohumeral joint. Mild degenerative changes of the acromioclavicular joint. Small calcifications in the region of the supraspinatus. No erosions. No radiopaque foreign body. IMPRESSION: 1. No acute fracture. 2. Degenerative changes as above. 3. Calcifications in the region of the supraspinatus tendon may represent calcific tendinitis. This document has been electronically signed by: Rianna Jeffers MD on 01/19/2025 18:25:58 Dictated By: Rianna Jeffers MD Signed By: <Electronically signed by Rianna Jeffers MD in OV> 01/19/251826 DD/ 24 TD/TT: 01/19/251824 Engraving Supervisor: Procedure Note Donotuseinterpreter, Image - 01/19/[address] [address] XRay Report Signed Patient: Michele Alicea LMR#: [id number] : 1970Acct:[id number] Age/Sex: 54 / MADM Date: 01/19/25 Loc: HO.ED Attending Dr: Ordering Physician: Dinora Cyr Date of Service: 01/19/25 Procedure(s): XR shoulder LT min 2V Accession Number(s): [id number] cc: Dinora Cyr; [facility] Reason for Exam: L shoulder pain s/p shoveling snow CLINICAL HISTORY: L shoulder pain s p shoveling snow 4 view left shoulder Comparison: None provided Findings: Bones intact. No dislocations. Moderate degenerative changes of the glenohumeral joint. Mild degenerative changes of the acromioclavicular joint. Small calcifications in the region of the supraspinatus. No erosions. No radiopaque foreign body. IMPRESSION: 1. No acute fracture. 2. Degenerative changes as above. 3. Calcifications in the region of the supraspinatus tendon may represent calcific tendinitis. This document has been electronically signed by: Rianna Jeffers MD on 01/19/2025 18:25:58 Dictated By: Rianna Jeffers MD Signed By: <Electronically signed by Rianna Jeffers MD in OV> 01/19/251826 DD/ 24 TD/TT: 01/19/251824 Engraving Supervisor: [facility] External Provider IMG XR PROCEDURES Final Result * High Sensitivity Troponin I (01/19/2025 5:52 PM EST) TROPONIN I HIGH SENSITIVITY <2.7 <3.5 - 35.0 ng/L [facility] Comment:The [place] high sens itivity Troponin-I results should beused in conjunction with other diagnostic information suchas ECG, clinical observations and information, and patientsymptoms to aid in the diagnosis of [place]. 01/19/2025 5:52 PM EST 01/19/2025 5:57 PM EST us Generic External Data Provider LAB BLOOD ORDERAB LES Final Result [facility] [address] [place] [phone] * (ABNORMAL) CBC auto differential (01/19/2025 5:52 PM EST) White Blood Count 7.5 4.8 - 10.8 X10*3/uL [facility] Red Blood Count 5.15 4.60 - 5.80 X10*6/uL [facility] Hemoglobin 13.5(L) 14.0 - 18.0 g/dl [facility] Hematocrit 39.9(L) 42.0 - 52.0 % [facility] Mean Corpuscular Volume 77.5(L) 80.0 - 98.0 fL [facility] Mean Corpuscular Hemoglobin 26.2(L) 27.0 - 33.0 pg [facility] Mean Corpuscular HGB Conc 33.8 31.0 - 36.0 g/dl [facility] Red Cell Distribution Width 14.6 11.0 - 16.0 % [facility] Platelet Count 226 160 - 400 X10*3/uL [facility] Mean Platelet Volume 8.6(L) 9.4 - 12.4 fL [facility] Neutrophils Percent Auto 42.8(L) 45 - 73 % [facility] Imm Gran Pct Auto 0.1 0.0 - 0.4 % [facility] Lymphocytes Percent Auto 46.2(H) 20 - 40 % [facility] Monocytes Percent Auto 5.2 2 - 11 % [facility] Eosinophils Percent Auto 5.2(H) 0 - 4 % [facility] Basophils Percent Auto 0.5 0 - 2 % [facility] NRBC Pct Auto 0.0 0.0 - 0.2 /100WBC [facility] Neutrophils Absolute Auto 3.2 2.0 - 8.3 x10*3/uL [facility] Imm Gran Abs Auto 0.01 0.00 - 0.03 X10*3/uL [facility] Lymphocytes Absolute Auto 3.5 1.2 - 4.9 X10*3/uL [facility] Monocytes Absolute Auto 0.4 0.1 - 1.2 X10*3/uL [facility] Eosinophils Absolute Auto 0.4 0.0 - 0.4 X10*3/uL [facility] Basophils Absolute Auto 0.0 0.0 - 0.2 X10*3/uL [facility] NRBC Abs Auto 0.000 0.0 - 0.012 X10*3/uL [facility] 01/19/2025 5:52 PM EST 01/19/2025 5:57 PM EST us Generic External Data Provider LAB BLOOD ORDERAB LES Final Result Performing Organization Address [facility]/ZIP Co de Phone Number [facility] [address] [place] [phone] * Magnesium (01/19/2025 5:52 PM EST) Pathologist [facility] Magnesium 2.2 1.6 - 2.6 mg/dL [facility] 01/19/2025 5:52 PM EST 01/19/2025 5:57 PM EST [employer] External Data Provider LAB BLOOD ORDERAB LES Final Result Performing Organization Address [facility] Co de Phone Number [facility] [address] [place] [phone] * (ABNORMAL) Comprehensive Metabolic Panel (01/19/2025 5:52 PM EST) Pathologist [facility] Sodium 142 135 - 145 mmol/L [facility] Potassium 3.8 3.3 - 5.1 mmol/L [facility] Chloride 109(H) 96 - 108 mmol/L [facility] Carbon Dioxide 27 22 - 29 mmol/L [facility] Anion Gap 10(L) 12 - 20 [facility] Urea Nitrogen (BUN) 26(H) 9 - 16 mg/dL [facility] Creatinine, Serum 1.01 0.5 - 1.4 mg/dL [facility] Creatinine Clr Calc Pharmacy 81.8 [facility] Comment:eGFR (calculated fro m the MDRD study equation) and eCrCl(calculated from the Cockcroft-Gault equation) are based ondifferent parameters and may not yield comparable results.If eCrCl result is absurd, please check patient'sheight/weight. Estimated Glomerular Filt Rate >60 [facility] Comment:Chronic Kidney Disea se: Estimated GFR < 60 mL/min/1.73u6Ferixx Kidney Disease: Estimated GFR < 15 mL/min/1.73m2 Glucose 95 60 - 115 mg/dL [facility] Calcium 10.1 8.4 - 10.2 mg/dL [facility] Bilirubin, Total 0.3 0.0 - 1.0 mg/dL [facility] Aspartate Amino Transferase 42(H) 5 - 37 U/L [facility] Alanine Aminotransferase 58(H) 0 - 40 U/L [facility] Total Protein 7.7 6.5 - 8.0 g/dL [facility] Albumin Level 4.6 3.5 - 5.0 g/dL [facility] Alkaline Phosphatase 70 39 - 117 U/L [facility] 01/19/2025 5:52 PM EST 01/19/2025 5:57 PM EST us Generic External Data Provider LAB BLOOD ORDERAB LES Final Result [facility] [address] [place] [phone] [phone] * (ABNORMAL) POCT HGB A1C (08/08/2024 2:16 PM EDT) Hemoglobin A1C 6.0 4.0 - 6.0 % Blood 08/08/2024 2:16 PM EDT [facility] PULVI MIXER OPERATOR POINT OF CARE TEST ENTER/EDIT ORDERABLES Final Result * (ABNORMAL) Lipid Panel, Standard (07/13/2024 8:21 AM EDT) Triglycerides 63 <150 mg/dL [facility] Comment:Desirable Triglyceri de: less than 150 mg/dLBorderline High Triglyceride 150-199 mg/dLHigh Triglyceride: 200-499 mg/dLVery High Triglyceride: greater than or equal to 5OO mg/dL Cholesterol 137 <200 mg/dL [facility] Comment:Desirable Cholestero l: less than 200 mg/dLBorderline High Cholesterol: 200-239 mg/dLHigh Cholesterol: greater than 239 mg/dL LDL Cholesterol Calculated 92 <100 mg/dL [facility] Comment:Desirable LDL: less than 100 mg/dLNear Optimal/Above Optimal LDL: 110- 129 mg/dLBorderline High LDL: 130-159 mg/dLHigh LDL: 160-189 mg/dLVery High LDL: greater than or equal to 190 mg/dL HDL Cholesterol 33(L) >40 mg/dL [facility] Comment:Desirable HDL: great er than 40 mg/dL Note: This HDL assay may give artificially low results in patients with liver disease. 07/13/2024 8:21 AM EDT 07/13/2024 8:21 AM EDT Generic External Data Provider LAB BLOOD ORDERAB LES Final Result [facility] [address] [place], [place] [phone] * (ABNORMAL) Albumin, Random Urine W/Creatinine (03/09/2024 10:14 AM EST) Creatinine, Urine 160.00 mg/dL [facility] Microalbumin Urine 475.0 mg/L [facility] Microalbum Creatinine Ratio Ur 296.8(H) <30 ug/mg cr [facility] Comment:Albumin/Creatinine R atio Reference Ranges: Normal: < 30 ug/mg creatinine Microalbuminuria: 30 - 300 ug/mg creatinineClinical Albuminuria: > 300 ug/mg creatinine Urine 03/09/2024 10:1 4 AM EST 03/09/2024 11:34 AM EST [facility] PULVI MIXER OPERATOR LAB URINE ORDERABLES Final Re sult [facility] [address] [place] [phone] * Colonoscopy (04/16/2021) Pathologist [facility] Colonoscopy Normal Normal, Abnormal, BIRADS 0 , BIRADS 1 , BIRADS 2, BIRADS 3 , BIRADS 4+ Comment:Patient States got i t done at [facility] and was normal. Historical Provider MD HEALTH MAINTENANCE Final Result * HEPATITIS C AB W/REFL TO HCV RNA, QN, PCR (02/18/2021 4:20 PM EST) Pathologist [facility] HEPATITIS C ANTIBODY NON-REACT PEPE NON-REACT PEPE [facility] INDEX 0.04 <1.00 [facility] Comment: HCV antibody was non-reactive. There is no laboratory evidence of HCV infection. In most cases, no further action is required. However, if recent HCV exposure is suspected, a test for HCV RNA (test code 29871) is suggested. For additional information please refer to http://education.[employer].Open Me/faq/WSN86v2 (This link is being provided for informational/ educational purposes only.) 02/18/2021 4:20 PM EST Teri Alanis NP HISTORICAL/NON ORDERABLE LABS Final Result [facility] [address] * HIV 1/2 ANTIGEN/ANTIBODY,FOURTH GENERATION W/RFL (02/18/2021 4:20 PM EST) HIV-1/2 ANTIGEN AND ANTIBODIES, 4TH GENERATION W/ REFLEX NON-REACT PEPE NON-REACT PEPE [facility] Comment: HIV-1 antigen and [...] purpose. For additional information please refer to http://education.[employer]/faq/HOG974 (This link is being provided for informational/ educational purposes only.) The performance of this assay has not been clinically validated in patients less than 2 years old. 02/18/2021 4:20 PM EST us Teri Alanis NP LAB BLOOD ORDERABLES Final Res ult [facility] [address] from Last 3 Months or Most Recently Relevant to Health Maintenance Insurance [facility] STANDARD [employer] ONE CARE < 65 DENTAL-[facility] MEDICAID STAND ADULT Care Teams [address] [employer] [address] Relationship Specialty Start Date End Date Adrienne Sheehan FNP [address] [place] [address] PCP - General Family Medicine 07/04/23 Margret Strauss PharmD [address] [place], [place] [phone] Pharmacist Internal Medicine 06/12/24
--- OUTSIDE RECORDS SUMMARY | 2025-01-19 20:12 | XMS_ITS | Encounter Summary ---
Author Organization [employer] Address [address] [place] [address] Care Team Providers Care Safety Technician Name Role Phone [facility] Primary Care Provider [phone] Margret Strauss PharmD Unavailable [phone] Encounter Details Date Type Department Care Team (Late st Contact Info) Description 09/11/2024 Telephone [facility] MEDICINE [address] [place], [place] [phone] [facility] [address] [place], [place] [phone] Social History Tobacco Use Types Packs/Day Years [...] Description 01/21/2025 1:30 PM EST Medication Management [facility] MEDICINE [address] [place] [address] Souleymane Love, PharmD [address] [place] [address] 04/04/2025 2:00 PM EST Office Visit [facility] OPTOMETRY [address] [place] [address] Tom, Lou, OD 230 [place] [address] 04/17/2025 10:15 AM EST Office Visit [facility] ADULT DENTAL [address] [place] [address] Juli Bucio [address] [place] [address] documented as of this encounter Goals Goal Patient Goal Type Associated Problems Recent Progress Patient-Stated? Author Blood Pressure < 140/90 Blood Pressure 118/80(2024 2:15 PM EDT) No Souleymane Love, PharmD Hemoglobin A1c < 7 Result Component 6(08/08/2024 2:16 PM EDT) No Souleymane Love, PharmD documented as of this encounter Visit Diagnoses Not on filedocumented in this encounter Additional Health Concerns Assessment Noted Time PHQ-9 Depression Total Score: 0 08/09/19 2:16 PM EDT documented as of this encounter Care Teams Safety Technician Relationship Specialty Start Date End Date Adrienne Sheehan FNP [address] [place] [address] PCP - General Family Medicine 07/04/23 Margret Strauss, Rayshawn [address] [place] [address] Pharmacist Internal Medicine 06/12/24 documented as of this encounter
--- OUTSIDE RECORDS SUMMARY | 2025-01-19 20:12 | XMS_ITS | Encounter Summary ---
Author Organization [employer] Address [address] [place] [address] Care Team Providers Care Laundry Technician Name Role Phone [facility] Primary Care Provider [phone] Margret Strauss PharmD Unavailable [phone] Reason for Visit * Reason Comments Med Refill Encounter Details Date Type Department Care Team (Late st Contact Info) Description 11/07/[address] [facility] MEDICINE [address] [place], [place] [phone] [facility] [address] [place], [place] [phone] Mild intermittent asthma without complication Social History [...] Description 01/21/2025 1:30 PM EST Medication Management [facility] MEDICINE [address] [place] [address] Souleymane Love, PharmD [address] [place] [address] 04/04/2025 2:00 PM EST Office Visit [facility] OPTOMETRY [address] [place] [address] Tom, Lou, OD 230 [place] [address] 04/17/2025 10:15 AM EST Office Visit [facility] ADULT DENTAL [address] [place] [address] Gabo Bucioaris [address] [place] [address] documented as of this encounter Goals Goal Patient Goal Type Associated Problems Recent Progress Patient-Stated? Author Blood Pressure < 140/90 Blood Pressure 118/80(2024 2:15 PM EDT) No Souleymane Love, PharmD Hemoglobin A1c < 7 Result Component 6(08/08/2024 2:16 PM EDT) Souleymane John, SarayD documented as of this encounter Visit Diagnoses Diagnosis Mild intermittent asthma without complication documented in this encounter Additional Health Concerns Assessment Noted Time PHQ-9 Depression Total Score: 0 09/26/19 24 12:29 PM EDT documented as of this encounter Care Teams Laundry Technician Relationship Specialty Start Date End Date AguilaAdrienne beltran FNP [address] [place] [address] PCP - General Family Medicine 07/04/23 Margret Strauss, SarayD [address] [place] [address] Pharmacist Internal Medicine 06/12/24 documented as of this encounter
--- OUTSIDE RECORDS SUMMARY | 2025-01-19 20:12 | XMS_ITS | Encounter Summary ---
Author Organization [employer] Address [address] [place] [address] Care Team Providers Care Flight Information Expediter Name Role Phone [facility] Primary Care Provider Margret Strauss PharmD Unavailable [phone] Reason for Visit * Reason Comments Med Refill Encounter Details Date Type Department Care Team (Late st Contact Info) Description 09/11/[address] [facility] CH[facility] MED & PEDS [address] [place], [place] [phone] [facility] [address] [place] [address] Social History Tobacco Use Types Packs/Day Years [...] 01/21/2025 1:30 PM EST Medication Management [facility] MEDICINE [address] [place] [address] Souleymane Love, PharmD [address] [place] [address] 04/04/2025 2:00 PM EST Office Visit [facility] OPTOMETRY [address] [place] [address] Tom, Lou, OD 230 [place] [address] 04/17/2025 10:15 AM EST Office Visit [facility] ADULT DENTAL [address] [place] [address] Juli Bucio [address] [place] [address] documented as of this encounter Goals Goal [...] as of this encounter Care Teams Flight Information Expediter Relationship Specialty Start Date End Date Adrienne Sheehan FNP [address] [place] [address] PCP - General Family Medicine 07/04/23 Margret Strauss PharmD [address] [place] [address] Pharmacist Internal Medicine 06/12/24 documented as of this encounter
--- OUTSIDE RECORDS SUMMARY | 2025-01-19 20:12 | XMS_ITS | Data Portability ---
Author Organization [employer] [facility], [facility] Address [address] [place] [address] Care Team Providers Care Product Craftsman Name Role Phone [facility] Referring Provider Assessment Encounter Date Assessment Date Assessment LastModified by Organization Details LastModified Time 12/02/2022 12/02/2022 I provided real -time medical direction via phone for this encounter, and was available for additional phone based assistance as needed. I have reviewed and agree with the Assessment and Plan as documented by the Cardiac Nurse. Patient given the opportunity to ask questions via shoes salesperson. Advised if develops CP/severe SOB/turning blue/uncontrolle d n/v/d / AMS/ syncope/ hi fever unresponsive to APAP to call 911- verbalized understanding of instructions Not available 12/02/2022 18:26:30 Plan of Treatment Reminders Order Date Submit Date Provider Last Modified By Organization Details Last Modified Time Details Appointments None recorded. Lab unlisted lab - covid-19 (novel coronavirus ) PCR 2022 023 CARMEN [facility] (Centralized Electronic Ordering - All Locations), Patient Can Go To The Location Of Their Choice, [address] 23:07:35 rapid SARS CoV 2 Ag, QL IA, respiratory specimen 2022 023 [email or web address] 0 [facility], [address] [place] [address], [id number] 3 18:25:57 rapid flu (A+B) 2022 023 [email or web address] 0 [facility], [address] [place] [address], [id number] 3 18:25:55 glucose, fingerstick , blood 2022 023 [email or web address] 0 [facility], [address] [place] [address], [phone] 19:09:38 Referral None recorded. Procedures None recorded. Surgeries None recorded. Imaging None recorded. Medication Orders ondansetron 4 mg disintegrat ing tablet 2022 023 [facility] [address] [place], [address], 19:09:42 albuterol sulfate HFA 90 mcg/actuati on aerosol inhaler 2022 023 [facility], [address] [place], [address], 19:09:38 prednisone 20 mg tablet 2022 023 [email or web address] 0 Not available 19:09:35 prednisone 20 mg tablet 2022 023 [facility], [address] [place], [address], 19:09:38 benzonatate 200 mg capsule 2022 023 [facility] [address] [place], [address], 19:09:39 ondansetron 4 mg disintegrat ing tablet 2022 023 [email or web address] 0 [facility] #1026, [address] [place], [address], 19:09:34 Patient TargetsNo targets recorded. Patient InstructionsNo instructions recorded. Reason for Referral None Reported. Results Created Date Observation Date Name Description Value Unit Range Abnormal Flag Note LastModifiedBy Organization Detail LastModifiedTime 12/03/1912/02/2022 COVID -19 (LOIS IGLESIAS S) PCR results Richarli autumn Order Not Available [facility] (Centralized Electronic Ordering - All Locations) Patient Can Go To The Location Of Their Choice, [address] 12/02/2022 23:07:35 10/19/20 23 12/02/2022 COVID -19 (NOVE L CORON AVIRU S) PCR covid-19 PCR specimen source NASAL Not Available [facility] (Centralized Electronic Ordering - All Locations) Patient Can Go To The Location Of Their Choice, [address] 12/04/2022 02:39:17 12/03/1912/04/2022 COVID -19 (NOVE L [...] ng. Resul t repor jens to the [facility]. To preve nt error s in diagn [...] perfo rmed by real time PCR [facility] FANNY [employer] SARS- CoV-2 test. Not Available [facility] (Centralized Electronic Ordering - All Locations) Patient Can Go To The Location Of Their Choice, [address] 12/04/2022 02:39:17 12/03/1912/02/2022 gluco se, bob melvin k, blood Blood Glucose: mg/dl 125 Not Available [facility] [address] [place] [address], [phone] 12/02/2022 19:09:18 12/03/19 23 12/02/2022 rapid flu (A+B) Flu negati ve Not Available [facility] [address] [place] [address], [phone] 12/02/2022 18:25:30 12/03/19 23 12/02/2022 rapid SARS CoV 2 Ag, QL IA, respi rator y speci men rapid SARS CoV 2 Ag, QL IA, respiratory specimen negati ve Not Available [facility] ed [address] [place] [address], [phone] 12/02/2022 18:25:29 Result Notes None recorded. Medical [...] Available No t Available Comfort EZ Pen [place] 33 gauge x 1/4 active Not Available Not Available Not Available Trulicity 1.5 mg/0.5 mL subcutaneous pen injector INJECT 1 PEN ONCE WEEKLY active Not Available Not Available No t Available [employer] Dayana 2 Sensor kit USE SEG N LO INDICADO EVERY 14 DAYS active Not Available Not Available No t Available [employer] Dayana 2 [place] USE SEG N LO INDICADO active Not Available Not Available Not Available Trulicity 4.5 mg/0.5 mL subcutaneous pen injector INJECT 4.5 MG UNDER THE SKIN 1 TIME PER WEEK. active Not Available Not Available No t Available Vitals Date Recorded Body temperature Respiratory rate Heart rate Oxygen saturation Systolic And Diastolic Provider Name and Address Organization Details Last Updated DateTime 3 97.6 [degF] 16 /min 69 /min 97 % 145/75 mm[Hg] Not Available [facility] - production 3 18:23:51 Date Recorded Oxygen saturation Respiratory rate Body temperature Heart rate Systolic blood pressure Provider Name and Address Organization Details Last Updated DateTime 3 91 % 20 /min 98.1 [degF] 84 /min 90 mm[Hg] Not Available [facility] - production 3 18:54:59 Social History None recorded. Functional Status None recorded. Mental Status None recorded. Family History Nothing Reported. Medical History No medical history recorded. Past Encounters Encounter ID Performer Location Encounter Start Date Encounter Closed Date Diagnosis/Indication Diagnosis SNOMED-CT Code Diagnosis ICD10 Code Diagnosis IMO Codes Diagnosis Note [id number] Teri Ruth MD Main - [facility] [address] [place] [phone] 12/02/2022 18:23:49 12/04/2022 17:36:24 Upper respiratory infection 95092046 J06.9 - viral- no fever- no colored [...] get the COVID PCR back sent to [facility] advised would call him at once if the results were positive. Advised sitting up when sleeping at night to prevent coughing [id number] Reinaldo Sultana MD Main - [facility] [address] [place] [phone] 12/25/2022 18:54:56 12/27/2022 14:31:02 Sepsis 38273542 A41.9 This 52-year-ol d male has had [...] Dickson Member ID Guarantor Name 04/11/2023 1 [facility] - DOS ON OR AFTER 2022 - DUAL ELIGIBLE - DETENTION OPTIONS AND ONE CARE (MEDICARE REPLACEMENT/ADV ANTAGE - HMO) Michele Lobo [id number] Michele Lobo Notes Date Note Type Note Provider Name and Address Organization Details Recorded Time 12/02/2022 text/html ROS as noted in the HPI HPI: Complaints of several days of dry cough. Occasional phlegm only. No fever. No SOB/CP. NO COVID testing done. History of asthma but no inhaler for use. Uses CPap but not in many days as tubing is broken and is unsure who to call. Unable to find DME provider listed in chart. .................. .................. .................. .................. .................. .................. .................. ............... CRC Nursing Assessment: Comments: Call to member with cash posting specialist services to confirm address and get more information. Member reports bad, on going cough. No congestion. Having some nausea but no other GI symptoms. Regular BMs. Member identified via name and . Suhas Flood RN SEGMD: Patient denies chest pain, fever or chills. Has mostly dry cough for the past 2 days occasionally producing white phlegm-making it difficult for him to sleep. He complains that his CPAP makes him cough especially when supine /complains of nausea when coughing.......... .................. .................. .................. .................. .................. .................. .................. ..... Cardiac Nurse Note From Radu Charles: [facility] 2 arrives to find 51-year-old male seated on couch. Patient reports dry cough xtwo days. Patient denies any other respiratory symptoms. Patient reports intermittent nausea with cough. Patient has not taken any OTC medication to help. Vitals taken as noted. Covid and flu swab negative. BGL 126. [facility] consulted orders received for 40 mg of prednisone PO and 4 mg of ondansetron PO. PCR Covid prepared for send out [facility] 2 clear. .................. .................. .................. .................. .................. .................. .................. ............... Disposition: Fulfilled Teri Ruth MD [address] [facility], [place], [phone], [facility] 2022 17:26:50 12/25/2022 text/html ROS as noted in the HPI HPI: reports loose stools x a few days was seen in ER on , reports they did bloodwork, but does not know results. Member has continued having loose stools, today only one loose stool but member is eating only a few bites of food and small amounts of water. Reports intermittent abd pain, feels hot not sure if febrile. COVID negative. Refuses ER evaluation. Requesting [facility]. .................. .................. .................. .................. .................. .................. .................. ............... CRC Nursing Assessment: Comments: Shawn Sultana MD [address] [facility], [place], [phone], [facility] - [employer] 12/25/2022 18:58:14
--- OUTSIDE RECORDS SUMMARY | 2025-01-19 20:12 | XMS_ITS | Encounter Summary ---
Author Organization [employer] Address [address] [place] [address] Care Team Providers Care Income Tax Auditor Name Role Phone [facility] Primary Care Provider Margret Strauss PharmD Unavailable [phone] Encounter Details Date Type Department Care Team (Late st Contact Info) Description 01/19/2025 Orders Only GENERIC EXTERNAL DATA [...] Description 01/21/2025 1:30 PM EST Medication Management [facility] MEDICINE [address] [place] [address] Souleymane Love, Rayshawn [address] [place] [address] 04/04/2025 2:00 PM EST Office Visit [facility] OPTOMETRY [address] [place] [address] Tom, Lou, OD 230 [place] [address] 04/17/2025 10:15 AM EST Office Visit [facility] ADULT DENTAL [address] [place] [address] Fortunato, Juli [address] [place] [address] documented as of this encounter Goals Goal [...] TROPONIN I Routine 01/19/2025 5:52 PM EST CBC WITH AUTO DIFFERENTIAL Routine 01/19/2025 5:52 PM EST MAGNESIUM Routine 01/19/2025 5:52 PM EST COMPREHENSIVE METABOLIC PANEL Routine 01/19/2025 5:52 PM EST documented in this encounter Results * XR Shoulder 2+ Views Left (01/19/2025 6:25 PM EST) Anatomical Region Laterality Modality Upper Extremities, Shoulder Left Radi ographic Imaging 01/19/2025 6:25 PM EST Narrative 01/19/2025 6:27 PM EST [place] [id number] XRay Report Signed Patient: Michele Alicea MR#: [id number] : 1970 Acct:[id number] Age/Sex: 54 / M ADM Date: 01/19/25 Loc: HO.ED Attending Dr: Ordering Physician: Dinora Cyr Date of Service: 01/19/25 Procedure(s): XR shoulder LT min 2V Accession Number(s): [id number] cc: Dinora Cyr; [employer] Reason for Exam: L shoulder pain s/p [...] in OV> 01/19/251826 DD/ 24 TD/TT: 01/19/251824 [employer]: Procedure Note Janeinterpreter, Image - 01/19/2025 [place] [id number] XRay Report Signed Patient: Michele Alicea LMR#: [id number] : 1970Acct:[id number] Age/Sex: 54 / MADM Date: 01/19/25 Loc: HO.ED Attending Dr: Ordering Physician: Dinora Cyr Date of Service: 01/19/25 Procedure(s): XR shoulder LT min 2V Accession Number(s): [id number] cc: Dinora Cyr; [employer] Reason for Exam: L shoulder pain s/p [...] in OV> 01/19/251826 DD/ 24 TD/TT: 01/19/251824 [employer]: [facility] External Provider IMG XR PROCEDURES Final Result * High Sensitivity Troponin I (01/19/2025 5:52 PM EST) TROPONIN I HIGH SENSITIVITY <2.7 <3.5 - 35.0 ng/L [facility] Comment:The [place] high sens itivity Troponin-I results should beused in conjunction with other diagnostic information suchas ECG, clinical observations and information, and patientsymptoms to aid in the diagnosis of [place]. 01/19/2025 5:52 PM EST 01/19/2025 5:57 PM EST Generic External Data Provider LAB BLOOD ORDERAB LES Final Result Performing Organization Address [facility]/ZIP Co de Phone Number [facility] [address] [place] [phone] * Magnesium (01/19/2025 5:52 PM EST) [facility] Magnesium 2.2 1.6 - 2.6 mg/dL [facility] 01/19/2025 5:52 PM EST 01/19/2025 5:57 PM EST [employer] External Data Provider LAB BLOOD ORDERAB LES Final Result Performing Organization Address [facility] de Phone Number [facility] [address] [place] [phone] * (ABNORMAL) Comprehensive Metabolic Panel (01/19/2025 5:52 PM EST) [facility] Sodium 142 135 - 145 mmol/L [facility] Potassium 3.8 3.3 - 5.1 mmol/L [facility] Chloride 109(H) 96 - 108 mmol/L [facility] Carbon Dioxide 27 22 - 29 mmol/L [facility] Anion Gap 10(L) 12 - 20 [facility] Urea Nitrogen (BUN) 26(H) 9 - 16 mg/dL [facility] Creatinine, Serum 1.01 0.5 - 1.4 mg/dL [facility] Creatinine Clr Calc Pharmacy 81.8 [facility] Comment:eGFR (calculated fro m the MDRD study equation) and eCrCl(calculated from the Cockcroft-Gault equation) are based ondifferent parameters and may not yield comparable results.If eCrCl result is absurd, please check patient'sheight/weight. Estimated Glomerular Filt Rate >60 [facility] Comment:Chronic Kidney Disea se: Estimated GFR < 60 mL/min/[id number] Kidney Disease: Estimated GFR < 15 mL/min/1.73m2 Glucose 95 60 - 115 mg/dL [facility] Calcium 10.1 8.4 - 10.2 mg/dL [facility] Bilirubin, Total 0.3 0.0 - 1.0 mg/dL [facility] Aspartate Amino Transferase 42(H) 5 - 37 U/L [facility] Alanine Aminotransferase 58(H) 0 - 40 U/L [facility] Total Protein 7.7 6.5 - 8.0 g/dL [facility] Albumin Level 4.6 3.5 - 5.0 g/dL [facility] Alkaline Phosphatase 70 39 - 117 U/L [facility] 01/19/2025 5:52 PM EST 01/19/2025 5:57 PM EST us Generic External Data Provider LAB BLOOD ORDERAB LES Final Result [facility] [address] [place] [phone] * (ABNORMAL) CBC auto differential (01/19/2025 5:52 PM EST) White Blood Count 7.5 4.8 - 10.8 X10*3/uL [facility] Red Blood Count 5.15 4.60 - 5.80 X10*6/uL [facility] Hemoglobin 13.5(L) 14.0 - 18.0 g/dl [facility] Hematocrit 39.9(L) 42.0 - 52.0 % [facility] Mean Corpuscular Volume 77.5(L) 80.0 - 98.0 fL [facility] Mean Corpuscular Hemoglobin 26.2(L) 27.0 - 33.0 pg [facility] Mean Corpuscular HGB Conc 33.8 31.0 - 36.0 g/dl [facility] Red Cell Distribution Width 14.6 11.0 - 16.0 % [facility] Platelet Count 226 160 - 400 X10*3/uL [facility] Mean Platelet Volume 8.6(L) 9.4 - 12.4 fL [facility] Neutrophils Percent Auto 42.8(L) 45 - 73 % [facility] Imm Gran Pct Auto 0.1 0.0 - 0.4 % [facility] Lymphocytes Percent Auto 46.2(H) 20 - 40 % [facility] Monocytes Percent Auto 5.2 2 - 11 % [facility] Eosinophils Percent Auto 5.2(H) 0 - 4 % [facility] Basophils Percent Auto 0.5 0 - 2 % [facility] NRBC Pct Auto 0.0 0.0 - 0.2 /100WBC [facility] Neutrophils Absolute Auto 3.2 2.0 - 8.3 x10*3/uL [facility] Imm Gran Abs Auto 0.01 0.00 - 0.03 X10*3/uL [facility] Lymphocytes Absolute Auto 3.5 1.2 - 4.9 X10*3/uL [facility] Monocytes Absolute Auto 0.4 0.1 - 1.2 X10*3/uL [facility] Eosinophils Absolute Auto 0.4 0.0 - 0.4 X10*3/uL [facility] Basophils Absolute Auto 0.0 0.0 - 0.2 X10*3/uL [facility] NRBC Abs Auto 0.000 0.0 - 0.012 X10*3/uL [facility] 01/19/2025 5:52 PM EST 01/19/2025 5:57 PM EST us Generic External Data Provider LAB BLOOD ORDERAB LES Final Result [facility] [address] [place] [address] [place] [phone] documented in this encounter Visit Diagnoses Not on filedocumented in this encounter Additional Health Concerns Assessment Noted Time PHQ-9 Depression Total Score: 0 08/09/19 2:16 PM EDT documented as of this encounter Care Teams Income Tax Auditor Relationship Specialty Start Date End Date AguilaAdrienne beltran FNP [address] [place] [address] PCP - General Family Medicine 07/04/23 Margret Strauss PharmD [address] [place] [address] Pharmacist Internal Medicine 06/12/24 documented as of this encounter
[2025-01-19 20:20] LABS: Troponin-I High Sensitivity < 2.7 ng/L (<3.5-35.0)
[2025-01-19 21:06] VITALS: BP 132/63; PULSE 58; RESP 18; TEMP 36.4; O2SAT 98
== END 2025-01-19 21:07 | disposition home or self-care (01) ==
PROVIDERS: Physician Assistant Medical; Emergency Provider Emergency Medicine Emergency Medical Services; PCP Registered Nurse
DX: M75.32 Calcific tendinitis of left shoulder (principal); M25.512 Pain in left shoulder; R00.1 Bradycardia, unspecified; Z79.899 Other long term (current) drug therapy; Z87.891 Personal history of nicotine dependence
CPT/HCPCS: 36415; 73030; 80053; 83735; 84484; 85025; 93005; 96372; 99283; 99284; J1885

== ENCOUNTER → 2025-01-19 17:22 | Outpatient (BNV) | payer OTHER, SELFPAY | PROVIDERS: Emergency Provider Emergency Medicine Emergency Medical Services; PCP Registered Nurse; Visit Provider Internal Medicine | DX: R00.1 Bradycardia, unspecified (principal) | CPT/HCPCS: 93010 ==

== ENCOUNTER → 2025-01-19 17:22 | Outpatient (BNV) | payer OTHER, SELFPAY | PROVIDERS: PCP Registered Nurse; Visit Provider Student in an Organized Health Care Education/Training Program | DX: M19.012 Primary osteoarthritis, left shoulder (principal) | CPT/HCPCS: 73030 ==